=== PATIENT | female | born 1945 | race Caucasian/White ===

== ENCOUNTER 2016-05-11 11:05 | Inpatient (IN) | payer MEDICARE ==
[2016-05-11] MEDS ORDERED: FENTANYL CITRATE INJ/PF 100 MCG/2 ML AMPUL IV ONE ×2 (11:31→13:34)
--- NOTE | 2016-05-11 11:39 | ER Document Report ---
ED Fall - General Chief Complaint: Fall Stated Complaint: FALL;LEFT HIP PAIN Notes: Patient is a 71-year-old female presents emergency department after a fall this morning. Patient states that she was walking down the stairs and she slipped and fell down 3 stairs. States she hit her head and but complaining of right hip pain denies any headache or neck pain. States 9 and 15 pain to the right hip that is externally rotated and shortened. Was previously on blood thinners but hasn't taken any in a month. Allergies to codeine Past medical history significant for breast cancer currently on chemotherapy, diabetes, hypertension, fibromyalgia, anxiety, hyperlipidemia, treated DVT, history of cellulitis of the lower extremities Past surgery significant for tubal ligation, back surgery, bariatric surgery, left mastectomy - Related data Allergies/Adverse Reactions: codeine Allergy (Verified 05/11/16 12:04) Past Medical History - Social History Smoking Status: Never Smoker Family History: Reviewed & Not Pertinent Review of Systems - Review of Systems Constitutional: No symptoms reported EENT: No symptoms reported Cardiovascular: No symptoms reported Respiratory: No symptoms reported Gastrointestinal: No symptoms reported Genitourinary: No symptoms reported Female Genitourinary: No symptoms reported Musculoskeletal: See HPI Skin: No symptoms reported Hematologic/Lymphatic: No symptoms reported Neurological/Psychological: No symptoms reported Physical Exam - Vital signs Vitals: Temp Pulse Resp BP Pulse Ox 97.6 F 80 20 137/76 H 98 05/11/16 11:30 05/11/16 11:30 05/11/16 11:30 05/11/16 11:30 05/11/16 11:30 - Notes Notes: A: Airway clear, patient able to talk B: Breathing unlabored. Bilateral breath sounds clear to auscultation C: Radial, femoral, dorsalis pedis pulses are not palpable due to edema but would auscultate with Doppler and normal bilaterally D: GCS 15 E: Patient exposed, no additional deformities noted covered with warm blankets PHYSICAL EXAM GENERAL: Alert, interacts well. HEAD: Normocephalic, atraumatic. EYES: Pupils equal, round, and reactive to light. Extraocular movements intact. ENT: Oral mucosa moist, tongue midline. NECK: Not in a collar will not assess range of motion until CT completed Supple. Trachea midline. LUNGS: Clear to auscultation bilaterally, no wheezes, rales, or rhonchi. No respiratory distress. HEART: Regular rate and rhythm. No murmurs, gallops, or rubs. ABDOMEN: Soft, nondistended, nontender. No guarding, rebound, or rigidity.. Bowel sounds present in all 4 quadrants. EXTREMITIES: Externally rotated right lower extremity and shortened. Femoral pulses intact, pelvis stable. 2+ edema, radial and dorsalis pedis pulses 2/4 bilaterally. No cyanosis. NEUROLOGICAL: Alert and oriented x3. Normal speech. PSYCH: Normal affect, normal mood. SKIN: Warm, dry, normal turgor. No rashes or lesions noted. Course - Re-evaluation Re-evalutation: 05/11/16 13:36 Patient is a 71-year-old female who is hemodynamically stable, no acute distress and afebrile who presents after a fall this morning down flight of stairs. CT the head and neck were negative for injury, no evidence of vertebral fracture on x-ray. No evidence of pelvic fracture. Patient does have a right intertrochanteric fracture of the proximal femur. I have consulted Dr. Daryl Crowell orthopedist distribution district supervisor for evaluation. Patient is being admitted under hospitalist Dr. Scotty Carey with Dr. Crowell consultation. Discussed plan with patient who is agreeable. Patient is diabetic diet, nothing by mouth at midnight for or tomorrow. Patient is currently hemodynamically stable, no acute distress and afebrile tolerating pain well with doses of IV fentanyl Per [facility] protocol and guidelines, this case was discussed with supervising physician Dr. María Cueva prior to admission - Vital Signs Vital signs: Temp Pulse Resp BP Pulse Ox 97.6 F 80 20 137/76 H 98 05/11/16 11:30 05/11/16 11:30 05/11/16 11:30 05/11/16 11:30 05/11/16 11:30 - Laboratory Result Diagrams: 05/11/16 11:40 05/11/16 11:40 Laboratory results interpreted by me: 05/11/16 05/11/16 11:40 11:40 RBC 3.41 L Hgb 8.6 L Hct 26.9 L MCV 79 L MCH 25.2 L MCHC 31.8 L RDW 17.1 H BUN 25 H Est GFR ( Amer) 59 L Est GFR (Non-Af Amer) 49 L Glucose 201 H Calcium 8.2 L Alkaline Phosphatase 149 H Total Protein 5.5 L Albumin 2.8 L - Diagnostic Test Radiology reviewed: Image reviewed, Reports reviewed Discharge - Discharge Clinical Impression: Intertrochanteric fracture Qualifiers: Encounter type: initial encounter Fracture type: closed Fracture alignment: nondisplaced Laterality: right Qualified Code(s): S72.144A - Nondisplaced intertrochanteric fracture of right femur, initial encounter for closed fracture Condition: Good Disposition: ADMITTED INPATIENT Admitting Provider: Marc Childs [facility] Unit Admitted: Surgical Floor
[2016-05-11 11:49] LABS: ABSOLUTE BASOPHILS # (AUTO) 0.1 10^3/uL (0.0-0.2); ABSOLUTE LYMPHOCYTES (AUTO) 1.7 10^3/uL (0.5-4.7); ABSOLUTE MONOCYTES (AUTO) 0.6 10^3/uL (0.1-1.4); ABSOLUTE NEUT (AUTO) 3.5 10^3/uL (1.7-8.2); EOSINOPHILS % (AUTO) 0.4 % (0-6); HEMATOCRIT 26.9 % (36.0-47.0); HEMOGLOBIN 8.6 g/dL (12.0-15.5); HGB HCT DIFFERENCE -1.1; MEAN CORPUSCULAR HEMOGLOBIN 25.2 pg (27.0-33.4); MEAN CORPUSCULAR HGB CONC 31.8 g/dL (32.0-36.0); MEAN CORPUSCULAR VOLUME 79 fl (80-97); MONOCYTES % (AUTO) 9.5 % (3-13); RED BLOOD COUNT 3.41 10^6/uL (3.72-5.28); RED CELL DISTRIBUTION WIDTH 17.1 % (11.5-14.0); SEGMENTED NEUTROPHILS % (AUTO) 60.1 % (42-78); WHITE BLOOD COUNT 5.9 10^3/uL (4.0-10.5)
[2016-05-11 12:05] LABS: ALANINE AMINOTRANSFERASE 19 U/L (9-52); ALBUMIN 2.8 g/dL (3.5-5.0); ALKALINE PHOSPHATASE 149 U/L (38-126); ANION GAP 9 (5-19); ASPARTATE AMINO TRANSFERASE 15 U/L (14-36); BILIRUBIN,TOTAL 0.3 mg/dL (0.2-1.3); BLOOD UREA NITROGEN 25 mg/dL (7-20); CALCIUM 8.2 mg/dL (8.4-10.2); CARBON DIOXIDE 25 mmol/L (22-30); CHLORIDE 107 mmol/L (98-107); GLUCOSE 201 mg/dL (75-110); SODIUM 140.6 mmol/L (137-145); TOTAL PROTEIN 5.5 g/dL (6.3-8.2)
[2016-05-11 12:15] LABS: PROTHROMBIN TIME 13.7 SEC (11.4-15.4)
[2016-05-11] MEDS ORDERED: GLUCAGON,HUMAN RECOMB 1 MG INJ IM PRN (14:35)
[2016-05-11] MEDS ORDERED: DEXTROSE 50%-WATER 25 GM/50 ML DISP.SYRIN IV PRN ×2 (14:35)
[2016-05-11] MEDS ORDERED: DEXTROSE 40% GEL 15 GM TUBE PO PRN ×2 (14:35)
[2016-05-11] MEDS ORDERED: MAGNESIUM HYDROXIDE SUSP 30 ML UDCUP PO PRN (14:35)
[2016-05-11] MEDS ORDERED: ONDANSETRON HCL INJ/PF 4 MG/2 ML SDV IV PRN (14:35)
[2016-05-11] MEDS ORDERED: IPRATROPIUM/ALBUTEROL 0.5-2.5 MG/3 ML AMPUL NEB PRN (14:35)
--- NOTE | 2016-05-11 14:54 | PDOC H&P ---
History of Present Illness Admission Date/PCP: 05/11/16 14:10 JOVANA REZA NP Patient complains of: Right leg pain History of Present Illness: PROSPER ABREU is a 71 year old female presents from home to the emergency department by EMS after a fall at home. She states she missed the last 3 steps descending landing hard on her right side feeling an immediate sharp pain and inability to get up due to the pain. She called out for help and her family called EMS transporting her to the emergency department, where she was found to have a right intertrochanteric fracture and we were asked to admit for further evaluation and management. The patient has a history of left breast cancer metastatic to 2 out of 28 lymph nodes and to liver but sparing bony metastases per most recent PET CT and currently being treated by Dr. Branch at the cancer center in [place] having received chemotherapy just yesterday. She states she is also on chronic steroid as part of her chemotherapy. She has had multiple previous surgeries and never had any difficulty with general anesthesia or recovering from same. She was in her usual state of health with excellent metabolic equivalents prior to this event. She has diabetes and hypertension but no known coronary disease. She is a never smoker and no history of chronic lung disease. Past Medical History Cardiac Medical History: Reports: Hyperlipidema, Hypertension Denies: Myocardial Infarction Pulmonary Medical History: Denies: Chronic Obstructive Pulmonary Disease (COPD) Endocrine Medical History: Reports: Diabetes Mellitus Type 2 Past Surgical History Past Surgical History: Reports: Orthopedic Surgery - Back Sx, Tubal Ligation Social History Smoking Status: Never Smoker Frequency of Alcohol Use: None Hx Recreational Drug Use: No Hx Prescription Drug Abuse: No - Advance Directive Resuscitation Status: Full Code Family History Family History: Reviewed & Not Pertinent Parental Family History Reviewed: Yes Children Family History Reviewed: Yes Sibling(s) Family History Reviewed.: Yes Medication/Allergy Allergies/Adverse Reactions: codeine Allergy (Verified 05/11/16 12:04) Review of Systems Constitutional: ABSENT: chills, fever(s), headache(s), weight gain, weight loss Eyes: ABSENT: visual disturbances Ears: ABSENT: hearing changes Cardiovascular: ABSENT: chest pain, dyspnea on exertion, edema, orthropnea, palpitations Respiratory: ABSENT: cough, hemoptysis Gastrointestinal: ABSENT: abdominal pain, constipation, diarrhea, hematemesis, hematochezia, nausea, vomiting Genitourinary: ABSENT: dysuria, hematuria Musculoskeletal: PRESENT: as per HPI, joint swelling Integumentary: ABSENT: rash, wounds Neurological: ABSENT: abnormal gait, abnormal speech, confusion, dizziness, focal weakness, syncope Psychiatric: ABSENT: anxiety, depression Endocrine: ABSENT: cold intolerance, heat intolerance, polydipsia, polyuria Hematologic/Lymphatic: ABSENT: easy bleeding, easy bruising Physical Exam Vital Signs: Temp Pulse Resp BP Pulse Ox 97.6 F 80 20 137/76 H 98 05/11/16 11:30 05/11/16 11:30 05/11/16 11:30 05/11/16 11:30 05/11/16 11:30 PHYSICAL EXAM GENERAL: NAD; well developed, well nourished; no obese; alert and oriented to person, place, time, situation HEENT: normocephalic, atraumatic; EOMI, PERRLA, no conjunctival injection, no scleral icterus; oral mucosa moist, neck supple, no LAD, normal ROM RESPIRATORY: no accessory muscle use, no increased WOB, good air entry bilaterally; no wheezes, rales, rhonchi; no inspiratory crackles CARDIO: no JVD; RRR; no systolic murmur; no tachycardia VASCULAR: no carotid bruit; no abdominal bruit; no pallor; 2+ radial, DP pulse ; normal capillary refill GI: soft; nondistended; normal bowel sounds; no hepato spleno megaly; no rebound, rigidity, guarding; nontender NEURO: normal patella reflexes; normal sensation; normal motor function; no dysarthria; no nystagmus; tongue protrudes midline MSK: 5/5 strength; normal ROM hips; normally ambulatory without assistance; sharp tenderness to palpation over the right hip and along the right outer thigh without obvious edema or ecchymosis EXTREMITIES: no calf tender; no palpable cords in calf; no clubbing, cyanosis , pedal edema PSYCH: normal affect, normal mood SKIN: warm; moist; no petechiae; no telengectasias; no jaundice; no rash Results Laboratory Results: Labs reviewed, CBC shows a microcytic hypochromic anemia with an H&H of 8.6 and 27 and MCV is 79 and MCHC of 31 otherwise unremarkable, INR is normal, chemistry show BUN and creatinine 25 and 1.1, glucose of 201 LFTs largely unremarkable. Impressions: Cervical Spine CT 05/11/16 11:29 IMPRESSION: NO ACUTE OR SIGNIFICANT FINDINGS IN THE CERVICAL SPINE. Femur X-Ray 05/11/16 11:29 IMPRESSION: An intertrochanteric fracture of the proximal right femur is identified. No other evidence for fracture is seen Head CT 05/11/16 11:29 IMPRESSION: NORMAL BRAIN CT WITHOUT CONTRAST. Pelvis X-Ray 05/11/16 11:29 IMPRESSION: Intertrochanteric fracture of the proximal right femur. No other evidence for fracture is seen. Spine X-Ray 05/11/16 11:29 IMPRESSION: Limited study as noted above. No significant vertebral compressions are identified. No definite fractures are identified. Other findings as noted above Status: Image reviewed by me - Agree with radiology Assessment & Plan - Diagnosis (1) Intertrochanteric fracture Qualifiers: Encounter type: initial encounter Fracture type: closed Fracture alignment: nondisplaced Laterality: right Qualified Code(s): S72.144A - Nondisplaced intertrochanteric fracture of right femur, initial encounter for closed fracture Is this a current diagnosis for this admission?: YesPlan: Admitted to medical floor awaiting orthopedic evaluation. The patient has no known coronary disease and no underlying lung disease and therefore is low risk for perioperative cardiac event related to general anesthesia in this low risk, nonvascular surgery. (2) Diabetes Qualifiers: Diabetes mellitus type: type 2 Diabetes mellitus complication status: with unspecified complications Diabetes mellitus terminal system operator insulin use: without chcf use Qualified Code(s): E11.8 - Type 2 diabetes mellitus with unspecified complications Is this a current diagnosis for this admission?: YesPlan: Cover with sliding scale insulin. (3) Essential hypertension Is this a current diagnosis for this admission?: YesPlan: Continue home regimen and titrate to effect. We'll likely be worsened by pain from the fracture and from surgery. (4) Breast cancer metastasized to liver Qualifiers: Laterality: left Qualified Code(s): C50.912 - Malignant neoplasm of unspecified site of left female breast; C78.7 - Secondary malignant neoplasm of liver and intrahepatic bile duct Is this a current diagnosis for this admission?: YesPlan: Under the care of an oncologist. (5) Fibromyalgia Is this a current diagnosis for this admission?: YesPlan: We'll likely affect her ability to achieve pain control. (6) Chronic low back pain Qualifiers: Back pain laterality: bilateral Sciatica presence: with sciatica Sciatica laterality: bilateral sciatica Qualified Code(s): M54.42 - Lumbago with sciatica, left side; M54.41 - Lumbago with sciatica, right side; G89.29 - Other chronic pain Is this a current diagnosis for this admission?: YesPlan: Pain medicines as needed - Time Time Spent: 50 to 70 Minutes Medications reviewed and adjusted accordingly: Yes Anticipated discharge: Acute Rehab Within: within 72 hours - Inpatient Certification Medical Necessity: Need for Pain Control, Need for Surgery - Plan Summary Plan Summary: Patient should proceed with orthopedic surgical repair of her right intertrochanteric fracture, risks of perioperative cardiac event were described to the patient and she is willing to accept those risks.
[2016-05-11] MEDS ORDERED: NORMAL SALINE 250 ML IV PRN ×2 (15:16)
[2016-05-11] MEDS ORDERED: ENOXAPARIN SODIUM INJ 40 MG/0.4 ML DISP.SYRIN SUBCUT ONE (15:30)
[2016-05-11] MEDS: OXYCODONE-ACETAMINOPHEN 5-325 MG TABLET PO PRN (16:09)
--- NOTE | 2016-05-11 18:59 | PDOC CONSULTATION ---
History of Present Illness Admission Date/PCP: 05/11/16 14:10 JOVANA REZA NP History of Present Illness: PROSPER ABREU is a 71 year old female presents from home to the emergency department by EMS after a fall at home. She states she missed the last 3 steps descending landing hard on her right side feeling an immediate sharp pain and inability to get up due to the pain. She called out for help and her family called EMS transporting her to the emergency department, where she was found to have a right intertrochanteric fracture and we were asked to admit for further evaluation and management. Patient has 10/10 pain has improved slightly with morphine. Denies numbness or tingling. Pain worse with motion. Describes the pain as a sharp stabbing pain. Patient is a community ambulator denies antecedent hip pain. Has history of metastatic breast cancer for which she is being treated for currently. Past Medical History Cardiac Medical History: Reports: Hyperlipidema, Hypertension Denies: Myocardial Infarction Pulmonary Medical History: Denies: Chronic Obstructive Pulmonary Disease (COPD) Endocrine Medical History: Reports: Diabetes Mellitus Type 2 Malignancy Medical History: Reports: Breast Cancer Hematology: Reports: Other - DVT Past Surgical History Past Surgical History: Reports: Orthopedic Surgery - Back Sx, Tubal Ligation Social History Smoking Status: Never Smoker Frequency of Alcohol Use: None Hx Recreational Drug Use: No Hx Prescription Drug Abuse: No - Advance Directive Resuscitation Status: Full Code Family History Family History: Reviewed & Not Pertinent Parental Family History Reviewed: No Children Family History Reviewed: No Sibling(s) Family History Reviewed.: No Medication/Allergy Home Medications: Duloxetine HCl [Cymbalta] 60 mg PO BID 05/11/16 Furosemide [Lasix] 80 mg PO DAILY 05/11/16 Levothyroxine Sodium [Synthroid] 88 mcg PO DAILY 05/11/16 Lisinopril [Prinivil 10 mg Tablet] 10 mg PO DAILY 05/11/16 Metformin HCl [Metformin HCl ER] 2 tab PO DAILY 05/11/16 Oxycodone HCl/Acetaminophen [Percocet 5-325 mg Tablet] 1 tab PO Q6HP PRN Pantoprazole Sodium [Protonix] 40 mg PO BID 05/11/16 Pramipexole Di-HCl [Pramipexole Dihydrochloride] 0.25 mg PO QHS 05/11/16 Rivaroxaban [Xarelto] 20 mg PO DAILY 05/11/16 Simvastatin [Zocor 40 mg Tablet] 40 mg PO DAILY 05/11/16 Allergies/Adverse Reactions: codeine Allergy (Verified 05/11/16 12:04) Review of Systems Constitutional: ABSENT: chills, fever(s), headache(s), weight gain, weight loss Eyes: ABSENT: visual disturbances Ears: ABSENT: hearing changes Cardiovascular: ABSENT: chest pain, dyspnea on exertion, edema, orthropnea, palpitations Respiratory: ABSENT: cough, hemoptysis Gastrointestinal: ABSENT: abdominal pain, constipation, diarrhea, hematemesis, hematochezia, nausea, vomiting Genitourinary: ABSENT: dysuria, hematuria Integumentary: PRESENT: erythema, wounds. ABSENT: rash Neurological: ABSENT: abnormal gait, abnormal speech, confusion, dizziness, focal weakness, syncope Psychiatric: ABSENT: anxiety, depression, homidical ideation, suicidal ideation Endocrine: ABSENT: cold intolerance, heat intolerance, menstrual abnormalities, polydipsia, polyuria Hematologic/Lymphatic: ABSENT: easy bleeding, easy bruising, lymphadenopathy Physical Exam Vital Signs: Temp Pulse Resp BP Pulse Ox 97.6 F 80 20 137/76 H 98 05/11/16 11:30 05/11/16 11:30 05/11/16 11:30 05/11/16 11:30 05/11/16 11:30 General appearance: PRESENT: no acute distress, morbidly obese, well-developed, well-nourished Head exam: PRESENT: atraumatic, normocephalic Eye exam: PRESENT: conjunctiva pink, EOMI, PERRLA. ABSENT: scleral icterus Ear exam: PRESENT: normal external ear exam Mouth exam: PRESENT: moist, tongue midline Neck exam: PRESENT: full ROM. ABSENT: carotid bruit, JVD, lymphadenopathy, thyromegaly Respiratory exam: PRESENT: unlabored, other - Previous mastectomy scars Cardiovascular exam: PRESENT: RRR. ABSENT: diastolic murmur, rubs, systolic murmur Pulses: PRESENT: normal dorsalis pedis pul, +2 pedal pulses bilateral Vascular exam: PRESENT: normal capillary refill GI/Abdominal exam: PRESENT: normal bowel sounds, soft. ABSENT: distended, guarding, mass, organolmegaly, rebound, tenderness Rectal exam: PRESENT: deferred Extremities exam: PRESENT: other - Right LE: Short/ER, + Log Roll, Intact PF/DF , No sensory deficits, Ulceration Plantar 1st MTP Neurological exam: PRESENT: alert, awake, oriented to person, oriented to place , oriented to time, oriented to situation, CN II-XII grossly intact. ABSENT: motor sensory deficit Psychiatric exam: PRESENT: appropriate affect, normal mood. ABSENT: homicidal ideation, suicidal ideation Skin exam: PRESENT: dry, erythema - Bilateral LE, intact, warm. ABSENT: cyanosis, rash Results Impressions: Cervical Spine CT 05/11/16 11:29 IMPRESSION: NO ACUTE OR SIGNIFICANT FINDINGS IN THE CERVICAL SPINE. Femur X-Ray 05/11/16 11:29 IMPRESSION: An intertrochanteric fracture of the proximal right femur is identified. No other evidence for fracture is seen Head CT 05/11/16 11:29 IMPRESSION: NORMAL BRAIN CT WITHOUT CONTRAST. Pelvis X-Ray 05/11/16 11:29 IMPRESSION: Intertrochanteric fracture of the proximal right femur. No other evidence for fracture is seen. Spine X-Ray 05/11/16 11:29 IMPRESSION: Limited study as noted above. No significant vertebral compressions are identified. No definite fractures are identified. Other findings as noted above Assessment & Plan - Diagnosis (1) Fracture, intertrochanteric, right femur Qualifiers: Encounter type: initial encounter Fracture type: closed Qualified Code(s): S72.141A - Displaced intertrochanteric fracture of right femur, initial encounter for closed fracture Is this a current diagnosis for this admission?: YesPlan: I have discussed radiographic findings with the patient given her good mental status and the fact she is actually ambulating lives at home independently I have recommended operative intervention which includes right cephalo-medullary nail. Patient understands she is at high risk patient given her multiple comorbidities. We will also send bone for pathology given her history of metastatic cancer there is no evidence of pathologic lesion on radiographs. I discussed in detail patient surgical intervention and postoperative prognosis and expectations. Risks include Anesthetic complications, excessive bleeding, infection, injury to surrounding nerves, vessels and tendons, bruising, healing difficulties, scar formation, posttraumatic arthritis and any unforseen complication. Patient hemoglobin is 8.6 and thus will receive 1 unit of packed red blood cells preoperatively anticipating possible lower numbers after surgical intervention.
[2016-05-11] MEDS: ACETAMINOPHEN 325 MG TABLET PO PRN (19:33)
[2016-05-11] MEDS: MORPHINE SULFATE 10 MG/ML INJ IV PRN (22:30)
[2016-05-11] MEDS: FAMOTIDINE 20 MG TABLET PO SCH (22:31)
--- NOTE | 2016-05-11 23:35 | EKG REPORT ---
SEVERITY:- NORMAL ECG - SINUS RHYTHM : Confirmed by: Deb Mora MD 11-May-2016 23:34:39
[2016-05-12] MEDS: OXYCODONE-ACETAMINOPHEN 5-325 MG TABLET PO PRN ×4 (00:35→20:07)
[2016-05-12] MEDS: MORPHINE SULFATE 10 MG/ML INJ IV PRN ×2 (05:38→15:31)
[2016-05-12] MEDS: RINGERS SOLUTION,LACTATED 1,000 ML IV PRN (05:44)
[2016-05-12 06:27] LABS: ABSOLUTE EOSINOPHILS # (AUTO) 0.1 10^3/uL (0.0-0.6); ABSOLUTE LYMPHOCYTES (AUTO) 1.7 10^3/uL (0.5-4.7); ABSOLUTE MONOCYTES (AUTO) 0.6 10^3/uL (0.1-1.4); BASOPHILS % (AUTO) 0.7 % (0-2); EOSINOPHILS % (AUTO) 1.4 % (0-6); HEMATOCRIT 29.4 % (36.0-47.0); HEMOGLOBIN 9.3 g/dL (12.0-15.5); HGB HCT DIFFERENCE -1.5; LYMPHOCYTES % (AUTO) 31.2 % (13-45); MEAN CORPUSCULAR HGB CONC 31.8 g/dL (32.0-36.0); MEAN CORPUSCULAR VOLUME 82 fl (80-97); RED CELL DISTRIBUTION WIDTH 17.9 % (11.5-14.0); SEGMENTED NEUTROPHILS % (AUTO) 55.7 % (42-78); WHITE BLOOD COUNT 5.5 10^3/uL (4.0-10.5)
[2016-05-12] MEDS ORDERED: FENTANYL CITRATE INJ/PF 100 MCG/2 ML AMPUL ONE (07:49)
[2016-05-12] MEDS ORDERED: EPHEDRINE SULFATE INJ 50 MG/1 ML AMPULE ONE (07:50)
[2016-05-12] MEDS ORDERED: PROPOFOL INJ 200 MG/20 ML VIAL IV ONE (07:50)
[2016-05-12] MEDS ORDERED: MIDAZOLAM 2 MG/2 ML INJ ONE (07:50)
[2016-05-12] MEDS ORDERED: ACETAMINOPHEN 100 ML IV ONE ×2 (07:50→16:30)
[2016-05-12] MEDS ORDERED: DEXMEDETOMIDINE INJ 80 MCG/20 ML VIAL IV ONE (07:50)
[2016-05-12] MEDS ORDERED: KETAMINE HCL INJ 500 MG/10 ML VIAL ONE (07:56)
[2016-05-12] MEDS ORDERED: CEFAZOLIN INJ 1 GM VIAL ONE (07:57)
[2016-05-12] MEDS ORDERED: ONDANSETRON HCL INJ/PF 4 MG/2 ML SDV ONE (08:16)
[2016-05-12] MEDS ORDERED: LIDOCAINE 2% INJ-PF (20 MG/ML) 10 ML AMPUL ONE (08:16)
[2016-05-12] MEDS ORDERED: PHENYLEPHRINE HCL INJ/PF 10 MG/1 ML SDV ONE (08:16)
[2016-05-12] MEDS ORDERED: METOCLOPRAMIDE HCL INJ/PF 10 MG/2 ML SDV ONE (08:16)
[2016-05-12] MEDS ORDERED: PROMETHAZINE HCL INJ 25 MG/1 ML VIAL IV PRN ×2 (09:13)
[2016-05-12] MEDS ORDERED: MORPHINE SULFATE 10 MG/ML INJ IV PRN (09:13)
[2016-05-12] MEDS ORDERED: DIPHENHYDRAMINE HCL 50 MG/ML VIAL IV PRN ×2 (09:13→10:26)
[2016-05-12] MEDS ORDERED: FENTANYL CITRATE INJ/PF 100 MCG/2 ML AMPUL IV PRN ×3 (09:13)
[2016-05-12] MEDS ORDERED: MEPERIDINE HCL/PF INJ 25 MG/1 ML DISP.SYRIN IV PRN (09:13)
--- NOTE | 2016-05-12 10:24 | Operative Report ---
Operative Report DATE OF SURGERY: 05/12/16 PREOPERATIVE DIAGNOSIS: Right Intertrochanteric Femur Fracture POSTOPERATIVE DIAGNOSIS: Same OPERATION: Cephalomedullary Nail Right Proximal Femur SURGEON: SOLA BALDERAS ANESTHESIA: GA TISSUE REMOVED OR ALTERED: Bone to pathology COMPLICATIONS: None ESTIMATED BLOOD LOSS: 75cc PROCEDURE: Indication for above procedure: 71-year-old female who sustained a fall onto her right hip. Patient has history of metastatic breast CA denied antecedent hip pain. After fall she New she broke her hip. She had pain with deformity and inability to weight- bear. She was brought by EMS to the emergency room where x-rays demonstrated intertrochanteric fracture. At that point we discussed treatment options including operative versus nonoperative intervention. Risks and benefits were explained to the patient and family patient verbalized understanding consented for the procedure. Procedure in detail Patient was seen and evaluated in the preoperative holding area. The right lower extremity was initialized and marked. Patient received 2 g Ancef IV for bacterial prophylaxis. Patient was taken back to the operative room where transferred operative table. Patient was placed under spinal anesthesia. Once adequate anesthetized he was carefully placed onto the hip positioner the nonoperative lower extremity and bilateral upper extremities were carefully padded and the peroneal nerve was padded and on the nonoperative extremity. The operative extremity was placed in a traction along with adduction and internal rotation. A surgical team debriefing was performed ensuring all instrumentation was available, the surgical procedure was discussed with possible concerns reviewed. A timeout was done identifying correct patient, procedure and extremity everyone in attendance agree with this and verbalized no concerns. Reduction maneuver with the use of the hip traction table were done and C-arm fluoroscopy was used to confirm optimal reduction of the intertrochanteric fracture. Once this was confirmed the lower extremity was prepped with chlor prep and draped in a sterile fashion. At this point a small skin incision was made proximal to the greater trochanter. The guidewire was placed onto the tip of the trochanter advanced down to the level of the lesser trochanter. AP and lateral fluoroscopy was used to confirm appropriate placement of the guidewire. The skin incision was then extended and the underlying fascia opened up carefully to the tip of the greater trochanter. The entry reamer was then used and advanced to the level of the lesser trochanter. Given patient's history of metastatic breast CA despite no pathologic findings on radiographs decision was made to proceed with a long cephalo-medullary nail. A Frederick long gamma nail was opened up and placed onto the aiming arm and advanced down the shaft of the femur. AP and lateral fluoroscopy was then used to confirm appropriate placement of the nail. Then turned my attention to the compression screw fixation in the femoral head. The trochars were advanced to the skin, a skin incision was made, careful dissection down to the fascia to the lateral femoral cortex was then partaken. The guidewire was then used and placed in the center center position with the tip apex distance less than 25 mm. Once this position was obtained the size of the compression screw was measured. AP and lateral fluoroscopy used to confirm appropriate placement of our guide wire. The step reamer was used to drill up through the femoral neck and head. I then carefully advanced the compression screw into position. AP and lateral fluoroscopy was done to confirm appropriate placement of the compression screw this was then locked into position proximally. The compression screw was then disengaged from its mounting device and the guidewire was removed. Lastly proceeded with locking of the nail distally. With the use of C-arm perfect circles were obtained distally. 2 stab incisions were made blunt dissection was performed down to the lateral cortex of the femur. The oblong hole metastatic colon were drilled and appropriate placement was confirmed with C-arm. 2 appropriate sized distal locking screws were then placed. Wounds were irrigated with normal saline. The deep tissues were closed with 0 Vicryl suture, subcutaneous tissues were closed with 3-0 Monocryl suture. The skin was closed a running 3-0 subcuticular Monocryl suture and reinforced with Dermabond & Steri-Strips. A dressing was placed. Sponge counts, instrument counts and needle counts were correct. Patient was then transferred from the operating room table to the operating room stretcher. The was no intraoperative complications patient tolerated procedure well was stable to PACU. Implants used: [place] 11 x 420 mm 125 Short Gamma Nail with a 100 mm compression screw Postoperative plan: Patient will begin physical therapy on postop day #1 with Heparin.
[2016-05-12] MEDS ORDERED: RINGERS SOLUTION,LACTATED 1,000 ML IV PRN (10:26)
[2016-05-12] MEDS ORDERED: ONDANSETRON 4 MG TAB.RAPDIS PO PRN (10:26)
[2016-05-12] MEDS: FAMOTIDINE 20 MG TABLET PO SCH ×2 (12:10→21:20)
[2016-05-12] MEDS: DOCUSATE SODIUM 100 MG CAPSULE PO SCH (12:11)
[2016-05-12] MEDS: ACETAMINOPHEN 325 MG TABLET PO PRN (12:11)
[2016-05-12] MEDS: CEFAZOLIN 2 GM/D5W RTU 50 ML IV SCH ×3 (12:12→23:14)
[2016-05-12] MEDS: ENOXAPARIN SODIUM INJ 40 MG/0.4 ML DISP.SYRIN SUBCUT SCH (15:35)
[2016-05-12] MEDS: OXYCODONE HCL IR 5 MG TABLET PO PRN ×2 (16:42→23:14)
--- NOTE | 2016-05-12 17:01 | PDOC PROGRESS REPORT ---
Subjective Progress Note for:: 05/12/16 Subjective:: Reason for visit: Follow up femur fracture Hospital course: PROSPER ABREU is a 71 year old female presents from home to the emergency department by EMS after a fall at home. She states she missed the last 3 steps descending landing hard on her right side feeling an immediate sharp pain and inability to get up due to the pain. She called out for help and her family called EMS transporting her to the emergency department, where she was found to have a right intertrochanteric fracture and we were asked to admit for further evaluation and management. The patient has a history of left breast cancer metastatic to 2 out of 28 lymph nodes and to liver but sparing bony metastases per most recent PET CT and currently being treated by Dr. Branch at the cancer center in [place] having received chemotherapy just yesterday. She states she is also on chronic steroid as part of her chemotherapy. She has had multiple previous surgeries and never had any difficulty with general anesthesia or recovering from same. She was in her usual state of health with excellent metabolic equivalents prior to this event. She has diabetes and hypertension but no known coronary disease. She is a never smoker and no history of chronic lung disease. Patient underwent successful ORIF of her intertrochanteric fracture this morning and has awakened from general anesthesia without consultation. I found her resting in the bed but she is complaining of sharp, shooting pain down from the surgical site into her right foot, worse with any movement of the leg, not alleviated by the current pain regimen or rest and no associated symptoms. ROS: She denies chest pain, palpitations, dyspnea, fever/chills, nausea vomiting ; plus a total of 10 systems reviewed, pertinent positives and negatives noted above, remaining systems negative. Physical Exam Vital Signs: Temp Pulse Resp BP Pulse Ox 99.2 F 95 16 136/56 H 99 05/12/16 15:35 05/12/16 15:35 05/12/16 15:35 05/12/16 15:35 05/12/16 15:35 Intake & Output 05/11/16 05/12/16 05/13/16 06:59 06:59 06:59 Intake Total 1240 1630 Output Total 1000 700 Balance 240 930 Weight 84.6 kg PHYSICAL EXAM GENERAL: NAD; well developed, well nourished; no obese; alert and oriented to person, place, time, situation HEENT: no conjunctival injection, no scleral icterus; oral mucosa moist, neck supple, RESPIRATORY: no accessory muscle use, no increased WOB, good air entry bilaterally; no wheezes, rales, rhonchi; no inspiratory crackles CARDIO: no JVD; RRR; no systolic murmur; no tachycardia VASCULAR: no pallor; 2+ radial, DP pulse; diminished capillary refill at the great toes GI: soft; nondistended; normal bowel sounds; no hepato spleno megaly; no rebound, rigidity, guarding; nontender NEURO: Diminished sensation bilateral below the knee, chronic neuropathy; no dysarthria; no nystagmus; tongue protrudes midline MSK: 5/5 strength; sharp tenderness to palpation over the right hip and along the right outer thigh without obvious edema or ecchymosis, surgical wounds clean dry and intact EXTREMITIES: no calf tender; no palpable cords in calf; no clubbing, cyanosis , pedal edema PSYCH: normal affect, normal mood SKIN: warm; moist; no petechiae; no telengectasias; no jaundice; Results Laboratory Results: 05/12/16 05:32 05/12/16 05:32 WBC 5.5 RBC 3.60 L Hgb 9.3 L Hct 29.4 L MCV 82 MCH 26.0 L MCHC 31.8 L RDW 17.9 H Plt Count 134 L Seg Neutrophils % 55.7 Lymphocytes % 31.2 Monocytes % 11.0 Eosinophils % 1.4 Basophils % 0.7 Absolute Neutrophils 3.0 Absolute Lymphocytes 1.7 Absolute Monocytes 0.6 Absolute Eosinophils 0.1 Absolute Basophils 0.0 Impressions: Femur X-Ray 05/12/16 00:00 IMPRESSION: IMAGE(S) OBTAINED DURING PROCEDURE. Fluoroscopy 05/12/16 00:00 IMPRESSION: IMAGE(S) OBTAINED DURING PROCEDURE. Assessment & Plan - Diagnosis (1) Intertrochanteric fracture Qualifiers: Encounter type: initial encounter Fracture type: closed Fracture alignment: nondisplaced Laterality: right Qualified Code(s): S72.144A - Nondisplaced intertrochanteric fracture of right femur, initial encounter for closed fracture Is this a current diagnosis for this admission?: YesPlan: Status post surgical repair, wound care, weight-bearing status, rehabilitation discharge per orthopedic surgery. (2) Diabetes Qualifiers: Diabetes mellitus type: type 2 Diabetes mellitus complication status: with unspecified complications Diabetes mellitus director long term care insulin use: without alf use Qualified Code(s): E11.8 - Type 2 diabetes mellitus with unspecified complications; Z79.4 - director long term care (current) use of insulin Is this a current diagnosis for this admission?: YesPlan: Cover with sliding scale insulin. (3) Essential hypertension Is this a current diagnosis for this admission?: YesPlan: Continue home regimen and titrate to effect. (4) Breast cancer metastasized to liver Qualifiers: Laterality: left Qualified Code(s): C50.912 - Malignant neoplasm of unspecified site of left female breast; C78.7 - Secondary malignant neoplasm of liver and intrahepatic bile duct Is this a current diagnosis for this admission?: YesPlan: Under the care of an oncologist. (5) Fibromyalgia Is this a current diagnosis for this admission?: Yes (6) Chronic low back pain Qualifiers: Back pain laterality: bilateral Sciatica presence: with sciatica Sciatica laterality: bilateral sciatica Qualified Code(s): M54.42 - Lumbago with sciatica, left side; G89.29 - Other chronic pain Is this a current diagnosis for this admission?: Yes - Time Time Spent with patient: 25-34 minutes Medications reviewed and adjusted accordingly: Yes Anticipated discharge: Acute Rehab Within: within 48 hours
[2016-05-12] MEDS: INSULIN LISPRO 100 UNIT/ML 3 ML VIAL SUBCUT PRN ×2 (18:30→21:21)
[2016-05-12] MEDS: DULOXETINE HCL 30 MG CAPSULE.DR PO SCH (21:20)
[2016-05-12] MEDS: OXYCODONE HCL SR 10 MG TABLET PO SCH (21:21)
[2016-05-12] MEDS: PRAMIPEXOLE DI-HCL 0.25 MG TABLET PO SCH (21:23)
[2016-05-13] MEDS: OXYCODONE-ACETAMINOPHEN 5-325 MG TABLET PO PRN ×2 (03:55→12:14)
[2016-05-13] MEDS: CEFAZOLIN 2 GM/D5W RTU 50 ML IV SCH ×4 (05:54→23:38)
[2016-05-13] MEDS: ACETAMINOPHEN 325 MG TABLET PO PRN (05:54)
[2016-05-13 05:56] LABS: HEMATOCRIT 23.6 % (36.0-47.0); HGB HCT DIFFERENCE -1.1; MEAN CORPUSCULAR HEMOGLOBIN 25.6 pg (27.0-33.4); MEAN CORPUSCULAR HGB CONC 31.8 g/dL (32.0-36.0); MEAN CORPUSCULAR VOLUME 80 fl (80-97); RED BLOOD COUNT 2.93 10^6/uL (3.72-5.28); RED CELL DISTRIBUTION WIDTH 18.1 % (11.5-14.0); WHITE BLOOD COUNT 6.7 10^3/uL (4.0-10.5)
[2016-05-13 06:18] LABS: HEMOGLOBIN 7.5 g/dL (12.0-15.5)
[2016-05-13 06:21] LABS: ANION GAP 6 (5-19); BLOOD UREA NITROGEN 11 mg/dL (7-20); CALCIUM 7.6 mg/dL (8.4-10.2); CARBON DIOXIDE 26 mmol/L (22-30); CHLORIDE 104 mmol/L (98-107); CREATININE RESULT 0.84 mg/dL (0.52-1.25); GLUCOSE 182 mg/dL (75-110); POTASSIUM 3.7 mmol/L (3.6-5.0); SODIUM 135.6 mmol/L (137-145)
[2016-05-13] MEDS ORDERED: NORMAL SALINE 250 ML IV PRN ×2 (07:30)
[2016-05-13] MEDS: LANSOPRAZOLE 30 MG TAB.RAP.DR PO SCH ×2 (08:50→17:29)
[2016-05-13] MEDS: INSULIN LISPRO 100 UNIT/ML 3 ML VIAL SUBCUT PRN ×2 (08:50→17:29)
[2016-05-13] MEDS: ENOXAPARIN SODIUM INJ 40 MG/0.4 ML DISP.SYRIN SUBCUT SCH (08:50)
[2016-05-13 09:08] LABS: FOLATE 6.22 ng/mL (>2.76)
[2016-05-13] MEDS: OXYCODONE HCL SR 10 MG TABLET PO SCH ×2 (10:15→21:26)
[2016-05-13] MEDS: DULOXETINE HCL 30 MG CAPSULE.DR PO SCH ×2 (10:16→21:24)
[2016-05-13] MEDS: FAMOTIDINE 20 MG TABLET PO SCH ×2 (10:16→21:25)
[2016-05-13] MEDS: LEVOTHYROXINE SODIUM 0.088 MG TABLET PO SCH (10:16)
[2016-05-13] MEDS: DOCUSATE SODIUM 100 MG CAPSULE PO SCH (10:16)
--- NOTE | 2016-05-13 13:07 | PDOC PROGRESS REPORT ---
Subjective Progress Note for:: 05/13/16 Subjective:: Patient lying in bed. She continues to complain of pain. She states she takes Percocet 4 times a day and currently is on the same dose is not having her pain relieved. Denies fever chills or sweats. Physical Exam Vital Signs: Temp Pulse Resp BP Pulse Ox 98.2 F 85 20 125/52 L 96 05/13/16 12:45 05/13/16 12:45 05/13/16 12:45 05/13/16 12:45 05/13/16 12:45 Intake & Output 05/12/16 05/13/16 05/14/16 06:59 06:59 06:59 Intake Total 1240 2676 0 Output Total 1000 2300 Balance 240 376 0 Weight 84.6 kg Musculoskeletal exam: PRESENT: other - Right hip: Dressing clean/dry/intact intact plantar flexion/dorsiflexion. Mild thigh swelling. No calf tenderness. Results Laboratory Results: 05/13/16 05:30 05/13/16 05:30 05/13/16 05/13/16 05/13/16 05:30 05:30 05:30 WBC 6.7 RBC 2.93 L Hgb 7.5 L Hct 23.6 L MCV 80 MCH 25.6 L MCHC 31.8 L RDW 18.1 H Plt Count 113 L Retic Count (auto) 1.59 Absolute Retic 0.046 Sodium 135.6 L Potassium 3.7 Chloride 104 Carbon Dioxide 26 Anion Gap 6 BUN 11 Creatinine 0.84 Est GFR ( Amer) > 60 Est GFR (Non-Af Amer) > 60 Glucose 182 H Calcium 7.6 L Iron TIBC % Saturation Ferritin Vitamin B12 Folate 05/13/16 05:30 WBC RBC Hgb Hct MCV MCH MCHC RDW Plt Count Retic Count (auto) Absolute Retic Sodium Potassium Chloride Carbon Dioxide Anion Gap BUN Creatinine Est GFR ( Amer) Est GFR (Non-Af Amer) Glucose Calcium Iron < 10.0 L TIBC 263 % Saturation UNABLE TO CALCULATE Ferritin 13.10 Vitamin B12 249.0 Folate 6.22 Impressions: Chest X-Ray 05/11/16 00:00 IMPRESSION: NO ACUTE RADIOGRAPHIC FINDING IN THE CHEST. Cervical Spine CT 05/11/16 11:29 IMPRESSION: NO ACUTE OR SIGNIFICANT FINDINGS IN THE CERVICAL SPINE. Head CT 05/11/16 11:29 IMPRESSION: NORMAL BRAIN CT WITHOUT CONTRAST. Pelvis X-Ray 05/11/16 11:29 IMPRESSION: Intertrochanteric fracture of the proximal right femur. No other evidence for fracture is seen. Spine X-Ray 05/11/16 11:29 IMPRESSION: Limited study as noted above. No significant vertebral compressions are identified. No definite fractures are identified. Other findings as noted above Femur X-Ray 05/12/16 00:00 IMPRESSION: IMAGE(S) OBTAINED DURING PROCEDURE. Fluoroscopy 05/12/16 00:00 IMPRESSION: IMAGE(S) OBTAINED DURING PROCEDURE. Assessment & Plan - Diagnosis (1) Fracture, intertrochanteric, right femur Qualifiers: Encounter type: initial encounter Fracture type: closed Qualified Code(s): S72.141A - Displaced intertrochanteric fracture of right femur, initial encounter for closed fracture Is this a current diagnosis for this admission?: YesPlan: Status post right hip IM nail #1 pain control will increased doses of oxycodone. #2 Lovenox for DVT prophylaxis #3 acute on chronic anemia patient will receive [facility] blood cells. #4 discharge planning to group home facility in bed available
--- NOTE | 2016-05-13 14:00 | PDOC PROGRESS REPORT ---
Subjective Progress Note for:: 05/13/16 Subjective:: Reason for visit: Follow up femur fracture Hospital course: PROSPER ABREU is a 71 year old female presents from home to the emergency department by EMS after a fall at home. She states she missed the last 3 steps descending landing hard on her right side feeling an immediate sharp pain and inability to get up due to the pain. She called out for help and her family called EMS transporting her to the emergency department, where she was found to have a right intertrochanteric fracture and we were asked to admit for further evaluation and management. The patient has a history of left breast cancer metastatic to 2 out of 28 lymph nodes and to liver but sparing bony metastases per most recent PET CT and currently being treated by Dr. Branch at the cancer center in [place] having received chemotherapy just yesterday. She states she is also on chronic steroid as part of her chemotherapy. She has had multiple previous surgeries and never had any difficulty with general anesthesia or recovering from same. She was in her usual state of health with excellent metabolic equivalents prior to this event. She has diabetes and hypertension but no known coronary disease. She is a never smoker and no history of chronic lung disease. Patient underwent successful ORIF of her intertrochanteric fracture this morning and has awakened from general anesthesia without consultation. ROS: She denies chest pain, palpitations, dyspnea, fever/chills, nausea vomiting ; plus a total of 10 systems reviewed, pertinent positives and negatives noted above, remaining systems negative. States her pain is tolerable but could be better controlled. Physical Exam Vital Signs: Temp Pulse Resp BP Pulse Ox 98.2 F 85 20 125/52 L 96 05/13/16 12:45 05/13/16 12:45 05/13/16 12:45 05/13/16 12:45 05/13/16 12:45 Intake & Output 05/12/16 05/13/16 05/14/16 06:59 06:59 06:59 Intake Total 1240 2676 0 Output Total 1000 2300 Balance 240 376 0 Weight 84.6 kg PHYSICAL EXAM GENERAL: NAD; well developed, well nourished; no obese; alert and oriented to person, place, time, situation HEENT: no conjunctival injection, no scleral icterus; oral mucosa moist, neck supple, RESPIRATORY: no accessory muscle use, no increased WOB, good air entry bilaterally; no wheezes, rales, rhonchi; no inspiratory crackles CARDIO: no JVD; RRR; no systolic murmur; no tachycardia VASCULAR: no pallor; 2+ radial, DP pulse; diminished capillary refill at the great toes GI: soft; nondistended; normal bowel sounds; no rebound, rigidity, guarding; nontender NEURO: Diminished sensation bilateral below the knee, chronic neuropathy; no dysarthria; no nystagmus; tongue protrudes midline MSK: 5/5 strength; improved sharp tenderness to palpation over the right hip and along the right outer thigh without obvious edema or ecchymosis, surgical wounds clean dry and intact EXTREMITIES: no calf tender; no palpable cords in calf; no clubbing, cyanosis , pedal edema PSYCH: normal affect, normal mood SKIN: warm; moist; no petechiae; no telengectasias; no jaundice; Results Laboratory Results: 05/13/16 05:30 05/13/16 05:30 05/13/16 05/13/16 05/13/16 05:30 05:30 05:30 WBC 6.7 RBC 2.93 L Hgb 7.5 L Hct 23.6 L MCV 80 MCH 25.6 L MCHC 31.8 L RDW 18.1 H Plt Count 113 L Retic Count (auto) 1.59 Absolute Retic 0.046 Sodium 135.6 L Potassium 3.7 Chloride 104 Carbon Dioxide 26 Anion Gap 6 BUN 11 Creatinine 0.84 Est GFR ( Amer) > 60 Est GFR (Non-Af Amer) > 60 Glucose 182 H Calcium 7.6 L Iron TIBC % Saturation Ferritin Vitamin B12 Folate 05/13/16 05:30 WBC RBC Hgb Hct MCV MCH MCHC RDW Plt Count Retic Count (auto) Absolute Retic Sodium Potassium Chloride Carbon Dioxide Anion Gap BUN Creatinine Est GFR ( Amer) Est GFR (Non-Af Amer) Glucose Calcium Iron < 10.0 L TIBC 263 % Saturation UNABLE TO CALCULATE Ferritin 13.10 Vitamin B12 249.0 Folate 6.22 Labs reviewed, H&H dropping without any obvious blood loss aside from what may have occurred during surgery, iron is very low. Assessment & Plan - Diagnosis (1) Intertrochanteric fracture Qualifiers: Encounter type: initial encounter Fracture type: closed Fracture alignment: nondisplaced Laterality: right Qualified Code(s): S72.144A - Nondisplaced intertrochanteric fracture of right femur, initial encounter for closed fracture Is this a current diagnosis for this admission?: YesPlan: Status post surgical repair, wound care, weight-bearing status, rehabilitation discharge per orthopedic surgery. (2) Diabetes Qualifiers: Diabetes mellitus type: type 2 Diabetes mellitus complication status: with unspecified complications Diabetes mellitus group home insulin use: without traffic analysis technician use Qualified Code(s): E11.8 - Type 2 diabetes mellitus with unspecified complications; Z79.4 - racket stringer (current) use of insulin Is this a current diagnosis for this admission?: Yes (3) Essential hypertension Is this a current diagnosis for this admission?: Yes (4) Breast cancer metastasized to liver Qualifiers: Laterality: left Qualified Code(s): C50.912 - Malignant neoplasm of unspecified site of left female breast; C78.7 - Secondary malignant neoplasm of liver and intrahepatic bile duct Is this a current diagnosis for this admission?: Yes (5) Fibromyalgia Is this a current diagnosis for this admission?: Yes (6) Chronic low back pain Qualifiers: Back pain laterality: bilateral Sciatica presence: with sciatica Sciatica laterality: bilateral sciatica Qualified Code(s): M54.42 - Lumbago with sciatica, left side; G89.29 - Other chronic pain Is this a current diagnosis for this admission?: Yes (7) Iron deficiency anemia Qualifiers: Iron deficiency anemia type: unspecified iron deficiency Qualified Code(s): D50.9 - Iron deficiency anemia, unspecified Is this a current diagnosis for this admission?: YesPlan: Transfuse 2 units packed red blood cells and 100 mg of iron sucrose. Start oral replacement therapy. - Time Time Spent with patient: 25-34 minutes
[2016-05-13] MEDS: LISINOPRIL 10 MG TABLET PO SCH (14:08)
[2016-05-13] MEDS ORDERED: IRON SUCROSE COMPLEX 100 MG in NORMAL SALINE 100 ML IV ONE (16:00)
[2016-05-13] MEDS ORDERED: IRON SUCROSE COMPLEX INJ/PF 100 MG/5 ML SDV IV ONE (16:00)
[2016-05-13] MEDS ORDERED: IRON SUCROSE COMPLEX INJ/PF 100 MG/5 ML SDV IV PRN (16:47)
[2016-05-13] MEDS: FERROUS SULFATE 325 MG TABLET PO SCH (17:29)
[2016-05-13] MEDS: OXYCODONE HCL IR 5 MG TABLET PO PRN (17:29)
[2016-05-13] MEDS: PRAMIPEXOLE DI-HCL 0.25 MG TABLET PO SCH (21:25)
[2016-05-13 21:54] LABS: ABSOLUTE BASOPHILS # (AUTO) 0.1 10^3/uL (0.0-0.2); ABSOLUTE EOSINOPHILS # (AUTO) 0.1 10^3/uL (0.0-0.6); ABSOLUTE LYMPHOCYTES (AUTO) 1.1 10^3/uL (0.5-4.7); ABSOLUTE NEUT (AUTO) 4.9 10^3/uL (1.7-8.2); BASOPHILS % (AUTO) 0.8 % (0-2); EOSINOPHILS % (AUTO) 1.7 % (0-6); HEMATOCRIT 30.9 % (36.0-47.0); HGB HCT DIFFERENCE -0.6; LYMPHOCYTES % (AUTO) 15.4 % (13-45); MEAN CORPUSCULAR HEMOGLOBIN 26.3 pg (27.0-33.4); MEAN CORPUSCULAR HGB CONC 32.7 g/dL (32.0-36.0); MEAN CORPUSCULAR VOLUME 81 fl (80-97); MONOCYTES % (AUTO) 13.3 % (3-13); RED BLOOD COUNT 3.84 10^6/uL (3.72-5.28); RED CELL DISTRIBUTION WIDTH 17.1 % (11.5-14.0); SEGMENTED NEUTROPHILS % (AUTO) 68.8 % (42-78); WHITE BLOOD COUNT 7.2 10^3/uL (4.0-10.5)
[2016-05-13 22:13] LABS: HEMOGLOBIN 10.1 g/dL (12.0-15.5)
[2016-05-14] MEDS: CEFAZOLIN 2 GM/D5W RTU 50 ML IV SCH ×4 (05:32→23:03)
--- NOTE | 2016-05-14 07:48 | PDOC PROGRESS REPORT ---
Subjective Progress Note for:: 05/14/16 Subjective:: Patient seen and evaluated this morning. Lying in bed comfortable. Issues overnight. States pain has improved. Physical Exam Vital Signs: Temp Pulse Resp BP Pulse Ox 98.6 F 87 18 136/66 H 99 05/13/16 19:22 05/13/16 19:22 05/13/16 19:22 05/13/16 19:22 05/13/16 19:22 Intake & Output 05/13/16 05/14/16 05/15/16 06:59 06:59 06:59 Intake Total 2676 1456 Output Total 2300 800 Balance 376 656 Musculoskeletal exam: PRESENT: other - Right lower extremity: Dressing clean/dry /intact. Mild thigh swelling. Intact plantar flexion/dorsiflexion. No sensory deficits. No calf tenderness. Results Laboratory Results: 05/13/16 21:30 05/13/16 05:30 05/13/16 05/13/16 05/13/16 05:30 05:30 21:30 WBC 7.2 RBC 3.84 Hgb 10.1 L D Hct 30.9 L MCV 81 MCH 26.3 L MCHC 32.7 RDW 17.1 H Plt Count 109 L Seg Neutrophils % 68.8 Lymphocytes % 15.4 Monocytes % 13.3 H Eosinophils % 1.7 Basophils % 0.8 Absolute Neutrophils 4.9 Absolute Lymphocytes 1.1 Absolute Monocytes 1.0 Absolute Eosinophils 0.1 Absolute Basophils 0.1 Retic Count (auto) 1.59 Absolute Retic 0.046 Iron < 10.0 L TIBC 263 % Saturation UNABLE TO CALCULATE Ferritin 13.10 Vitamin B12 249.0 Folate 6.22 Impressions: Chest X-Ray 05/11/16 00:00 IMPRESSION: NO ACUTE RADIOGRAPHIC FINDING IN THE CHEST. Cervical Spine CT 05/11/16 11:29 IMPRESSION: NO ACUTE OR SIGNIFICANT FINDINGS IN THE CERVICAL SPINE. Head CT 05/11/16 11:29 IMPRESSION: NORMAL BRAIN CT WITHOUT CONTRAST. Pelvis X-Ray 05/11/16 11:29 IMPRESSION: Intertrochanteric fracture of the proximal right femur. No other evidence for fracture is seen. Spine X-Ray 05/11/16 11:29 IMPRESSION: Limited study as noted above. No significant vertebral compressions are identified. No definite fractures are identified. Other findings as noted above Femur X-Ray 05/12/16 00:00 IMPRESSION: IMAGE(S) OBTAINED DURING PROCEDURE. Fluoroscopy 05/12/16 00:00 IMPRESSION: IMAGE(S) OBTAINED DURING PROCEDURE. Assessment & Plan - Diagnosis (1) Fracture, intertrochanteric, right femur Qualifiers: Encounter type: initial encounter Fracture type: closed Qualified Code(s): S72.141A - Displaced intertrochanteric fracture of right femur, initial encounter for closed fracture Is this a current diagnosis for this admission?: YesPlan: Status post IM nail right intertrochanteric fracture #1 pain control #2 heparin for DVT prophylaxis #3 physical therapy weightbearing as tolerated have encouraged the patient to progress her ambulation to maximize functional capability #4 discharge planning patient will require [facility] facility when bed available.
--- NOTE | 2016-05-14 09:57 | PDOC CONSULTATION ---
Consultation Consult Date: 05/14/16 Attending physician:: MIESHA LEAVITT Consult reason:: Patient with known stage IV breast cancer who presents with right hip fracture History of Present Illness Admission Date/PCP: 05/11/16 14:36 JOVANA REZA NP Patient complains of: Right hip fracture, pain, breast cancer History of Present Illness: 71-year-old female with known history of left breast cancer. She originally had a left breast cancer, with crista metastasis to the left axilla noted in September 2016, she had a left mastectomy and axillary dissection. She doesn't remember exactly dates of when recent things happened, but she was found to have liver metastasis. She tells me she had a liver biopsy and was biopsy proven to have disease. She was on chemotherapy now for the last 4-5 months, it sounds like it probably was Adriamycin, Cytoxan, Taxol. But I can't be sure of that, she doesn't remember the name of the chemotherapeutics. Regardless, she did get chemotherapy prior to coming in here, she had a fall, sustained a right hip fracture, and recently underwent surgery to the right hip with stabilizer. She's doing better now, she apparently is going to be transferred to a rehabilitation facility. He does have some mild anemia and thrombocytopenia. Past Medical History Cardiac Medical History: Reports: Hyperlipidema, Hypertension Denies: Myocardial Infarction Pulmonary Medical History: Denies: Chronic Obstructive Pulmonary Disease (COPD) EENT Medical History: Reports: Other - DVT Endocrine Medical History: Reports: Diabetes Mellitus Type 2 Malignancy Medical History: Reports: Breast Cancer - Being treated by Dr. Branch , [facility] Psychiatric Medical History: Reports: Depression Hematology: Reports: Other - DVT Past Surgical History Past Surgical History: Reports: Orthopedic Surgery - Back Sx, Tubal Ligation, Other - L mastectomy/LN dissection Social History Smoking Status: Never Smoker Frequency of Alcohol Use: None Hx Recreational Drug Use: No Drugs: None Hx Prescription Drug Abuse: No - Advance Directive Resuscitation Status: Full Code Family History Family History: Reviewed & Not Pertinent Parental Family History Reviewed: Yes Children Family History Reviewed: Yes Sibling(s) Family History Reviewed.: Yes Medication/Allergy Home Medications: Duloxetine HCl [Cymbalta] 60 mg PO BID 05/11/16 Furosemide [Lasix] 80 mg PO DAILY 05/11/16 Levothyroxine Sodium [Synthroid] 88 mcg PO DAILY 05/11/16 Lisinopril [Prinivil 10 mg Tablet] 10 mg PO DAILY 05/11/16 Metformin HCl [Metformin HCl ER] 2 tab PO DAILY 05/11/16 Oxycodone HCl/Acetaminophen [Percocet 5-325 mg Tablet] 1 tab PO Q6HP PRN Pantoprazole Sodium [Protonix] 40 mg PO BID 05/11/16 Pramipexole Di-HCl [Pramipexole Dihydrochloride] 0.25 mg PO QHS 05/11/16 Rivaroxaban [Xarelto] 20 mg PO DAILY 05/11/16 Simvastatin [Zocor 40 mg Tablet] 40 mg PO DAILY 05/11/16 Allergies/Adverse Reactions: codeine Allergy (Verified 05/11/16 12:04) Review of Systems Constitutional: ABSENT: chills, fever(s), headache(s), weight gain, weight loss Eyes: ABSENT: visual disturbances Ears: ABSENT: hearing changes Cardiovascular: ABSENT: chest pain, dyspnea on exertion, edema, orthropnea, palpitations Respiratory: ABSENT: cough, hemoptysis Gastrointestinal: ABSENT: abdominal pain, constipation, diarrhea, hematemesis, hematochezia, nausea, vomiting Genitourinary: ABSENT: dysuria, hematuria Musculoskeletal: ABSENT: joint swelling Integumentary: ABSENT: rash, wounds Neurological: ABSENT: abnormal gait, abnormal speech, confusion, dizziness, focal weakness, syncope Psychiatric: ABSENT: anxiety, depression, homidical ideation, suicidal ideation Endocrine: ABSENT: cold intolerance, heat intolerance, polydipsia, polyuria Hematologic/Lymphatic: ABSENT: easy bleeding, easy bruising Physical Exam Vital Signs: Temp Pulse Resp BP Pulse Ox 98.6 F 87 18 136/66 H 99 05/13/16 19:22 05/13/16 19:22 05/13/16 19:22 05/13/16 19:22 05/13/16 19:22 Intake & Output 05/13/16 05/14/16 05/15/16 06:59 06:59 06:59 Intake Total 2676 1456 Output Total 2300 800 Balance 376 656 General appearance: PRESENT: no acute distress, well-developed, well-nourished Head exam: PRESENT: atraumatic, normocephalic Eye exam: PRESENT: conjunctiva pink, EOMI, PERRLA. ABSENT: scleral icterus Ear exam: PRESENT: normal external ear exam Mouth exam: PRESENT: moist, tongue midline Neck exam: ABSENT: carotid bruit, JVD, lymphadenopathy, thyromegaly Respiratory exam: PRESENT: clear to auscultation julio. ABSENT: rales, rhonchi, wheezes Cardiovascular exam: PRESENT: RRR. ABSENT: diastolic murmur, rubs, systolic murmur Pulses: PRESENT: normal dorsalis pedis pul Vascular exam: PRESENT: normal capillary refill GI/Abdominal exam: PRESENT: normal bowel sounds, soft. ABSENT: distended, guarding, mass, organolmegaly, rebound, tenderness Rectal exam: PRESENT: deferred Extremities exam: PRESENT: full ROM. ABSENT: calf tenderness, clubbing, pedal edema Neurological exam: PRESENT: alert, awake, oriented to person, oriented to place , oriented to time, oriented to situation, CN II-XII grossly intact. ABSENT: motor sensory deficit Psychiatric exam: PRESENT: appropriate affect, normal mood. ABSENT: homicidal ideation, suicidal ideation Skin exam: PRESENT: dry, intact, warm. ABSENT: cyanosis, rash Results Laboratory Results: 05/13/16 21:30 05/13/16 05:30 05/13/16 21:30 WBC 7.2 RBC 3.84 Hgb 10.1 L D Hct 30.9 L MCV 81 MCH 26.3 L MCHC 32.7 RDW 17.1 H Plt Count 109 L Seg Neutrophils % 68.8 Lymphocytes % 15.4 Monocytes % 13.3 H Eosinophils % 1.7 Basophils % 0.8 Absolute Neutrophils 4.9 Absolute Lymphocytes 1.1 Absolute Monocytes 1.0 Absolute Eosinophils 0.1 Absolute Basophils 0.1 Impressions: Chest X-Ray 05/11/16 00:00 IMPRESSION: NO ACUTE RADIOGRAPHIC FINDING IN THE CHEST. Cervical Spine CT 05/11/16 11:29 IMPRESSION: NO ACUTE OR SIGNIFICANT FINDINGS IN THE CERVICAL SPINE. Head CT 05/11/16 11:29 IMPRESSION: NORMAL BRAIN CT WITHOUT CONTRAST. Pelvis X-Ray 05/11/16 11:29 IMPRESSION: Intertrochanteric fracture of the proximal right femur. No other evidence for fracture is seen. Spine X-Ray 05/11/16 11:29 IMPRESSION: Limited study as noted above. No significant vertebral compressions are identified. No definite fractures are identified. Other findings as noted above Femur X-Ray 05/12/16 00:00 IMPRESSION: IMAGE(S) OBTAINED DURING PROCEDURE. Fluoroscopy 05/12/16 00:00 IMPRESSION: IMAGE(S) OBTAINED DURING PROCEDURE. Assessment & Plan - Diagnosis (1) Breast cancer metastasized to liver Qualifiers: Laterality: left Qualified Code(s): C50.912 - Malignant neoplasm of unspecified site of left female breast; C78.7 - Secondary malignant neoplasm of liver and intrahepatic bile duct Is this a current diagnosis for this admission?: YesPlan: She does have history of left breast cancer with liver metastasis, awaiting pathology on the bone specimen. Unsure if imaging ever indicated that she has disease in the bone. Apparently she had a recent PET scan done at [facility] [address]. She is being treated by Dr. Branch, [place]. She lives in [place], she has gotten most of her care in the [place] area. That's why she is going to the cancer center there. It sounds like she is going to be discharged to that area for rehabilitation placement but unsure if she is going there or locally here. We certainly can be available for care as an outpatient. If she would like to come see us, we be happy to see her as well. Today spent about 75 minutes in discussion with the patient, she voiced understanding and agreement with plan. - Time Time Spent: Greater than 70 Minutes Critical Time spent with patient: 25-34 minutes Anticipated discharge: Acute Rehab Within: within 24 hours
[2016-05-14] MEDS: ENOXAPARIN SODIUM INJ 40 MG/0.4 ML DISP.SYRIN SUBCUT SCH (10:45)
[2016-05-14] MEDS: DOCUSATE SODIUM 100 MG CAPSULE PO SCH (10:46)
[2016-05-14] MEDS: LANSOPRAZOLE 30 MG TAB.RAP.DR PO SCH ×2 (10:47→16:46)
[2016-05-14] MEDS: FAMOTIDINE 20 MG TABLET PO SCH ×2 (10:47→21:20)
[2016-05-14] MEDS: FERROUS SULFATE 325 MG TABLET PO SCH ×3 (10:47→16:46)
[2016-05-14] MEDS: LEVOTHYROXINE SODIUM 0.088 MG TABLET PO SCH (10:47)
[2016-05-14] MEDS: DULOXETINE HCL 30 MG CAPSULE.DR PO SCH ×2 (10:47→21:20)
[2016-05-14] MEDS: OXYCODONE HCL SR 10 MG TABLET PO SCH (10:48)
[2016-05-14] MEDS: RINGERS SOLUTION,LACTATED 1,000 ML IV PRN ×2 (10:49→22:51)
[2016-05-14] MEDS: LISINOPRIL 10 MG TABLET PO SCH (11:01)
--- NOTE | 2016-05-14 15:29 | PDOC PROGRESS REPORT ---
Subjective Progress Note for:: 05/14/16 Subjective:: Reason for visit: Follow up femur fracture Hospital course: PROSPER ABREU is a 71 year old female presents from home to the emergency department by EMS after a fall at home. She states she missed the last 3 steps descending landing hard on her right side feeling an immediate sharp pain and inability to get up due to the pain. She called out for help and her family called EMS transporting her to the emergency department, where she was found to have a right intertrochanteric fracture and we were asked to admit for further evaluation and management. The patient has a history of left breast cancer metastatic to 2 out of 28 lymph nodes and to liver but sparing bony metastases per most recent PET CT and currently being treated by Dr. Branch at the cancer center in [place] having received chemotherapy just yesterday. She states she is also on chronic steroid as part of her chemotherapy. She has had multiple previous surgeries and never had any difficulty with general anesthesia or recovering from same. She was in her usual state of health with excellent metabolic equivalents prior to this event. She has diabetes and hypertension but no known coronary disease. She is a never smoker and no history of chronic lung disease. Patient underwent successful ORIF of her intertrochanteric fracture this morning and has awakened from general anesthesia without consultation. She did drop her hemoglobin postoperatively requiring transfusion of 2 units of packed red blood cells, iron studies show severely depleted stores and she was given iron sucrose 1 and started on oral supplementation. Her hemoglobin has since stabilized. ROS: She denies chest pain, palpitations, dyspnea, fever/chills, nausea vomiting ; a total of 10 systems reviewed, pertinent positives and negatives noted above , remaining systems negative. Physical Exam Vital Signs: Temp Pulse Resp BP Pulse Ox 98.1 F 82 16 132/62 H 93 05/14/16 11:27 05/14/16 13:45 05/14/16 13:45 05/14/16 11:27 05/14/16 13:45 Intake & Output 05/13/16 05/14/16 05/15/16 06:59 06:59 06:59 Intake Total 2676 1456 1727 Output Total 2300 800 600 Balance 667 763 8391 PHYSICAL EXAM GENERAL: NAD; well developed, well nourished; no obese; alert and oriented to person, place, time, situation HEENT: no conjunctival injection, no scleral icterus; oral mucosa moist, neck supple, RESPIRATORY: no accessory muscle use, no increased WOB, good air entry bilaterally; no wheezes, rales, rhonchi; no inspiratory crackles CARDIO: no JVD; RRR; no systolic murmur; no tachycardia VASCULAR: no pallor; 2+ radial, DP pulse; diminished capillary refill at the great toes GI: soft; nondistended; normal bowel sounds; no rebound, rigidity, guarding; nontender NEURO: Diminished sensation bilateral below the knee, chronic neuropathy; no dysarthria; no nystagmus; tongue protrudes midline MSK: 5/5 strength; sharp tenderness to palpation over the right hip and along the right outer thigh without obvious edema or ecchymosis and she is very resistant to physical therapy and passive range of motion as result, surgical wounds clean dry and intact EXTREMITIES: no calf tender; no palpable cords in calf; no clubbing, cyanosis , pedal edema PSYCH: normal affect, normal mood SKIN: warm; moist; no petechiae; no telengectasias; no jaundice; Results Laboratory Results: 05/13/16 21:30 05/13/16 05:30 05/13/16 21:30 WBC 7.2 RBC 3.84 Hgb 10.1 L D Hct 30.9 L MCV 81 MCH 26.3 L MCHC 32.7 RDW 17.1 H Plt Count 109 L Seg Neutrophils % 68.8 Lymphocytes % 15.4 Monocytes % 13.3 H Eosinophils % 1.7 Basophils % 0.8 Absolute Neutrophils 4.9 Absolute Lymphocytes 1.1 Absolute Monocytes 1.0 Absolute Eosinophils 0.1 Absolute Basophils 0.1 Assessment & Plan - Diagnosis (1) Intertrochanteric fracture Qualifiers: Encounter type: initial encounter Fracture type: closed Fracture alignment: nondisplaced Laterality: right Qualified Code(s): S72.144A - Nondisplaced intertrochanteric fracture of right femur, initial encounter for closed fracture Is this a current diagnosis for this admission?: YesPlan: Status post surgical repair, wound care, weight-bearing status, rehabilitation discharge per orthopedic surgery. Awaiting bed placement, the patient's preferences for [facility] but a bed was not available until tomorrow at the earliest. (2) Diabetes Qualifiers: Diabetes mellitus type: type 2 Diabetes mellitus complication status: with unspecified complications Diabetes mellitus manager long term care insulin use: without senior living use Qualified Code(s): E11.8 - Type 2 diabetes mellitus with unspecified complications; Z79.4 - termite treater (current) use of insulin Is this a current diagnosis for this admission?: Yes (3) Essential hypertension Is this a current diagnosis for this admission?: Yes (4) Breast cancer metastasized to liver Qualifiers: Laterality: left Qualified Code(s): C50.912 - Malignant neoplasm of unspecified site of left female breast; C78.7 - Secondary malignant neoplasm of liver and intrahepatic bile duct Is this a current diagnosis for this admission?: Yes (5) Fibromyalgia Is this a current diagnosis for this admission?: Yes (6) Chronic low back pain Qualifiers: Back pain laterality: bilateral Sciatica presence: with sciatica Sciatica laterality: bilateral sciatica Qualified Code(s): M54.42 - Lumbago with sciatica, left side; G89.29 - Other chronic pain Is this a current diagnosis for this admission?: Yes (7) Iron deficiency anemia Qualifiers: Iron deficiency anemia type: unspecified iron deficiency Qualified Code(s): D50.9 - Iron deficiency anemia, unspecified Is this a current diagnosis for this admission?: YesPlan: Improved. Transfused 2 units packed red blood cells and 100 mg of iron sucrose. Started oral replacement therapy. Follow-up CBC in a.m. - Time Time Spent with patient: 15-24 minutes Anticipated discharge: Acute Rehab Within: within 24 hours
[2016-05-14] MEDS: PRAMIPEXOLE DI-HCL 0.25 MG TABLET PO SCH (21:21)
[2016-05-14] MEDS: OXYCODONE-ACETAMINOPHEN 5-325 MG TABLET PO PRN (21:23)
[2016-05-14] MEDS: INSULIN LISPRO 100 UNIT/ML 3 ML VIAL SUBCUT PRN (22:05)
[2016-05-15] MEDS: MORPHINE SULFATE 10 MG/ML INJ IV PRN (02:12)
[2016-05-15] MEDS: OXYCODONE-ACETAMINOPHEN 5-325 MG TABLET PO PRN ×2 (06:03→12:54)
[2016-05-15] MEDS: CEFAZOLIN 2 GM/D5W RTU 50 ML IV SCH ×4 (06:05→23:42)
[2016-05-15 07:22] LABS: HEMATOCRIT 30.1 % (36.0-47.0); HEMOGLOBIN 9.8 g/dL (12.0-15.5); HGB HCT DIFFERENCE -0.7; MEAN CORPUSCULAR HGB CONC 32.4 g/dL (32.0-36.0); MEAN CORPUSCULAR VOLUME 80 fl (80-97); RED BLOOD COUNT 3.75 10^6/uL (3.72-5.28); RED CELL DISTRIBUTION WIDTH 17.6 % (11.5-14.0); WHITE BLOOD COUNT 6.1 10^3/uL (4.0-10.5)
[2016-05-15] MEDS: ENOXAPARIN SODIUM INJ 40 MG/0.4 ML DISP.SYRIN SUBCUT SCH (09:05)
[2016-05-15] MEDS: DOCUSATE SODIUM 100 MG CAPSULE PO SCH (09:09)
[2016-05-15] MEDS: LISINOPRIL 10 MG TABLET PO SCH (09:09)
[2016-05-15] MEDS: FAMOTIDINE 20 MG TABLET PO SCH ×2 (09:10→21:40)
[2016-05-15] MEDS: LANSOPRAZOLE 30 MG TAB.RAP.DR PO SCH ×2 (09:10→17:56)
[2016-05-15] MEDS: FERROUS SULFATE 325 MG TABLET PO SCH ×3 (09:12→17:57)
[2016-05-15] MEDS: DULOXETINE HCL 30 MG CAPSULE.DR PO SCH ×2 (10:23→21:39)
[2016-05-15] MEDS ORDERED: OXYCODONE-ACETAMINOPHEN 5-325 MG TABLET PO PRN (10:30)
[2016-05-15] MEDS: LEVOTHYROXINE SODIUM 0.088 MG TABLET PO SCH (10:38)
[2016-05-15] MEDS: OXYCODONE HCL IR 5 MG TABLET PO PRN ×2 (10:38→18:38)
[2016-05-15] MEDS ORDERED: PREGABALIN 100 MG CAPSULE PO ONE (11:00)
--- NOTE | 2016-05-15 11:49 | PDOC PROGRESS REPORT ---
Subjective Progress Note for:: 05/15/16 Subjective:: Pt doing better, feeling better, today discussed results of bone bx, neg for malignancy, spent 30 min in discussion today Physical Exam Vital Signs: Temp Pulse Resp BP Pulse Ox 98.1 F 77 16 143/66 H 96 05/15/16 08:02 05/15/16 08:02 05/15/16 08:02 05/15/16 08:02 05/15/16 08:02 Intake & Output 05/14/16 05/15/16 05/16/16 06:59 06:59 06:59 Intake Total 1456 2117 Output Total 800 600 Balance 656 1517 General appearance: PRESENT: no acute distress, well-developed, well-nourished Head exam: PRESENT: atraumatic, normocephalic Eye exam: PRESENT: conjunctiva pink, EOMI, PERRLA. ABSENT: scleral icterus Ear exam: PRESENT: normal external ear exam Mouth exam: PRESENT: moist, tongue midline Neck exam: ABSENT: carotid bruit, JVD, lymphadenopathy, thyromegaly Respiratory exam: PRESENT: clear to auscultation julio. ABSENT: rales, rhonchi, wheezes Cardiovascular exam: PRESENT: RRR. ABSENT: diastolic murmur, rubs, systolic murmur Pulses: PRESENT: normal dorsalis pedis pul Vascular exam: PRESENT: normal capillary refill GI/Abdominal exam: PRESENT: normal bowel sounds, soft. ABSENT: distended, guarding, mass, organolmegaly, rebound, tenderness Rectal exam: PRESENT: deferred Extremities exam: PRESENT: full ROM. ABSENT: calf tenderness, clubbing, pedal edema Neurological exam: PRESENT: alert, awake, oriented to person, oriented to place , oriented to time, oriented to situation, CN II-XII grossly intact. ABSENT: motor sensory deficit Psychiatric exam: PRESENT: appropriate affect, normal mood. ABSENT: homicidal ideation, suicidal ideation Skin exam: PRESENT: dry, intact, warm. ABSENT: cyanosis, rash Results Laboratory Results: 05/15/16 06:44 05/13/16 05:30 05/13/16 05/15/16 05:30 06:44 WBC 6.1 RBC 3.75 Hgb 9.8 L Hct 30.1 L MCV 80 MCH 26.0 L MCHC 32.4 RDW 17.6 H Plt Count 122 L Transferrin 184 L Impressions: Chest X-Ray 05/11/16 00:00 IMPRESSION: NO ACUTE RADIOGRAPHIC FINDING IN THE CHEST. Cervical Spine CT 05/11/16 11:29 IMPRESSION: NO ACUTE OR SIGNIFICANT FINDINGS IN THE CERVICAL SPINE. Head CT 05/11/16 11:29 IMPRESSION: NORMAL BRAIN CT WITHOUT CONTRAST. Pelvis X-Ray 05/11/16 11:29 IMPRESSION: Intertrochanteric fracture of the proximal right femur. No other evidence for fracture is seen. Spine X-Ray 05/11/16 11:29 IMPRESSION: Limited study as noted above. No significant vertebral compressions are identified. No definite fractures are identified. Other findings as noted above Femur X-Ray 05/12/16 00:00 IMPRESSION: IMAGE(S) OBTAINED DURING PROCEDURE. Fluoroscopy 05/12/16 00:00 IMPRESSION: IMAGE(S) OBTAINED DURING PROCEDURE. Assessment & Plan - Diagnosis (1) Breast cancer metastasized to liver Qualifiers: Laterality: left Qualified Code(s): C50.912 - Malignant neoplasm of unspecified site of left female breast; C78.7 - Secondary malignant neoplasm of liver and intrahepatic bile duct Is this a current diagnosis for this admission?: YesPlan: Pt will be going to rehab, rx will be on hold until d/c, will need f/u after d/ c with oncology - Time Time Spent with patient: 25-34 minutes Critical Time spent with patient: 25-34 minutes Anticipated discharge: Acute Rehab - Inpatient Certification Based on my medical assessment, after consideration of the patient's comorbidities, presenting symptoms, or acuity I expect that the services needed warrant INPATIENT care.: Yes I certify that my determination is in accordance with my understanding of Medicare's requirements for reasonable and necessary INPATIENT services [42 CFR 412.3e].: Yes Medical Necessity: Risk of Complication if Not Cared For in Hospital
[2016-05-15] MEDS: LORAZEPAM 1 MG TABLET PO PRN (12:56)
[2016-05-15] MEDS ORDERED: METFORMIN HCL 500 MG TABLET PO ONE (13:00)
[2016-05-15] MEDS ORDERED: RIVAROXABAN 10 MG TABLET PO ONE (13:00)
--- NOTE | 2016-05-15 13:05 | PDOC PROGRESS REPORT ---
Subjective Progress Note for:: 05/15/16 Subjective:: Patient was seen and evaluated this morning. No issues overnight. Pain currently tolerable. Denies chest pain. Physical Exam Vital Signs: Temp Pulse Resp BP Pulse Ox 98.2 F 82 17 120/77 99 05/15/16 04:40 05/15/16 04:40 05/15/16 04:40 05/15/16 04:40 05/15/16 04:40 Intake & Output 05/14/16 05/15/16 05/16/16 06:59 06:59 06:59 Intake Total 1456 2117 Output Total 800 600 Balance 656 1517 Musculoskeletal exam: PRESENT: other - Right hip: Dressing clean/dry/intact no erythema or drainage. Intact plantar flexion/dorsiflexion. Minimal thigh swelling. No calf tenderness. Results Laboratory Results: 05/15/16 06:44 05/13/16 05:30 05/13/16 05/15/16 05:30 06:44 WBC 6.1 RBC 3.75 Hgb 9.8 L Hct 30.1 L MCV 80 MCH 26.0 L MCHC 32.4 RDW 17.6 H Plt Count 122 L Transferrin 184 L Impressions: Chest X-Ray 05/11/16 00:00 IMPRESSION: NO ACUTE RADIOGRAPHIC FINDING IN THE CHEST. Cervical Spine CT 05/11/16 11:29 IMPRESSION: NO ACUTE OR SIGNIFICANT FINDINGS IN THE CERVICAL SPINE. Head CT 05/11/16 11:29 IMPRESSION: NORMAL BRAIN CT WITHOUT CONTRAST. Pelvis X-Ray 05/11/16 11:29 IMPRESSION: Intertrochanteric fracture of the proximal right femur. No other evidence for fracture is seen. Spine X-Ray 05/11/16 11:29 IMPRESSION: Limited study as noted above. No significant vertebral compressions are identified. No definite fractures are identified. Other findings as noted above Femur X-Ray 05/12/16 00:00 IMPRESSION: IMAGE(S) OBTAINED DURING PROCEDURE. Fluoroscopy 05/12/16 00:00 IMPRESSION: IMAGE(S) OBTAINED DURING PROCEDURE. Assessment & Plan - Diagnosis (1) Fracture, intertrochanteric, right femur Qualifiers: Encounter type: initial encounter Fracture type: closed Qualified Code(s): S72.141A - Displaced intertrochanteric fracture of right femur, initial encounter for closed fracture Is this a current diagnosis for this admission?: YesPlan: Status post right hip IM nail #1 pain control #2 physical therapy weightbearing as tolerated #3 Lovenox for DVT prophylaxis #4 discharge planning to [facility] facility
--- NOTE | 2016-05-15 13:42 | PDOC PROGRESS REPORT ---
Subjective Progress Note for:: 05/15/16 Subjective:: Patient is complaining of severe chest pain and shortness of breath sudden onset Vital signs are stable An EKG was performed and was normal sinus rhythm without acute changes Etiology of the chest will be performed and routine cardiac enzymes drawn Physical Exam Vital Signs: Temp Pulse Resp BP Pulse Ox 98.4 F 76 16 150/75 H 99 05/15/16 11:09 05/15/16 11:09 05/15/16 11:09 05/15/16 11:09 05/15/16 11:09 Intake & Output 05/14/16 05/15/16 05/16/16 00:59 00:59 00:59 Intake Total 1656 1727 390 Output Total 1300 600 Balance 356 1127 390 General appearance: PRESENT: no acute distress, well-developed, well-nourished Head exam: PRESENT: atraumatic, normocephalic Eye exam: PRESENT: conjunctiva pink, EOMI, PERRLA. ABSENT: scleral icterus Ear exam: PRESENT: normal external ear exam Mouth exam: PRESENT: moist, tongue midline Neck exam: ABSENT: carotid bruit, JVD, lymphadenopathy, thyromegaly Respiratory exam: PRESENT: clear to auscultation julio. ABSENT: rales, rhonchi, wheezes Cardiovascular exam: PRESENT: RRR. ABSENT: diastolic murmur, rubs, systolic murmur Pulses: PRESENT: normal dorsalis pedis pul Vascular exam: PRESENT: normal capillary refill GI/Abdominal exam: PRESENT: normal bowel sounds, soft, tenderness - Epigastrium on palpation without guarding or rebound. ABSENT: distended, guarding, mass, organolmegaly, rebound Rectal exam: PRESENT: deferred Extremities exam: PRESENT: full ROM. ABSENT: calf tenderness, clubbing, pedal edema Neurological exam: PRESENT: alert, awake, oriented to person, oriented to place , oriented to time, oriented to situation, CN II-XII grossly intact. ABSENT: motor sensory deficit Psychiatric exam: PRESENT: appropriate affect, normal mood. ABSENT: homicidal ideation, suicidal ideation Skin exam: PRESENT: dry, intact, warm. ABSENT: cyanosis, rash Results Laboratory Results: 05/15/16 06:44 05/13/16 05:30 05/13/16 05/15/16 05:30 06:44 WBC 6.1 RBC 3.75 Hgb 9.8 L Hct 30.1 L MCV 80 MCH 26.0 L MCHC 32.4 RDW 17.6 H Plt Count 122 L Transferrin 184 L EKG Comments: EKG : SINUS RHYTHM Impressions: Chest X-Ray 05/11/16 00:00 IMPRESSION: NO ACUTE RADIOGRAPHIC FINDING IN THE CHEST. Cervical Spine CT 05/11/16 11:29 IMPRESSION: NO ACUTE OR SIGNIFICANT FINDINGS IN THE CERVICAL SPINE. Head CT 05/11/16 11:29 IMPRESSION: NORMAL BRAIN CT WITHOUT CONTRAST. Pelvis X-Ray 05/11/16 11:29 IMPRESSION: Intertrochanteric fracture of the proximal right femur. No other evidence for fracture is seen. Spine X-Ray 05/11/16 11:29 IMPRESSION: Limited study as noted above. No significant vertebral compressions are identified. No definite fractures are identified. Other findings as noted above Femur X-Ray 05/12/16 00:00 IMPRESSION: IMAGE(S) OBTAINED DURING PROCEDURE. Fluoroscopy 05/12/16 00:00 IMPRESSION: IMAGE(S) OBTAINED DURING PROCEDURE. Assessment & Plan - Diagnosis (1) Chest pain Qualifiers: Chest pain type: unspecified Qualified Code(s): R07.9 - Chest pain, unspecified Is this a current diagnosis for this admission?: YesPlan: We will schedule the patient for CT of the chest to rule out PE Treat symptomatically We will cycle troponins to exclude an acute coronary syndrome The chest pain may be secondary to anxiety (2) Breast cancer metastasized to liver Qualifiers: Laterality: left Qualified Code(s): C50.912 - Malignant neoplasm of unspecified site of left female breast; C78.7 - Secondary malignant neoplasm of liver and intrahepatic bile duct Is this a current diagnosis for this admission?: Yes (3) Essential hypertension Is this a current diagnosis for this admission?: Yes (4) Fracture, intertrochanteric, right femur Qualifiers: Encounter type: initial encounter Fracture type: closed Qualified Code(s): S72.141A - Displaced intertrochanteric fracture of right femur, initial encounter for closed fracture Is this a current diagnosis for this admission?: Yes (5) Iron deficiency anemia Qualifiers: Iron deficiency anemia type: unspecified iron deficiency Qualified Code(s): D50.9 - Iron deficiency anemia, unspecified Is this a current diagnosis for this admission?: Yes - Time Time Spent with patient: Follow-up on CTA of the chest, cardiac enzymes, repeat EKG in a.m. We will continue Protonix Morphine intermittently for pain Patient may be transferred to short-term rehabilitation tomorrow if workup is negative Time Spent with patient: 25-34 minutes
[2016-05-15] MEDS ORDERED: (PENDING PHARMACY ID) (Pregabalin [Lyrica] 200 MG) PO SCH (14:00)
[2016-05-15] MEDS: GABAPENTIN 300 MG CAPSULE PO SCH ×2 (14:34→21:40)
[2016-05-15] MEDS: PREGABALIN 100 MG CAPSULE PO SCH ×2 (14:34→21:40)
[2016-05-15] MEDS ORDERED: METFORMIN HCL 500 MG TABLET PO SCH (17:00)
--- NOTE | 2016-05-15 18:18 | EKG REPORT ---
SEVERITY:- BORDERLINE ECG - SINUS RHYTHM NONSPECIFIC ST-T CHANGES- INFERIOR LEADS : Confirmed by: Domingo Curry MD 15-May-2016 18:17:33
[2016-05-15] MEDS: PRAMIPEXOLE DI-HCL 0.25 MG TABLET PO SCH (21:39)
[2016-05-16] MEDS: OXYCODONE HCL IR 5 MG TABLET PO PRN ×2 (03:52→16:59)
[2016-05-16] MEDS: GABAPENTIN 300 MG CAPSULE PO SCH ×3 (05:53→22:42)
[2016-05-16] MEDS: PREGABALIN 100 MG CAPSULE PO SCH ×3 (05:53→21:34)
[2016-05-16] MEDS: CEFAZOLIN 2 GM/D5W RTU 50 ML IV SCH (05:53)
[2016-05-16] MEDS: OXYCODONE-ACETAMINOPHEN 5-325 MG TABLET PO PRN ×2 (06:59→20:43)
--- NOTE | 2016-05-16 09:35 | PDOC TRANSFER SUMMARY ---
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 Branch office Next chemotherapy in 3 weeks (3) Essential hypertension Is this a current diagnosis for this admission?: YesSummary: Controlled (4) Fracture, intertrochanteric, right femur Is this a current diagnosis for this admission?: YesSummary: On 05/12 patient underwent repair of right intertrochanteric fracture Dr. Crowell Surgery was uncomplicated Patient is undergoing physical therapy She is to follow-up with 's office in about 10 days (5) Iron deficiency anemia Is this a current diagnosis for this admission?: YesSummary: Patient has a combined iron deficiency and vitamin B-12 deficiency We initiated vitamin B-12 replacement thousand micrograms IM daily It should be given for 7 days Patient then should be followed up with monthly vitamin B-12 injections Iron was replaced with IV Feraheme 510 mg Patient may receive another dose in 2 or 3 days She's to be followed by Dr. Branch office with repeat serum iron and B-12 in a month - Additional Information Resuscitation Status: Full Code Discharge Diet: As Tolerated Home Medications: Duloxetine HCl [Cymbalta] 60 mg PO BID 05/11/16 Furosemide [Lasix] 80 mg PO DAILY 05/11/16 Levothyroxine Sodium [Synthroid] 88 mcg PO DAILY 05/11/16 Lisinopril [Prinivil 10 mg Tablet] 10 mg PO DAILY 05/11/16 Metformin HCl [Metformin HCl ER] 2 tab PO DAILY 05/11/16 Pantoprazole Sodium [Protonix] 40 mg PO BID 05/11/16 Pramipexole Di-HCl [Pramipexole Dihydrochloride] 0.25 mg PO QHS 05/11/16 Rivaroxaban [Xarelto] 20 mg PO DAILY 05/11/16 Simvastatin [Zocor 40 mg Tablet] 40 mg PO DAILY 05/11/16 Pregabalin [Lyrica] 200 mg PO TID 05/15/16 Cyanocobalamin (Vitamin B-12) [Vitamin B-12 Inj 1000 Mcg/1 ml Vial] 1,000 mcg IM DAILY #6 vial 05/16/16 Docusate Sodium [Colace 100 mg Capsule] 100 mg PO BID #60 capsule 05/16/16 Lorazepam 1 mg PO BID PRN #60 05/16/16 Magnesium Hydroxide [Milk of Magnesia 30 ml Udcup] 30 ml PO HSP PRN #1 udc 05/16 Oxycodone HCl/Acetaminophen [Percocet 5-325 mg Tablet] 1 tab PO Q6HP PRN #30 History of Present Illness Admission Date/PCP: 05/11/16 14:36 JOVANA REZA NP Patient complains of: fall fractured hip History of Present Illness: 71 year old female presents from home to the emergency department by EMS after a fall at home. She states she missed the last 3 steps descending landing hard on her right side feeling an immediate sharp pain and inability to get up due to the pain. She called out for help and her family called EMS transporting her to the emergency department, where she was found to have a right intertrochanteric fracture and we were asked to admit for further evaluation and management. The patient has a history of left breast cancer metastatic to 2 out of 28 lymph nodes and to liver but sparing bony metastases per most recent PET CT and currently being treated by Dr. Branch at the cancer center in [place] having received chemotherapy just yesterday. She states she is also on chronic steroid as part of her chemotherapy. She has had multiple previous surgeries and never had any difficulty with general anesthesia or recovering from same. She was in her usual state of health with excellent metabolic equivalents prior to this event. She has diabetes and hypertension but no known coronary disease. She is a never smoker and no history of chronic lung disease. Hospital Course Hospital Course: see above Physical Exam Vital Signs: Temp Pulse Resp BP Pulse Ox 98.7 F 79 16 97/76 L 95 05/16/16 07:58 05/16/16 07:58 05/16/16 07:58 05/16/16 07:58 05/16/16 07:58 Intake & Output 05/15/16 05/16/16 05/17/16 00:59 00:59 00:59 Intake Total 1727 705 100 Output Total 600 300 Balance 1127 405 100 General appearance: PRESENT: no acute distress, well-developed, well-nourished Head exam: PRESENT: atraumatic, normocephalic Eye exam: PRESENT: conjunctiva pink, EOMI, PERRLA. ABSENT: scleral icterus Ear exam: PRESENT: normal external ear exam Mouth exam: PRESENT: moist, tongue midline Neck exam: ABSENT: carotid bruit, JVD, lymphadenopathy, thyromegaly Respiratory exam: PRESENT: clear to auscultation julio. ABSENT: rales, rhonchi, wheezes Cardiovascular exam: PRESENT: RRR. ABSENT: diastolic murmur, rubs, systolic murmur Pulses: PRESENT: normal dorsalis pedis pul Vascular exam: PRESENT: normal capillary refill GI/Abdominal exam: PRESENT: normal bowel sounds, soft. ABSENT: distended, guarding, mass, organolmegaly, rebound, tenderness Rectal exam: PRESENT: deferred Extremities exam: PRESENT: full ROM. ABSENT: calf tenderness, clubbing, pedal edema Neurological exam: PRESENT: alert, awake, oriented to person, oriented to place , oriented to time, oriented to situation, CN II-XII grossly intact. ABSENT: motor sensory deficit Psychiatric exam: PRESENT: appropriate affect, normal mood. ABSENT: homicidal ideation, suicidal ideation Skin exam: PRESENT: dry, intact, warm. ABSENT: cyanosis, rash Results Laboratory Results: 05/15/16 06:44 05/15/16 14:45 05/15/16 14:45 BUN 11 05/15/16 05/15/16 05/15/16 14:45 14:45 20:00 CK-MB (CK-2) 0.89 Troponin I < 0.012 < 0.012 05/16/16 02:06 CK-MB (CK-2) Troponin I < 0.012 05/13/16 05/13/16 05/15/16 05:30 05:30 06:44 Hgb 9.8 L Hct 30.1 L Iron < 10.0 L TIBC 263 Transferrin 184 L Ferritin 13.10 Vitamin B12 249.0 Impressions: Chest X-Ray 05/11/16 00:00 IMPRESSION: NO ACUTE RADIOGRAPHIC FINDING IN THE CHEST. Cervical Spine CT 05/11/16 11:29 IMPRESSION: NO ACUTE OR SIGNIFICANT FINDINGS IN THE CERVICAL SPINE. Head CT 05/11/16 11:29 IMPRESSION: NORMAL BRAIN CT WITHOUT CONTRAST. Pelvis X-Ray 05/11/16 11:29 IMPRESSION: Intertrochanteric fracture of the proximal right femur. No other evidence for fracture is seen. Spine X-Ray 05/11/16 11:29 IMPRESSION: Limited study as noted above. No significant vertebral compressions are identified. No definite fractures are identified. Other findings as noted above Femur X-Ray 05/12/16 00:00 IMPRESSION: IMAGE(S) OBTAINED DURING PROCEDURE. Fluoroscopy 05/12/16 00:00 IMPRESSION: IMAGE(S) OBTAINED DURING PROCEDURE. Chest/Abdomen CTA 05/15/16 13:44 IMPRESSION: No CT angio evidence of acute pulmonary emboli. 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 Transfer Plan - Disposition Transfer Plan: transfer to short term rehab Follow up with orthopedics and Oncology - Time Spent with Patient Time spent with patient: Less than 30 Minutes Plan Discharge Plan: Transferred to short-term rehabilitation when a bed is available Time Spent: Greater than 30 Minutes
[2016-05-16] MEDS: SIMVASTATIN 40 MG TABLET PO SCH (09:45)
[2016-05-16] MEDS: DOCUSATE SODIUM 100 MG CAPSULE PO SCH (09:45)
[2016-05-16] MEDS: LANSOPRAZOLE 30 MG TAB.RAP.DR PO SCH ×2 (09:46→16:45)
[2016-05-16] MEDS: FAMOTIDINE 20 MG TABLET PO SCH ×2 (09:46→21:35)
[2016-05-16] MEDS: LEVOTHYROXINE SODIUM 0.088 MG TABLET PO SCH (09:46)
[2016-05-16] MEDS: DULOXETINE HCL 30 MG CAPSULE.DR PO SCH ×2 (09:46→21:35)
[2016-05-16] MEDS: RIVAROXABAN 10 MG TABLET PO SCH (09:47)
[2016-05-16] MEDS: LISINOPRIL 10 MG TABLET PO SCH (09:51)
[2016-05-16] MEDS ORDERED: RIVAROXABAN 10 MG TABLET PO SCH ×2 (10:00)
[2016-05-16] MEDS ORDERED: FUROSEMIDE 80 MG TABLET PO SCH ×2 (10:00→11:45)
[2016-05-16] MEDS ORDERED: METFORMIN HCL PO SCH (10:00)
[2016-05-16] MEDS: SUCRALFATE SUSP 1 GM/10 ML UDCUP PO SCH ×3 (10:52→21:36)
[2016-05-16] MEDS: CYANOCOBALAMIN (VITAMIN B-12) INJ 1000 MCG/1 ML VIAL IM SCH (10:52)
[2016-05-16] MEDS ORDERED: FERUMOXYTOL 510 MG in NORMAL SALINE 100 ML IV ONE (11:00)
[2016-05-16] MEDS: LORAZEPAM 1 MG TABLET PO PRN (11:39)
[2016-05-16] MEDS ORDERED: LISINOPRIL 10 MG TABLET PO SCH (11:45)
[2016-05-16] MEDS: INSULIN LISPRO 100 UNIT/ML 3 ML VIAL SUBCUT PRN ×3 (12:10→22:38)
[2016-05-16] MEDS ORDERED: FUROSEMIDE 20 MG TABLET PO ONE (12:30)
[2016-05-16] MEDS ORDERED: LISINOPRIL 5 MG TABLET PO ONE (12:30)
[2016-05-16] MEDS: NYSTATIN/DEXAMETH/DIPHEN SUSP 120 ML PO SCH ×3 (14:22→21:37)
--- NOTE | 2016-05-16 18:28 | PDOC PROGRESS REPORT ---
Subjective Progress Note for:: 05/16/16 Subjective:: Patient seen and evaluated this evening. Continues to complain of pain but has seen some improvement with physical therapy. Denies chest pain or shortness of breath. Physical Exam Vital Signs: Temp Pulse Resp BP Pulse Ox 98.7 F 79 16 97/76 L 95 05/16/16 07:58 05/16/16 07:58 05/16/16 07:58 05/16/16 07:58 05/16/16 07:58 Intake & Output 05/15/16 05/16/16 05/17/16 06:59 06:59 06:59 Intake Total 2117 415 Output Total 600 300 Balance 1517 115 Weight 84.6 kg Musculoskeletal exam: PRESENT: other - Right hip: Dressing clean/dry/intact no erythema or drainage minimal thigh swelling. No ecchymosis. Intact plantar flexion/dorsiflexion. No limb length inequality Results Laboratory Results: 05/15/16 06:44 05/15/16 14:45 05/15/16 05/15/16 05/15/16 14:45 14:45 20:00 CK-MB (CK-2) 0.89 Troponin I < 0.012 < 0.012 05/16/16 02:06 CK-MB (CK-2) Troponin I < 0.012 Impressions: Chest X-Ray 05/11/16 00:00 IMPRESSION: NO ACUTE RADIOGRAPHIC FINDING IN THE CHEST. Cervical Spine CT 05/11/16 11:29 IMPRESSION: NO ACUTE OR SIGNIFICANT FINDINGS IN THE CERVICAL SPINE. Head CT 05/11/16 11:29 IMPRESSION: NORMAL BRAIN CT WITHOUT CONTRAST. Pelvis X-Ray 05/11/16 11:29 IMPRESSION: Intertrochanteric fracture of the proximal right femur. No other evidence for fracture is seen. Spine X-Ray 05/11/16 11:29 IMPRESSION: Limited study as noted above. No significant vertebral compressions are identified. No definite fractures are identified. Other findings as noted above Femur X-Ray 05/12/16 00:00 IMPRESSION: IMAGE(S) OBTAINED DURING PROCEDURE. Fluoroscopy 05/12/16 00:00 IMPRESSION: IMAGE(S) OBTAINED DURING PROCEDURE. Chest/Abdomen CTA 05/15/16 13:44 IMPRESSION: No CT angio evidence of acute pulmonary emboli. 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 Assessment & Plan - Diagnosis (1) Fracture, intertrochanteric, right femur Qualifiers: Encounter type: initial encounter Fracture type: closed Qualified Code(s): S72.141A - Displaced intertrochanteric fracture of right femur, initial encounter for closed fracture Is this a current diagnosis for this admission?: YesPlan: Status post right IM nail #1 physical therapy weightbearing as tolerated #2 pathology results negative for metastasis #3 DVT prophylaxis #4 discharge planning to longterm facility when bed available
[2016-05-16] MEDS: PRAMIPEXOLE DI-HCL 0.25 MG TABLET PO SCH (21:34)
[2016-05-17] MEDS: GABAPENTIN 300 MG CAPSULE PO SCH ×3 (05:51→21:28)
[2016-05-17] MEDS ORDERED: OXYCODONE-ACETAMINOPHEN 5-325 MG TABLET ONE (06:50)
[2016-05-17] MEDS: PREGABALIN 100 MG CAPSULE PO SCH ×3 (06:51→21:27)
[2016-05-17] MEDS: OXYCODONE-ACETAMINOPHEN 5-325 MG TABLET PO PRN ×3 (06:52→21:27)
[2016-05-17] MEDS: SUCRALFATE SUSP 1 GM/10 ML UDCUP PO SCH ×4 (08:45→21:27)
[2016-05-17] MEDS: LANSOPRAZOLE 30 MG TAB.RAP.DR PO SCH ×2 (08:45→15:24)
[2016-05-17] MEDS: OXYCODONE HCL IR 5 MG TABLET PO PRN (10:08)
[2016-05-17 10:38] LABS: APPEARANCE,URINE CLEAR; BILIRUBIN,URINE NEGATIVE (NEGATIVE); GLUCOSE, URINE NEGATIVE (NEGATIVE); KETONES,URINE NEGATIVE (NEGATIVE); LEUKOCYTE ESTERASE,URINE SMALL (NEGATIVE); NITRITE,URINE NEGATIVE (NEGATIVE); PROTEIN,URINE NEGATIVE (NEGATIVE); URINE SPECIFIC GRAVITY 1.009; UROBILINOGEN,URINE NEGATIVE mg/dL (<2.0)
[2016-05-17] MEDS: CYANOCOBALAMIN (VITAMIN B-12) INJ 1000 MCG/1 ML VIAL IM SCH (11:47)
[2016-05-17] MEDS: DOCUSATE SODIUM 100 MG CAPSULE PO SCH (11:48)
[2016-05-17] MEDS: DULOXETINE HCL 30 MG CAPSULE.DR PO SCH ×2 (11:48→21:27)
[2016-05-17] MEDS: RIVAROXABAN 10 MG TABLET PO SCH (11:49)
[2016-05-17] MEDS: FAMOTIDINE 20 MG TABLET PO SCH ×2 (11:49→21:27)
[2016-05-17] MEDS: NYSTATIN/DEXAMETH/DIPHEN SUSP 120 ML PO SCH ×4 (11:49→21:28)
[2016-05-17] MEDS: FUROSEMIDE 20 MG TABLET PO SCH (11:49)
[2016-05-17] MEDS: LISINOPRIL 5 MG TABLET PO SCH (11:49)
[2016-05-17] MEDS: LEVOTHYROXINE SODIUM 0.088 MG TABLET PO SCH (11:50)
[2016-05-17] MEDS: SIMVASTATIN 40 MG TABLET PO SCH (11:50)
[2016-05-17] MEDS: INSULIN LISPRO 100 UNIT/ML 3 ML VIAL SUBCUT PRN ×2 (12:56→17:15)
--- NOTE | 2016-05-17 15:46 | PDOC PROGRESS REPORT ---
Subjective Progress Note for:: 05/17/16 Subjective:: Patient is feeling well she has no complaints today she is in good spirits, less depressed Physical Exam Vital Signs: Temp Pulse Resp BP Pulse Ox 98.7 F 75 16 128/65 H 93 05/17/16 07:26 05/17/16 07:26 05/17/16 07:26 05/17/16 07:26 05/17/16 07:26 Intake & Output 05/16/16 05/17/16 05/18/16 00:59 00:59 00:59 Intake Total 705 450 150 Output Total 300 Balance 405 450 150 Weight 84.6 kg General appearance: PRESENT: no acute distress, well-developed, well-nourished Head exam: PRESENT: atraumatic, normocephalic Eye exam: PRESENT: conjunctiva pale, EOMI, PERRLA. ABSENT: scleral icterus Ear exam: PRESENT: normal external ear exam Mouth exam: PRESENT: moist, tongue midline Neck exam: ABSENT: carotid bruit, JVD, lymphadenopathy, thyromegaly Respiratory exam: PRESENT: clear to auscultation julio. ABSENT: rales, rhonchi, wheezes Cardiovascular exam: PRESENT: RRR. ABSENT: diastolic murmur, rubs, systolic murmur Pulses: PRESENT: normal dorsalis pedis pul Vascular exam: PRESENT: normal capillary refill GI/Abdominal exam: PRESENT: normal bowel sounds, soft. ABSENT: distended, guarding, mass, organolmegaly, rebound, tenderness Rectal exam: PRESENT: deferred Extremities exam: PRESENT: full ROM. ABSENT: calf tenderness, clubbing, pedal edema Neurological exam: PRESENT: alert, awake, oriented to person, oriented to place , oriented to time, oriented to situation, CN II-XII grossly intact. ABSENT: motor sensory deficit Psychiatric exam: PRESENT: appropriate affect, normal mood. ABSENT: homicidal ideation, suicidal ideation Skin exam: PRESENT: dry, intact, warm. ABSENT: cyanosis, rash Results Laboratory Results: 05/15/16 06:44 05/15/16 14:45 05/17/16 10:05 Urine Color YELLOW Urine Appearance CLEAR Urine pH 6.0 Ur Specific [place] 1.009 Urine Protein NEGATIVE Urine Glucose (UA) NEGATIVE Urine Ketones NEGATIVE Urine Blood NEGATIVE Urine Nitrite NEGATIVE Ur Leukocyte Esterase SMALL H Urine WBC (Auto) 4 Urine RBC (Auto) 3 05/15/16 05/15/16 05/15/16 14:45 14:45 20:00 CK-MB (CK-2) 0.89 Troponin I < 0.012 < 0.012 05/16/16 02:06 CK-MB (CK-2) Troponin I < 0.012 Impressions: Chest X-Ray 05/11/16 00:00 IMPRESSION: NO ACUTE RADIOGRAPHIC FINDING IN THE CHEST. Cervical Spine CT 05/11/16 11:29 IMPRESSION: NO ACUTE OR SIGNIFICANT FINDINGS IN THE CERVICAL SPINE. Head CT 05/11/16 11:29 IMPRESSION: NORMAL BRAIN CT WITHOUT CONTRAST. Pelvis X-Ray 05/11/16 11:29 IMPRESSION: Intertrochanteric fracture of the proximal right femur. No other evidence for fracture is seen. Spine X-Ray 05/11/16 11:29 IMPRESSION: Limited study as noted above. No significant vertebral compressions are identified. No definite fractures are identified. Other findings as noted above Femur X-Ray 05/12/16 00:00 IMPRESSION: IMAGE(S) OBTAINED DURING PROCEDURE. Fluoroscopy 05/12/16 00:00 IMPRESSION: IMAGE(S) OBTAINED DURING PROCEDURE. Chest/Abdomen CTA 05/15/16 13:44 IMPRESSION: No CT angio evidence of acute pulmonary emboli. 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 Assessment & Plan - Diagnosis (1) Chest pain Qualifiers: Chest pain type: unspecified Qualified Code(s): R07.9 - Chest pain, unspecified Is this a current diagnosis for this admission?: Yes (2) Breast cancer metastasized to liver Qualifiers: Laterality: left Qualified Code(s): C50.912 - Malignant neoplasm of unspecified site of left female breast; C78.7 - Secondary malignant neoplasm of liver and intrahepatic bile duct Is this a current diagnosis for this admission?: Yes (3) Essential hypertension Is this a current diagnosis for this admission?: Yes (4) Fracture, intertrochanteric, right femur Qualifiers: Encounter type: initial encounter Fracture type: closed Qualified Code(s): S72.141A - Displaced intertrochanteric fracture of right femur, initial encounter for closed fracture Is this a current diagnosis for this admission?: Yes (5) Iron deficiency anemia Qualifiers: Iron deficiency anemia type: unspecified iron deficiency Qualified Code(s): D50.9 - Iron deficiency anemia, unspecified Is this a current diagnosis for this admission?: Yes - Time Time Spent with patient: awaiting transfer to short term rehab will be transfered in am to [facility] Within: within 24 hours
[2016-05-17] MEDS: PRAMIPEXOLE DI-HCL 0.25 MG TABLET PO SCH (21:27)
[2016-05-18] MEDS: OXYCODONE-ACETAMINOPHEN 5-325 MG TABLET PO PRN ×2 (05:06→11:00)
[2016-05-18] MEDS: PREGABALIN 100 MG CAPSULE PO SCH (05:06)
[2016-05-18] MEDS: GABAPENTIN 300 MG CAPSULE PO SCH (05:06)
--- NOTE | 2016-05-18 07:46 | PDOC PROGRESS REPORT ---
Subjective Progress Note for:: 05/18/16 Subjective:: Patient seen and evaluated this morning. Pain control. No issues overnight. Denies chest pain shortness of breath. Physical Exam Vital Signs: Temp Pulse Resp BP Pulse Ox 98.2 F 79 15 139/65 H 94 05/18/16 04:58 05/18/16 04:58 05/18/16 04:58 05/18/16 04:58 05/18/16 04:58 Intake & Output 05/17/16 05/18/16 05/19/16 06:59 06:59 06:59 Intake Total 500 1660 Output Total 800 Balance 500 860 Weight 84.6 kg Musculoskeletal exam: PRESENT: other - Right lower extremity: Bruising along the proximal wound: Wound clean/dry/intact no erythema or drainage. Minimal thigh swelling. Intact plantar flexion/dorsiflexion. Results Laboratory Results: 05/15/16 06:44 05/15/16 14:45 05/17/16 10:05 Urine Color YELLOW Urine Appearance CLEAR Urine pH 6.0 Ur Specific [place] 1.009 Urine Protein NEGATIVE Urine Glucose (UA) NEGATIVE Urine Ketones NEGATIVE Urine Blood NEGATIVE Urine Nitrite NEGATIVE Ur Leukocyte Esterase SMALL H Urine WBC (Auto) 4 Urine RBC (Auto) 3 05/15/16 05/15/16 05/15/16 14:45 14:45 20:00 CK-MB (CK-2) 0.89 Troponin I < 0.012 < 0.012 05/16/16 02:06 CK-MB (CK-2) Troponin I < 0.012 Impressions: Chest X-Ray 05/11/16 00:00 IMPRESSION: NO ACUTE RADIOGRAPHIC FINDING IN THE CHEST. Cervical Spine CT 05/11/16 11:29 IMPRESSION: NO ACUTE OR SIGNIFICANT FINDINGS IN THE CERVICAL SPINE. Head CT 05/11/16 11:29 IMPRESSION: NORMAL BRAIN CT WITHOUT CONTRAST. Pelvis X-Ray 05/11/16 11:29 IMPRESSION: Intertrochanteric fracture of the proximal right femur. No other evidence for fracture is seen. Spine X-Ray 05/11/16 11:29 IMPRESSION: Limited study as noted above. No significant vertebral compressions are identified. No definite fractures are identified. Other findings as noted above Femur X-Ray 05/12/16 00:00 IMPRESSION: IMAGE(S) OBTAINED DURING PROCEDURE. Fluoroscopy 05/12/16 00:00 IMPRESSION: IMAGE(S) OBTAINED DURING PROCEDURE. Chest/Abdomen CTA 05/15/16 13:44 IMPRESSION: No CT angio evidence of acute pulmonary emboli. 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 Assessment & Plan - Diagnosis (1) Fracture, intertrochanteric, right femur Qualifiers: Encounter type: subsequent encounter Fracture type: closed Is this a current diagnosis for this admission?: YesPlan: Status post right hip IM nail #1 physical therapy weightbearing as tolerated #2 pain control #3 DVT prophylaxis #4 discharge planning: Discharge to shelter facility today. Patient follow up with me in 10-14 days.
--- NOTE | 2016-05-18 08:07 | PDOC PROGRESS REPORT ---
Subjective Progress Note for:: 05/18/16 Subjective:: No acute events overnight Physical Exam Vital Signs: Temp Pulse Resp BP Pulse Ox 98.2 F 79 15 139/65 H 94 05/18/16 04:58 05/18/16 04:58 05/18/16 04:58 05/18/16 04:58 05/18/16 04:58 Intake & Output 05/17/16 05/18/16 05/19/16 06:59 06:59 06:59 Intake Total 500 1660 Output Total 800 Balance 500 860 Weight 84.6 kg General appearance: PRESENT: no acute distress, well-developed, well-nourished Head exam: PRESENT: atraumatic, normocephalic Eye exam: PRESENT: conjunctiva pink, EOMI, PERRLA. ABSENT: scleral icterus Ear exam: PRESENT: normal external ear exam Mouth exam: PRESENT: moist, tongue midline Neck exam: ABSENT: carotid bruit, JVD, lymphadenopathy, thyromegaly Respiratory exam: PRESENT: clear to auscultation julio. ABSENT: rales, rhonchi, wheezes Cardiovascular exam: PRESENT: RRR. ABSENT: diastolic murmur, rubs, systolic murmur Pulses: PRESENT: normal dorsalis pedis pul Vascular exam: PRESENT: normal capillary refill GI/Abdominal exam: PRESENT: normal bowel sounds, soft. ABSENT: distended, guarding, mass, organolmegaly, rebound, tenderness Rectal exam: PRESENT: deferred Extremities exam: PRESENT: full ROM. ABSENT: calf tenderness, clubbing, pedal edema Neurological exam: PRESENT: alert, awake, oriented to person, oriented to place , oriented to time, oriented to situation, CN II-XII grossly intact. ABSENT: motor sensory deficit Psychiatric exam: PRESENT: appropriate affect, normal mood. ABSENT: homicidal ideation, suicidal ideation Skin exam: PRESENT: dry, intact, warm. ABSENT: cyanosis, rash Results Laboratory Results: 05/15/16 06:44 05/15/16 14:45 05/17/16 10:05 Urine Color YELLOW Urine Appearance CLEAR Urine pH 6.0 Ur Specific [place] 1.009 Urine Protein NEGATIVE Urine Glucose (UA) NEGATIVE Urine Ketones NEGATIVE Urine Blood NEGATIVE Urine Nitrite NEGATIVE Ur Leukocyte Esterase SMALL H Urine WBC (Auto) 4 Urine RBC (Auto) 3 05/15/16 05/15/16 05/15/16 14:45 14:45 20:00 CK-MB (CK-2) 0.89 Troponin I < 0.012 < 0.012 05/16/16 02:06 CK-MB (CK-2) Troponin I < 0.012 Impressions: Chest X-Ray 05/11/16 00:00 IMPRESSION: NO ACUTE RADIOGRAPHIC FINDING IN THE CHEST. Cervical Spine CT 05/11/16 11:29 IMPRESSION: NO ACUTE OR SIGNIFICANT FINDINGS IN THE CERVICAL SPINE. Head CT 05/11/16 11:29 IMPRESSION: NORMAL BRAIN CT WITHOUT CONTRAST. Pelvis X-Ray 05/11/16 11:29 IMPRESSION: Intertrochanteric fracture of the proximal right femur. No other evidence for fracture is seen. Spine X-Ray 05/11/16 11:29 IMPRESSION: Limited study as noted above. No significant vertebral compressions are identified. No definite fractures are identified. Other findings as noted above Femur X-Ray 05/12/16 00:00 IMPRESSION: IMAGE(S) OBTAINED DURING PROCEDURE. Fluoroscopy 05/12/16 00:00 IMPRESSION: IMAGE(S) OBTAINED DURING PROCEDURE. Chest/Abdomen CTA 05/15/16 13:44 IMPRESSION: No CT angio evidence of acute pulmonary emboli. 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 Assessment & Plan - Diagnosis (1) Breast cancer metastasized to liver Qualifiers: Qualified Code(s): C50.912 - Malignant neoplasm of unspecified site of left female breast; C78.7 - Secondary malignant neoplasm of liver and intrahepatic bile duct Is this a current diagnosis for this admission?: YesPlan: Now that pt being transitioned to [facility], will make f/u with our clinic in 3 weeks, will coordinate with Dr. Branch as well. - Time Time Spent with patient: 35 or more minutes Critical Time spent with patient: 35 or more minutes Anticipated discharge: Acute Rehab Within: within 24 hours
--- NOTE | 2016-05-18 08:13 | PDOC PROGRESS REPORT ---
Subjective Progress Note for:: 05/18/16 Subjective:: Patient has no complaints today She will be transferred to rehabilitation later today ; She still feels a little weak and somewhat depressed Physical Exam Vital Signs: Temp Pulse Resp BP Pulse Ox 98.2 F 79 15 139/65 H 94 05/18/16 04:58 05/18/16 04:58 05/18/16 04:58 05/18/16 04:58 05/18/16 04:58 Intake & Output 05/17/16 05/18/16 05/19/16 00:59 00:59 00:59 Intake Total 450 1610 200 Output Total 800 Balance 450 810 200 Weight 84.6 kg General appearance: PRESENT: no acute distress, well-developed, well-nourished Head exam: PRESENT: atraumatic, normocephalic Eye exam: PRESENT: conjunctiva pink, EOMI, PERRLA. ABSENT: scleral icterus Ear exam: PRESENT: normal external ear exam Mouth exam: PRESENT: moist, tongue midline Neck exam: ABSENT: carotid bruit, JVD, lymphadenopathy, thyromegaly Respiratory exam: PRESENT: clear to auscultation julio. ABSENT: rales, rhonchi, wheezes Cardiovascular exam: PRESENT: RRR. ABSENT: diastolic murmur, rubs, systolic murmur Pulses: PRESENT: normal dorsalis pedis pul Vascular exam: PRESENT: normal capillary refill GI/Abdominal exam: PRESENT: normal bowel sounds, soft. ABSENT: distended, guarding, mass, organolmegaly, rebound, tenderness Rectal exam: PRESENT: deferred Extremities exam: PRESENT: full ROM. ABSENT: calf tenderness, clubbing, pedal edema Neurological exam: PRESENT: alert, awake, oriented to person, oriented to place , oriented to time, oriented to situation, CN II-XII grossly intact. ABSENT: motor sensory deficit Psychiatric exam: PRESENT: appropriate affect, normal mood. ABSENT: homicidal ideation, suicidal ideation Skin exam: PRESENT: dry, intact, warm. ABSENT: cyanosis, rash Results Laboratory Results: 05/15/16 06:44 05/15/16 14:45 05/17/16 10:05 Urine Color YELLOW Urine Appearance CLEAR Urine pH 6.0 Ur Specific [place] 1.009 Urine Protein NEGATIVE Urine Glucose (UA) NEGATIVE Urine Ketones NEGATIVE Urine Blood NEGATIVE Urine Nitrite NEGATIVE Ur Leukocyte Esterase SMALL H Urine WBC (Auto) 4 Urine RBC (Auto) 3 05/15/16 05/15/16 05/15/16 14:45 14:45 20:00 CK-MB (CK-2) 0.89 Troponin I < 0.012 < 0.012 05/16/16 02:06 CK-MB (CK-2) Troponin I < 0.012 Impressions: Chest X-Ray 05/11/16 00:00 IMPRESSION: NO ACUTE RADIOGRAPHIC FINDING IN THE CHEST. Cervical Spine CT 05/11/16 11:29 IMPRESSION: NO ACUTE OR SIGNIFICANT FINDINGS IN THE CERVICAL SPINE. Head CT 05/11/16 11:29 IMPRESSION: NORMAL BRAIN CT WITHOUT CONTRAST. Pelvis X-Ray 05/11/16 11:29 IMPRESSION: Intertrochanteric fracture of the proximal right femur. No other evidence for fracture is seen. Spine X-Ray 05/11/16 11:29 IMPRESSION: Limited study as noted above. No significant vertebral compressions are identified. No definite fractures are identified. Other findings as noted above Femur X-Ray 05/12/16 00:00 IMPRESSION: IMAGE(S) OBTAINED DURING PROCEDURE. Fluoroscopy 05/12/16 00:00 IMPRESSION: IMAGE(S) OBTAINED DURING PROCEDURE. Chest/Abdomen CTA 05/15/16 13:44 IMPRESSION: No CT angio evidence of acute pulmonary emboli. 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 Assessment & Plan - Diagnosis (1) Chest pain Qualifiers: Chest pain type: unspecified Qualified Code(s): R07.9 - Chest pain, unspecified Is this a current diagnosis for this admission?: Yes (2) Breast cancer metastasized to liver Qualifiers: Laterality: left Qualified Code(s): C50.912 - Malignant neoplasm of unspecified site of left female breast; C78.7 - Secondary malignant neoplasm of liver and intrahepatic bile duct Is this a current diagnosis for this admission?: Yes (3) Essential hypertension Is this a current diagnosis for this admission?: Yes (4) Fracture, intertrochanteric, right femur Qualifiers: Encounter type: subsequent encounter Fracture type: closed Is this a current diagnosis for this admission?: Yes (5) Iron deficiency anemia Qualifiers: Iron deficiency anemia type: unspecified iron deficiency Qualified Code(s): D50.9 - Iron deficiency anemia, unspecified Is this a current diagnosis for this admission?: Yes - Time Time Spent with patient: 15-24 minutes Anticipated discharge: SNF - Patient discharged with plans delineated in the transfer summary
[2016-05-18] MEDS: SUCRALFATE SUSP 1 GM/10 ML UDCUP PO SCH ×2 (08:25→11:01)
[2016-05-18] MEDS: LANSOPRAZOLE 30 MG TAB.RAP.DR PO SCH (08:25)
[2016-05-18] MEDS: DULOXETINE HCL 30 MG CAPSULE.DR PO SCH (10:02)
[2016-05-18] MEDS: SIMVASTATIN 40 MG TABLET PO SCH (10:02)
[2016-05-18] MEDS: DOCUSATE SODIUM 100 MG CAPSULE PO SCH (10:02)
[2016-05-18] MEDS: FUROSEMIDE 20 MG TABLET PO SCH (10:03)
[2016-05-18] MEDS: LEVOTHYROXINE SODIUM 0.088 MG TABLET PO SCH (10:03)
[2016-05-18] MEDS: LISINOPRIL 5 MG TABLET PO SCH (10:03)
[2016-05-18] MEDS: FAMOTIDINE 20 MG TABLET PO SCH (10:03)
[2016-05-18] MEDS: CYANOCOBALAMIN (VITAMIN B-12) INJ 1000 MCG/1 ML VIAL IM SCH (10:04)
[2016-05-18] MEDS: NYSTATIN/DEXAMETH/DIPHEN SUSP 120 ML PO SCH (10:05)
[2016-05-18] MEDS: RIVAROXABAN 10 MG TABLET PO SCH (10:09)
[2016-05-18 11:34] VITALS: BP 120/77
[2016-05-18] MEDS: INSULIN LISPRO 100 UNIT/ML 3 ML VIAL SUBCUT PRN (12:00)
== END 2016-05-18 14:00 | DRG 481 ==
LOC: ER 11:05 → EH 14:10 → UNDOADMIN 14:10 → EH 14:36 → 4S 17:21 → 2N 05-14 22:24
PROVIDERS: ADMIT Internal Medicine; ATTEND Internal Medicine
PROC: 30233N1 Transfusion of Nonautologous Red Blood Cells into Peripheral Vein, Percutaneous Approach (ICD-10-PCS; 2016-05-12)
PROC: 0QH636Z Insertion of Intramedullary Internal Fixation Device into Right Upper Femur, Percutaneous Approach (ICD-10-PCS; principal; 2016-05-12 08:00)
DX: S72.141A Displaced intertrochanteric fracture of right femur, initial encounter for closed fracture (principal); C78.7 Secondary malignant neoplasm of liver and intrahepatic bile duct; E11.9 Type 2 diabetes mellitus without complications; C50.912 Malignant neoplasm of unspecified site of left female breast; D50.9 Iron deficiency anemia, unspecified; K21.9 Gastro-esophageal reflux disease without esophagitis; I10 Essential (primary) hypertension; M79.7 Fibromyalgia; E78.5 Hyperlipidemia, unspecified; M54.42 Lumbago with sciatica, left side; M54.41 Lumbago with sciatica, right side; G89.29 Other chronic pain; W10.9XXA Fall (on) (from) unspecified stairs and steps, initial encounter; Y93.9 Activity, unspecified; Y92.018 Other place in single-family (private) house as the place of occurrence of the external cause
CPT/HCPCS: 01230; 36415; 36430; 70450; 71010; 71275; 72082; 72125; 72170; 80048; 80053; 81001; 82553; 82607; 82728; 82746; 82962; 83540; 83550; 84466; 84484; 84520; 85025; 85027; 85045; 85610; 86850; 86900; 86901; 86920; 88305; 88311; 93005; 93010; 94799; 96374; 96376; 99285; C1713; G8978-GP; G8979-GP; G8987-GO; G8988-GO; J0131; J0690; J1650; J1756; J1815; J2250; J2270; J2370; J2405; J2704; J2765; J3010; J3420; J3490; J7120; P9016; Q0138; S0119

== ENCOUNTER 2017-02-26 10:25 | Emergency (ER) | payer MEDICARE ==
--- NOTE | 2017-02-26 12:01 | RADIOLOGY REPORT (SQ) ---
EXAM DESCRIPTION: CT LTD RENAL STONE PROTOCOL ON COMPLETED DATE/TIME: 02/26/2017 11:45 am REASON FOR STUDY: fall, pain COMPARISON: CT chest 05/15/2016 TECHNIQUE: CT scan of the abdomen and pelvis performed without intravenous or oral contrast. Images reviewed with lung, soft tissue, and bone windows. Reconstructed coronal and sagittal MPR images revi ewed. All images stored on PACS. All CT scanners at this facility use dose modulation, iterative reconstruction, and/or weight based d osing when appropriate to reduce radiation dose to as low as reasonably achievable (ALARA). [facility]: Dose Right [facility]: CareDose [facility]: Dose Right [facility]: Teradose 4D [facility]: Smart [employer] RADIATION DOSE: CT Rad equipment meets quality standard of care and radiation dose reduction techniq ues were employed. CTDIvol: 16.6 mGy. DLP: 918 mGy-cm.mGy. LIMITATIONS: None. FINDINGS: LOWER CHEST: Mild left basilar airspace disease is present atelectasis versus pneumonia. Old left mastectomy NON-CONTRASTED LIVER, SPLEEN, ADRENALS: Evaluation limited by lack of IV contrast. No identified sign ificant masses. PANCREAS: No masses. No peripancreatic inflammatory changes. GALLBLADDER: No identified stones by CT criteria. No inflammatory changes to suggest cholecystitis. RIGHT KIDNEY AND URETER: No suspicious masses. Assessment limited by lack of IV contrast. No signif icant calcifications. No hydronephrosis or hydroureter. LEFT KIDNEY AND URETER: No suspicious masses. Assessment limited by lack of IV contrast. No signifi cant calcifications. No hydronephrosis or hydroureter. AORTA AND RETROPERITONEUM: No aneurysm. No retroperitoneal masses or adenopathy. BOWEL AND PERITONEAL CAVITY: Post right hemicolectomy. Surgical clips at the stomach fundus from gas tric bypass. Few descending and sigmoid colon diverticuli without CT signs of acute diverticulitis. APPENDIX: Surgically absent PELVIS, BLADDER, AND ABDOMINAL WALL:No abnormal masses. No free fluid. Bladder normal. Normal size f emale pelvic organs for age BONES: No significant findings. Lag screws post a right hip ORIF. Lower lumbar fusion screws at L4- 5 OTHER: No other significant finding. IMPRESSION: No acute findings COMMENT: Quality ID # [id number]: Final reports with documentation of one or more dose reduction techniques (e.g., Automated exposure control, adjustment of the mA and/or kV according to patient size, use of iterative reconstruction technique) TECHNICAL DOCUMENTATION: JOB ID: [id number] [employer]- All Rights Reserved
[2017-02-26 12:21] LABS: ABSOLUTE BASOPHILS # (AUTO) 0.1 10^3/uL (0.0-0.2); ABSOLUTE EOSINOPHILS # (AUTO) 0.4 10^3/uL (0.0-0.6); ABSOLUTE LYMPHOCYTES (AUTO) 1.7 10^3/uL (0.5-4.7); ABSOLUTE MONOCYTES (AUTO) 0.5 10^3/uL (0.1-1.4); ABSOLUTE NEUT (AUTO) 5.9 10^3/uL (1.7-8.2); BASOPHILS % (AUTO) 0.8 % (0-2); EOSINOPHILS % (AUTO) 4.4 % (0-6); HEMATOCRIT 33.8 % (36.0-47.0); HGB HCT DIFFERENCE -0.8; LYMPHOCYTES % (AUTO) 19.5 % (13-45); MEAN CORPUSCULAR HEMOGLOBIN 29.8 pg (27.0-33.4); MEAN CORPUSCULAR HGB CONC 32.5 g/dL (32.0-36.0); MEAN CORPUSCULAR VOLUME 92 fl (80-97); MONOCYTES % (AUTO) 6.3 % (3-13); RED BLOOD COUNT 3.68 10^6/uL (3.72-5.28); RED CELL DISTRIBUTION WIDTH 14.9 % (11.5-14.0); WHITE BLOOD COUNT 8.5 10^3/uL (4.0-10.5)
[2017-02-26 12:28] LABS: APPEARANCE,URINE CLOUDY; BILIRUBIN,URINE NEGATIVE (NEGATIVE); GLUCOSE, URINE NEGATIVE (NEGATIVE); KETONES,URINE NEGATIVE (NEGATIVE); LEUKOCYTE ESTERASE,URINE TRACE (NEGATIVE); NITRITE,URINE NEGATIVE (NEGATIVE); PROTEIN,URINE NEGATIVE (NEGATIVE); UROBILINOGEN,URINE NEGATIVE mg/dL (<2.0)
[2017-02-26 12:47] LABS: ALANINE AMINOTRANSFERASE 29 U/L (9-52); ALBUMIN 3.7 g/dL (3.5-5.0); ALKALINE PHOSPHATASE 159 U/L (38-126); ANION GAP 11 (5-19); ASPARTATE AMINO TRANSFERASE 19 U/L (14-36); BILIRUBIN,DIRECT 0.3 mg/dL (0.0-0.4); BILIRUBIN,TOTAL 0.3 mg/dL (0.2-1.3); BLOOD UREA NITROGEN 25 mg/dL (7-20); CALCIUM 8.9 mg/dL (8.4-10.2); CARBON DIOXIDE 24 mmol/L (22-30); CHLORIDE 107 mmol/L (98-107); GLUCOSE 83 mg/dL (75-110); POTASSIUM 4.8 mmol/L (3.6-5.0); SODIUM 141.5 mmol/L (137-145); TOTAL PROTEIN 6.8 g/dL (6.3-8.2)
[2017-02-26] MEDS ORDERED: NORMAL SALINE 500 ML IV ONE (13:01)
--- NOTE | 2017-02-26 13:02 | ER Document Report ---
ED Fall - General Mode of Arrival: Ambulatory Information source: Patient TRAVEL OUTSIDE OF THE [place] IN LAST 30 DAYS: No <CHRISTIN GARCIA - Last Filed: 02/26/17 14:31> <LE ORELLANA - Last Filed: 02/26/17 16:13> - General Chief Complaint: Back Pain Stated Complaint: FALL BACK PAIN Time Seen by Provider: 02/26/17 11:16 Notes: Patient is a 72 year old female that presents to the emergency department today with complaints of upper back pain. Patient states she had a fall last night around 2330. Patient denies any symptoms prior to the fall. Patient does state she took 2 percocets prior to the fall which she is prescribed secondary to known malignancy. (CHRISTIN GARCIA) - Related data Allergies/Adverse Reactions: codeine Allergy (Verified 05/11/16 12:04) Past Medical History - General Information source: Patient - Social History Smoking Status: Unknown if Ever Smoked Cigarette use (# per day): No Frequency of alcohol use: None Drug Abuse: None Lives with: Family Family History: Reviewed & Not Pertinent Patient has suicidal ideation: No Patient has homicidal ideation: No - Past Medical History Cardiac Medical History: Reports: Hx Hypercholesterolemia, Hx Hypertension Endocrine Medical History: Reports: Hx Diabetes Mellitus Type 2 Malignancy Medical History: Reports: Hx Breast Cancer - [facility]: Reports: Hx Depression Past Surgical History: Reports: Hx Orthopedic Surgery - Back Sx, Hx Tubal Ligation, Other - L mastectomy/LN dissection - Immunizations Hx Pneumococcal Vaccination: 04/20/14 <CHRISTIN GARCIA - Last Filed: 02/26/17 14:31> Review of Systems - Review of Systems Constitutional: No symptoms reported EENT: No symptoms reported Cardiovascular: No symptoms reported Respiratory: No symptoms reported Gastrointestinal: No symptoms reported Genitourinary: No symptoms reported Female Genitourinary: No symptoms reported Musculoskeletal: See HPI, Back pain - secondary to a fall Skin: No symptoms reported Hematologic/Lymphatic: No symptoms reported Neurological/Psychological: No symptoms reported -: Yes All other systems reviewed and negative <CHRISTIN GARCIA - Last Filed: 02/26/17 14:31> Physical Exam - Vital signs Interpretation: Normal - General General appearance: Appears well, Alert In distress: None - HEENT Head: Normocephalic, Atraumatic Eyes: Normal Pupils: PERRL Mucous membranes: Dry - Respiratory Respiratory status: No respiratory distress Chest status: Nontender Breath sounds: Normal Chest palpation: Normal - Cardiovascular Rhythm: Regular Heart sounds: Normal auscultation Murmur: No - Abdominal Inspection: Normal Distension: No distension Bowel sounds: Normal Tenderness: Nontender Organomegaly: No organomegaly - Genitourinary External exam: Other - Rash consistent with yeast in intertriginous area b/l - Back Back: Normal, Tender - Mild tenderness to palpation of medial scapula on the left. Mild tenderness to palpation of L1 through L5 paraspinal. - Extremities General upper extremity: Nontender, Edema - Chronic in left upper extremity, Normal color, Normal ROM, Normal temperature General lower extremity: Normal inspection, Nontender, Normal color, Normal ROM , Normal temperature, Normal weight bearing. No: Stephen's sign - Neurological Neuro grossly intact: Yes Cognition: Normal Orientation: AAOx4 Harrison Coma Scale Eye Opening: Spontaneous Harrison Coma Scale Verbal: Oriented Harrison Coma Scale Motor: Obeys Commands Harrison Coma Scale Total: 15 Speech: Normal Motor strength normal: LUE, RUE, LLE, RLE Sensory: Normal - Psychological Associated symptoms: Normal affect, Normal mood - Skin Skin Temperature: Warm Skin Moisture: Dry Skin Color: Normal <LE ORELLANA - Last Filed: 02/26/17 16:13> - Vital signs Vitals: Pulse Resp BP Pulse Ox 78 18 130/60 H 97 02/26/17 10:32 02/26/17 10:32 02/26/17 10:32 02/26/17 10:32 Course - Laboratory Result Diagrams: 02/26/17 12:10 02/26/17 12:10 <CHRISTIN GARCIA - Last Filed: 02/26/17 14:31> - Laboratory Result Diagrams: 02/26/17 12:10 02/26/17 12:10 - Diagnostic Test Radiology reviewed: Reports reviewed <LE ORELLANA - Last Filed: 02/26/17 16:13> - Re-evaluation Re-evalutation: 02/26/17 16:12 Patient with some mild elevation of BUN and creatinine. Otherwise no acute findings on blood work or imaging. Patient also has what appears to be a yeast infection in her groin. Given fluconazole here and will be given a prescription for nystatin. Patient has pain medication ordered at her facility. Understands and agrees with plan. Stable for discharge. (LE ORELLANA) - Vital Signs Vital signs: Temp Pulse Resp BP Pulse Ox 78 18 130/60 H 97 02/26/17 10:32 02/26/17 10:32 02/26/17 10:32 02/26/17 10:32 - Laboratory Laboratory results interpreted by me: 02/26/17 02/26/17 02/26/17 12:10 12:10 12:10 RBC 3.68 L Hgb 11.0 L Hct 33.8 L RDW 14.9 H BUN 25 H Creatinine 1.80 H Est GFR ( Amer) 34 L Est GFR (Non-Af Amer) 28 L Alkaline Phosphatase 159 H Ur Leukocyte Esterase TRACE H Discharge <CHRISTIN GARCIA - Last Filed: 02/26/17 14:31> <LE ORELLANA - Last Filed: 02/26/17 16:13> - Discharge Clinical Impression: Upper back pain on left side, Yeast infection of the skin Fall Qualifiers: Encounter type: initial encounter Qualified Code(s): W19.XXXA - Unspecified fall, initial encounter Condition: Stable Disposition: HOME, SELF-CARE Instructions: Upper Back Strain ([facility]) Additional Instructions: Please follow-up with your doctor. Please take your pain medication as prescribed. Prescriptions: Nystatin/Triamcin [Nystatin-Triamcinolone Cream] 15 gm TP DAILY #1 cream..g. Referrals: SOLA BALDERAS DO [Primary Care Provider] - Follow up as needed Scribe Attestation: 02/26/17 16:12 I personally performed the services described in the documentation, reviewed and edited the documentation which was dictated to the scribe in my presence, and it accurately records my words and actions. (LE ORELLANA) Scribe Documentation - Scribe Written by Scribe:: Ely Perez, 02/26/2017 1442 acting as scribe for :: Symone <CHRISTIN GARCIA - Last Filed: 02/26/17 14:31>
--- NOTE | 2017-02-26 14:31 | RADIOLOGY REPORT (SQ) ---
EXAM DESCRIPTION: CHEST PA/LAT COMPLETED DATE/TIME: 02/26/2017 2:20 pm REASON FOR STUDY: fall, pain COMPARISON: None. EXAM PARAMETERS: NUMBER OF VIEWS: two views TECHNIQUE: Digital Frontal and Lateral radiographic views of the chest acquired. RADIATION DOSE: NA LIMITATIONS: none FINDINGS: LUNGS AND PLEURA: No opacities, masses or pneumothorax. No pleural effusion. MEDIASTINUM AND HILAR STRUCTURES: No masses or contour abnormalities. HEART AND VASCULAR STRUCTURES: Heart normal size. No evidence for failure. BONES: See shoulder series HARDWARE: Injection port on the right. Left axillary surgical clips. Surgical clips overlying the l eft chest. OTHER: No other significant finding. IMPRESSION: NO SIGNIFICANT RADIOGRAPHIC FINDING IN THE CHEST. TECHNICAL DOCUMENTATION: JOB ID: [id number] [employer]- All Rights Reserved
--- NOTE | 2017-02-26 14:32 | RADIOLOGY REPORT (SQ) ---
EXAM DESCRIPTION: SHOULDER LEFT 2 OR MORE VIEWS COMPLETED DATE/TIME: 02/26/2017 2:20 pm REASON FOR STUDY: fall, pain COMPARISON: None. NUMBER OF VIEWS: Three views. TECHNIQUE: Internal rotation, external rotation, and Y view images acquired of the left shoulder. LIMITATIONS: None. FINDINGS: MINERALIZATION: Osteopenia. BONES: No acute fracture or dislocation. No worrisome bone lesions. JOINTS: No dislocation. VISUALIZED LUNGS AND RIBS: No pneumothorax. No rib fracture. SOFT TISSUES: No radiopaque foreign body. OTHER: No other significant finding. IMPRESSION: NEGATIVE STUDY OF THE LEFT SHOULDER. NO RADIOGRAPHIC EVIDENCE OF ACUTE INJURY. TECHNICAL DOCUMENTATION: JOB ID: [id number] [employer]- All Rights Reserved
[2017-02-26] MEDS ORDERED: FLUCONAZOLE 100 MG TABLET PO ONE (16:01)
[2017-02-26 18:27] VITALS: BP 116/52
== END 2017-02-26 18:27 | disposition home or self-care (01) ==
LOC: ER 10:25
DX: M54.89 Other dorsalgia (principal); W01.0XXA Fall on same level from slipping, tripping and stumbling without subsequent striking against object, initial encounter; C50.919 Malignant neoplasm of unspecified site of unspecified female breast; B37.2 Candidiasis of skin and nail; I10 Essential (primary) hypertension; E11.9 Type 2 diabetes mellitus without complications; R60.0 Localized edema
CPT/HCPCS: 99285; 36415; 85025; 80053; 81001; 71020; 73030; 76380; J7040; A9270

== ENCOUNTER 2017-02-27 20:08 | Inpatient (IN) | payer MEDICARE, MEDICAID ==
[2017-02-27] MEDS ORDERED: FENTANYL CITRATE INJ/PF 100 MCG/2 ML AMPUL IV ONE ×2 (20:19→21:48)
[2017-02-27] MEDS ORDERED: NORMAL SALINE 1000 ML 1,000 ML IV ONE (20:29)
--- NOTE | 2017-02-27 20:29 | ER Document Report ---
ED Fall - General Chief Complaint: Fall Stated Complaint: FALL,HEAD INJURY Time Seen by Provider: 02/27/17 20:18 Mode of Arrival: Medic TRAVEL OUTSIDE OF THE [place] IN LAST 30 DAYS: No - HPI Notes: 72-year-old female from assisted living with fall and injury to left hip. Patient has a history of metastatic breast cancer with lymph node resection of the left axilla, right intertrochanteric hip fracture repair this year, hypertension on Xarelto presents with left hip pain predominantly after sustaining a fall. She has been at assisted living for cellulitis of the right lower extremity which apparently is improving. She states she slipped because of her slippery socks causing injury to her left hip. She did strike her head but denies head injury otherwise, loss of consciousness. She does have some mild generalized pain including neck discomfort. She does have some chronic back pain does not note that this is any different than normal. She has chronic left upper extremity swelling since her surgery. Denies any specific injury otherwise except for the generalized pain. She received Fentanyl 90 mcg in route to the emergency department with improvement in her pain. Denies any specific chest pain or breathing difficulty. - Related data Allergies/Adverse Reactions: codeine Allergy (Verified 05/11/16 12:04) Past Medical History - General Information source: Patient - Social History Smoking Status: Unknown if Ever Smoked Family History: Reviewed & Not Pertinent - Past Medical History Cardiac Medical History: Reports: Hx Hypercholesterolemia, Hx Hypertension Denies: Hx Heart Attack Pulmonary Medical History: Denies: Hx COPD Endocrine Medical History: Reports: Hx Diabetes Mellitus Type 2 Renal/ Medical History: Denies: Hx Peritoneal Dialysis Malignancy Medical History: Reports: Hx Breast Cancer - [facility] History: Reports: Hx Depression Past Surgical History: Reports: Hx Orthopedic Surgery - Back Sx, Hx Tubal Ligation, Other - L mastectomy/LN dissection - Immunizations Hx Pneumococcal Vaccination: 04/20/14 Physical Exam - Vital signs Vitals: Temp Pulse Resp BP Pulse Ox 98.3 F 97 16 142/70 H 99 02/27/17 20:18 02/27/17 20:18 02/27/17 20:18 02/27/17 20:18 02/27/17 20:18 Notes: See nurse's notes - Notes Notes: GENERAL: VS as per nursing doc. Well-appearing, well-nourished and in no acute distress. HEAD: Atraumatic, normocephalic. EYES: Pupils equal round and reactive to light, extraocular movements intact, sclera anicteric, no conjunctival injection or discharge. ENT: Nares patent, oropharynx clear without exudates, slightly dry mucous membranes. NECK: Normal range of motion, supple without lymphadenopathy. LUNGS: Breath sounds clear to auscultation bilaterally and equal. No wheezes rales or rhonchi. HEART: Regular rate and rhythm without murmurs. 1+ dorsalis pedis pulse left lower extremity ABDOMEN: Soft, non-tender, normoactive bowel sounds. No guarding, no rebound. No masses appreciated. No [place] sign. EXTREMITIES: Normal range of motion, no calf tenderness, pitting edema to both lower extremities. There is increased erythema of the right lower extremity mostly pretibial. Significant left upper extremity enlargement compared to the right. No cellulitic regions or palpable cords noted. There is shortening and rotation externally of the left lower extremity NEUROLOGICAL: Cranial nerves grossly intact. Normal speech. Normal sensory and motor exams except for limitations by pain of the left lower extremity. She does have distal sensation intact. No gross cerebellar abnormalities. PSYCH: Normal mood, normal affect. SKIN: Warm, dry, see above as multiple cellulitic regions.. Course - Re-evaluation Re-evalutation: 02/27/17 21:40 Of note patient was here last night for a fall for upper back pain. CT of the C -spine he shows no acute injury. C-collar will be removed. Radiology is reading the head CT which has some suggestion of a possible subacute stroke that was not there present earlier this year. I do not see clear new neurologic deficit I suspect this is old but I do not see workup of this as well either. She is on Xarelto but there is no hemorrhage. - Vital Signs Vital signs: Temp Pulse Resp BP Pulse Ox 98.3 F 97 16 132/85 H 99 02/27/17 20:18 02/27/17 20:18 02/27/17 21:36 02/27/17 21:36 02/27/17 21:36 - Laboratory Result Diagrams: 02/27/17 20:30 02/27/17 20:30 Laboratory results interpreted by me: 02/27/17 02/27/17 20:30 20:30 RBC 3.33 L Hgb 9.9 L Hct 30.8 L RDW 15.2 H Potassium 5.8 H Chloride 109 H BUN 25 H Creatinine 1.77 H Est GFR ( Amer) 34 L Est GFR (Non-Af Amer) 28 L Glucose 177 H Total Bilirubin < 0.1 L Total Protein 6.2 L Albumin 3.3 L - Diagnostic Test Radiology reviewed: Image reviewed, Reports reviewed - Intertrochanteric left hip fracture - EKG Interpretation by [facility] EKG shows normal: Sinus rhythm - Rate 90, mild artifact, no clear ischemia. QRS is normal with normal intervals. - Consults Dr. Riojas Time consulted: 21:56 - They will consult. Dr. Heck repaired her hip in May on the other side. Dr. Fierro Time consulted: 22:02 - Will eval for admission Discharge - Discharge Clinical Impression: Intertrochanteric fracture of left hip, Anemia, Abnormal head CT, Renal insufficiency syndrome Condition: Fair Disposition: ADMITTED INPATIENT Admitting Provider: Dr. Fierro Unit Admitted: Telemetry
[2017-02-27 20:52] LABS: ABSOLUTE BASOPHILS # (AUTO) 0.1 10^3/uL (0.0-0.2); ABSOLUTE EOSINOPHILS # (AUTO) 0.3 10^3/uL (0.0-0.6); ABSOLUTE LYMPHOCYTES (AUTO) 1.7 10^3/uL (0.5-4.7); ABSOLUTE MONOCYTES (AUTO) 0.5 10^3/uL (0.1-1.4); ABSOLUTE NEUT (AUTO) 5.5 10^3/uL (1.7-8.2); BASOPHILS % (AUTO) 1.2 % (0-2); EOSINOPHILS % (AUTO) 4.1 % (0-6); HEMATOCRIT 30.8 % (36.0-47.0); HEMOGLOBIN 9.9 g/dL (12.0-15.5); LYMPHOCYTES % (AUTO) 20.5 % (13-45); MEAN CORPUSCULAR HEMOGLOBIN 29.7 pg (27.0-33.4); MEAN CORPUSCULAR HGB CONC 32.1 g/dL (32.0-36.0); MEAN CORPUSCULAR VOLUME 92 fl (80-97); MONOCYTES % (AUTO) 6.6 % (3-13); PLATELET COUNT 378 10^3/uL (150-450); RED BLOOD COUNT 3.33 10^6/uL (3.72-5.28); RED CELL DISTRIBUTION WIDTH 15.2 % (11.5-14.0); SEGMENTED NEUTROPHILS % (AUTO) 67.6 % (42-78); TOTAL CELLS COUNTED % (AUTO) 100 %; WHITE BLOOD COUNT 8.1 10^3/uL (4.0-10.5)
[2017-02-27 21:06] LABS: INTERNATIONAL RATION (INR) 1.11; PROTHROMBIN TIME 15.1 SEC (11.4-15.4)
[2017-02-27 21:07] LABS: ALANINE AMINOTRANSFERASE 27 U/L (9-52); ALBUMIN 3.3 g/dL (3.5-5.0); ALKALINE PHOSPHATASE 125 U/L (38-126); ANION GAP 10 (5-19); ASPARTATE AMINO TRANSFERASE 17 U/L (14-36); BLOOD UREA NITROGEN 25 mg/dL (7-20); CARBON DIOXIDE 24 mmol/L (22-30); CHLORIDE 109 mmol/L (98-107); GLUCOSE 177 mg/dL (75-110); POTASSIUM 5.8 mmol/L (3.6-5.0); SODIUM 142.5 mmol/L (137-145); TOTAL PROTEIN 6.2 g/dL (6.3-8.2)
[2017-02-27 21:15] LABS: BILIRUBIN,TOTAL < 0.1 mg/dL (0.2-1.3)
--- NOTE | 2017-02-27 21:38 | RADIOLOGY REPORT (SQ) ---
EXAM DESCRIPTION: CT CERVICAL SPINE WITHOUT COMPLETED DATE/TIME: 02/27/2017 9:08 pm REASON FOR STUDY: Trauma with pain COMPARISON: 05/11/2016. TECHNIQUE: Axial images acquired through the cervical spine without intravenous contrast. Images re viewed with lung, soft tissue and bone windows. Reconstructed coronal and sagittal MPR images review ed. Images stored on PACS. All CT scanners at this facility use dose modulation, iterative reconstruction, and/or weight based d osing when appropriate to reduce radiation dose to as low as reasonably achievable (ALARA). [facility]: Dose Right [facility]: CareDose [facility]: Dose Right [facility]: Teradose 4D [facility]: [employer] RADIATION DOSE: CT Rad equipment meets quality standard of care and radiation dose reduction techniq ues were employed. CTDIvol: 21.1 mGy. DLP: 428 mGy-cm. mGy. LIMITATIONS: None. FINDINGS: ALIGNMENT: Anatomic. MINERALIZATION: Normal. VERTEBRAL BODIES: No fractures or dislocation. DISCS: No significant disc disease. FACETS, LATERAL MASSES, POSTERIOR ELEMENTS: No fractures. No dislocation. No acute findings. HARDWARE: None in the spine. VISUALIZED RIBS: No fractures. LUNG APICES AND SOFT TISSUES: No significant or acute findings. OTHER: The visualized upper thoracic esophagus is distended. IMPRESSION: 1. NO ACUTE OR SIGNIFICANT FINDINGS IN THE CERVICAL SPINE. 2. THE VISUALIZED UPPER THORACIC ESOPHAGUS IS DISTENDED. ON PREVIOUS CHEST CT DONE IN APRIL 2016 THERE WAS MILD ESOPHAGEAL DILATION. THIS IS PROBABLY RELATED TO PREVIOUS GASTRIC BYPASS. THERE MAY BE RELATIVE FUNCTIONAL OBSTRUCTION AT THE GASTROESOPHAGEAL JUNCTION. TECHNICAL DOCUMENTATION: JOB ID: [id number] Quality ID # [id number]: Final reports with documentation of one or more dose reduction techniques (e.g., Au tomated exposure control, adjustment of the mA and/or kV according to patient size, use of iterative reconstruction technique) 2010 [employer]- All Rights Reserved
--- NOTE | 2017-02-27 21:45 | RADIOLOGY REPORT (SQ) ---
EXAM DESCRIPTION: CT HEAD WITHOUT COMPLETED DATE/TIME: 02/27/2017 9:08 pm REASON FOR STUDY: Trauma with pain COMPARISON: 05/11/2016. TECHNIQUE: Axial images acquired through the brain without intravenous contrast. Images reviewed wi th bone, brain and subdural windows. Images stored on PACS. All CT scanners at this facility use dose modulation, iterative reconstruction, and/or weight based d osing when appropriate to reduce radiation dose to as low as reasonably achievable (ALARA). [facility]: Dose Right [facility]: CareDose [facility]: Dose Right [facility]: Teradose 4D [facility]: Smart Octro RADIATION DOSE: CT Rad equipment meets quality standard of care and radiation dose reduction techniq ues were employed. CTDIvol: 64.6 - 67.0 mGy. DLP: 2216 mGy-cm. mGy. LIMITATIONS: Motion artifact. FINDINGS: VENTRICLES: Normal size and contour. CEREBRUM: No masses. No hemorrhage. No midline shift. There is decreased attenuation in the white matter of the posterior right parietal lobe. CEREBELLUM: No masses. No hemorrhage. No alteration of density. No evidence for acute infarction. EXTRAAXIAL SPACES: No fluid collections. No masses. ORBITS AND GLOBE: No intra- or extraconal masses. Normal contour of globe without masses. CALVARIUM: No fracture. PARANASAL SINUSES: No fluid or mucosal thickening. SOFT TISSUES: No mass or hematoma. OTHER: No other significant finding. IMPRESSION: DECREASED ATTENUATION IN THE WHITE MATTER OF THE POSTERIOR RIGHT PARIETAL LOBE, NOT PRES ENT IN APRIL 2016. THIS COULD BE INDICATIVE OF RECENT INFARCT. MRI OF THE BRAIN MAY BE CONSIDERE D FOR FURTHER EVALUATION. EVIDENCE OF ACUTE STROKE: POSSIBLE ACUTE OR SUBACUTE INFARCT. RIGHT MCA COMMENT: Pertinent findings on the imaging study reported as a CRITICAL RESULT to SRINIVAS MARTINO MD at21:39 on 02/27/2017. Category of Critical Result: Possible acute infarct. Quality ID # [id number]: Final reports with documentation of one or more dose reduction techniques (e.g., Au tomated exposure control, adjustment of the mA and/or kV according to patient size, use of iterative reconstruction technique) TECHNICAL DOCUMENTATION: JOB ID: [id number] [email or web address]- All Rights Reserved
--- NOTE | 2017-02-27 22:11 | EKG REPORT ---
SEVERITY:- NORMAL ECG - SINUS RHYTHM : Confirmed by: Sin Spencer 27-Feb-2017 22:10:24
--- NOTE | 2017-02-27 22:18 | RADIOLOGY REPORT (SQ) ---
EXAM DESCRIPTION: CHEST SINGLE VIEW COMPLETED DATE/TIME: 02/27/2017 9:12 pm REASON FOR STUDY: Hip Fx/Pre-op COMPARISON: 02/26/2017. EXAM PARAMETERS: NUMBER OF VIEWS: One view. TECHNIQUE: Single frontal radiographic view of the chest acquired. RADIATION DOSE: NA LIMITATIONS: None. FINDINGS: LUNGS AND PLEURA: No opacities, masses or pneumothorax. No pleural effusion. MEDIASTINUM AND HILAR STRUCTURES: No masses. Contour normal. HEART AND VASCULAR STRUCTURES: Heart normal in size. Normal vasculature. BONES: No acute findings. HARDWARE: Surgical clips. Vascular access port. OTHER: No other significant finding. IMPRESSION: NO ACUTE RADIOGRAPHIC FINDING IN THE CHEST. TECHNICAL DOCUMENTATION: JOB ID: [id number] [employer]- All Rights Reserved
--- NOTE | 2017-02-27 22:19 | RADIOLOGY REPORT (SQ) ---
EXAM DESCRIPTION: HIP LEFT AP/LATERAL COMPLETED DATE/TIME: 02/27/2017 9:12 pm REASON FOR STUDY: Trauma with pain COMPARISON: None. NUMBER OF VIEWS: Two views. TECHNIQUE: AP pelvis and additional frog-leg view of the left hip. LIMITATIONS: None. FINDINGS: MINERALIZATION: Normal. LEFT HIP: Intertrochanteric fracture. RIGHT HIP: No fracture or dislocation. Hardware in the femoral shaft and neck. No worrisome bone le sions. PUBIS AND ISCHIUM: No fracture. PELVIS: No fracture. SACRUM: No fracture or dislocation. No worrisome bone lesions. LOWER LUMBAR SPINE: No fracture or dislocation. No worrisome bone lesions. Degenerative changes with hardware. SOFT TISSUES: No findings. OTHER: No other significant finding. IMPRESSION: INTERTROCHANTERIC FRACTURE OF THE LEFT HIP. TECHNICAL DOCUMENTATION: JOB ID: [id number] [employer]- All Rights Reserved
[2017-02-27] MEDS ORDERED: NORMAL SALINE 1000 ML 1,000 ML IV PRN ×2 (22:23→23:02)
[2017-02-27] MEDS ORDERED: FENTANYL CITRATE INJ/PF 100 MCG/2 ML AMPUL IV PRN (22:57)
[2017-02-27] MEDS ORDERED: GLUCAGON,HUMAN RECOMB 1 MG INJ SUBCUT PRN (22:59)
[2017-02-27] MEDS ORDERED: DEXTROSE 50%-WATER 25 GM/50 ML DISP.SYRIN IV PRN ×4 (22:59→23:05)
[2017-02-27] MEDS ORDERED: ONDANSETRON HCL INJ/PF 4 MG/2 ML SDV IV PRN (22:59)
[2017-02-27] MEDS ORDERED: DEXTROSE 40% GEL 15 GM TUBE PO PRN ×4 (22:59→23:05)
[2017-02-27] MEDS ORDERED: CEFTRIAXONE 1 GM/D5W RTU 1 GM/50 ML RTUPB IV ONE (23:00)
[2017-02-27] MEDS ORDERED: GLUCAGON,HUMAN RECOMB 1 MG INJ IM PRN (23:05)
[2017-02-27] MEDS ORDERED: VANCOMYCIN HCL INJ 1000 MG VIAL IV PRN (23:13)
[2017-02-27] MEDS ORDERED: VANCOMYCIN HCL 2,000 MG in DEXTROSE 5%-WATER 500 ML IV SCH (23:15)
[2017-02-27] MEDS ORDERED: VANCOMYCIN HCL 0 MG in DEXTROSE 5%-WATER 250 ML IV NR (23:15)
[2017-02-27] MEDS ORDERED: PHARMACY COMMUNICATION ORDER MC NR (23:15)
[2017-02-28] MEDS: OXYCODONE-ACETAMINOPHEN 5-325 MG TABLET PO PRN ×5 (01:24→21:44)
--- NOTE | 2017-02-28 01:35 | PDOC H&P ---
History of Present Illness Admission Date/PCP: 02/27/17 22:14 Fozia Linder NP History of Present Illness: PROSPER ABREU is a 72 year old female with past medical history of breast cancer with metastasis to the liver, hypertension, anemia, DVT on Xarelto, diabetes mellitus, hypothyroidism, neuropathy, chronic back pain, and a new diagnosis she reports of chronic kidney disease who presents to the emergency department with a fall. She reports she was standing she went to walk and tripped and fell. Patient has been residing since Saturday at [facility] under the care of Dr. Clemens for lower extremity cellulitis. Patient declines a [place] catheter at this time quite vociferously. She denies feeling poorly before this. She denies any syncope, chest pain, shortness of breath, fever, chills. She is referred to the hospital service for medical management of her comorbid conditions at the request of orthopedic surgery. Patient's medications are currently undergoing reconciliation. Current list is automatically generated by [employer] and does not reflect an accurate description of her medications. Due to the urgent/emergent nature of her condition, she is admitted without a full list. Past Medical History Past Medical History: breast cancer with metastasis to the liver, hypertension, anemia, DVT on Xarelto , diabetes mellitus, hypothyroidism, neuropathy, chronic back pain, and a new diagnosis she reports of chronic kidney disease Cardiac Medical History: Reports: DVT, Hyperlipidema, Hypertension Denies: Myocardial Infarction Pulmonary Medical History: Denies: Chronic Obstructive Pulmonary Disease (COPD) Endocrine Medical History: Reports: Diabetes Mellitus Type 2 Renal/ Medical History: Reports: Chronic Kidney Disease Malignancy Medical History: Reports: Breast Cancer - Being treated by Dr. Branch , [facility] cancer center, [place] Musculoskeltal Medical History: Reports: Arthritis Psychiatric Medical History: Reports: Depression Past Surgical History Past Surgical History: Reports: Orthopedic Surgery - Back Sx, orif right hip, Tubal Ligation, Other - L mastectomy/LN dissection Social History Smoking Status: Never Smoker Frequency of Alcohol Use: None Hx Recreational Drug Use: No Drugs: None Hx Prescription Drug Abuse: No - Advance Directive Resuscitation Status: Full Code Surrogate healthcare decision maker:: Cj Abreu, JR, son Family History Family History: DM, Other - Parkinsonism Parental Family History Reviewed: Yes Children Family History Reviewed: Yes Sibling(s) Family History Reviewed.: Yes Medication/Allergy Home Medications: Duloxetine HCl [Cymbalta] 60 mg PO BID 05/11/16 Furosemide [Lasix] 80 mg PO DAILY 05/11/16 Levothyroxine Sodium [Synthroid] 88 mcg PO DAILY 05/11/16 Lisinopril [Prinivil 10 mg Tablet] 10 mg PO DAILY 05/11/16 Metformin HCl [Metformin HCl ER] 2 tab PO DAILY 05/11/16 Pantoprazole Sodium [Protonix] 40 mg PO BID 05/11/16 Pramipexole Di-HCl [Pramipexole Dihydrochloride] 0.25 mg PO QHS 05/11/16 Rivaroxaban [Xarelto] 20 mg PO DAILY 05/11/16 Simvastatin [Zocor 40 mg Tablet] 40 mg PO DAILY 05/11/16 Pregabalin [Lyrica] 200 mg PO TID 05/15/16 Cyanocobalamin (Vitamin B-12) [Vitamin B-12 Inj 1000 Mcg/1 ml Vial] 1,000 mcg IM DAILY #6 vial 05/16/16 Docusate Sodium [Colace 100 mg Capsule] 100 mg PO BID #60 capsule 05/16/16 Lorazepam 1 mg PO BID PRN #60 05/16/16 Magnesium Hydroxide [Milk of Magnesia 30 ml Udcup] 30 ml PO HSP PRN #1 udc 05/16 Oxycodone HCl/Acetaminophen [Percocet 5-325 mg Tablet] 1 tab PO Q6HP PRN #30 04/03 Nystatin/Triamcin [Nystatin-Triamcinolone Cream] 15 gm TP DAILY #1 cream..g. 03/03 Allergies/Adverse Reactions: codeine Allergy (Verified 05/11/16 12:04) Review of Systems Constitutional: ABSENT: chills, fever(s), headache(s), weight gain, weight loss Eyes: ABSENT: visual disturbances Ears: ABSENT: hearing changes Cardiovascular: ABSENT: chest pain, dyspnea on exertion, edema, orthropnea, palpitations Respiratory: ABSENT: cough, hemoptysis Gastrointestinal: ABSENT: abdominal pain, constipation, diarrhea, hematemesis, hematochezia, nausea, vomiting Genitourinary: ABSENT: dysuria, hematuria Musculoskeletal: ABSENT: joint swelling Integumentary: PRESENT: erythema - RLE, rash. ABSENT: wounds Neurological: PRESENT: frequent falls. ABSENT: abnormal gait, abnormal speech, confusion, dizziness, focal weakness, syncope Psychiatric: ABSENT: anxiety, depression, homidical ideation, suicidal ideation Endocrine: ABSENT: cold intolerance, heat intolerance, polydipsia, polyuria Hematologic/Lymphatic: ABSENT: easy bleeding, easy bruising Physical Exam Vital Signs: Temp Pulse Resp BP Pulse Ox 98.4 F 96 18 152/71 H 100 02/28/17 00:39 02/28/17 00:39 02/28/17 00:39 02/28/17 00:39 02/28/17 00:39 Intake & Output 02/26/17 02/27/17 02/28/17 06:59 06:59 06:59 Weight 83.4 kg General appearance: PRESENT: no acute distress, well-developed, well-nourished Head exam: PRESENT: atraumatic, normocephalic, other - wig in place Eye exam: PRESENT: conjunctiva pink, EOMI, PERRLA. ABSENT: scleral icterus Ear exam: PRESENT: normal external ear exam Mouth exam: PRESENT: dry mucosa, tongue midline Neck exam: ABSENT: JVD, lymphadenopathy, thyromegaly, tracheal deviation Respiratory exam: PRESENT: clear to auscultation julio, symmetrical, unlabored. ABSENT: accessory muscle use, rales, rhonchi, tachypnea, wheezes Cardiovascular exam: PRESENT: RRR, +S1, +S2. ABSENT: diastolic murmur, gallop, rubs, systolic murmur Pulses: PRESENT: normal dorsalis pedis pul Vascular exam: PRESENT: normal capillary refill GI/Abdominal exam: PRESENT: normal bowel sounds, soft. ABSENT: distended, firm , guarding, mass, Colon's sign, organolmegaly, rebound, rigid, tenderness Rectal exam: PRESENT: deferred Extremities exam: PRESENT: calf tenderness - RLE, +2 edema. ABSENT: clubbing Musculoskeletal exam: PRESENT: deformity - Left lower extremity externally rotated and shortened Neurological exam: PRESENT: alert, awake, oriented to person, oriented to place , oriented to time, oriented to situation, CN II-XII grossly intact. ABSENT: motor sensory deficit Psychiatric exam: PRESENT: appropriate affect, normal mood. ABSENT: homicidal ideation, suicidal ideation Skin exam: PRESENT: dry, erythema, intact, rash - RLE to knee, warm. ABSENT: cyanosis Results Laboratory Results: 02/27/17 22:40 Blood Type B POSITIVE Antibody Screen NEGATIVE 02/27/17 02/27/17 02/27/17 20:30 20:30 20:30 WBC 8.1 Hgb 9.9 L Hct 30.8 L Plt Count 378 INR 1.11 Sodium 142.5 Potassium 5.8 H Chloride 109 H Carbon Dioxide 24 Anion Gap 10 BUN 25 H Creatinine 1.77 H Est GFR (Non-Af Amer) 28 L Glucose 177 H Calcium 9.0 Total Bilirubin < 0.1 L AST 17 ALT 27 Alkaline Phosphatase 125 Troponin I Total Protein 6.2 L Albumin 3.3 L TSH 02/27/17 02/27/17 02/27/17 20:30 20:30 21:50 WBC Hgb Hct Plt Count INR Sodium Potassium 5.7 H Chloride Carbon Dioxide Anion Gap BUN Creatinine Est GFR (Non-Af Amer) Glucose Calcium Total Bilirubin AST ALT Alkaline Phosphatase Troponin I < 0.012 Total Protein Albumin TSH 3.06 Impressions: Hip X-Ray 02/27/17 20:19 IMPRESSION: INTERTROCHANTERIC FRACTURE OF THE LEFT HIP. Cervical Spine CT 02/27/17 20:20 IMPRESSION: 1. NO ACUTE OR SIGNIFICANT FINDINGS IN THE CERVICAL SPINE. 2. THE VISUALIZED UPPER THORACIC ESOPHAGUS IS DISTENDED. ON PREVIOUS CHEST CT DONE IN APRIL 2016 THERE WAS MILD ESOPHAGEAL DILATION. THIS IS PROBABLY RELATED TO PREVIOUS GASTRIC BYPASS. THERE MAY BE RELATIVE FUNCTIONAL OBSTRUCTION AT THE GASTROESOPHAGEAL JUNCTION. Chest X-Ray 02/27/17 20:20 IMPRESSION: NO ACUTE RADIOGRAPHIC FINDING IN THE CHEST. Head CT 02/27/17 20:20 IMPRESSION: DECREASED ATTENUATION IN THE WHITE MATTER OF THE POSTERIOR RIGHT PARIETAL LOBE, NOT PRESENT IN APRIL 2016. THIS COULD BE INDICATIVE OF RECENT INFARCT. MRI OF THE BRAIN MAY BE CONSIDERED FOR FURTHER EVALUATION. EVIDENCE OF ACUTE STROKE: POSSIBLE ACUTE OR SUBACUTE INFARCT. RIGHT MCA Status: Imported from PACS Assessment & Plan - Diagnosis (1) Intertrochanteric fracture of left hip Qualifiers: Encounter type: initial encounter Fracture type: closed Fracture alignment: nondisplaced Qualified Code(s): S72.145A - Nondisplaced intertrochanteric fracture of left femur, initial encounter for closed fracture Is this a current diagnosis for this admission?: Yes Plan: Have consulted orthopedic surgery. Defer treatment, diagnosis and treatment of complications related to this to orthopedics. (2) Abnormal head CT Is this a current diagnosis for this admission?: Yes Plan: Patient has a minor abnormality of her head CT which is concerning for metastasis. Will attempt to obtain an MRI with contrast if her creatinine will tolerate. (3) CKD (chronic kidney disease) stage 4, GFR 15-29 ml/min Is this a current diagnosis for this admission?: Yes Plan: Patient reports to me that a few weeks ago she was told that her kidneys were not doing well. Patient presented to the emergency department on 02/26/2017 and was found to have a creatinine roughly the same as today. She does appear to be mildly dehydrated and therefore her baseline creatinine may be somewhat lower. (4) Chronic anticoagulation Is this a current diagnosis for this admission?: Yes Plan: Patient has chronically been on Xarelto for a lower extremity DVT. Have typed and screened (5) Cellulitis of right lower extremity Is this a current diagnosis for this admission?: Yes Plan: We will place patient on Rocephin and vancomycin for this. (6) Breast cancer metastasized to liver Qualifiers: Laterality: left Qualified Code(s): C50.912 - Malignant neoplasm of unspecified site of left female breast Is this a current diagnosis for this admission?: Yes Plan: Concern for metastatic spread to the brain (7) Diabetes Qualifiers: Diabetes mellitus type: type 2 Diabetes mellitus complication status: with unspecified complications Diabetes mellitus jail insulin use: without jail use Qualified Code(s): E11.8 - Type 2 diabetes mellitus with unspecified complications Is this a current diagnosis for this admission?: Yes Plan: Place on sliding scale insulin and a carb controlled diet (8) Essential hypertension Is this a current diagnosis for this admission?: Yes Plan: We will resume antihypertensives as tolerated (9) Iron deficiency anemia Qualifiers: Iron deficiency anemia type: unspecified iron deficiency Qualified Code(s) : D50.9 - Iron deficiency anemia, unspecified Is this a current diagnosis for this admission?: Yes Plan: Monitor and transfuse if patient drops below Hgb 8.0. (10) Chronic low back pain Qualifiers: Back pain laterality: bilateral Sciatica presence: with sciatica Sciatica laterality: bilateral sciatica Qualified Code(s): M54.42 - Lumbago with sciatica, left side Is this a current diagnosis for this admission?: Yes (11) Fibromyalgia Is this a current diagnosis for this admission?: Yes - Time Time Spent: 50 to 70 Minutes Medications reviewed and adjusted accordingly: Yes Anticipated discharge: Acute Rehab - Inpatient Certification Based on my medical assessment, after consideration of the patient's comorbidities, presenting symptoms, or acuity I expect that the services needed warrant INPATIENT care.: Yes I certify that my determination is in accordance with my understanding of Medicare's requirements for reasonable and necessary INPATIENT services [42 CFR 412.3e].: Yes Medical Necessity: Need for Pain Control, Need for Surgery Post Hospital Care: D/C Manager Diabetes Documentation
[2017-02-28 02:59] LABS: INTERNATIONAL RATION (INR) 1.14; PROTHROMBIN TIME 15.4 SEC (11.4-15.4)
[2017-02-28 03:07] LABS: ABSOLUTE BASOPHILS # (AUTO) 0.1 10^3/uL (0.0-0.2); ABSOLUTE EOSINOPHILS # (AUTO) 0.1 10^3/uL (0.0-0.6); ABSOLUTE MONOCYTES (AUTO) 0.5 10^3/uL (0.1-1.4); ABSOLUTE NEUT (AUTO) 6.7 10^3/uL (1.7-8.2); BASOPHILS % (AUTO) 1.2 % (0-2); EOSINOPHILS % (AUTO) 1.6 % (0-6); HEMOGLOBIN 8.5 g/dL (12.0-15.5); LYMPHOCYTES % (AUTO) 12.3 % (13-45); MEAN CORPUSCULAR HEMOGLOBIN 29.8 pg (27.0-33.4); MEAN CORPUSCULAR HGB CONC 32.7 g/dL (32.0-36.0); MEAN CORPUSCULAR VOLUME 91 fl (80-97); PLATELET COUNT 296 10^3/uL (150-450); RED BLOOD COUNT 2.85 10^6/uL (3.72-5.28); RED CELL DISTRIBUTION WIDTH 14.9 % (11.5-14.0); SEGMENTED NEUTROPHILS % (AUTO) 78.9 % (42-78); TOTAL CELLS COUNTED % (AUTO) 100 %; WHITE BLOOD COUNT 8.4 10^3/uL (4.0-10.5)
[2017-02-28 03:13] LABS: ANION GAP 9 (5-19); BLOOD UREA NITROGEN 23 mg/dL (7-20); CALCIUM 8.5 mg/dL (8.4-10.2); CARBON DIOXIDE 20 mmol/L (22-30); CHLORIDE 112 mmol/L (98-107); GLUCOSE 147 mg/dL (75-110); MAGNESIUM 1.9 mg/dL (1.6-2.3); POTASSIUM 5.8 mmol/L (3.6-5.0); SODIUM 140.9 mmol/L (137-145)
[2017-02-28] MEDS: LEVOTHYROXINE SODIUM 0.088 MG TABLET PO SCH (05:55)
[2017-02-28] MEDS: HEPARIN SOD (PORCINE) 5,000 UNIT/ML 1 ML SYRINGE SUBCUT SCH ×3 (05:55→21:44)
[2017-02-28] MEDS: LANSOPRAZOLE 30 MG TAB.RAP.DR PO SCH (05:55)
[2017-02-28 06:21] LABS: ABSOLUTE BASOPHILS # (AUTO) 0.1 10^3/uL (0.0-0.2); ABSOLUTE EOSINOPHILS # (AUTO) 0.1 10^3/uL (0.0-0.6); ABSOLUTE LYMPHOCYTES (AUTO) 1.2 10^3/uL (0.5-4.7); ABSOLUTE MONOCYTES (AUTO) 0.6 10^3/uL (0.1-1.4); ABSOLUTE NEUT (AUTO) 5.2 10^3/uL (1.7-8.2); BASOPHILS % (AUTO) 1.2 % (0-2); EOSINOPHILS % (AUTO) 1.7 % (0-6); HEMOGLOBIN 8.8 g/dL (12.0-15.5); LYMPHOCYTES % (AUTO) 16.7 % (13-45); MEAN CORPUSCULAR HEMOGLOBIN 29.4 pg (27.0-33.4); MEAN CORPUSCULAR HGB CONC 32.4 g/dL (32.0-36.0); MEAN CORPUSCULAR VOLUME 91 fl (80-97); MONOCYTES % (AUTO) 7.7 % (3-13); PLATELET COUNT 296 10^3/uL (150-450); RED BLOOD COUNT 2.97 10^6/uL (3.72-5.28); RED CELL DISTRIBUTION WIDTH 14.7 % (11.5-14.0); SEGMENTED NEUTROPHILS % (AUTO) 72.7 % (42-78); TOTAL CELLS COUNTED % (AUTO) 100 %; WHITE BLOOD COUNT 7.2 10^3/uL (4.0-10.5)
[2017-02-28 09:06] LABS: APPEARANCE,URINE CLOUDY; BILIRUBIN,URINE NEGATIVE (NEGATIVE); COLOR,URINE YELLOW; GLUCOSE, URINE NEGATIVE (NEGATIVE); KETONES,URINE NEGATIVE (NEGATIVE); LEUKOCYTE ESTERASE,URINE NEGATIVE (NEGATIVE); NITRITE,URINE NEGATIVE (NEGATIVE); PROTEIN,URINE NEGATIVE (NEGATIVE); URINE SPECIFIC GRAVITY 1.021; UROBILINOGEN,URINE NEGATIVE mg/dL (<2.0)
[2017-02-28] MEDS: DOCUSATE SODIUM 100 MG CAPSULE PO SCH ×2 (10:12→18:10)
[2017-02-28] MEDS: DULOXETINE HCL 30 MG CAPSULE.DR PO SCH ×2 (10:12→18:10)
[2017-02-28] MEDS: PREGABALIN 100 MG CAPSULE PO SCH ×3 (10:13→18:10)
--- NOTE | 2017-02-28 10:55 | PDOC CONSULTATION ---
History of Present Illness Admission Date/PCP: 02/27/17 22:14 Patient complains of: Left hip pain and inability to weight-bear History of Present Illness: 72-year-old female with known history of breast cancer and metastatic disease to the liver status post fall suffered a mechanical injury and x-ray showing displaced left intertrochanteric hip fracture. History of previous intertrochanteric hip fracture on the right which was operated on by Dr. Crowell successfully. She had healed since then. Currently complains of pain and inability a weightbearing of the left lower extremity. Patient has comorbidities of diabetes as well and kidney failure. Denies any numbness or tingling or paresthesias or any other extremity injury. Complains of sharp pain of the left hip with attempted range of motion. Past Medical History Cardiac Medical History: Reports: DVT, Hyperlipidema, Hypertension Denies: Myocardial Infarction Pulmonary Medical History: Denies: Chronic Obstructive Pulmonary Disease (COPD) Endocrine Medical History: Reports: Diabetes Mellitus Type 2 Renal/ Medical History: Reports: Chronic Kidney Disease Malignancy Medical History: Reports: Breast Cancer - Being treated by Dr. Branch , [facility] cancer center, [place] Musculoskeltal Medical History: Reports: Arthritis Psychiatric Medical History: Reports: Depression Past Surgical History Past Surgical History: Reports: Orthopedic Surgery - Back Sx, orif right hip, Tubal Ligation, Other - L mastectomy/LN dissection Social History Smoking Status: Never Smoker Frequency of Alcohol Use: None Hx Recreational Drug Use: No Drugs: None Hx Prescription Drug Abuse: No - Advance Directive Resuscitation Status: Full Code Family History Family History: DM, Other - Parkinsonism Parental Family History Reviewed: No Children Family History Reviewed: No Sibling(s) Family History Reviewed.: No Medication/Allergy Home Medications: Duloxetine HCl [Cymbalta] 60 mg PO BID 05/11/16 Furosemide [Lasix] 80 mg PO DAILY 05/11/16 Levothyroxine Sodium [Synthroid] 88 mcg PO DAILY 05/11/16 Lisinopril [Prinivil 10 mg Tablet] 10 mg PO DAILY 05/11/16 Metformin HCl [Metformin HCl ER] 2 tab PO DAILY 05/11/16 Pantoprazole Sodium [Protonix] 40 mg PO BID 05/11/16 Pramipexole Di-HCl [Pramipexole Dihydrochloride] 0.25 mg PO QHS 05/11/16 Rivaroxaban [Xarelto] 20 mg PO DAILY 05/11/16 Simvastatin [Zocor 40 mg Tablet] 40 mg PO DAILY 05/11/16 Pregabalin [Lyrica] 200 mg PO TID 05/15/16 Cyanocobalamin (Vitamin B-12) [Vitamin B-12 Inj 1000 Mcg/1 ml Vial] 1,000 mcg IM DAILY #6 vial 05/16/16 Docusate Sodium [Colace 100 mg Capsule] 100 mg PO BID #60 capsule 05/16/16 Lorazepam 1 mg PO BID PRN #60 05/16/16 Magnesium Hydroxide [Milk of Magnesia 30 ml Udcup] 30 ml PO HSP PRN #1 udc 05/16 Oxycodone HCl/Acetaminophen [Percocet 5-325 mg Tablet] 1 tab PO Q6HP PRN #30 04/03 Nystatin/Triamcin [Nystatin-Triamcinolone Cream] 15 gm TP DAILY #1 cream..g. 03/03 Allergies/Adverse Reactions: codeine Allergy (Verified 05/11/16 12:04) Review of Systems All systems: reviewed and no additional remarkable complaints except as stated Physical Exam Vital Signs: Temp Pulse Resp BP Pulse Ox 36.8 C 90 19 102/41 L 94 02/28/17 07:49 02/28/17 07:49 02/28/17 07:49 02/28/17 07:49 02/28/17 07:49 Intake & Output 02/27/17 02/28/17 03/01/17 06:59 06:59 06:59 Intake Total 875 Output Total 300 Balance 575 Weight 83.4 kg General appearance: PRESENT: no acute distress, other - overweight Head exam: PRESENT: atraumatic, normocephalic Eye exam: PRESENT: EOMI. ABSENT: conjunctival injection, conjunctiva pink, nystagmus Ear exam: PRESENT: normal external ear exam. ABSENT: bleeding, drainage Neck exam: ABSENT: tenderness, thyromegaly, tracheal deviation Respiratory exam: PRESENT: symmetrical, unlabored. ABSENT: accessory muscle use , chest wall tenderness, tachypnea Pulses: PRESENT: +2 pedal pulses bilateral Vascular exam: PRESENT: normal capillary refill GI/Abdominal exam: PRESENT: soft. ABSENT: distended, organolmegaly, tenderness Psychiatric exam: PRESENT: appropriate affect, normal mood Skin exam: PRESENT: intact. ABSENT: abrasion, erythema Adult Front & Back Image: 1 - Positive deformity with a shortened externally rotated left lower extremity. He has gross sensation to light touch with positive EHL FHL and motor. She has pain in the groin with any attempted range of motion. Tender palpation over the groin and lateral hip. Results Laboratory Results: 02/28/17 05:53 02/28/17 02:45 02/27/17 02/27/17 02/28/17 22:40 23:22 02:45 WBC 8.4 RBC 2.85 L Hgb 8.5 L Hct 26.0 L MCV 91 MCH 29.8 MCHC 32.7 RDW 14.9 H Plt Count 296 Seg Neutrophils % 78.9 H Lymphocytes % 12.3 L Monocytes % 6.0 Eosinophils % 1.6 Basophils % 1.2 Absolute Neutrophils 6.7 Absolute Lymphocytes 1.0 Absolute Monocytes 0.5 Absolute Eosinophils 0.1 Absolute Basophils 0.1 Sodium Potassium Chloride Carbon Dioxide Anion Gap BUN Creatinine Est GFR ( Amer) Est GFR (Non-Af Amer) Glucose Calcium Magnesium Urine Color YELLOW Urine Appearance CLOUDY Urine pH 5.0 Ur Specific [place] 1.021 Urine Protein NEGATIVE Urine Glucose (UA) NEGATIVE Urine Ketones NEGATIVE Urine Blood NEGATIVE Urine Nitrite NEGATIVE Ur Leukocyte Esterase NEGATIVE Urine RBC (Auto) 1 Blood Type B POSITIVE Antibody Screen NEGATIVE 02/28/17 02/28/17 02:45 05:53 WBC 7.2 RBC 2.97 L Hgb 8.8 L Hct 27.0 L MCV 91 MCH 29.4 MCHC 32.4 RDW 14.7 H Plt Count 296 Seg Neutrophils % 72.7 Lymphocytes % 16.7 Monocytes % 7.7 Eosinophils % 1.7 Basophils % 1.2 Absolute Neutrophils 5.2 Absolute Lymphocytes 1.2 Absolute Monocytes 0.6 Absolute Eosinophils 0.1 Absolute Basophils 0.1 Sodium 140.9 Potassium 5.8 H Chloride 112 H Carbon Dioxide 20 L Anion Gap 9 BUN 23 H Creatinine 1.45 H Est GFR ( Amer) 43 L Est GFR (Non-Af Amer) 36 L Glucose 147 H Calcium 8.5 Magnesium 1.9 Urine Color Urine Appearance Urine pH Ur Specific [place] Urine Protein Urine Glucose (UA) Urine Ketones Urine Blood Urine Nitrite Ur Leukocyte Esterase Urine RBC (Auto) Blood Type Antibody Screen 02/28/17 02/28/17 02:45 08:46 Troponin I < 0.012 < 0.012 Impressions: Hip X-Ray 02/27/17 20:19 IMPRESSION: INTERTROCHANTERIC FRACTURE OF THE LEFT HIP. Cervical Spine CT 02/27/17 20:20 IMPRESSION: 1. NO ACUTE OR SIGNIFICANT FINDINGS IN THE CERVICAL SPINE. 2. THE VISUALIZED UPPER THORACIC ESOPHAGUS IS DISTENDED. ON PREVIOUS CHEST CT DONE IN APRIL 2016 THERE WAS MILD ESOPHAGEAL DILATION. THIS IS PROBABLY RELATED TO PREVIOUS GASTRIC BYPASS. THERE MAY BE RELATIVE FUNCTIONAL OBSTRUCTION AT THE GASTROESOPHAGEAL JUNCTION. Chest X-Ray 02/27/17 20:20 IMPRESSION: NO ACUTE RADIOGRAPHIC FINDING IN THE CHEST. Head CT 02/27/17 20:20 IMPRESSION: DECREASED ATTENUATION IN THE WHITE MATTER OF THE POSTERIOR RIGHT PARIETAL LOBE, NOT PRESENT IN APRIL 2016. THIS COULD BE INDICATIVE OF RECENT INFARCT. MRI OF THE BRAIN MAY BE CONSIDERED FOR FURTHER EVALUATION. EVIDENCE OF ACUTE STROKE: POSSIBLE ACUTE OR SUBACUTE INFARCT. RIGHT MCA Status: Image reviewed by me Assessment & Plan - Diagnosis (1) Intertrochanteric fracture of left hip Qualifiers: Encounter type: initial encounter Fracture type: closed Fracture alignment: nondisplaced Qualified Code(s): S72.145A - Nondisplaced intertrochanteric fracture of left femur, initial encounter for closed fracture Is this a current diagnosis for this admission?: Yes Plan: 72-year-old female with displaced left intertrochanteric hip fracture. I do not see a lesion despite her history of breast cancer. Treatment will be the same and I would recommend intramedullary nailing of the left intertrochanteric hip fracture but we will use a long nail to span the entire femur to be on the safe side. In the meantime she will be bedrest and pain control. Due to the fact she was on Xarelto we need to wait 48 hours therefore she will be scheduled for tomorrow for the procedure. RCC will need to be cleared and is pending an MRI of her brain as well.
--- NOTE | 2017-02-28 13:02 | EKG REPORT ---
SEVERITY:- BORDERLINE ECG - SINUS RHYTHM BORDERLINE LEFT AXIS DEVIATION BORDERLINE T ABNORMALITIES, INFERIOR LEADS : Confirmed by: Sin Spencer 28-Feb-2017 13:02:39
[2017-02-28] MEDS ORDERED: SODIUM POLYSTYRENE SULFONATE 15 GM/60 ML PO ONE (14:00)
--- NOTE | 2017-02-28 14:05 | RADIOLOGY REPORT (SQ) ---
EXAM DESCRIPTION: MRI HEAD COMBO COMPLETED DATE/TIME: 02/28/2017 1:05 pm REASON FOR STUDY: ? metastatic lesion COMPARISON: CT angio chest 05/15/2016 CT abdomen pelvis 04/29/2016 CT brain 02/27/2017 TECHNIQUE: Multiplanar imaging includes noncontrasted T1, T2, FLAIR, diffusion with ADC map and post gadolinium contrast T1 sequences. Images stored on PACS. CONTRAST TYPE AND DOSE: 7.5 mL Multihance. RENAL FUNCTION: Estimated GFR 36 LIMITATIONS: Motion artifact FINDINGS: ANATOMY: No developmental anomalies. Normal vascular flow voids. Pituitary fossa normal. CSF SPACES: Normal in size and contour. No hemorrhage. CEREBRUM: A 1.4 cm enhancing nodule is present in the right posterior frontal nicole-white junction, ju st ventral to the precentral gyrus. This has avid contrast enhancement and moderate surrounding vaso genic edema extending into the pre and postcentral gyri and posterior aspect of the corpus callosum. This is compatible with a metastatic lesion. Remainder the brain parenchyma is otherwise unremarkable. No hemorrhage. No midline shift. No othe r enhancing nodules. POSTERIOR FOSSA: No signal alteration. No hemorrhage. No edema, masses, or mass effect. Internal madhu tory canals, cerebellopontine angles, mastoids normal. No enhancing lesions. No abnormal enhancement post contrast. DIFFUSION IMAGING: Negative for acute or subacute infarction. ORBITS: No masses. Globes normal. PARANASAL SINUSES: No fluid levels. Mucosa normal. OTHER: No other significant finding. IMPRESSION: 1.4 cm enhancing brain parenchymal nodule with surrounding vasogenic edema, posterior ri ght frontal lobe worrisome for metastatic disease EVIDENCE OF ACUTE STROKE: NO. TECHNICAL DOCUMENTATION: JOB ID: [id number] All Rights Reserved
--- NOTE | 2017-02-28 14:19 | PROGRESS NOTE E ---
Progress Note NAME: PROSPER ABREU : 1945 AGE: 72Y DATE: 02/28/2017 ROOM: 430 SUBJECTIVE: The patient is currently lying in bed. The patient is confused and behavior is a little bizarre. The patient is known to myself through previous admissions. The patient has only had a Percocet for pain control and is used to taking opiates. The patient is reaching for things that are not there and so forth. The patient has been seen by Ortho and is to go to the OR tomorrow for repair. The patient has been afebrile. Blood pressure has been in a good range. Family have been available, and the patient does not voice any specific concerns at this time. REVIEW OF SYSTEMS: Rest of review of systems is unobtainable given the patient's mentation. MEDICATIONS: Medications have been reviewed. OBJECTIVE: GENERAL: The patient is a 72-year-old female who will awaken, but she is not fully oriented. She is oriented to self. She does not appear to be distressed. VITAL SIGNS: Temperature is 99.2, pulse 88, respirations 18, blood pressure is 111/46, oxygen saturation is 92% on room air. SKIN: Pale. No rash. She is not diaphoretic. HEENT: Pupils are reactive. Conjunctiva is pale. There is no JVP. CARDIOVASCULAR SYSTEM: Heart is regular. There is no murmur or rub. CHEST: Clear, symmetrical, unlabored. ABDOMEN: Soft, nontender, nondistended. BACK: No CVA tenderness or sacral edema. EXTREMITIES: No clubbing, cyanosis. The patient does have bilateral lower extremity cellulitis. The right leg has circumflex redness. Left is not as profound. PSYCHIATRIC: The patient is not at baseline. DIAGNOSTICS: Lab values are as follows: Hematology obtained on 02/28/2017: WBCs are 7.2, hemoglobin is 8.8, hematocrit is 27.0, platelet count is 296,000. Coagulation obtained on 02/28/2017: PT is 15.4, INR is 1.14. Chemistry obtained on 02/28/2017: Sodium is 140, potassium 5.8, chloride is 112, carbon dioxide 20, BUN 23, creatinine is 1.45, glucose 147, calcium is 8.5, magnesium is 1.9. Urine culture obtained on 02/27/2017 is pending. Blood cultures obtained on 02/28/2017 are pending. IMPRESSION AND PLAN: 1. INTERTROCHANTERIC LEFT HIP FRACTURE. Do appreciate Orthopedic input on this. The patient is to be n.p.o. past midnight for surgery in the a.m. 2. ABNORMAL HEAD CT. Given the patient's history of metastatic disease, am concerned for mets to brain. Currently awaiting MRI. Will follow. 3. CELLULITIS OF THE BILATERAL LOWER EXTREMITIES, THE RIGHT WORSE THAN THE LEFT. Will continue IV antibiotic coverage for now. This has been a recurrent issue for her. 4. CHRONIC KIDNEY DISEASE STAGE 4. The patient's creatinine appears to be at baseline. Will discontinue IV fluids since the patient's diet will resume. 5. CHRONIC ANTICOAGULATION DUE TO HISTORY OF DVT. Xarelto is on hold for OR. Will follow. Will continue subcu heparin for now. 6. DIABETES MELLITUS TYPE 2. Will continue sliding scale coverage. 7. BREAST CANCER WITH METS TO THE LIVER. The patient is followed by Dr. Branch in [place]. The patient has chose to forgo chemotherapy for now so she can complete rehab. 8. HYPERTENSION. Will resume antihypertensive medications as tolerated. 9. IRON DEFICIENCY ANEMIA. Will monitor and transfuse if the patient's hemoglobin drops below 8. 10. CHRONIC BACK PAIN. Continue home medications. 11. FIBROMYALGIA. Will continue the patient's home medications. DISPOSITION: The patient is a FULL CODE. Pending patient's symptomatology and diagnostic findings, will re-evaluate in the a.m. Given the patient's multiple comorbidities and terminal diagnosis, will consult Palliative Care to aid in the decision making and to help define goals of care. ADDENDUM: 2. BRAIN METS. Patient to be seen by palliative care. Time spent on this followup, including assessment, plan, physical examination, patient education, and review of records is 35 minutes. DICTATING PHYSICIAN: TIARRA EUGENE NP [id number] PHY#: [id number] ID: [id number] JOB#: [id number] ACCT: [id number] cc: > MTDD
[2017-02-28] MEDS: VANCOMYCIN HCL 1,500 MG in DEXTROSE 5%-WATER 250 ML IV SCH (14:55)
--- NOTE | 2017-02-28 17:01 | XCELERA REPORT ---
[address] [address] Lower Extremity Venous Evaluation Name: PROSPER ABREU Age: 72 yrs Gender: Female : 1945 Patient Status: Inpatient Patient Location: [address] [place] [address] Study Date: 02/28/2017 09:33 AM Procedure: Color flow and duplex imaging bilaterally of the veins of the lower extremities as well as the Common Femoral veins. Reason For Study: lower extremity swelling, hx of dvt Ordering Physician: ROSINA LOPEZ Performed By: Maria Isabel Ulloa Right Sided Venous Evaluation Normal vessel filling wall to wall, compression and augmentation as well as Colour flow down to the infrageniculate veins. Left Sided Venous Evaluation Normal vessel filling wall to wall, compression and augmentation as well as Colour flow down to the infrageniculate veins. Interpretation Summary No duplex evidence of DVT or obstruction in the bilateral lower extremities. : ROSINA LOPEZ [place]
[2017-02-28] MEDS: LORAZEPAM 1 MG TABLET PO PRN (21:44)
[2017-02-28] MEDS: CEFTRIAXONE 1 GM/D5W RTU 1 GM/50 ML RTUPB IV SCH (21:44)
[2017-03-01] MEDS ORDERED: RINGERS SOLUTION,LACTATED 1,000 ML IV PRN ×2 (00:01→14:59)
[2017-03-01 05:32] LABS: HEMATOCRIT 25.2 % (36.0-47.0); HEMOGLOBIN 8.4 g/dL (12.0-15.5); MEAN CORPUSCULAR HEMOGLOBIN 30.5 pg (27.0-33.4); MEAN CORPUSCULAR HGB CONC 33.3 g/dL (32.0-36.0); MEAN CORPUSCULAR VOLUME 92 fl (80-97); PLATELET COUNT 209 10^3/uL (150-450); RED BLOOD COUNT 2.75 10^6/uL (3.72-5.28); RED CELL DISTRIBUTION WIDTH 14.6 % (11.5-14.0); WHITE BLOOD COUNT 6.4 10^3/uL (4.0-10.5)
[2017-03-01] MEDS: HEPARIN SOD (PORCINE) 5,000 UNIT/ML 1 ML SYRINGE SUBCUT SCH (05:42)
[2017-03-01] MEDS: LANSOPRAZOLE 30 MG TAB.RAP.DR PO SCH (05:42)
[2017-03-01] MEDS: LEVOTHYROXINE SODIUM 0.088 MG TABLET PO SCH (05:42)
[2017-03-01 05:55] LABS: ALANINE AMINOTRANSFERASE 25 U/L (9-52); ALBUMIN 2.5 g/dL (3.5-5.0); ALKALINE PHOSPHATASE 98 U/L (38-126); ANION GAP 9 (5-19); ASPARTATE AMINO TRANSFERASE 14 U/L (14-36); BILIRUBIN,DIRECT 0.1 mg/dL (0.0-0.4); BILIRUBIN,TOTAL 0.2 mg/dL (0.2-1.3); BLOOD UREA NITROGEN 12 mg/dL (7-20); CALCIUM 7.4 mg/dL (8.4-10.2); CARBON DIOXIDE 18 mmol/L (22-30); CHLORIDE 115 mmol/L (98-107); GLUCOSE 119 mg/dL (75-110); MAGNESIUM 1.7 mg/dL (1.6-2.3); POTASSIUM 4.5 mmol/L (3.6-5.0); SODIUM 142.1 mmol/L (137-145); TOTAL PROTEIN 4.9 g/dL (6.3-8.2)
[2017-03-01] MEDS ORDERED: NEOSTIGMINE METHYLSULFATE 10 MG/10 ML VIAL ONE (08:57)
[2017-03-01] MEDS ORDERED: ONDANSETRON HCL INJ/PF 4 MG/2 ML SDV ONE (08:57)
[2017-03-01] MEDS ORDERED: DEXAMETHASONE SOD PHOSPHATE INJ 4 MG/1 ML VIAL ONE (08:57)
[2017-03-01] MEDS ORDERED: SUCCINYLCHOLINE CHLORIDE INJ 200 MG/10 ML VIAL ONE (08:57)
[2017-03-01] MEDS ORDERED: GLYCOPYRROLATE INJ 0.4 MG/2 ML VIAL ONE (08:57)
[2017-03-01] MEDS ORDERED: MORPHINE SULFATE 10 MG/ML INJ IV ONE (10:30)
[2017-03-01] MEDS: DOCUSATE SODIUM 100 MG CAPSULE PO SCH ×2 (10:33→18:40)
[2017-03-01] MEDS: DULOXETINE HCL 30 MG CAPSULE.DR PO SCH ×2 (10:33→18:41)
[2017-03-01] MEDS: PREGABALIN 100 MG CAPSULE PO SCH ×2 (10:33→22:18)
[2017-03-01 10:54] LABS: ABSOLUTE BASOPHILS # (AUTO) 0.1 10^3/uL (0.0-0.2); ABSOLUTE EOSINOPHILS # (AUTO) 0.1 10^3/uL (0.0-0.6); ABSOLUTE LYMPHOCYTES (AUTO) 0.9 10^3/uL (0.5-4.7); ABSOLUTE MONOCYTES (AUTO) 0.4 10^3/uL (0.1-1.4); ABSOLUTE NEUT (AUTO) 4.8 10^3/uL (1.7-8.2); BASOPHILS % (AUTO) 1.5 % (0-2); EOSINOPHILS % (AUTO) 1.4 % (0-6); HEMATOCRIT 28.2 % (36.0-47.0); HEMOGLOBIN 9.1 g/dL (12.0-15.5); LYMPHOCYTES % (AUTO) 14.4 % (13-45); MEAN CORPUSCULAR HEMOGLOBIN 29.2 pg (27.0-33.4); MEAN CORPUSCULAR VOLUME 91 fl (80-97); MONOCYTES % (AUTO) 7.1 % (3-13); PLATELET COUNT 234 10^3/uL (150-450); RED CELL DISTRIBUTION WIDTH 14.8 % (11.5-14.0); SEGMENTED NEUTROPHILS % (AUTO) 75.6 % (42-78); TOTAL CELLS COUNTED % (AUTO) 100 %; WHITE BLOOD COUNT 6.3 10^3/uL (4.0-10.5)
[2017-03-01] MEDS: VANCOMYCIN HCL 1,500 MG in DEXTROSE 5%-WATER 250 ML IV SCH (12:23)
--- NOTE | 2017-03-01 12:49 | Palliative Consultation Report ---
Consultation From:: CORRINE TREJO - HPI Onset: Just prior to arrival Onset/Duration: Sudden Quality of Pain: No pain, Sharp Severity: Mild Pain Level: 2 Associated Symptoms: None Exacerbated by: Movement HPI Note: Appreciate palliative care consult request for this 72 year old patient with history of breast cancer and recent fall. Mrs. Tolentino has been treating her breast cancer with chemo every couple of weeks. In spite of this she has metastasis to liver and says they have seen another spot on her left rib. SHe has had some unexplained confusion during this admission and brain mets is being considered. Mrs. Tolentino was at rehab , getting PT for hip fracture when she fell and sustained this current injury. SHe is awaiting surgery today for repair of fracture. She reports only minimal pain unless she moves or is turned. Otherwise she denies any problems. Mr. Tolentino and their farm marketer is at bedside. Patient reports that she wants to continue her treatment for her cancer and return to rehab after discharge from here. We did discuss advance directives. SHe states she does want to be full code status in spite of her cancer diagnosis and that she trusts her to make any medical decisons for her if she cannot. As she is scheduled for surgery, this is a conversation which needed to be discussed. However, after her surgery is completed and further testing is done for brain mets, the conversation will be repeated and may have a different decison if brain mets is proven. Past Medical History(Consults) - General Information Source: Patient, Relative, [facility] Records Home Medications: Duloxetine HCl [Cymbalta] 60 mg PO Q12 05/11/16 Furosemide [Lasix] 80 mg PO DAILYP PRN 05/11/16 Levothyroxine Sodium [Synthroid] 88 mcg PO DAILY 05/11/16 Lisinopril [Prinivil 10 mg Tablet] 10 mg PO DAILY 05/11/16 Pantoprazole Sodium [Protonix] 40 mg PO DAILY 05/11/16 Pramipexole Di-HCl [Pramipexole Dihydrochloride] 0.25 mg PO QHS 05/11/16 Rivaroxaban [Xarelto] 20 mg PO DAILY 05/11/16 Simvastatin [Zocor 40 mg Tablet] 40 mg PO DAILY 05/11/16 Pregabalin [Lyrica] 200 mg PO Q12 05/15/16 Exenatide Microspheres [Bydureon Pen] 2 mg SQ SA@1000 02/28/17 Lorazepam [Ativan 1 mg Tablet] 1 mg PO QHS 02/28/17 Meclizine HCl 25 mg PO DAILYP PRN 02/28/17 Metformin HCl [Glucophage] 1,000 mg PO Q12 02/28/17 Oxycodone HCl/Acetaminophen [Percocet 5-325 mg Tablet] 0.5 tab PO Q6HP PRN 02/28 Allergies/Adverse Reactions: codeine Allergy (Verified 05/11/16 12:04) - Social History Lives with: Spouse/Significant other Family History: Reviewed & Not Pertinent, DM, Other - Parkinsonism Parental Family History Reviewed: No Children Family History Reviewed: No Sibling(s) Family History Reviewed.: No Smoking Status: Never Smoker Frequency of Alcohol Use: None Hx Recreational Drug Use: No Drugs: None Hx Prescription Drug Abuse: No - Past Medical History Cardiac Medical History: Reports: Hx DVT, Hx Hypercholesterolemia, Hx Hypertension Denies: Hx Heart Attack Pulmonary Medical History: Denies: Hx COPD Neurological Medical History: Reports: None Endocrine Medical History: Reports: Hx Diabetes Mellitus Type 2 Renal/ Medical History: Denies: Hx Peritoneal Dialysis Malignancy Medical History: Reports: Hx Breast Cancer - Being treated by Dr. Branch, [facility], [place] Musculoskeltal Medical History: Reports Hx Arthritis Psychiatric Medical History: Reports: Hx Depression - Surgical History Past Surgical History: Reports: Hx Orthopedic Surgery - Back Sx, orif right hip , Hx Tubal Ligation, Other - L mastectomy/LN dissection Review of systems Constitutional: Weakness Cardiovascular: No symptoms reported Respiratory: No symptoms reported Gastrointestinal: No symptoms reported Geniturinary: No symptoms reported Skin: No symptoms reported Neurological/Psychological: Confusion Ojective:Exam Vital Signs: Temp Pulse Resp BP Pulse Ox 98.2 F 98 18 135/67 H 100 03/01/17 08:00 03/01/17 08:00 03/01/17 08:00 03/01/17 08:00 03/01/17 08:00 Intake & Output 02/28/17 03/01/17 03/02/17 06:59 06:59 06:59 Intake Total 875 2875 Output Total 300 Balance 575 2875 Weight 83.4 kg 84.2 kg - General In distress: Mild - Alert at present, awaiting surgery. at bedside and patint answering all questions appropriately. She states earlier she got confused because of her pain meds, but feels alert now. Speech clear, no neurological deficeit noted. - Respiratory Respiratory Status: No respiratory distress Breath sounds: Clear - Cardiovascular Rhythm: Regular Pulses: Normal: Radial - Neurological Cognition: Normal Orientation: AAOx4, Alert Speech: Normal - Psychological Associated symptoms: Normal affect Objective-Diagnostic Laboratory: 03/01/17 10:02 03/01/17 05:05 03/01/17 03/01/17 03/01/17 05:05 05:05 10:02 WBC 6.4 6.3 RBC 2.75 L 3.10 L Hgb 8.4 L 9.1 L Hct 25.2 L 28.2 L MCV 92 91 MCH 30.5 29.2 MCHC 33.3 32.0 RDW 14.6 H 14.8 H Plt Count 209 234 Seg Neutrophils % 75.6 Lymphocytes % 14.4 Monocytes % 7.1 Eosinophils % 1.4 Basophils % 1.5 Absolute Neutrophils 4.8 Absolute Lymphocytes 0.9 Absolute Monocytes 0.4 Absolute Eosinophils 0.1 Absolute Basophils 0.1 Sodium 142.1 Potassium 4.5 Chloride 115 H Carbon Dioxide 18 L Anion Gap 9 BUN 12 Creatinine 0.85 Est GFR ( Amer) > 60 Est GFR (Non-Af Amer) > 60 Glucose 119 H Calcium 7.4 L Magnesium 1.7 Total Bilirubin 0.2 AST 14 ALT 25 Alkaline Phosphatase 98 Total Protein 4.9 L Albumin 2.5 L 02/28/17 02/28/17 02:45 08:46 Troponin I < 0.012 < 0.012 Plan and Recommendation Plan and Recommendation: Will follow next week with patient after her surgery. Will have advance directive conversation again , especially if further metastasis is found. At present, patient and are in agreement for full code status. Pain is controlled and no other symptoms at present. Patient plans to continue chemotherapy after discharge and says she will go back to rehab following surgery if needed. - Time Spent with Patient Time spent with patient: 15 to 30 Minutes
[2017-03-01] MEDS ORDERED: MIDAZOLAM 2 MG/2 ML INJ ONE (12:57)
[2017-03-01] MEDS ORDERED: FENTANYL CITRATE INJ/PF 100 MCG/2 ML AMPUL ONE ×2 (12:57→15:05)
[2017-03-01] MEDS ORDERED: PROPOFOL INJ 200 MG/20 ML VIAL IV ONE (12:57)
[2017-03-01] MEDS ORDERED: PROMETHAZINE HCL INJ 25 MG/1 ML VIAL IV PRN ×2 (13:54)
[2017-03-01] MEDS ORDERED: FENTANYL CITRATE INJ/PF 100 MCG/2 ML AMPUL IV PRN (13:54)
[2017-03-01] MEDS ORDERED: DIPHENHYDRAMINE HCL 50 MG/ML VIAL IV PRN (13:54)
[2017-03-01] MEDS ORDERED: MEPERIDINE HCL/PF INJ 25 MG/1 ML DISP.SYRIN IV PRN (13:54)
--- NOTE | 2017-03-01 14:59 | Operative Report ---
Operative Report DATE OF SURGERY: 03/01/17 PREOPERATIVE DIAGNOSIS: Displaced left intertrochanteric hip fracture POSTOPERATIVE DIAGNOSIS: Same OPERATION: Left intertrochanteric hip nailing SURGEON: KALIN LONDON ANESTHESIA: GA TISSUE REMOVED OR ALTERED: None COMPLICATIONS: None ESTIMATED BLOOD LOSS: 100 mL INTRAOPERATIVE FINDINGS: As above PROCEDURE: Patient was seen and evaluated in the preoperative holding area. The left lower extremity was initialized and marked. Patient received 2 g Ancef IV for bacterial prophylaxis. Patient was taken back to the operative room where transferred operative table. Patient was placed under spinal anesthesia. Once adequate anesthetized he was carefully placed onto the hip positioner the nonoperative lower extremity and bilateral upper extremities were carefully padded and the peroneal nerve was padded and on the nonoperative extremity. The operative extremity was placed in a traction along with adduction and internal rotation. A surgical team debriefing was performed ensuring all instrumentation was available, the surgical procedure was discussed with possible concerns reviewed. A timeout was done identifying correct patient, procedure and extremity everyone in attendance agree with this and verbalized no concerns. Reduction maneuver with the use of the hip traction table were done and C-arm fluoroscopy was used to confirm optimal reduction of the intertrochanteric fracture. Once this was confirmed the lower extremity was prepped with chlor prep and draped in a sterile fashion. At this point a small skin incision was made proximal to the greater trochanter. The guidewire was placed onto the tip of the trochanter advanced down to the level of the lesser trochanter. AP and lateral fluoroscopy was used to confirm appropriate placement of the guidewire. The skin incision was then extended and the underlying fascia opened up carefully to the tip of the greater trochanter. The entry reamer was then used and advanced to the level of the lesser trochanter. At this point Frederick short gamma nail was opened up and placed onto the aiming arm and advanced down the shaft of the femur. AP and lateral fluoroscopy was then used to confirm appropriate placement of the nail. Then turned my attention to the compression screw fixation in the femoral head. The trochars were advanced to the skin, a skin incision was made, careful dissection down to the fascia to the lateral femoral cortex was then partaken. The guidewire was then used and placed in the center center position with the tip apex distance less than 25 mm. Once this position was obtained the size of the compression screw was measured. AP and lateral fluoroscopy used to confirm appropriate placement of our guide wire. The step reamer was used to drill up through the femoral neck and head. I then carefully advanced the compression screw into position. AP and lateral fluoroscopy was done to confirm appropriate placement of the compression screw this was then locked into position proximally. The compression screw was then disengaged from its mounting device and the guidewire was removed. Lastly proceeded with locking of the nail distally. Using the C arm we were able to get perfect circles and marked it with a hemostat and then used a 15 blade to were a skin incision was made. Careful dissection done with a hemostat to the lateral cortex of the femur. I then drilled the near and far cortices. Measured the appropriate sized distal locking screw and secured it into position. At this point AP/lateral and oblique views of the proximal and distal aspect of the nail were taken confirming appropriate placement of the compression screw, distal locking screw and intramedullary nail. Once this was confirmed I proceeded with copious irrigation of the proximal and distal wounds. The deep tissues were closed with 0 Vicryl suture, subcutaneous tissues were closed with 3-0 Monocryl suture. The skin was closed a running 3-0 subcuticular Monocryl suture and reinforced with Dermabond & Steri-Strips. A dressing was placed. Sponge counts, instrument counts and needle counts were correct. Patient was then transferred from the operating room table to the operating room stretcher. The was no intraoperative complications patient tolerated procedure well was stable to PACU. Implants used: Foster 11 x 420 mm 130 Short Gamma Nail with a 105 mm compression screw Postoperative plan: Patient will begin physical therapy on postop day #1 with Xarelto daily.
[2017-03-01] MEDS ORDERED: MAG HYDROX/AL HYDROX/SIMETH SUSP 30 ML UDCUP PO PRN (15:05)
[2017-03-01] MEDS ORDERED: DEXTROSE 40% GEL 15 GM TUBE PO PRN ×2 (15:05)
[2017-03-01] MEDS ORDERED: DEXTROSE 50%-WATER 25 GM/50 ML DISP.SYRIN IV PRN ×2 (15:05)
[2017-03-01] MEDS ORDERED: GLUCAGON,HUMAN RECOMB 1 MG INJ SUBCUT PRN (15:05)
--- NOTE | 2017-03-01 15:34 | RADIOLOGY REPORT (SQ) ---
EXAM DESCRIPTION: HIP LEFT AP/LATERAL; NO CHG FLUORO COMPLETED DATE/TIME: 03/01/2017 2:56 pm REASON FOR STUDY: ORIF LEFT HIP ASSISTED WITH FLUORO IN OR COMPARISON: 02/27/2017 FLUOROSCOPY TIME: 1 minutes 4 digital radiographic images saved to PACS. TECHNIQUE: Intra-operative images acquired during surgical procedure to evaluate progress. NUMBER OF IMAGES: 4 digital images saved to pac's LIMITATIONS: None. FINDINGS: Intra procedural imaging and fluoro during ORIF left hip intertrochanteric fracture with a long intramedullary nail and lag screw. Please see the operative report for further details IMPRESSION: Intra procedural imaging and fluoro COMMENT: Quality ID [id number]: Final reports for procedures using fluoroscopy that document radiation exp osure indices, or exposure time and number of fluorographic images (if radiation exposure indices are not available) Please consult full operative report of the attending physician for description of the procedure. TECHNICAL DOCUMENTATION: JOB ID: [id number] [employer]- All Rights Reserved
[2017-03-01] MEDS: SENNOSIDES/DOCUSATE 8.6-50 MG 1 EACH TABLET PO SCH (18:40)
[2017-03-01] MEDS: CEFTRIAXONE 1 GM/D5W RTU 1 GM/50 ML RTUPB IV SCH (22:17)
[2017-03-01] MEDS: RIVAROXABAN 10 MG TABLET PO SCH (22:18)
[2017-03-02] MEDS: INSULIN LISPRO 100 UNIT/ML 3 ML VIAL SUBCUT PRN ×4 (01:12→17:52)
[2017-03-02] MEDS ORDERED: VANCOMYCIN HCL 1,000 MG in DEXTROSE 5%-WATER 250 ML IV ONE (03:00)
[2017-03-02] MEDS: OXYCODONE-ACETAMINOPHEN 5-325 MG TABLET PO PRN ×3 (03:52→14:53)
[2017-03-02] MEDS: PREGABALIN 100 MG CAPSULE PO SCH ×3 (05:39→21:37)
[2017-03-02] MEDS: LEVOTHYROXINE SODIUM 0.088 MG TABLET PO SCH (05:39)
[2017-03-02] MEDS: LANSOPRAZOLE 30 MG TAB.RAP.DR PO SCH (05:40)
[2017-03-02 06:19] LABS: HEMATOCRIT 22.4 % (36.0-47.0); MEAN CORPUSCULAR HEMOGLOBIN 30.1 pg (27.0-33.4); MEAN CORPUSCULAR HGB CONC 32.7 g/dL (32.0-36.0); MEAN CORPUSCULAR VOLUME 92 fl (80-97); PLATELET COUNT 240 10^3/uL (150-450); RED BLOOD COUNT 2.43 10^6/uL (3.72-5.28); RED CELL DISTRIBUTION WIDTH 14.7 % (11.5-14.0); WHITE BLOOD COUNT 7.4 10^3/uL (4.0-10.5)
[2017-03-02 06:24] LABS: HEMOGLOBIN 7.3 g/dL (12.0-15.5)
[2017-03-02 06:35] LABS: ANION GAP 7 (5-19); BLOOD UREA NITROGEN 12 mg/dL (7-20); CALCIUM 8.4 mg/dL (8.4-10.2); CARBON DIOXIDE 23 mmol/L (22-30); CHLORIDE 109 mmol/L (98-107); GLUCOSE 224 mg/dL (75-110); POTASSIUM 5.2 mmol/L (3.6-5.0)
[2017-03-02 07:32] LABS: HEMATOCRIT 22.1 % (36.0-47.0); RED CELL DISTRIBUTION WIDTH 14.5 % (11.5-14.0)
[2017-03-02 07:37] LABS: MEAN CORPUSCULAR HEMOGLOBIN 29.7 pg (27.0-33.4); MEAN CORPUSCULAR HGB CONC 32.6 g/dL (32.0-36.0); MEAN CORPUSCULAR VOLUME 91 fl (80-97); PLATELET COUNT 239 10^3/uL (150-450); RED BLOOD COUNT 2.43 10^6/uL (3.72-5.28); WHITE BLOOD COUNT 7.6 10^3/uL (4.0-10.5)
[2017-03-02 07:47] LABS: HEMOGLOBIN 7.2 g/dL (12.0-15.5)
--- NOTE | 2017-03-02 08:03 | Progress Note ---
Provider Note Provider Note: 03/01 Didn't see patient she was in surgery.
[2017-03-02] MEDS: DULOXETINE HCL 30 MG CAPSULE.DR PO SCH ×2 (09:37→17:44)
[2017-03-02] MEDS: SENNOSIDES/DOCUSATE 8.6-50 MG 1 EACH TABLET PO SCH ×2 (09:39→17:45)
[2017-03-02] MEDS: DOCUSATE SODIUM 100 MG CAPSULE PO SCH ×2 (09:39→17:45)
[2017-03-02 10:17] LABS: ABSOLUTE BASOPHILS # (AUTO) 0.1 10^3/uL (0.0-0.2); ABSOLUTE LYMPHOCYTES (AUTO) 1.2 10^3/uL (0.5-4.7); ABSOLUTE MONOCYTES (AUTO) 0.7 10^3/uL (0.1-1.4); ABSOLUTE NEUT (AUTO) 6.1 10^3/uL (1.7-8.2); BASOPHILS % (AUTO) 1.1 % (0-2); EOSINOPHILS % (AUTO) 0.1 % (0-6); HEMATOCRIT 23.1 % (36.0-47.0); MEAN CORPUSCULAR HEMOGLOBIN 29.7 pg (27.0-33.4); MEAN CORPUSCULAR HGB CONC 32.4 g/dL (32.0-36.0); MEAN CORPUSCULAR VOLUME 92 fl (80-97); MONOCYTES % (AUTO) 9.1 % (3-13); PLATELET COUNT 243 10^3/uL (150-450); RED BLOOD COUNT 2.52 10^6/uL (3.72-5.28); RED CELL DISTRIBUTION WIDTH 14.6 % (11.5-14.0); SEGMENTED NEUTROPHILS % (AUTO) 74.7 % (42-78); TOTAL CELLS COUNTED % (AUTO) 100 %; WHITE BLOOD COUNT 8.1 10^3/uL (4.0-10.5)
[2017-03-02 10:22] LABS: HEMOGLOBIN 7.5 g/dL (12.0-15.5)
--- NOTE | 2017-03-02 11:16 | PDOC PROGRESS REPORT ---
Subjective Progress Note for:: 03/02/17 Subjective:: Patient complaining of left hip pain. She is in bed eating breakfast. No issues overnight. Reason For Visit: LEFT INTERTROCHANTERIC HIP FRACTURE S/P Physical Exam Vital Signs: Temp Pulse Resp BP Pulse Ox 36.8 C 87 16 91/47 L 94 03/02/17 07:41 03/02/17 07:41 03/02/17 07:41 03/02/17 07:41 03/02/17 07:41 Intake & Output 03/01/17 03/02/17 03/03/17 06:59 06:59 06:59 Intake Total 2875 1514 Output Total 1999 Balance 2875 -986 Weight 84.2 kg 86.9 kg General appearance: PRESENT: no acute distress Head exam: PRESENT: atraumatic, normocephalic Eye exam: PRESENT: EOMI, PERRLA. ABSENT: nystagmus Respiratory exam: PRESENT: symmetrical, unlabored Adult Front & Back Image: 1 - Left thigh swelling appropriate postoperatively. All 3 dressings are dry clean and intact. She is neurovascular intact distally. Decreased range of motion of the hip second to pain. Results Laboratory Results: 03/02/17 09:52 03/02/17 08:23 02/27/17 03/02/17 03/02/17 22:40 05:45 05:45 WBC 7.4 RBC 2.43 L Hgb 7.3 L Hct 22.4 L MCV 92 MCH 30.1 MCHC 32.7 RDW 14.7 H Plt Count 240 Seg Neutrophils % Lymphocytes % Monocytes % Eosinophils % Basophils % Absolute Neutrophils Absolute Lymphocytes Absolute Monocytes Absolute Eosinophils Absolute Basophils Sodium 139.0 Potassium 5.2 H Chloride 109 H Carbon Dioxide 23 Anion Gap 7 BUN 12 Creatinine 0.88 Est GFR ( Amer) > 60 Est GFR (Non-Af Amer) > 60 Glucose 224 H Calcium 8.4 Blood Type B POSITIVE Antibody Screen NEGATIVE 03/02/17 03/02/17 03/02/17 07:08 08:23 09:52 WBC 7.6 8.1 RBC 2.43 L 2.52 L Hgb 7.2 L 7.5 L Hct 22.1 L 23.1 L MCV 91 92 MCH 29.7 29.7 MCHC 32.6 32.4 RDW 14.5 H 14.6 H Plt Count 239 243 Seg Neutrophils % 74.7 Lymphocytes % 15.0 Monocytes % 9.1 Eosinophils % 0.1 Basophils % 1.1 Absolute Neutrophils 6.1 Absolute Lymphocytes 1.2 Absolute Monocytes 0.7 Absolute Eosinophils 0.0 Absolute Basophils 0.1 Sodium Potassium 5.1 H Chloride Carbon Dioxide Anion Gap BUN Creatinine Est GFR ( Amer) Est GFR (Non-Af Amer) Glucose Calcium Blood Type Antibody Screen 02/27/17 23:22 Catheterized Urine Urine Culture - Final NO GROWTH 2 DAYS 02/28/17 02/28/17 02:45 08:46 Troponin I < 0.012 < 0.012 Impressions: Cervical Spine CT 02/27/17 20:20 IMPRESSION: 1. NO ACUTE OR SIGNIFICANT FINDINGS IN THE CERVICAL SPINE. 2. THE VISUALIZED UPPER THORACIC ESOPHAGUS IS DISTENDED. ON PREVIOUS CHEST CT DONE IN APRIL 2016 THERE WAS MILD ESOPHAGEAL DILATION. THIS IS PROBABLY RELATED TO PREVIOUS GASTRIC BYPASS. THERE MAY BE RELATIVE FUNCTIONAL OBSTRUCTION AT THE GASTROESOPHAGEAL JUNCTION. Chest X-Ray 02/27/17 20:20 IMPRESSION: NO ACUTE RADIOGRAPHIC FINDING IN THE CHEST. Head CT 02/27/17 20:20 IMPRESSION: DECREASED ATTENUATION IN THE WHITE MATTER OF THE POSTERIOR RIGHT PARIETAL LOBE, NOT PRESENT IN APRIL 2016. THIS COULD BE INDICATIVE OF RECENT INFARCT. MRI OF THE BRAIN MAY BE CONSIDERED FOR FURTHER EVALUATION. EVIDENCE OF ACUTE STROKE: POSSIBLE ACUTE OR SUBACUTE INFARCT. RIGHT MCA Head MRI 02/28/17 00:00 IMPRESSION: 1.4 cm enhancing brain parenchymal nodule with surrounding vasogenic edema, posterior right frontal lobe worrisome for metastatic disease EVIDENCE OF ACUTE STROKE: NO. Fluoroscopy 03/01/17 00:00 IMPRESSION: Intra procedural imaging and fluoro Hip X-Ray 03/01/17 00:00 IMPRESSION: Intra procedural imaging and fluoro Status: Image reviewed by me Assessment & Plan - Diagnosis (1) Intertrochanteric fracture of left hip Qualifiers: Encounter type: initial encounter Fracture type: closed Fracture alignment: nondisplaced Qualified Code(s): S72.145A - Nondisplaced intertrochanteric fracture of left femur, initial encounter for closed fracture Is this a current diagnosis for this admission?: Yes - Plan Summary Plan Summary: Patient is postop day 1 from nailing of her left intertrochanteric hip fracture. Surgery went uneventful. Pain is adequately controlled. Patient hemoglobin 7 and hematocrit of 22 therefore ordered 2 units of packed blood cells for transfusion. Will recheck the H&H tomorrow. Our to work with physical therapy and recommend she continue. She will likely be discharged back to nursing home facility.
[2017-03-02] MEDS: VANCOMYCIN HCL 1,500 MG in DEXTROSE 5%-WATER 250 ML IV SCH (14:52)
--- NOTE | 2017-03-02 15:10 | PDOC PROGRESS REPORT ---
Subjective Progress Note for:: 03/02/17 Subjective:: Left intertrochanteric hip nailing by Dr. Beulah Hair patient seen after surgery postop day 1. 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 Seems to be doing well no acute distress dressing clean dry and intact to her left hip. Her hemoglobin 7.3 yesterday was 7.2 in which the orthopedic surgeon ordered 2 units packed red blood cells. Reason For Visit: LEFT INTERTROCHANTERIC HIP FRACTURE S/P IM nail on 03/01/2017 Physical Exam Vital Signs: Temp Pulse Resp BP Pulse Ox 98.0 F 95 16 116/47 L 97 03/02/17 13:53 03/02/17 13:53 03/02/17 13:53 03/02/17 13:53 03/02/17 13:53 Intake & Output 03/01/17 03/02/17 03/03/17 06:59 06:59 06:59 Intake Total 2875 1514 0 Output Total 2000 Balance 2875 -486 0 Weight 84.2 kg 86.9 kg General appearance: PRESENT: no acute distress, cooperative, obese Head exam: PRESENT: atraumatic, normocephalic Eye exam: PRESENT: conjunctiva pink, EOMI, PERRLA. ABSENT: scleral icterus Ear exam: PRESENT: normal external ear exam Mouth exam: PRESENT: moist, tongue midline Respiratory exam: PRESENT: clear to auscultation julio. ABSENT: rales, rhonchi, wheezes Cardiovascular exam: PRESENT: RRR. ABSENT: diastolic murmur, rubs, systolic murmur Pulses: PRESENT: normal dorsalis pedis pul Vascular exam: PRESENT: normal capillary refill GI/Abdominal exam: PRESENT: normal bowel sounds, soft. ABSENT: distended, guarding, mass, organolmegaly, rebound, tenderness Rectal exam: PRESENT: deferred Musculoskeletal exam: PRESENT: ambulatory, other - Left hip dressing clean dry and intact Neurological exam: PRESENT: alert, altered, oriented to person, oriented to place. ABSENT: oriented to time, oriented to situation Focused psych exam: PRESENT: psychomotor agitation Results Laboratory Results: 03/02/17 09:52 03/02/17 08:23 02/27/17 03/02/17 03/02/17 22:40 05:45 05:45 WBC 7.4 RBC 2.43 L Hgb 7.3 L Hct 22.4 L MCV 92 MCH 30.1 MCHC 32.7 RDW 14.7 H Plt Count 240 Seg Neutrophils % Lymphocytes % Monocytes % Eosinophils % Basophils % Absolute Neutrophils Absolute Lymphocytes Absolute Monocytes Absolute Eosinophils Absolute Basophils Sodium 139.0 Potassium 5.2 H Chloride 109 H Carbon Dioxide 23 Anion Gap 7 BUN 12 Creatinine 0.88 Est GFR ( Amer) > 60 Est GFR (Non-Af Amer) > 60 Glucose 224 H Calcium 8.4 Blood Type B POSITIVE Antibody Screen NEGATIVE 03/02/17 03/02/17 03/02/17 07:08 08:23 09:52 WBC 7.6 8.1 RBC 2.43 L 2.52 L Hgb 7.2 L 7.5 L Hct 22.1 L 23.1 L MCV 91 92 MCH 29.7 29.7 MCHC 32.6 32.4 RDW 14.5 H 14.6 H Plt Count 239 243 Seg Neutrophils % 74.7 Lymphocytes % 15.0 Monocytes % 9.1 Eosinophils % 0.1 Basophils % 1.1 Absolute Neutrophils 6.1 Absolute Lymphocytes 1.2 Absolute Monocytes 0.7 Absolute Eosinophils 0.0 Absolute Basophils 0.1 Sodium Potassium 5.1 H Chloride Carbon Dioxide Anion Gap BUN Creatinine Est GFR ( Amer) Est GFR (Non-Af Amer) Glucose Calcium Blood Type Antibody Screen 02/27/17 23:22 Catheterized Urine Urine Culture - Final NO GROWTH 2 DAYS 02/28/17 02/28/17 02:45 08:46 Troponin I < 0.012 < 0.012 Impressions: Cervical Spine CT 02/27/17 20:20 IMPRESSION: 1. NO ACUTE OR SIGNIFICANT FINDINGS IN THE CERVICAL SPINE. 2. THE VISUALIZED UPPER THORACIC ESOPHAGUS IS DISTENDED. ON PREVIOUS CHEST CT DONE IN APRIL 2016 THERE WAS MILD ESOPHAGEAL DILATION. THIS IS PROBABLY RELATED TO PREVIOUS GASTRIC BYPASS. THERE MAY BE RELATIVE FUNCTIONAL OBSTRUCTION AT THE GASTROESOPHAGEAL JUNCTION. Chest X-Ray 02/27/17 20:20 IMPRESSION: NO ACUTE RADIOGRAPHIC FINDING IN THE CHEST. Head CT 02/27/17 20:20 IMPRESSION: DECREASED ATTENUATION IN THE WHITE MATTER OF THE POSTERIOR RIGHT PARIETAL LOBE, NOT PRESENT IN APRIL 2016. THIS COULD BE INDICATIVE OF RECENT INFARCT. MRI OF THE BRAIN MAY BE CONSIDERED FOR FURTHER EVALUATION. EVIDENCE OF ACUTE STROKE: POSSIBLE ACUTE OR SUBACUTE INFARCT. RIGHT MCA Head MRI 02/28/17 00:00 IMPRESSION: 1.4 cm enhancing brain parenchymal nodule with surrounding vasogenic edema, posterior right frontal lobe worrisome for metastatic disease EVIDENCE OF ACUTE STROKE: NO. Fluoroscopy 03/01/17 00:00 IMPRESSION: Intra procedural imaging and fluoro Hip X-Ray 03/01/17 00:00 IMPRESSION: Intra procedural imaging and fluoro Assessment & Plan - Diagnosis (1) Abnormal head CT Is this a current diagnosis for this admission?: Yes (2) Chronic anticoagulation Is this a current diagnosis for this admission?: Yes (3) Intertrochanteric fracture of left hip Qualifiers: Encounter type: initial encounter Fracture type: closed Fracture alignment: nondisplaced Qualified Code(s): S72.145A - Nondisplaced intertrochanteric fracture of left femur, initial encounter for closed fracture Is this a current diagnosis for this admission?: Yes Plan: Defer to orthopedic surgeon (4) Breast cancer metastasized to liver Qualifiers: Laterality: left Qualified Code(s): C50.912 - Malignant neoplasm of unspecified site of left female breast Is this a current diagnosis for this admission?: Yes Plan: Continue to monitor.Patient has metastatic breast cancer to the liver, rib now spurring. According to palliative care, she currently wants to continue therapy however she has been confused. Attempt to stabilize from her recent hip surgery first (5) Fall Qualifiers: Encounter type: initial encounter Qualified Code(s): W19.XXXA - Unspecified fall, initial encounter Is this a current diagnosis for this admission?: Yes Plan: Continue treatment for orthopedic surgery status post fall with an acute fracture - Plan Summary Plan Summary: Appreciate orthopedics and vomit. Patient has metastatic cancer. Consider hematology oncology follow-up most likely outpatient. Will need to get patient over her recent hip fracture will need to continue anticoagulation due to history of PEs. Appreciate palliative care support
[2017-03-02] MEDS ORDERED: OXYCODONE-ACETAMINOPHEN 5-325 MG TABLET PO ONE (18:00)
[2017-03-02] MEDS: RIVAROXABAN 10 MG TABLET PO SCH (21:35)
[2017-03-02] MEDS: CEFTRIAXONE 1 GM/D5W RTU 1 GM/50 ML RTUPB IV SCH (21:37)
[2017-03-02] MEDS ORDERED: FENTANYL CITRATE INJ/PF 100 MCG/2 ML AMPUL IV PRN (23:54)
[2017-03-02] MEDS ORDERED: NALOXONE HCL INJ/PF 0.4 MG/1 ML SDV IV PRN (23:55)
[2017-03-03] MEDS ORDERED: FENTANYL CITRATE INJ/PF 100 MCG/2 ML AMPUL IV PRN (00:05)
[2017-03-03] MEDS: INSULIN LISPRO 100 UNIT/ML 3 ML VIAL SUBCUT PRN ×2 (00:37→17:39)
[2017-03-03] MEDS: FENTANYL CITRATE INJ/PF 100 MCG/2 ML AMPUL IV PRN ×2 (00:39→05:14)
[2017-03-03] MEDS: LANSOPRAZOLE 30 MG TAB.RAP.DR PO SCH (05:14)
[2017-03-03] MEDS: PREGABALIN 100 MG CAPSULE PO SCH ×3 (05:14→21:49)
[2017-03-03] MEDS: LEVOTHYROXINE SODIUM 0.088 MG TABLET PO SCH (05:14)
[2017-03-03 05:35] LABS: HEMATOCRIT 28.3 % (36.0-47.0); MEAN CORPUSCULAR HGB CONC 33.8 g/dL (32.0-36.0); MEAN CORPUSCULAR VOLUME 89 fl (80-97); PLATELET COUNT 208 10^3/uL (150-450); RED BLOOD COUNT 3.19 10^6/uL (3.72-5.28); RED CELL DISTRIBUTION WIDTH 14.7 % (11.5-14.0); WHITE BLOOD COUNT 7.9 10^3/uL (4.0-10.5)
[2017-03-03 05:41] LABS: HEMOGLOBIN 9.6 g/dL (12.0-15.5)
[2017-03-03] MEDS: OXYCODONE-ACETAMINOPHEN 5-325 MG TABLET PO PRN ×2 (09:59→22:45)
[2017-03-03] MEDS: DOCUSATE SODIUM 100 MG CAPSULE PO SCH ×2 (09:59→17:39)
[2017-03-03] MEDS: DULOXETINE HCL 30 MG CAPSULE.DR PO SCH ×2 (09:59→17:39)
[2017-03-03] MEDS: SENNOSIDES/DOCUSATE 8.6-50 MG 1 EACH TABLET PO SCH ×2 (09:59→17:39)
[2017-03-03 10:26] LABS: ABSOLUTE BASOPHILS # (AUTO) 0.1 10^3/uL (0.0-0.2); ABSOLUTE EOSINOPHILS # (AUTO) 0.4 10^3/uL (0.0-0.6); ABSOLUTE LYMPHOCYTES (AUTO) 1.8 10^3/uL (0.5-4.7); ABSOLUTE MONOCYTES (AUTO) 0.8 10^3/uL (0.1-1.4); ABSOLUTE NEUT (AUTO) 4.4 10^3/uL (1.7-8.2); BASOPHILS % (AUTO) 1.4 % (0-2); EOSINOPHILS % (AUTO) 5.6 % (0-6); HEMATOCRIT 30.2 % (36.0-47.0); HEMOGLOBIN 10.3 g/dL (12.0-15.5); LYMPHOCYTES % (AUTO) 24.3 % (13-45); MEAN CORPUSCULAR HEMOGLOBIN 30.1 pg (27.0-33.4); MEAN CORPUSCULAR HGB CONC 33.9 g/dL (32.0-36.0); MEAN CORPUSCULAR VOLUME 89 fl (80-97); PLATELET COUNT 203 10^3/uL (150-450); RED BLOOD COUNT 3.41 10^6/uL (3.72-5.28); RED CELL DISTRIBUTION WIDTH 14.6 % (11.5-14.0); SEGMENTED NEUTROPHILS % (AUTO) 58.7 % (42-78); TOTAL CELLS COUNTED % (AUTO) 100 %; WHITE BLOOD COUNT 7.5 10^3/uL (4.0-10.5)
[2017-03-03] MEDS: VANCOMYCIN HCL 1,500 MG in DEXTROSE 5%-WATER 250 ML IV SCH (12:08)
[2017-03-03 12:15] LABS: VANCOMYCIN,TROUGH 21.7 ug/mL (5.0-20.0)
--- NOTE | 2017-03-03 18:35 | PDOC PROGRESS REPORT ---
Subjective Progress Note for:: 03/03/17 Subjective:: Patient is resting comfortably in bed. Denies any tachycardia or shortness of breath. Tolerated transfusion very well. Reason For Visit: LEFT INTERTROCHANTERIC HIP FRACTURE S/P Physical Exam Vital Signs: Temp Pulse Resp BP Pulse Ox 36.7 C 95 18 118/55 L 97 03/03/17 15:38 03/03/17 15:38 03/03/17 15:38 03/03/17 15:38 03/03/17 15:38 Intake & Output 03/02/17 03/03/17 03/04/17 06:59 06:59 06:59 Intake Total 1514 1910 260 Output Total 2000 1200 Balance -486 710 260 Weight 86.9 kg 87 kg Adult Front & Back Image: 1 - Incision are covered with dry clean and intact dressings. She still neurovascular intact distally. Results Laboratory Results: 03/03/17 10:10 03/03/17 11:45 03/03/17 03/03/17 03/03/17 04:44 10:10 11:45 WBC 7.9 7.5 RBC 3.19 L 3.41 L Hgb 9.6 L D 10.3 L Hct 28.3 L 30.2 L MCV 89 89 MCH 30.0 30.1 MCHC 33.8 33.9 RDW 14.7 H 14.6 H Plt Count 208 203 Seg Neutrophils % 58.7 Lymphocytes % 24.3 Monocytes % 10.0 Eosinophils % 5.6 Basophils % 1.4 Absolute Neutrophils 4.4 Absolute Lymphocytes 1.8 Absolute Monocytes 0.8 Absolute Eosinophils 0.4 Absolute Basophils 0.1 Creatinine 1.03 Est GFR ( Amer) > 60 Est GFR (Non-Af Amer) 53 L 02/28/17 02/28/17 02:45 08:46 Troponin I < 0.012 < 0.012 Impressions: Cervical Spine CT 02/27/17 20:20 IMPRESSION: 1. NO ACUTE OR SIGNIFICANT FINDINGS IN THE CERVICAL SPINE. 2. THE VISUALIZED UPPER THORACIC ESOPHAGUS IS DISTENDED. ON PREVIOUS CHEST CT DONE IN APRIL 2016 THERE WAS MILD ESOPHAGEAL DILATION. THIS IS PROBABLY RELATED TO PREVIOUS GASTRIC BYPASS. THERE MAY BE RELATIVE FUNCTIONAL OBSTRUCTION AT THE GASTROESOPHAGEAL JUNCTION. Chest X-Ray 02/27/17 20:20 IMPRESSION: NO ACUTE RADIOGRAPHIC FINDING IN THE CHEST. Head CT 02/27/17 20:20 IMPRESSION: DECREASED ATTENUATION IN THE WHITE MATTER OF THE POSTERIOR RIGHT PARIETAL LOBE, NOT PRESENT IN APRIL 2016. THIS COULD BE INDICATIVE OF RECENT INFARCT. MRI OF THE BRAIN MAY BE CONSIDERED FOR FURTHER EVALUATION. EVIDENCE OF ACUTE STROKE: POSSIBLE ACUTE OR SUBACUTE INFARCT. RIGHT MCA Head MRI 02/28/17 00:00 IMPRESSION: 1.4 cm enhancing brain parenchymal nodule with surrounding vasogenic edema, posterior right frontal lobe worrisome for metastatic disease EVIDENCE OF ACUTE STROKE: NO. Fluoroscopy 03/01/17 00:00 IMPRESSION: Intra procedural imaging and fluoro Hip X-Ray 03/01/17 00:00 IMPRESSION: Intra procedural imaging and fluoro Status: Image reviewed by me Assessment & Plan - Diagnosis (1) Intertrochanteric fracture of left hip Qualifiers: Encounter type: initial encounter Fracture type: closed Fracture alignment: nondisplaced Qualified Code(s): S72.145A - Nondisplaced intertrochanteric fracture of left femur, initial encounter for closed fracture Is this a current diagnosis for this admission?: Yes - Plan Summary Plan Summary: Patient is 72-year-old female POD #2 from nailing of her left intertrochanteric hip fracture. Hematocrit is stabilized after transfusion. Continue physical therapy Continue pain control Continue DVT prophylaxis Awaiting detention facility placement
--- NOTE | 2017-03-03 19:16 | PDOC PROGRESS REPORT ---
Subjective Subjective:: Left intertrochanteric hip nailing by Dr. Beulah Hair patient seen after surgery postop day 1. 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 Seems to be doing well no acute distress dressing clean dry and intact to her left hip. Her hemoglobin 7.3 yesterday was 7.2 in which the orthopedic surgeon ordered 2 units packed red blood cells. Patient looks better today sitting up eating breakfast. Seen with daughter at bedside. Attempt to obtain information regarding patient's confusion daughter states she is always been like that. Not sure family is aware of her brain metastasis. Reason For Visit: LEFT INTERTROCHANTERIC HIP FRACTURE S/P Physical Exam Vital Signs: Temp Pulse Resp BP Pulse Ox 98.1 F 95 18 118/55 L 97 03/03/17 15:38 03/03/17 15:38 03/03/17 15:38 03/03/17 15:38 03/03/17 15:38 Intake & Output 03/02/17 03/03/17 03/04/17 06:59 06:59 06:59 Intake Total 1514 1910 860 Output Total 2000 1200 Balance -486 710 860 Weight 86.9 kg 87 kg Results Laboratory Results: 03/03/17 10:10 03/03/17 11:45 03/03/17 03/03/17 03/03/17 04:44 10:10 11:45 WBC 7.9 7.5 RBC 3.19 L 3.41 L Hgb 9.6 L D 10.3 L Hct 28.3 L 30.2 L MCV 89 89 MCH 30.0 30.1 MCHC 33.8 33.9 RDW 14.7 H 14.6 H Plt Count 208 203 Seg Neutrophils % 58.7 Lymphocytes % 24.3 Monocytes % 10.0 Eosinophils % 5.6 Basophils % 1.4 Absolute Neutrophils 4.4 Absolute Lymphocytes 1.8 Absolute Monocytes 0.8 Absolute Eosinophils 0.4 Absolute Basophils 0.1 Creatinine 1.03 Est GFR ( Amer) > 60 Est GFR (Non-Af Amer) 53 L 02/28/17 02/28/17 02:45 08:46 Troponin I < 0.012 < 0.012 Impressions: Cervical Spine CT 02/27/17 20:20 IMPRESSION: 1. NO ACUTE OR SIGNIFICANT FINDINGS IN THE CERVICAL SPINE. 2. THE VISUALIZED UPPER THORACIC ESOPHAGUS IS DISTENDED. ON PREVIOUS CHEST CT DONE IN APRIL 2016 THERE WAS MILD ESOPHAGEAL DILATION. THIS IS PROBABLY RELATED TO PREVIOUS GASTRIC BYPASS. THERE MAY BE RELATIVE FUNCTIONAL OBSTRUCTION AT THE GASTROESOPHAGEAL JUNCTION. Chest X-Ray 02/27/17 20:20 IMPRESSION: NO ACUTE RADIOGRAPHIC FINDING IN THE CHEST. Head CT 02/27/17 20:20 IMPRESSION: DECREASED ATTENUATION IN THE WHITE MATTER OF THE POSTERIOR RIGHT PARIETAL LOBE, NOT PRESENT IN APRIL 2016. THIS COULD BE INDICATIVE OF RECENT INFARCT. MRI OF THE BRAIN MAY BE CONSIDERED FOR FURTHER EVALUATION. EVIDENCE OF ACUTE STROKE: POSSIBLE ACUTE OR SUBACUTE INFARCT. RIGHT MCA Head MRI 02/28/17 00:00 IMPRESSION: 1.4 cm enhancing brain parenchymal nodule with surrounding vasogenic edema, posterior right frontal lobe worrisome for metastatic disease EVIDENCE OF ACUTE STROKE: NO. Fluoroscopy 03/01/17 00:00 IMPRESSION: Intra procedural imaging and fluoro Hip X-Ray 03/01/17 00:00 IMPRESSION: Intra procedural imaging and fluoro Assessment & Plan - Diagnosis (1) Abnormal head CT Is this a current diagnosis for this admission?: Yes (2) Chronic anticoagulation Is this a current diagnosis for this admission?: Yes (3) Intertrochanteric fracture of left hip Qualifiers: Encounter type: initial encounter Fracture type: closed Fracture alignment: nondisplaced Qualified Code(s): S72.145A - Nondisplaced intertrochanteric fracture of left femur, initial encounter for closed fracture Is this a current diagnosis for this admission?: Yes (4) Breast cancer metastasized to liver Qualifiers: Laterality: left Qualified Code(s): C50.912 - Malignant neoplasm of unspecified site of left female breast Is this a current diagnosis for this admission?: Yes Plan: Continue to monitor.Patient has metastatic breast cancer to the liver, rib now spurring. According to palliative care, she currently wants to continue therapy however she has been confused. Attempt to stabilize from her recent hip surgery first. Patient seems to be at her baseline today. However she is still quite confused but she also has a recent diagnosis of possible brain metastatic from her breast cancer. Daughter at bedside did not seem to be aware of this diagnosis and finding will consult oncology again in the a.m. Patient will need rehab (5) Fall Qualifiers: Encounter type: initial encounter Qualified Code(s): W19.XXXA - Unspecified fall, initial encounter Is this a current diagnosis for this admission?: Yes - Plan Summary Plan Summary: Consult he marked in a.m. for ongoing evaluation regarding patient's care and or assist in discharge needs regarding continuing therapy if indicated.
[2017-03-03] MEDS: LORAZEPAM 1 MG TABLET PO PRN (21:49)
[2017-03-03] MEDS: RIVAROXABAN 10 MG TABLET PO SCH (21:49)
[2017-03-03] MEDS: CEFTRIAXONE 1 GM/D5W RTU 1 GM/50 ML RTUPB IV SCH (21:49)
[2017-03-04] MEDS: PREGABALIN 100 MG CAPSULE PO SCH ×3 (05:36→22:44)
[2017-03-04] MEDS: OXYCODONE-ACETAMINOPHEN 5-325 MG TABLET PO PRN ×3 (05:36→18:33)
[2017-03-04] MEDS: LANSOPRAZOLE 30 MG TAB.RAP.DR PO SCH (05:36)
[2017-03-04] MEDS: LEVOTHYROXINE SODIUM 0.088 MG TABLET PO SCH (05:36)
[2017-03-04 05:55] LABS: HEMATOCRIT 30.1 % (36.0-47.0); HEMOGLOBIN 10.1 g/dL (12.0-15.5); MEAN CORPUSCULAR HEMOGLOBIN 29.9 pg (27.0-33.4); MEAN CORPUSCULAR HGB CONC 33.4 g/dL (32.0-36.0); MEAN CORPUSCULAR VOLUME 90 fl (80-97); PLATELET COUNT 212 10^3/uL (150-450); RED BLOOD COUNT 3.36 10^6/uL (3.72-5.28); RED CELL DISTRIBUTION WIDTH 14.4 % (11.5-14.0)
--- NOTE | 2017-03-04 08:29 | PDOC CONSULTATION ---
Consultation Consult Date: 03/04/17 Consult reason:: Breast Cancer History of Present Illness Admission Date/PCP: 02/27/17 22:14 History of Present Illness: Ms. Tolentino is a 72 year old female who tells me that she was diagnosed with Left breast cancer in 2016. She has known mets to the liver and bones and has been receiving IV chemotherapy treatments every 3 weeks in [place]. She is unsure what type of chemotherapy. She initially underwent mastectomy with lymphadenectomy. She denies ever having been treated with any radiation. Earlier this year, she fractured her right hip. Just prior to admission, she was residing in a correction unit for treatment of cellulitis. She has been admitted for treatment of her Left hip fracture, which was surgically treated 2 days ago. During this admission, MRI of the brain was performed and shows a new enhancing lesion consistent with brain mets. She has not yet undergone any treatment for this. Today, she states that she is feeling pretty good. She denies any pain. No nausea or constipation at present. Goal is to begin physical therapy and transfer her to correction for further rehab. Past Medical History Cardiac Medical History: Reports: DVT, Hyperlipidema, Hypertension Denies: Myocardial Infarction Pulmonary Medical History: Denies: Chronic Obstructive Pulmonary Disease (COPD) Neurological Medical History: Reports: None Endocrine Medical History: Reports: Diabetes Mellitus Type 2, Hypothyroidism Renal/ Medical History: Reports: Chronic Kidney Disease Malignancy Medical History: Reports: Breast Cancer - With known bone and liver mets. Musculoskeltal Medical History: Reports: Arthritis Psychiatric Medical History: Reports: Depression Past Surgical History Past Surgical History: Reports: Orthopedic Surgery - Back Sx, orif right hip, Tubal Ligation, Other - L mastectomy/LN dissection Social History Lives with: Spouse/Significant other Smoking Status: Never Smoker Frequency of Alcohol Use: None Hx Recreational Drug Use: No Drugs: None Hx Prescription Drug Abuse: No - Advance Directive Resuscitation Status: Full Code Family History Family History: Reviewed & Not Pertinent, DM, Other - Parkinsonism. She has 5 children, 2 of whom are close by. No known family history of cancer. Parental Family History Reviewed: Yes Children Family History Reviewed: Yes Sibling(s) Family History Reviewed.: No Medication/Allergy Home Medications: Duloxetine HCl [Cymbalta] 60 mg PO Q12 05/11/16 Furosemide [Lasix] 80 mg PO DAILYP PRN 05/11/16 Levothyroxine Sodium [Synthroid] 88 mcg PO DAILY 05/11/16 Lisinopril [Prinivil 10 mg Tablet] 10 mg PO DAILY 05/11/16 Pantoprazole Sodium [Protonix] 40 mg PO DAILY 05/11/16 Pramipexole Di-HCl [Pramipexole Dihydrochloride] 0.25 mg PO QHS 05/11/16 Rivaroxaban [Xarelto] 20 mg PO DAILY 05/11/16 Simvastatin [Zocor 40 mg Tablet] 40 mg PO DAILY 05/11/16 Pregabalin [Lyrica] 200 mg PO Q12 05/15/16 Exenatide Microspheres [Bydureon Pen] 2 mg SQ SA@1000 02/28/17 Lorazepam [Ativan 1 mg Tablet] 1 mg PO QHS 02/28/17 Meclizine HCl 25 mg PO DAILYP PRN 02/28/17 Metformin HCl [Glucophage] 1,000 mg PO Q12 02/28/17 Oxycodone HCl/Acetaminophen [Percocet 5-325 mg Tablet] 0.5 tab PO Q6HP PRN 02/28 Allergies/Adverse Reactions: codeine Allergy (Verified 05/11/16 12:04) Review of Systems Constitutional: ABSENT: fever(s), headache(s) Eyes: ABSENT: visual disturbances Ears: ABSENT: hearing changes Nose, Mouth, and Throat: ABSENT: sore throat Cardiovascular: ABSENT: chest pain Respiratory: ABSENT: dyspnea Gastrointestinal: ABSENT: vomiting Genitourinary: ABSENT: dysuria Musculoskeletal: PRESENT: back pain Neurological: ABSENT: confusion Psychiatric: PRESENT: depression Hematologic/Lymphatic: PRESENT: other - Chronic lymphedema left arm for which she has a sleeve at home. Physical Exam Vital Signs: Temp Pulse Resp BP Pulse Ox 98.5 F 75 13 113/57 L 97 03/04/17 03:39 03/04/17 03:39 03/04/17 03:39 03/04/17 03:39 03/04/17 03:39 Intake & Output 03/03/17 03/04/17 03/05/17 06:59 06:59 06:59 Intake Total 1910 1206 Output Total 1200 Balance 710 1206 Weight 87 kg 86.2 kg Exam: Well nourished, 72 year old female. She is sleepy and drifts in and out of our conversation, but is able to answer most questions appropriately. Head exam: PRESENT: atraumatic, normocephalic Eye exam: PRESENT: EOMI. ABSENT: scleral icterus Ear exam: PRESENT: normal external ear exam Mouth exam: PRESENT: moist, tongue midline Neck exam: ABSENT: lymphadenopathy, tenderness Respiratory exam: PRESENT: clear to auscultation julio Cardiovascular exam: PRESENT: RRR. ABSENT: systolic murmur Pulses: PRESENT: normal dorsalis pedis pul GI/Abdominal exam: PRESENT: soft. ABSENT: distended, tenderness Extremities exam: PRESENT: other - Large lymphedema LUE. 1+ pitting edema bilateral ankles with erythema R>L ankle. Musculoskeletal exam: PRESENT: other - deferred due to hip fracture Neurological exam: PRESENT: alert, awake, oriented to person, oriented to place Psychiatric exam: PRESENT: appropriate affect Skin exam: PRESENT: other - erythema ankles. Results Laboratory Results: 03/04/17 04:50 03/03/17 11:45 03/03/17 03/03/17 03/04/17 10:10 11:45 04:50 WBC 7.5 7.0 RBC 3.41 L 3.36 L Hgb 10.3 L 10.1 L Hct 30.2 L 30.1 L MCV 89 90 MCH 30.1 29.9 MCHC 33.9 33.4 RDW 14.6 H 14.4 H Plt Count 203 212 Seg Neutrophils % 58.7 Lymphocytes % 24.3 Monocytes % 10.0 Eosinophils % 5.6 Basophils % 1.4 Absolute Neutrophils 4.4 Absolute Lymphocytes 1.8 Absolute Monocytes 0.8 Absolute Eosinophils 0.4 Absolute Basophils 0.1 Creatinine 1.03 Est GFR ( Amer) > 60 Est GFR (Non-Af Amer) 53 L 02/28/17 02/28/17 02:45 08:46 Troponin I < 0.012 < 0.012 Impressions: Cervical Spine CT 02/27/17 20:20 IMPRESSION: 1. NO ACUTE OR SIGNIFICANT FINDINGS IN THE CERVICAL SPINE. 2. THE VISUALIZED UPPER THORACIC ESOPHAGUS IS DISTENDED. ON PREVIOUS CHEST CT DONE IN APRIL 2016 THERE WAS MILD ESOPHAGEAL DILATION. THIS IS PROBABLY RELATED TO PREVIOUS GASTRIC BYPASS. THERE MAY BE RELATIVE FUNCTIONAL OBSTRUCTION AT THE GASTROESOPHAGEAL JUNCTION. Chest X-Ray 02/27/17 20:20 IMPRESSION: NO ACUTE RADIOGRAPHIC FINDING IN THE CHEST. Head CT 02/27/17 20:20 IMPRESSION: DECREASED ATTENUATION IN THE WHITE MATTER OF THE POSTERIOR RIGHT PARIETAL LOBE, NOT PRESENT IN APRIL 2016. THIS COULD BE INDICATIVE OF RECENT INFARCT. MRI OF THE BRAIN MAY BE CONSIDERED FOR FURTHER EVALUATION. EVIDENCE OF ACUTE STROKE: POSSIBLE ACUTE OR SUBACUTE INFARCT. RIGHT MCA Head MRI 02/28/17 00:00 IMPRESSION: 1.4 cm enhancing brain parenchymal nodule with surrounding vasogenic edema, posterior right frontal lobe worrisome for metastatic disease EVIDENCE OF ACUTE STROKE: NO. Fluoroscopy 03/01/17 00:00 IMPRESSION: Intra procedural imaging and fluoro Hip X-Ray 03/01/17 00:00 IMPRESSION: Intra procedural imaging and fluoro Assessment & Plan - Diagnosis (1) Intertrochanteric fracture of left hip Qualifiers: Encounter type: initial encounter Fracture type: closed Fracture alignment: nondisplaced Qualified Code(s): S72.145A - Nondisplaced intertrochanteric fracture of left femur, initial encounter for closed fracture Is this a current diagnosis for this admission?: Yes Plan: Today is POD2. Unsure if patient has been on bisphosphonates recently. I will try to determine this. (2) Breast cancer metastasized to liver Qualifiers: Laterality: left Qualified Code(s): C50.912 - Malignant neoplasm of unspecified site of left female breast Is this a current diagnosis for this admission?: Yes Plan: It appears that the brain lesion is new. I am trying to obtain records from her current oncologist. Will need to speak in detail to the patient and her about further treatment plans. (3) Brain metastases Is this a current diagnosis for this admission?: Yes Plan: This appears to be a new diagnosis. The MRI did show edema. Therefore, I will start Dexamethasone 4 mg PO BID. I will discuss further with patient and family later today. (4) Anemia Qualifiers: Other causes of anemia: chronic disease, other Is this a current diagnosis for this admission?: Yes Plan: Mild anemia, most likely secondary to chemotherapy and cancer. No indication for further work-up or for transfusion at this time. Will continue to monitor. - Plan Summary Plan Summary: Thank you for this consultation. I will be happy to follow her with you and will consult radiation oncology if the patient requests further treatment. Please call with any questions or concerns.
[2017-03-04] MEDS: DOCUSATE SODIUM 100 MG CAPSULE PO SCH ×2 (10:47→18:33)
[2017-03-04] MEDS: DULOXETINE HCL 30 MG CAPSULE.DR PO SCH ×2 (10:47→18:33)
[2017-03-04] MEDS: SENNOSIDES/DOCUSATE 8.6-50 MG 1 EACH TABLET PO SCH ×2 (10:47→18:32)
[2017-03-04] MEDS ORDERED: OXYCODONE-ACETAMINOPHEN 5-325 MG TABLET PO ONE (11:20)
[2017-03-04] MEDS ORDERED: MAG HYDROX/AL HYDROX/SIMETH SUSP 30 ML UDCUP PO PRN (12:00)
[2017-03-04] MEDS ORDERED: FENTANYL CITRATE INJ/PF 100 MCG/2 ML AMPUL IV PRN (12:00)
[2017-03-04] MEDS ORDERED: VANCOMYCIN HCL 1,000 MG in DEXTROSE 5%-WATER 250 ML IV SCH (12:00)
[2017-03-04] MEDS: INSULIN LISPRO 100 UNIT/ML 3 ML VIAL SUBCUT PRN (18:33)
--- NOTE | 2017-03-04 19:22 | PDOC PROGRESS REPORT ---
Subjective Progress Note for:: 03/04/17 Subjective:: 72-year-old female with past medical history of Breast cancer with metastases to the liver Hypertension Anemia DVT on Xarelto Diabetes Hypothyroidism Diabetic neuropathy Chronic back pain Chronic kidney disease She presented to the hospital on February 27 with a fall. She recently started residing at [facility]. Her primary care physician is Dr. Clemens. Patient tripped and fell and sustained left hip fracture. No complaints at present. Reason For Visit: LEFT INTERTROCHANTERIC HIP FRACTURE S/P Physical Exam Vital Signs: Temp Pulse Resp BP Pulse Ox 97.5 F 72 16 90/54 L 94 03/04/17 07:48 03/04/17 07:48 03/04/17 07:48 03/04/17 07:48 03/04/17 07:48 Intake & Output 03/03/17 03/04/17 03/05/17 06:59 06:59 06:59 Intake Total 1910 1206 Output Total 1200 Balance 710 1206 Weight 87 kg 86.2 kg Additional comments: Elderly female lying in bed not in acute distress Lungs: Clear to auscultation bilaterally normal respiratory effort Cardiac: S1-S2 regular no peripheral edema no cyanosis Abdomen: Soft, no focal tenderness normal bowel sounds Skin: Warm and dry Results Laboratory Results: 03/04/17 04:50 03/03/17 11:45 03/03/17 03/03/17 03/04/17 10:10 11:45 04:50 WBC 7.5 7.0 RBC 3.41 L 3.36 L Hgb 10.3 L 10.1 L Hct 30.2 L 30.1 L MCV 89 90 MCH 30.1 29.9 MCHC 33.9 33.4 RDW 14.6 H 14.4 H Plt Count 203 212 Seg Neutrophils % 58.7 Lymphocytes % 24.3 Monocytes % 10.0 Eosinophils % 5.6 Basophils % 1.4 Absolute Neutrophils 4.4 Absolute Lymphocytes 1.8 Absolute Monocytes 0.8 Absolute Eosinophils 0.4 Absolute Basophils 0.1 Creatinine 1.03 Est GFR ( Amer) > 60 Est GFR (Non-Af Amer) 53 L 02/28/17 02/28/17 02:45 08:46 Troponin I < 0.012 < 0.012 Impressions: Cervical Spine CT 02/27/17 20:20 IMPRESSION: 1. NO ACUTE OR SIGNIFICANT FINDINGS IN THE CERVICAL SPINE. 2. THE VISUALIZED UPPER THORACIC ESOPHAGUS IS DISTENDED. ON PREVIOUS CHEST CT DONE IN APRIL 2016 THERE WAS MILD ESOPHAGEAL DILATION. THIS IS PROBABLY RELATED TO PREVIOUS GASTRIC BYPASS. THERE MAY BE RELATIVE FUNCTIONAL OBSTRUCTION AT THE GASTROESOPHAGEAL JUNCTION. Chest X-Ray 02/27/17 20:20 IMPRESSION: NO ACUTE RADIOGRAPHIC FINDING IN THE CHEST. Head CT 02/27/17 20:20 IMPRESSION: DECREASED ATTENUATION IN THE WHITE MATTER OF THE POSTERIOR RIGHT PARIETAL LOBE, NOT PRESENT IN APRIL 2016. THIS COULD BE INDICATIVE OF RECENT INFARCT. MRI OF THE BRAIN MAY BE CONSIDERED FOR FURTHER EVALUATION. EVIDENCE OF ACUTE STROKE: POSSIBLE ACUTE OR SUBACUTE INFARCT. RIGHT MCA Head MRI 02/28/17 00:00 IMPRESSION: 1.4 cm enhancing brain parenchymal nodule with surrounding vasogenic edema, posterior right frontal lobe worrisome for metastatic disease EVIDENCE OF ACUTE STROKE: NO. Fluoroscopy 03/01/17 00:00 IMPRESSION: Intra procedural imaging and fluoro Hip X-Ray 03/01/17 00:00 IMPRESSION: Intra procedural imaging and fluoro Assessment & Plan - Diagnosis (1) Brain metastases Is this a current diagnosis for this admission?: Yes (2) CKD (chronic kidney disease) stage 4, GFR 15-29 ml/min Is this a current diagnosis for this admission?: Yes (3) Intertrochanteric fracture of left hip Qualifiers: Encounter type: initial encounter Fracture type: closed Fracture alignment: nondisplaced Qualified Code(s): S72.145A - Nondisplaced intertrochanteric fracture of left femur, initial encounter for closed fracture Is this a current diagnosis for this admission?: Yes (5) Diabetes Qualifiers: Diabetes mellitus type: type 2 Diabetes mellitus complication status: with unspecified complications Diabetes mellitus extermination supervisor insulin use: without care home use Qualified Code(s): E11.8 - Type 2 diabetes mellitus with unspecified complications Is this a current diagnosis for this admission?: Yes (6) Essential hypertension Is this a current diagnosis for this admission?: Yes - Time Time Spent with patient: 15-24 minutes - Plan Summary Plan Summary: Post op day 2 hip fracture repair. Oncology input appreciated. Cont current treatment for medical managemant of her problems.
[2017-03-04] MEDS: RIVAROXABAN 10 MG TABLET PO SCH (22:44)
[2017-03-04] MEDS: CEFTRIAXONE 1 GM/D5W RTU 1 GM/50 ML RTUPB IV SCH (22:44)
[2017-03-05] MEDS: OXYCODONE-ACETAMINOPHEN 5-325 MG TABLET PO PRN ×4 (02:07→22:26)
[2017-03-05] MEDS: LANSOPRAZOLE 30 MG TAB.RAP.DR PO SCH (06:34)
[2017-03-05] MEDS: PREGABALIN 100 MG CAPSULE PO SCH ×3 (06:34→22:26)
[2017-03-05] MEDS: LEVOTHYROXINE SODIUM 0.088 MG TABLET PO SCH (06:35)
--- NOTE | 2017-03-05 09:07 | PDOC PROGRESS REPORT ---
Subjective Progress Note for:: 03/05/17 Subjective:: Patient states that she is in a great deal of pain. THe pain is in her back, between her shoulder blades. It is worse with movement. Pain medications help some. She denies any headache or nausea. She is unable to move her legs very much. She has difficulty rolling over due to both weakness and pain. She is eating well and bowels are moving normally. Reason For Visit: LEFT INTERTROCHANTERIC HIP FRACTURE S/P Oncology Consult was requested for metastatic cancer. Physical Exam Vital Signs: Temp Pulse Resp BP Pulse Ox 98.0 F 70 18 100/50 L 96 03/05/17 08:00 03/05/17 08:00 03/05/17 08:00 03/05/17 08:00 03/05/17 08:00 Intake & Output 03/04/17 03/05/17 03/06/17 06:59 06:59 06:59 Intake Total 1206 1663 Output Total 1451 Balance 1206 212 Weight 86.2 kg 88.6 kg General appearance: PRESENT: no acute distress, well-nourished Head exam: PRESENT: atraumatic Respiratory exam: PRESENT: clear to auscultation julio Cardiovascular exam: PRESENT: RRR. ABSENT: systolic murmur Results Laboratory Results: 03/04/17 04:50 03/03/17 11:45 02/28/17 02/28/17 02:45 08:46 Troponin I < 0.012 < 0.012 Impressions: Cervical Spine CT 02/27/17 20:20 IMPRESSION: 1. NO ACUTE OR SIGNIFICANT FINDINGS IN THE CERVICAL SPINE. 2. THE VISUALIZED UPPER THORACIC ESOPHAGUS IS DISTENDED. ON PREVIOUS CHEST CT DONE IN APRIL 2016 THERE WAS MILD ESOPHAGEAL DILATION. THIS IS PROBABLY RELATED TO PREVIOUS GASTRIC BYPASS. THERE MAY BE RELATIVE FUNCTIONAL OBSTRUCTION AT THE GASTROESOPHAGEAL JUNCTION. Chest X-Ray 02/27/17 20:20 IMPRESSION: NO ACUTE RADIOGRAPHIC FINDING IN THE CHEST. Head CT 02/27/17 20:20 IMPRESSION: DECREASED ATTENUATION IN THE WHITE MATTER OF THE POSTERIOR RIGHT PARIETAL LOBE, NOT PRESENT IN APRIL 2016. THIS COULD BE INDICATIVE OF RECENT INFARCT. MRI OF THE BRAIN MAY BE CONSIDERED FOR FURTHER EVALUATION. EVIDENCE OF ACUTE STROKE: POSSIBLE ACUTE OR SUBACUTE INFARCT. RIGHT MCA Head MRI 02/28/17 00:00 IMPRESSION: 1.4 cm enhancing brain parenchymal nodule with surrounding vasogenic edema, posterior right frontal lobe worrisome for metastatic disease EVIDENCE OF ACUTE STROKE: NO. Fluoroscopy 03/01/17 00:00 IMPRESSION: Intra procedural imaging and fluoro Hip X-Ray 03/01/17 00:00 IMPRESSION: Intra procedural imaging and fluoro Assessment & Plan - Diagnosis (1) Intertrochanteric fracture of left hip Qualifiers: Encounter type: initial encounter Fracture type: closed Fracture alignment: nondisplaced Qualified Code(s): S72.145A - Nondisplaced intertrochanteric fracture of left femur, initial encounter for closed fracture Is this a current diagnosis for this admission?: Yes Plan: Patient tells me she is having point specific back pain and is unable to move her legs well. I am worried about cord compression and have asked Dr. Ordaz to check MRI spine. (2) Breast cancer metastasized to liver Qualifiers: Laterality: left Qualified Code(s): C50.912 - Malignant neoplasm of unspecified site of left female breast Is this a current diagnosis for this admission?: Yes Plan: I will try again today to reach her primary oncologist. Hold all systemic treatments for now. (3) Brain metastases Is this a current diagnosis for this admission?: Yes Plan: Started Dexamethasone 4 mg PO q 12 hours. I have consulted radiation oncology for consideration of whole brain radiation as well as radiation to the back for pain control (or cord compression based on MRI results) (4) Anemia Qualifiers: Other causes of anemia: chronic disease, other Is this a current diagnosis for this admission?: Yes
[2017-03-05] MEDS: DOCUSATE SODIUM 100 MG CAPSULE PO SCH ×2 (10:08→17:33)
[2017-03-05] MEDS: DULOXETINE HCL 30 MG CAPSULE.DR PO SCH ×2 (10:08→17:33)
[2017-03-05] MEDS: DEXAMETHASONE 4 MG TABLET PO SCH ×2 (10:09→22:26)
[2017-03-05] MEDS: FENTANYL 25 MCG/HR PATCH.TD72 TD SCH (10:09)
[2017-03-05] MEDS: SENNOSIDES/DOCUSATE 8.6-50 MG 1 EACH TABLET PO SCH ×2 (10:09→17:33)
--- NOTE | 2017-03-05 14:02 | PDOC PROGRESS REPORT ---
Subjective Progress Note for:: 03/05/17 Subjective:: Patient complains of pain in her lumbosacral area as well as her thoracic spine area. Reason For Visit: LEFT INTERTROCHANTERIC HIP FRACTURE S/P Physical Exam Vital Signs: Temp Pulse Resp BP Pulse Ox 97.7 F 77 18 100/46 L 95 03/05/17 12:00 03/05/17 12:00 03/05/17 12:00 03/05/17 12:00 03/05/17 12:00 Intake & Output 03/04/17 03/05/17 03/06/17 06:59 06:59 06:59 Intake Total 1206 1663 Output Total 1451 Balance 1206 212 Weight 86.2 kg 88.6 kg General appearance: PRESENT: no acute distress Eye exam: PRESENT: conjunctiva pink. ABSENT: scleral icterus Mouth exam: PRESENT: moist, tongue midline Neck exam: ABSENT: JVD Respiratory exam: PRESENT: clear to auscultation julio. ABSENT: rales, rhonchi, wheezes Cardiovascular exam: PRESENT: RRR. ABSENT: diastolic murmur, rubs, systolic murmur GI/Abdominal exam: PRESENT: normal bowel sounds, soft. ABSENT: distended, guarding, mass, organolmegaly, rebound, tenderness Extremities exam: ABSENT: calf tenderness, clubbing, pedal edema Neurological exam: PRESENT: alert, awake, oriented to person, oriented to place , oriented to time, oriented to situation, CN II-XII grossly intact. ABSENT: motor sensory deficit Psychiatric exam: PRESENT: appropriate affect Skin exam: PRESENT: dry, intact, warm. ABSENT: cyanosis, rash Results Laboratory Results: 03/04/17 04:50 03/03/17 11:45 02/28/17 10:25 Blood Blood Culture - Final NO GROWTH IN 5 DAYS 02/28/17 08:53 Blood Blood Culture - Final NO GROWTH IN 5 DAYS 02/28/17 02/28/17 02:45 08:46 Troponin I < 0.012 < 0.012 Impressions: Cervical Spine CT 02/27/17 20:20 IMPRESSION: 1. NO ACUTE OR SIGNIFICANT FINDINGS IN THE CERVICAL SPINE. 2. THE VISUALIZED UPPER THORACIC ESOPHAGUS IS DISTENDED. ON PREVIOUS CHEST CT DONE IN APRIL 2016 THERE WAS MILD ESOPHAGEAL DILATION. THIS IS PROBABLY RELATED TO PREVIOUS GASTRIC BYPASS. THERE MAY BE RELATIVE FUNCTIONAL OBSTRUCTION AT THE GASTROESOPHAGEAL JUNCTION. Chest X-Ray 02/27/17 20:20 IMPRESSION: NO ACUTE RADIOGRAPHIC FINDING IN THE CHEST. Head CT 02/27/17 20:20 IMPRESSION: DECREASED ATTENUATION IN THE WHITE MATTER OF THE POSTERIOR RIGHT PARIETAL LOBE, NOT PRESENT IN APRIL 2016. THIS COULD BE INDICATIVE OF RECENT INFARCT. MRI OF THE BRAIN MAY BE CONSIDERED FOR FURTHER EVALUATION. EVIDENCE OF ACUTE STROKE: POSSIBLE ACUTE OR SUBACUTE INFARCT. RIGHT MCA Head MRI 02/28/17 00:00 IMPRESSION: 1.4 cm enhancing brain parenchymal nodule with surrounding vasogenic edema, posterior right frontal lobe worrisome for metastatic disease EVIDENCE OF ACUTE STROKE: NO. Fluoroscopy 03/01/17 00:00 IMPRESSION: Intra procedural imaging and fluoro Hip X-Ray 03/01/17 00:00 IMPRESSION: Intra procedural imaging and fluoro Assessment & Plan - Diagnosis (1) Brain metastases Is this a current diagnosis for this admission?: Yes Plan: Has been seen by oncology. Steroids have been started. Radiation oncology has been consulted. (2) Intertrochanteric fracture of left hip Qualifiers: Encounter type: initial encounter Fracture type: closed Fracture alignment: nondisplaced Qualified Code(s): S72.145A - Nondisplaced intertrochanteric fracture of left femur, initial encounter for closed fracture Is this a current diagnosis for this admission?: Yes Plan: Continue with physical therapy. (3) CKD (chronic kidney disease) stage 4, GFR 15-29 ml/min Is this a current diagnosis for this admission?: Yes (4) Breast cancer metastasized to liver Qualifiers: Laterality: left Qualified Code(s): C50.912 - Malignant neoplasm of unspecified site of left female breast Is this a current diagnosis for this admission?: Yes (5) Diabetes Qualifiers: Diabetes mellitus type: type 2 Diabetes mellitus complication status: with unspecified complications Diabetes mellitus mcfp insulin use: without mcfp use Qualified Code(s): E11.8 - Type 2 diabetes mellitus with unspecified complications Is this a current diagnosis for this admission?: Yes (6) Essential hypertension Is this a current diagnosis for this admission?: Yes (7) Fibromyalgia Is this a current diagnosis for this admission?: Yes (8) Chronic low back pain Qualifiers: Back pain laterality: bilateral Sciatica presence: with sciatica Sciatica laterality: bilateral sciatica Qualified Code(s): M54.42 - Lumbago with sciatica, left side Is this a current diagnosis for this admission?: Yes Plan: We will get an MRI of the T-spine in the lumbosacral spine. This is concerning that she may have metastatic disease there. - Time Time Spent with patient: 25-34 minutes - Inpatient Certification Medical Necessity: Need Close Monitoring Due to Risk of Patient Decompensation
--- NOTE | 2017-03-05 19:14 | RADIOLOGY REPORT (SQ) ---
EXAM DESCRIPTION: MRI THORACIC SPINE COMBO COMPLETED DATE/TIME: 03/05/2017 6:59 pm REASON FOR STUDY: back pain, metastatic breast ca COMPARISON: None. TECHNIQUE: Sagittal and Axial imaging includes T1, T2, STIR and gradient echo sequences. T1 post ga dolinium sequences. CONTRAST TYPE AND DOSE: 15 mL Multihance. RENAL FUNCTION: GFR 53. LIMITATIONS: None. FINDINGS: LOCALIZER: No worrisome findings. ALIGNMENT: Normal. VERTEBRAE: Intact. BONE MARROW: Normal. No marrow replacement or reactive changes. HARDWARE: None in the spine. CORD: Normal in size and signal intensity. SOFT TISSUES: No soft tissue masses. THORACIC DISCS T1-T12: No significant spinal stenosis or exit foraminal stenosis. LOWER CERVICAL: Incompletely imaged. No significant spinal stenosis or exit foraminal stenosis. UPPER LUMBAR: See report of separate MRI lumbar spine. ENHANCEMENT: No abnormal enhancement. OTHER: No other significant finding. IMPRESSION: NORMAL MRI THORACIC SPINE. TECHNICAL DOCUMENTATION: JOB ID: [id number] [email or web address]- All Rights Reserved
[2017-03-05] MEDS: VANCOMYCIN HCL 1,000 MG in DEXTROSE 5%-WATER 250 ML IV SCH (19:23)
--- NOTE | 2017-03-05 19:44 | RADIOLOGY REPORT (SQ) ---
EXAM DESCRIPTION: MRI LUMBAR SPINE COMBO COMPLETED DATE/TIME: 03/05/2017 6:59 pm REASON FOR STUDY: back pain, metastatic breast ca COMPARISON: None. TECHNIQUE: Sagittal and Axial imaging includes T1, T1 post gadolinium, T2, STIR and gradient echo se quences. Coronal T2/HASTE imaging. CONTRAST TYPE AND DOSE: 15 mL Multihance. RENAL FUNCTION: GFR 53. LIMITATIONS: None. FINDINGS: VISUALIZED UPPER ABDOMEN: Limited evaluation. No acute or suspicious findings suggested. SEGMENTATION: No transitional anatomy. The lowest well-developed disc space is labeled L5-S1. ALIGNMENT: 7 mm anterolisthesis of L 4 on L5. VERTEBRAE: Intact. No fractures. BONE MARROW: Normal. No marrow replacement or reactive changes. DISC SIGNAL: Decreased height and signal at L4-L5 with endplate irregularity. Other levels unremarka ble. POSTERIOR ELEMENTS: Generally intact. No pars defect evident. HARDWARE: Posterior hardware at L5. CORD AND CONUS: Normal in size and signal intensity. Conus at the appropriate level. SOFT TISSUES: No aortic aneurysm seen. No bulky retroperitoneal adenopathy or mass. No paraspinal mas s or fluid. L1-L2: No significant spinal stenosis or exit foraminal stenosis. L2-L3: No significant spinal stenosis or exit foraminal stenosis. L3-L4: No significant disc bulge. Mild -moderate facet arthropathy. No significant spinal stenosis or exit foraminal stenosis. L4-L5: Diffuse posterior annular disc bulge. Moderate facet arthropathy. Moderate spinal stenosis a nd exit foraminal stenosis, worse on the left. L5-S1: No significant disc bulge. Mild facet arthropathy. No significant spinal stenosis or exit fo raminal stenosis. LOWER THORACIC: See report of the separate MRI of the thoracic spine. SACRUM: Visualized upper sacrum intact. ENHANCEMENT: No abnormal enhancement. OTHER: No other significant findings. IMPRESSION: 1. 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 DEGENERATIVE CHANGES AT THIS LEVEL DESCRIBED ABOVE WITH MODERATE SPINAL STENOSIS AND EXIT FORAMINAL STENOSIS. 2. POSTERIOR HARDWARE AT L5. 3. REMAINDER OF THE STUDY IS RELATIVELY UNREMARKABLE. NO ACUTE FINDINGS. NO FINDINGS CONCERNING FOR METASTATIC INVOLVEMENT OF THE SPINE. TECHNICAL DOCUMENTATION: JOB ID: [id number]- All Rights Reserved
[2017-03-05] MEDS: RIVAROXABAN 10 MG TABLET PO SCH (22:26)
[2017-03-05] MEDS: CEFTRIAXONE 1 GM/D5W RTU 1 GM/50 ML RTUPB IV SCH (22:26)
[2017-03-06] MEDS: LEVOTHYROXINE SODIUM 0.088 MG TABLET PO SCH (05:45)
[2017-03-06] MEDS: LANSOPRAZOLE 30 MG TAB.RAP.DR PO SCH (05:45)
[2017-03-06] MEDS: PREGABALIN 100 MG CAPSULE PO SCH ×3 (05:45→22:33)
[2017-03-06 06:28] LABS: ABSOLUTE LYMPHOCYTES (AUTO) 0.5 10^3/uL (0.5-4.7); ABSOLUTE MONOCYTES (AUTO) 0.4 10^3/uL (0.1-1.4); ABSOLUTE NEUT (AUTO) 3.8 10^3/uL (1.7-8.2); BASOPHILS % (AUTO) 0.5 % (0-2); EOSINOPHILS % (AUTO) 0.1 % (0-6); HEMATOCRIT 32.1 % (36.0-47.0); HEMOGLOBIN 10.6 g/dL (12.0-15.5); LYMPHOCYTES % (AUTO) 10.7 % (13-45); MEAN CORPUSCULAR VOLUME 91 fl (80-97); MONOCYTES % (AUTO) 7.9 % (3-13); PLATELET COUNT 199 10^3/uL (150-450); RED BLOOD COUNT 3.53 10^6/uL (3.72-5.28); RED CELL DISTRIBUTION WIDTH 14.2 % (11.5-14.0); SEGMENTED NEUTROPHILS % (AUTO) 80.8 % (42-78); TOTAL CELLS COUNTED % (AUTO) 100 %; WHITE BLOOD COUNT 4.7 10^3/uL (4.0-10.5)
[2017-03-06 06:40] LABS: ANION GAP 10 (5-19); BLOOD UREA NITROGEN 20 mg/dL (7-20); CALCIUM 8.7 mg/dL (8.4-10.2); CARBON DIOXIDE 25 mmol/L (22-30); CHLORIDE 104 mmol/L (98-107); POTASSIUM 4.5 mmol/L (3.6-5.0); SODIUM 138.7 mmol/L (137-145)
[2017-03-06 06:54] LABS: GLUCOSE 465 mg/dL (75-110)
[2017-03-06] MEDS: INSULIN LISPRO 100 UNIT/ML 3 ML VIAL SUBCUT PRN ×4 (07:09→22:40)
--- NOTE | 2017-03-06 08:05 | PDOC PROGRESS REPORT ---
Subjective Progress Note for:: 03/06/17 Subjective:: Patient states that she is still very sleepy. Her back pain is better today, but she is still unable to walk. She is eating well. On ROS, she denies any nausea or vomiting. No headaches. No itching or skin issues. Reason For Visit: LEFT INTERTROCHANTERIC HIP FRACTURE S/P Physical Exam Vital Signs: Temp Pulse Resp BP Pulse Ox 98.2 F 72 14 148/69 H 97 03/06/17 03:27 03/06/17 03:27 03/06/17 03:27 03/06/17 03:27 03/06/17 03:27 Intake & Output 03/05/17 03/06/17 03/07/17 06:59 06:59 06:59 Intake Total 1663 1642 Output Total 1451 700 Balance 212 942 Weight 88.6 kg 88.6 kg General appearance: PRESENT: no acute distress, well-developed, well-nourished Head exam: PRESENT: atraumatic Respiratory exam: PRESENT: unlabored. ABSENT: accessory muscle use Neurological exam: PRESENT: alert, awake, oriented to person, oriented to place , oriented to time, oriented to situation, other - Still not able to fully move her legs. Difficult to tell if this is neurologic or muscluar. Psychiatric exam: PRESENT: appropriate affect Focused psych exam: ABSENT: restlessness Skin exam: PRESENT: normal color Results Laboratory Results: 03/06/17 06:01 03/06/17 06:01 03/06/17 03/06/17 06:01 06:01 WBC 4.7 RBC 3.53 L Hgb 10.6 L Hct 32.1 L MCV 91 MCH 30.0 MCHC 33.0 RDW 14.2 H Plt Count 199 Seg Neutrophils % 80.8 H Lymphocytes % 10.7 L Monocytes % 7.9 Eosinophils % 0.1 Basophils % 0.5 Absolute Neutrophils 3.8 Absolute Lymphocytes 0.5 Absolute Monocytes 0.4 Absolute Eosinophils 0.0 Absolute Basophils 0.0 Sodium 138.7 Potassium 4.5 Chloride 104 Carbon Dioxide 25 Anion Gap 10 BUN 20 Creatinine 0.92 Est GFR ( Amer) > 60 Est GFR (Non-Af Amer) > 60 Glucose 465 H* Calcium 8.7 02/28/17 10:25 Blood Blood Culture - Final NO GROWTH IN 5 DAYS 02/28/17 08:53 Blood Blood Culture - Final NO GROWTH IN 5 DAYS 02/28/17 02/28/17 02:45 08:46 Troponin I < 0.012 < 0.012 Impressions: Cervical Spine CT 02/27/17 20:20 IMPRESSION: 1. NO ACUTE OR SIGNIFICANT FINDINGS IN THE CERVICAL SPINE. 2. THE VISUALIZED UPPER THORACIC ESOPHAGUS IS DISTENDED. ON PREVIOUS CHEST CT DONE IN APRIL 2016 THERE WAS MILD ESOPHAGEAL DILATION. THIS IS PROBABLY RELATED TO PREVIOUS GASTRIC BYPASS. THERE MAY BE RELATIVE FUNCTIONAL OBSTRUCTION AT THE GASTROESOPHAGEAL JUNCTION. Chest X-Ray 02/27/17 20:20 IMPRESSION: NO ACUTE RADIOGRAPHIC FINDING IN THE CHEST. Head CT 02/27/17 20:20 IMPRESSION: DECREASED ATTENUATION IN THE WHITE MATTER OF THE POSTERIOR RIGHT PARIETAL LOBE, NOT PRESENT IN APRIL 2016. THIS COULD BE INDICATIVE OF RECENT INFARCT. MRI OF THE BRAIN MAY BE CONSIDERED FOR FURTHER EVALUATION. EVIDENCE OF ACUTE STROKE: POSSIBLE ACUTE OR SUBACUTE INFARCT. RIGHT MCA Head MRI 02/28/17 00:00 IMPRESSION: 1.4 cm enhancing brain parenchymal nodule with surrounding vasogenic edema, posterior right frontal lobe worrisome for metastatic disease EVIDENCE OF ACUTE STROKE: NO. Fluoroscopy 03/01/17 00:00 IMPRESSION: Intra procedural imaging and fluoro Hip X-Ray 03/01/17 00:00 IMPRESSION: Intra procedural imaging and fluoro Lumbar Spine MRI 03/05/17 00:00 IMPRESSION: 1. 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 DEGENERATIVE CHANGES AT THIS LEVEL DESCRIBED ABOVE WITH MODERATE SPINAL STENOSIS AND EXIT FORAMINAL STENOSIS. 2. POSTERIOR HARDWARE AT L5. 3. REMAINDER OF THE STUDY IS RELATIVELY UNREMARKABLE. NO ACUTE FINDINGS. NO FINDINGS CONCERNING FOR METASTATIC INVOLVEMENT OF THE SPINE. Thoracic Spine MRI 03/05/17 00:00 IMPRESSION: NORMAL MRI THORACIC SPINE. Assessment & Plan - Diagnosis (1) Intertrochanteric fracture of left hip Qualifiers: Encounter type: initial encounter Fracture type: closed Fracture alignment: nondisplaced Qualified Code(s): S72.145A - Nondisplaced intertrochanteric fracture of left femur, initial encounter for closed fracture Is this a current diagnosis for this admission?: Yes Plan: This is the second fractured hip in the last year. However, there is no evidence of pathologic fracture. (2) Breast cancer metastasized to liver Qualifiers: Laterality: left Qualified Code(s): C50.912 - Malignant neoplasm of unspecified site of left female breast Is this a current diagnosis for this admission?: Yes Plan: She has only been receiving Herceptin. Her last dose was 01/24/2017. Further plans for systemic cancer treatment per her physician in [facility] upon discharge. (3) Brain metastases Is this a current diagnosis for this admission?: Yes Plan: She saw Dr. Ro yesterday and he has recommended radiation to the brain. Continue Dexamethasone. (4) Anemia Qualifiers: Other causes of anemia: chronic disease, other Is this a current diagnosis for this admission?: Yes Plan: Improving. Continue to monitor. No indication for blood transfusion at this time. (5) Chronic low back pain Qualifiers: Back pain laterality: bilateral Sciatica presence: with sciatica Sciatica laterality: bilateral sciatica Qualified Code(s): M54.42 - Lumbago with sciatica, left side Is this a current diagnosis for this admission?: Yes Plan: MRI of the thoracic and lumbar spine was negative for mets or cord compression. She was started on Duragesic for the pain yesterday, but states that she does not believe it has helped. She does admit that her pain is overall better. Will continue to monitor. Adjust dose as needed.
[2017-03-06] MEDS: DEXAMETHASONE 4 MG TABLET PO SCH ×2 (09:23→22:33)
[2017-03-06] MEDS: SENNOSIDES/DOCUSATE 8.6-50 MG 1 EACH TABLET PO SCH ×2 (09:23→17:16)
[2017-03-06] MEDS: DULOXETINE HCL 30 MG CAPSULE.DR PO SCH ×2 (09:23→17:15)
[2017-03-06] MEDS: DOCUSATE SODIUM 100 MG CAPSULE PO SCH ×2 (09:23→17:16)
--- NOTE | 2017-03-06 10:06 | PDOC PROGRESS REPORT ---
Subjective Progress Note for:: 03/06/17 Subjective:: Patient complains of pain in her lumbosacral area as well as her thoracic spine area. MRI showed no evidence for metastatic disease. Reason For Visit: LEFT INTERTROCHANTERIC HIP FRACTURE S/P Physical Exam Vital Signs: Temp Pulse Resp BP Pulse Ox 98.2 F 74 14 148/69 H 97 03/06/17 03:27 03/06/17 07:00 03/06/17 03:27 03/06/17 03:27 03/06/17 03:27 Intake & Output 03/05/17 03/06/17 03/07/17 06:59 06:59 06:59 Intake Total 1663 1642 Output Total 1451 700 Balance 212 942 Weight 88.6 kg 88.6 kg General appearance: PRESENT: no acute distress Eye exam: PRESENT: conjunctiva pink. ABSENT: scleral icterus Mouth exam: PRESENT: moist, tongue midline Neck exam: ABSENT: JVD Respiratory exam: PRESENT: clear to auscultation julio. ABSENT: rales, rhonchi, wheezes Cardiovascular exam: PRESENT: RRR. ABSENT: diastolic murmur, rubs, systolic murmur GI/Abdominal exam: PRESENT: normal bowel sounds, soft. ABSENT: distended, guarding, mass, organolmegaly, rebound, tenderness Extremities exam: ABSENT: calf tenderness, clubbing, pedal edema Neurological exam: PRESENT: alert, awake, oriented to person, oriented to place , oriented to time, oriented to situation, CN II-XII grossly intact. ABSENT: motor sensory deficit Psychiatric exam: PRESENT: appropriate affect Skin exam: PRESENT: dry, intact, warm. ABSENT: cyanosis, rash Results Laboratory Results: 03/06/17 06:01 03/06/17 06:01 03/06/17 03/06/17 06:01 06:01 WBC 4.7 RBC 3.53 L Hgb 10.6 L Hct 32.1 L MCV 91 MCH 30.0 MCHC 33.0 RDW 14.2 H Plt Count 199 Seg Neutrophils % 80.8 H Lymphocytes % 10.7 L Monocytes % 7.9 Eosinophils % 0.1 Basophils % 0.5 Absolute Neutrophils 3.8 Absolute Lymphocytes 0.5 Absolute Monocytes 0.4 Absolute Eosinophils 0.0 Absolute Basophils 0.0 Sodium 138.7 Potassium 4.5 Chloride 104 Carbon Dioxide 25 Anion Gap 10 BUN 20 Creatinine 0.92 Est GFR ( Amer) > 60 Est GFR (Non-Af Amer) > 60 Glucose 465 H* Calcium 8.7 02/28/17 10:25 Blood Blood Culture - Final NO GROWTH IN 5 DAYS 02/28/17 08:53 Blood Blood Culture - Final NO GROWTH IN 5 DAYS 02/28/17 02/28/17 02:45 08:46 Troponin I < 0.012 < 0.012 Impressions: Cervical Spine CT 02/27/17 20:20 IMPRESSION: 1. NO ACUTE OR SIGNIFICANT FINDINGS IN THE CERVICAL SPINE. 2. THE VISUALIZED UPPER THORACIC ESOPHAGUS IS DISTENDED. ON PREVIOUS CHEST CT DONE IN APRIL 2016 THERE WAS MILD ESOPHAGEAL DILATION. THIS IS PROBABLY RELATED TO PREVIOUS GASTRIC BYPASS. THERE MAY BE RELATIVE FUNCTIONAL OBSTRUCTION AT THE GASTROESOPHAGEAL JUNCTION. Chest X-Ray 02/27/17 20:20 IMPRESSION: NO ACUTE RADIOGRAPHIC FINDING IN THE CHEST. Head CT 02/27/17 20:20 IMPRESSION: DECREASED ATTENUATION IN THE WHITE MATTER OF THE POSTERIOR RIGHT PARIETAL LOBE, NOT PRESENT IN APRIL 2016. THIS COULD BE INDICATIVE OF RECENT INFARCT. MRI OF THE BRAIN MAY BE CONSIDERED FOR FURTHER EVALUATION. EVIDENCE OF ACUTE STROKE: POSSIBLE ACUTE OR SUBACUTE INFARCT. RIGHT MCA Head MRI 02/28/17 00:00 IMPRESSION: 1.4 cm enhancing brain parenchymal nodule with surrounding vasogenic edema, posterior right frontal lobe worrisome for metastatic disease EVIDENCE OF ACUTE STROKE: NO. Fluoroscopy 03/01/17 00:00 IMPRESSION: Intra procedural imaging and fluoro Hip X-Ray 03/01/17 00:00 IMPRESSION: Intra procedural imaging and fluoro Lumbar Spine MRI 03/05/17 00:00 IMPRESSION: 1. 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 DEGENERATIVE CHANGES AT THIS LEVEL DESCRIBED ABOVE WITH MODERATE SPINAL STENOSIS AND EXIT FORAMINAL STENOSIS. 2. POSTERIOR HARDWARE AT L5. 3. REMAINDER OF THE STUDY IS RELATIVELY UNREMARKABLE. NO ACUTE FINDINGS. NO FINDINGS CONCERNING FOR METASTATIC INVOLVEMENT OF THE SPINE. Thoracic Spine MRI 03/05/17 00:00 IMPRESSION: NORMAL MRI THORACIC SPINE. Assessment & Plan - Diagnosis (1) Brain metastases Is this a current diagnosis for this admission?: Yes Plan: Has been seen by oncology. Currently on dexamethasone. Radiation oncology is recommending radiation therapy to the brain metastases. (2) Intertrochanteric fracture of left hip Qualifiers: Encounter type: initial encounter Fracture type: closed Fracture alignment: nondisplaced Qualified Code(s): S72.145A - Nondisplaced intertrochanteric fracture of left femur, initial encounter for closed fracture Is this a current diagnosis for this admission?: Yes Plan: Continue with physical therapy. (3) CKD (chronic kidney disease) stage 4, GFR 15-29 ml/min Is this a current diagnosis for this admission?: Yes Plan: Patient is euvolemic. (4) Breast cancer metastasized to liver Qualifiers: Laterality: left Qualified Code(s): C50.912 - Malignant neoplasm of unspecified site of left female breast Is this a current diagnosis for this admission?: Yes Plan: Followed by oncology. (5) Diabetes Qualifiers: Diabetes mellitus type: type 2 Diabetes mellitus complication status: with unspecified complications Diabetes mellitus usp insulin use: without keno terminal operator use Qualified Code(s): E11.8 - Type 2 diabetes mellitus with unspecified complications Is this a current diagnosis for this admission?: Yes Plan: We will cover with sliding scale insulin. Her blood sugars have gone up with the steroids. (6) Essential hypertension Is this a current diagnosis for this admission?: Yes (7) Fibromyalgia Is this a current diagnosis for this admission?: Yes (8) Chronic low back pain Qualifiers: Back pain laterality: bilateral Sciatica presence: with sciatica Sciatica laterality: bilateral sciatica Qualified Code(s): M54.42 - Lumbago with sciatica, left side Is this a current diagnosis for this admission?: Yes Plan: MRIs were negative for any metastatic disease. Has been started on Duragesic patch. - Time Time Spent with patient: 25-34 minutes - Inpatient Certification Medical Necessity: Need Close Monitoring Due to Risk of Patient Decompensation
[2017-03-06] MEDS ORDERED: INSULIN GLARGINE,HUM.REC.ANLOG 300 UNIT/3 ML INSULN.PEN SUBCUT SCH (11:00)
[2017-03-06] MEDS: VANCOMYCIN HCL 1,000 MG in DEXTROSE 5%-WATER 250 ML IV SCH (17:16)
[2017-03-06] MEDS: ACETAMINOPHEN 325 MG TABLET PO PRN (20:13)
[2017-03-06] MEDS: CEFTRIAXONE 1 GM/D5W RTU 1 GM/50 ML RTUPB IV SCH (22:33)
[2017-03-06] MEDS: RIVAROXABAN 10 MG TABLET PO SCH (22:33)
[2017-03-07] MEDS: OXYCODONE-ACETAMINOPHEN 5-325 MG TABLET PO PRN ×3 (00:15→22:42)
[2017-03-07 05:51] LABS: ABSOLUTE LYMPHOCYTES (AUTO) 0.9 10^3/uL (0.5-4.7); ABSOLUTE MONOCYTES (AUTO) 0.3 10^3/uL (0.1-1.4); BASOPHILS % (AUTO) 0.3 % (0-2); HEMATOCRIT 29.8 % (36.0-47.0); HEMOGLOBIN 9.9 g/dL (12.0-15.5); LYMPHOCYTES % (AUTO) 12.5 % (13-45); MEAN CORPUSCULAR HEMOGLOBIN 29.7 pg (27.0-33.4); MEAN CORPUSCULAR HGB CONC 33.2 g/dL (32.0-36.0); MEAN CORPUSCULAR VOLUME 90 fl (80-97); MONOCYTES % (AUTO) 3.7 % (3-13); PLATELET COUNT 205 10^3/uL (150-450); RED BLOOD COUNT 3.32 10^6/uL (3.72-5.28); RED CELL DISTRIBUTION WIDTH 14.2 % (11.5-14.0); SEGMENTED NEUTROPHILS % (AUTO) 83.5 % (42-78); TOTAL CELLS COUNTED % (AUTO) 100 %; WHITE BLOOD COUNT 7.2 10^3/uL (4.0-10.5)
[2017-03-07 06:14] LABS: ANION GAP 8 (5-19); BLOOD UREA NITROGEN 20 mg/dL (7-20); CALCIUM 8.8 mg/dL (8.4-10.2); CARBON DIOXIDE 25 mmol/L (22-30); CHLORIDE 106 mmol/L (98-107); GLUCOSE 326 mg/dL (75-110); POTASSIUM 4.9 mmol/L (3.6-5.0); SODIUM 139.1 mmol/L (137-145)
[2017-03-07] MEDS: PREGABALIN 100 MG CAPSULE PO SCH ×3 (06:27→21:45)
[2017-03-07] MEDS: LANSOPRAZOLE 30 MG TAB.RAP.DR PO SCH (06:27)
[2017-03-07] MEDS: LEVOTHYROXINE SODIUM 0.088 MG TABLET PO SCH (06:27)
[2017-03-07] MEDS: INSULIN LISPRO 100 UNIT/ML 3 ML VIAL SUBCUT PRN ×3 (08:48→22:42)
[2017-03-07] MEDS: DULOXETINE HCL 30 MG CAPSULE.DR PO SCH ×2 (09:52→17:26)
[2017-03-07] MEDS: DOCUSATE SODIUM 100 MG CAPSULE PO SCH ×2 (09:52→17:27)
[2017-03-07] MEDS: DEXAMETHASONE 4 MG TABLET PO SCH ×2 (09:52→21:45)
[2017-03-07] MEDS: SENNOSIDES/DOCUSATE 8.6-50 MG 1 EACH TABLET PO SCH ×2 (09:52→17:27)
--- NOTE | 2017-03-07 11:23 | PDOC PROGRESS REPORT ---
Subjective Progress Note for:: 03/07/17 Subjective:: Patient states that she feels about the same. She was up all night due to noise down the [place]. She feels that the pain is about the same, but she did not require any PRN doses of pain meds yesterday. She appears to be tolerating the Duragesic without significant side effects. Reason For Visit: LEFT INTERTROCHANTERIC HIP FRACTURE S/P Physical Exam Vital Signs: Temp Pulse Resp BP Pulse Ox 97.8 F 68 18 136/61 H 95 03/07/17 08:00 03/07/17 08:00 03/07/17 08:00 03/07/17 08:00 03/07/17 08:00 Intake & Output 03/06/17 03/07/17 03/08/17 06:59 06:59 06:59 Intake Total 1642 1945 Output Total 700 400 Balance 942 1545 Weight 88.6 kg 91.1 kg General appearance: PRESENT: no acute distress, well-nourished Respiratory exam: PRESENT: clear to auscultation julio Cardiovascular exam: PRESENT: RRR Psychiatric exam: PRESENT: appropriate affect Skin exam: PRESENT: normal color Results Laboratory Results: 03/07/17 05:16 03/07/17 05:16 03/07/17 03/07/17 05:16 05:16 WBC 7.2 RBC 3.32 L Hgb 9.9 L Hct 29.8 L MCV 90 MCH 29.7 MCHC 33.2 RDW 14.2 H Plt Count 205 Seg Neutrophils % 83.5 H Lymphocytes % 12.5 L Monocytes % 3.7 Eosinophils % 0.0 Basophils % 0.3 Absolute Neutrophils 6.0 Absolute Lymphocytes 0.9 Absolute Monocytes 0.3 Absolute Eosinophils 0.0 Absolute Basophils 0.0 Sodium 139.1 Potassium 4.9 Chloride 106 Carbon Dioxide 25 Anion Gap 8 BUN 20 Creatinine 0.83 Est GFR ( Amer) > 60 Est GFR (Non-Af Amer) > 60 Glucose 326 H Calcium 8.8 02/28/17 02/28/17 02:45 08:46 Troponin I < 0.012 < 0.012 Impressions: Cervical Spine CT 02/27/17 20:20 IMPRESSION: 1. NO ACUTE OR SIGNIFICANT FINDINGS IN THE CERVICAL SPINE. 2. THE VISUALIZED UPPER THORACIC ESOPHAGUS IS DISTENDED. ON PREVIOUS CHEST CT DONE IN APRIL 2016 THERE WAS MILD ESOPHAGEAL DILATION. THIS IS PROBABLY RELATED TO PREVIOUS GASTRIC BYPASS. THERE MAY BE RELATIVE FUNCTIONAL OBSTRUCTION AT THE GASTROESOPHAGEAL JUNCTION. Chest X-Ray 02/27/17 20:20 IMPRESSION: NO ACUTE RADIOGRAPHIC FINDING IN THE CHEST. Head CT 02/27/17 20:20 IMPRESSION: DECREASED ATTENUATION IN THE WHITE MATTER OF THE POSTERIOR RIGHT PARIETAL LOBE, NOT PRESENT IN APRIL 2016. THIS COULD BE INDICATIVE OF RECENT INFARCT. MRI OF THE BRAIN MAY BE CONSIDERED FOR FURTHER EVALUATION. EVIDENCE OF ACUTE STROKE: POSSIBLE ACUTE OR SUBACUTE INFARCT. RIGHT MCA Head MRI 02/28/17 00:00 IMPRESSION: 1.4 cm enhancing brain parenchymal nodule with surrounding vasogenic edema, posterior right frontal lobe worrisome for metastatic disease EVIDENCE OF ACUTE STROKE: NO. Fluoroscopy 03/01/17 00:00 IMPRESSION: Intra procedural imaging and fluoro Hip X-Ray 03/01/17 00:00 IMPRESSION: Intra procedural imaging and fluoro Lumbar Spine MRI 03/05/17 00:00 IMPRESSION: 1. 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 DEGENERATIVE CHANGES AT THIS LEVEL DESCRIBED ABOVE WITH MODERATE SPINAL STENOSIS AND EXIT FORAMINAL STENOSIS. 2. POSTERIOR HARDWARE AT L5. 3. REMAINDER OF THE STUDY IS RELATIVELY UNREMARKABLE. NO ACUTE FINDINGS. NO FINDINGS CONCERNING FOR METASTATIC INVOLVEMENT OF THE SPINE. Thoracic Spine MRI 03/05/17 00:00 IMPRESSION: NORMAL MRI THORACIC SPINE. Assessment & Plan - Diagnosis (1) Intertrochanteric fracture of left hip Qualifiers: Encounter type: initial encounter Fracture type: closed Fracture alignment: nondisplaced Qualified Code(s): S72.145A - Nondisplaced intertrochanteric fracture of left femur, initial encounter for closed fracture Is this a current diagnosis for this admission?: Yes (2) Breast cancer metastasized to liver Qualifiers: Laterality: left Qualified Code(s): C50.912 - Malignant neoplasm of unspecified site of left female breast Is this a current diagnosis for this admission?: Yes Plan: Herceptin on hold until after radiation is completed. (3) Brain metastases Is this a current diagnosis for this admission?: Yes Plan: Receiving brain radiation. Continue Dexamethasone. (4) Anemia Qualifiers: Other causes of anemia: chronic disease, other Is this a current diagnosis for this admission?: Yes Plan: remains stable. No indication for transfusion. (5) Chronic low back pain Qualifiers: Back pain laterality: bilateral Sciatica presence: with sciatica Sciatica laterality: bilateral sciatica Qualified Code(s): M54.42 - Lumbago with sciatica, left side Is this a current diagnosis for this admission?: Yes Plan: Seems to be doing better with the duragesic. May increase this if needed in the future. - Plan Summary Plan Summary: Nothing further to add at this point. She will follow up with her primary oncologist in [facility] on discharge. Continue brain radiation per Dr. Ro. Please call if needed.
[2017-03-07] MEDS: INSULIN GLARGINE,HUM.REC.ANLOG 300 UNIT/3 ML INSULN.PEN SUBCUT SCH (12:13)
--- NOTE | 2017-03-07 13:22 | PDOC PROGRESS REPORT ---
Subjective Progress Note for:: 03/07/17 Subjective:: Patient is doing well with the Duragesic patch. MRI showed no evidence for metastatic disease. Reason For Visit: LEFT INTERTROCHANTERIC HIP FRACTURE S/P Physical Exam Vital Signs: Temp Pulse Resp BP Pulse Ox 97.8 F 68 18 136/61 H 95 03/07/17 08:00 03/07/17 08:00 03/07/17 08:00 03/07/17 08:00 03/07/17 08:00 Intake & Output 03/06/17 03/07/17 03/08/17 06:59 06:59 06:59 Intake Total 1642 1945 Output Total 700 400 Balance 942 1545 Weight 88.6 kg 91.1 kg General appearance: PRESENT: no acute distress Eye exam: PRESENT: conjunctiva pink. ABSENT: scleral icterus Mouth exam: PRESENT: moist, tongue midline Neck exam: ABSENT: JVD Respiratory exam: PRESENT: clear to auscultation julio. ABSENT: rales, rhonchi, wheezes Cardiovascular exam: PRESENT: RRR. ABSENT: diastolic murmur, rubs, systolic murmur GI/Abdominal exam: PRESENT: normal bowel sounds, soft. ABSENT: distended, guarding, mass, organolmegaly, rebound, tenderness Extremities exam: ABSENT: calf tenderness, clubbing, pedal edema Neurological exam: PRESENT: alert, awake, oriented to person, oriented to place , oriented to time, oriented to situation, CN II-XII grossly intact. ABSENT: motor sensory deficit Psychiatric exam: PRESENT: appropriate affect Skin exam: PRESENT: dry, intact, warm. ABSENT: cyanosis, rash Results Laboratory Results: 03/07/17 05:16 03/07/17 05:16 03/07/17 03/07/17 05:16 05:16 WBC 7.2 RBC 3.32 L Hgb 9.9 L Hct 29.8 L MCV 90 MCH 29.7 MCHC 33.2 RDW 14.2 H Plt Count 205 Seg Neutrophils % 83.5 H Lymphocytes % 12.5 L Monocytes % 3.7 Eosinophils % 0.0 Basophils % 0.3 Absolute Neutrophils 6.0 Absolute Lymphocytes 0.9 Absolute Monocytes 0.3 Absolute Eosinophils 0.0 Absolute Basophils 0.0 Sodium 139.1 Potassium 4.9 Chloride 106 Carbon Dioxide 25 Anion Gap 8 BUN 20 Creatinine 0.83 Est GFR ( Amer) > 60 Est GFR (Non-Af Amer) > 60 Glucose 326 H Calcium 8.8 02/28/17 02/28/17 02:45 08:46 Troponin I < 0.012 < 0.012 Impressions: Cervical Spine CT 02/27/17 20:20 IMPRESSION: 1. NO ACUTE OR SIGNIFICANT FINDINGS IN THE CERVICAL SPINE. 2. THE VISUALIZED UPPER THORACIC ESOPHAGUS IS DISTENDED. ON PREVIOUS CHEST CT DONE IN APRIL 2016 THERE WAS MILD ESOPHAGEAL DILATION. THIS IS PROBABLY RELATED TO PREVIOUS GASTRIC BYPASS. THERE MAY BE RELATIVE FUNCTIONAL OBSTRUCTION AT THE GASTROESOPHAGEAL JUNCTION. Chest X-Ray 02/27/17 20:20 IMPRESSION: NO ACUTE RADIOGRAPHIC FINDING IN THE CHEST. Head CT 02/27/17 20:20 IMPRESSION: DECREASED ATTENUATION IN THE WHITE MATTER OF THE POSTERIOR RIGHT PARIETAL LOBE, NOT PRESENT IN APRIL 2016. THIS COULD BE INDICATIVE OF RECENT INFARCT. MRI OF THE BRAIN MAY BE CONSIDERED FOR FURTHER EVALUATION. EVIDENCE OF ACUTE STROKE: POSSIBLE ACUTE OR SUBACUTE INFARCT. RIGHT MCA Head MRI 02/28/17 00:00 IMPRESSION: 1.4 cm enhancing brain parenchymal nodule with surrounding vasogenic edema, posterior right frontal lobe worrisome for metastatic disease EVIDENCE OF ACUTE STROKE: NO. Fluoroscopy 03/01/17 00:00 IMPRESSION: Intra procedural imaging and fluoro Hip X-Ray 03/01/17 00:00 IMPRESSION: Intra procedural imaging and fluoro Lumbar Spine MRI 03/05/17 00:00 IMPRESSION: 1. 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 DEGENERATIVE CHANGES AT THIS LEVEL DESCRIBED ABOVE WITH MODERATE SPINAL STENOSIS AND EXIT FORAMINAL STENOSIS. 2. POSTERIOR HARDWARE AT L5. 3. REMAINDER OF THE STUDY IS RELATIVELY UNREMARKABLE. NO ACUTE FINDINGS. NO FINDINGS CONCERNING FOR METASTATIC INVOLVEMENT OF THE SPINE. Thoracic Spine MRI 03/05/17 00:00 IMPRESSION: NORMAL MRI THORACIC SPINE. Assessment & Plan - Diagnosis (1) Brain metastases Is this a current diagnosis for this admission?: Yes Plan: Has been seen by oncology. Currently on dexamethasone. Radiation oncology is recommending radiation therapy to the brain metastases. (2) Intertrochanteric fracture of left hip Qualifiers: Encounter type: initial encounter Fracture type: closed Fracture alignment: nondisplaced Qualified Code(s): S72.145A - Nondisplaced intertrochanteric fracture of left femur, initial encounter for closed fracture Is this a current diagnosis for this admission?: Yes Plan: Continue with physical therapy. (3) CKD (chronic kidney disease) stage 4, GFR 15-29 ml/min Is this a current diagnosis for this admission?: Yes Plan: Patient is euvolemic. (4) Breast cancer metastasized to liver Qualifiers: Laterality: left Qualified Code(s): C50.912 - Malignant neoplasm of unspecified site of left female breast Is this a current diagnosis for this admission?: Yes Plan: Followed by oncology. (5) Diabetes Qualifiers: Diabetes mellitus type: type 2 Diabetes mellitus complication status: with unspecified complications Diabetes mellitus intermediate project manager insulin use: without intermediate project manager use Qualified Code(s): E11.8 - Type 2 diabetes mellitus with unspecified complications Is this a current diagnosis for this admission?: Yes Plan: Will increase the Lantus. Continue with sliding scale coverage. Her blood sugars have gone up with the steroids. (6) Essential hypertension Is this a current diagnosis for this admission?: Yes (7) Fibromyalgia Is this a current diagnosis for this admission?: Yes (8) Chronic low back pain Qualifiers: Back pain laterality: bilateral Sciatica presence: with sciatica Sciatica laterality: bilateral sciatica Qualified Code(s): M54.42 - Lumbago with sciatica, left side Is this a current diagnosis for this admission?: Yes Plan: MRIs were negative for any metastatic disease. Tolerating the Duragesic patch. - Time Time Spent with patient: 25-34 minutes - Inpatient Certification Medical Necessity: Need Close Monitoring Due to Risk of Patient Decompensation
--- NOTE | 2017-03-07 15:56 | PDOC PROGRESS REPORT ---
Subjective Progress Note for:: 03/07/17 Subjective:: Patient resting comfortably in bed reading a magazine. States having pain in the left hip but still working with therapy. Reason For Visit: LEFT INTERTROCHANTERIC HIP FRACTURE S/P Physical Exam Vital Signs: Temp Pulse Resp BP Pulse Ox 36.6 C 72 18 136/61 H 95 03/07/17 08:00 03/07/17 14:00 03/07/17 08:00 03/07/17 08:00 03/07/17 08:00 Intake & Output 03/06/17 03/07/17 03/08/17 06:59 06:59 06:59 Intake Total 1642 1945 Output Total 700 400 Balance 942 1545 Weight 88.6 kg 91.1 kg General appearance: PRESENT: no acute distress Adult Front & Back Image: 1 - Incisions are dry clean and intact. The middle incision has some serous drainage. Range of motion limited second the pain. Neurovascular intact distally. Results Laboratory Results: 03/07/17 05:16 03/07/17 05:16 03/07/17 03/07/17 05:16 05:16 WBC 7.2 RBC 3.32 L Hgb 9.9 L Hct 29.8 L MCV 90 MCH 29.7 MCHC 33.2 RDW 14.2 H Plt Count 205 Seg Neutrophils % 83.5 H Lymphocytes % 12.5 L Monocytes % 3.7 Eosinophils % 0.0 Basophils % 0.3 Absolute Neutrophils 6.0 Absolute Lymphocytes 0.9 Absolute Monocytes 0.3 Absolute Eosinophils 0.0 Absolute Basophils 0.0 Sodium 139.1 Potassium 4.9 Chloride 106 Carbon Dioxide 25 Anion Gap 8 BUN 20 Creatinine 0.83 Est GFR ( Amer) > 60 Est GFR (Non-Af Amer) > 60 Glucose 326 H Calcium 8.8 02/28/17 02/28/17 02:45 08:46 Troponin I < 0.012 < 0.012 Impressions: Cervical Spine CT 02/27/17 20:20 IMPRESSION: 1. NO ACUTE OR SIGNIFICANT FINDINGS IN THE CERVICAL SPINE. 2. THE VISUALIZED UPPER THORACIC ESOPHAGUS IS DISTENDED. ON PREVIOUS CHEST CT DONE IN APRIL 2016 THERE WAS MILD ESOPHAGEAL DILATION. THIS IS PROBABLY RELATED TO PREVIOUS GASTRIC BYPASS. THERE MAY BE RELATIVE FUNCTIONAL OBSTRUCTION AT THE GASTROESOPHAGEAL JUNCTION. Chest X-Ray 02/27/17 20:20 IMPRESSION: NO ACUTE RADIOGRAPHIC FINDING IN THE CHEST. Head CT 02/27/17 20:20 IMPRESSION: DECREASED ATTENUATION IN THE WHITE MATTER OF THE POSTERIOR RIGHT PARIETAL LOBE, NOT PRESENT IN APRIL 2016. THIS COULD BE INDICATIVE OF RECENT INFARCT. MRI OF THE BRAIN MAY BE CONSIDERED FOR FURTHER EVALUATION. EVIDENCE OF ACUTE STROKE: POSSIBLE ACUTE OR SUBACUTE INFARCT. RIGHT MCA Head MRI 02/28/17 00:00 IMPRESSION: 1.4 cm enhancing brain parenchymal nodule with surrounding vasogenic edema, posterior right frontal lobe worrisome for metastatic disease EVIDENCE OF ACUTE STROKE: NO. Fluoroscopy 03/01/17 00:00 IMPRESSION: Intra procedural imaging and fluoro Hip X-Ray 03/01/17 00:00 IMPRESSION: Intra procedural imaging and fluoro Lumbar Spine MRI 03/05/17 00:00 IMPRESSION: 1. 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 DEGENERATIVE CHANGES AT THIS LEVEL DESCRIBED ABOVE WITH MODERATE SPINAL STENOSIS AND EXIT FORAMINAL STENOSIS. 2. POSTERIOR HARDWARE AT L5. 3. REMAINDER OF THE STUDY IS RELATIVELY UNREMARKABLE. NO ACUTE FINDINGS. NO FINDINGS CONCERNING FOR METASTATIC INVOLVEMENT OF THE SPINE. Thoracic Spine MRI 03/05/17 00:00 IMPRESSION: NORMAL MRI THORACIC SPINE. Assessment & Plan - Diagnosis (1) Intertrochanteric fracture of left hip Qualifiers: Encounter type: initial encounter Fracture type: closed Fracture alignment: nondisplaced Qualified Code(s): S72.145A - Nondisplaced intertrochanteric fracture of left femur, initial encounter for closed fracture Is this a current diagnosis for this admission?: Yes - Plan Summary Plan Summary: 72-year-old female postop day 6 from left intertrochanteric hip nailing. Dressings will be removed and exchanged today. Potential discharge tomorrow to snf facilities per the nurse and patient. H&H is stable. Continue weight-bear as tolerated. Follow-up in 1 week for removal of marcela and wound check. Continue pain control and DVT prophylaxis
[2017-03-07] MEDS: RIVAROXABAN 10 MG TABLET PO SCH (21:45)
[2017-03-08] MEDS: PREGABALIN 100 MG CAPSULE PO SCH ×3 (06:06→21:35)
[2017-03-08] MEDS: LANSOPRAZOLE 30 MG TAB.RAP.DR PO SCH (06:06)
[2017-03-08] MEDS: LEVOTHYROXINE SODIUM 0.088 MG TABLET PO SCH (06:06)
[2017-03-08 06:07] LABS: ABSOLUTE LYMPHOCYTES (AUTO) 1.1 10^3/uL (0.5-4.7); ABSOLUTE MONOCYTES (AUTO) 0.3 10^3/uL (0.1-1.4); ABSOLUTE NEUT (AUTO) 4.7 10^3/uL (1.7-8.2); BASOPHILS % (AUTO) 0.3 % (0-2); EOSINOPHILS % (AUTO) 0.1 % (0-6); HEMATOCRIT 30.4 % (36.0-47.0); HEMOGLOBIN 10.1 g/dL (12.0-15.5); LYMPHOCYTES % (AUTO) 17.3 % (13-45); MEAN CORPUSCULAR HEMOGLOBIN 29.4 pg (27.0-33.4); MEAN CORPUSCULAR HGB CONC 33.1 g/dL (32.0-36.0); MEAN CORPUSCULAR VOLUME 89 fl (80-97); MONOCYTES % (AUTO) 5.3 % (3-13); PLATELET COUNT 210 10^3/uL (150-450); RED BLOOD COUNT 3.42 10^6/uL (3.72-5.28); RED CELL DISTRIBUTION WIDTH 14.3 % (11.5-14.0); TOTAL CELLS COUNTED % (AUTO) 100 %; WHITE BLOOD COUNT 6.1 10^3/uL (4.0-10.5)
[2017-03-08 06:18] LABS: ANION GAP 8 (5-19); BLOOD UREA NITROGEN 22 mg/dL (7-20); CALCIUM 9.1 mg/dL (8.4-10.2); CARBON DIOXIDE 26 mmol/L (22-30); CHLORIDE 105 mmol/L (98-107); GLUCOSE 235 mg/dL (75-110); POTASSIUM 4.6 mmol/L (3.6-5.0); SODIUM 139.2 mmol/L (137-145)
--- NOTE | 2017-03-08 07:50 | PDOC PROGRESS REPORT ---
Subjective Progress Note for:: 03/08/17 Subjective:: Patient lying in bed comfortably. States the pain in her hip is improving. Denies chest pain or shortness of breath. Reason For Visit: LEFT INTERTROCHANTERIC HIP FRACTURE S/P Physical Exam Vital Signs: Temp Pulse Resp BP Pulse Ox 97.9 F 62 17 148/71 H 96 03/08/17 00:35 03/08/17 02:00 03/08/17 00:35 03/08/17 00:35 03/08/17 00:35 Intake & Output 03/07/17 03/08/17 03/09/17 06:59 06:59 06:59 Intake Total 1945 1545 Output Total 400 1650 Balance 1545 -105 Weight 91.1 kg 91.1 kg Musculoskeletal exam: PRESENT: other - Left hip: Dressing clean/dry/intact no erythema or drainage. Intact plantar flexion/dorsiflexion. No calf tenderness. Results Laboratory Results: 03/08/17 05:21 03/08/17 05:21 03/08/17 03/08/17 05:21 05:21 WBC 6.1 RBC 3.42 L Hgb 10.1 L Hct 30.4 L MCV 89 MCH 29.4 MCHC 33.1 RDW 14.3 H Plt Count 210 Seg Neutrophils % 77.0 Lymphocytes % 17.3 Monocytes % 5.3 Eosinophils % 0.1 Basophils % 0.3 Absolute Neutrophils 4.7 Absolute Lymphocytes 1.1 Absolute Monocytes 0.3 Absolute Eosinophils 0.0 Absolute Basophils 0.0 Sodium 139.2 Potassium 4.6 Chloride 105 Carbon Dioxide 26 Anion Gap 8 BUN 22 H Creatinine 0.77 Est GFR ( Amer) > 60 Est GFR (Non-Af Amer) > 60 Glucose 235 H Calcium 9.1 02/28/17 02/28/17 02:45 08:46 Troponin I < 0.012 < 0.012 Impressions: Cervical Spine CT 02/27/17 20:20 IMPRESSION: 1. NO ACUTE OR SIGNIFICANT FINDINGS IN THE CERVICAL SPINE. 2. THE VISUALIZED UPPER THORACIC ESOPHAGUS IS DISTENDED. ON PREVIOUS CHEST CT DONE IN APRIL 2016 THERE WAS MILD ESOPHAGEAL DILATION. THIS IS PROBABLY RELATED TO PREVIOUS GASTRIC BYPASS. THERE MAY BE RELATIVE FUNCTIONAL OBSTRUCTION AT THE GASTROESOPHAGEAL JUNCTION. Chest X-Ray 02/27/17 20:20 IMPRESSION: NO ACUTE RADIOGRAPHIC FINDING IN THE CHEST. Head CT 02/27/17 20:20 IMPRESSION: DECREASED ATTENUATION IN THE WHITE MATTER OF THE POSTERIOR RIGHT PARIETAL LOBE, NOT PRESENT IN APRIL 2016. THIS COULD BE INDICATIVE OF RECENT INFARCT. MRI OF THE BRAIN MAY BE CONSIDERED FOR FURTHER EVALUATION. EVIDENCE OF ACUTE STROKE: POSSIBLE ACUTE OR SUBACUTE INFARCT. RIGHT MCA Head MRI 02/28/17 00:00 IMPRESSION: 1.4 cm enhancing brain parenchymal nodule with surrounding vasogenic edema, posterior right frontal lobe worrisome for metastatic disease EVIDENCE OF ACUTE STROKE: NO. Fluoroscopy 03/01/17 00:00 IMPRESSION: Intra procedural imaging and fluoro Hip X-Ray 03/01/17 00:00 IMPRESSION: Intra procedural imaging and fluoro Lumbar Spine MRI 03/05/17 00:00 IMPRESSION: 1. 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 DEGENERATIVE CHANGES AT THIS LEVEL DESCRIBED ABOVE WITH MODERATE SPINAL STENOSIS AND EXIT FORAMINAL STENOSIS. 2. POSTERIOR HARDWARE AT L5. 3. REMAINDER OF THE STUDY IS RELATIVELY UNREMARKABLE. NO ACUTE FINDINGS. NO FINDINGS CONCERNING FOR METASTATIC INVOLVEMENT OF THE SPINE. Thoracic Spine MRI 03/05/17 00:00 IMPRESSION: NORMAL MRI THORACIC SPINE. Assessment & Plan - Diagnosis (1) Intertrochanteric fracture of left hip Qualifiers: Encounter type: initial encounter Fracture type: closed Fracture alignment: nondisplaced Qualified Code(s): S72.145A - Nondisplaced intertrochanteric fracture of left femur, initial encounter for closed fracture Is this a current diagnosis for this admission?: Yes Plan: Status post IM nail left hip #1 physical therapy weightbearing as tolerated #2 pain control #3 Xarelto for DVT prophylaxis #4 discharge planning to intermediate facility when bed available
[2017-03-08] MEDS: OXYCODONE-ACETAMINOPHEN 5-325 MG TABLET PO PRN (09:19)
[2017-03-08] MEDS: SENNOSIDES/DOCUSATE 8.6-50 MG 1 EACH TABLET PO SCH ×2 (10:08→17:26)
[2017-03-08] MEDS: DULOXETINE HCL 30 MG CAPSULE.DR PO SCH ×2 (10:08→17:26)
[2017-03-08] MEDS: DOCUSATE SODIUM 100 MG CAPSULE PO SCH ×2 (10:08→17:26)
[2017-03-08] MEDS: DEXAMETHASONE 4 MG TABLET PO SCH ×2 (10:09→21:35)
[2017-03-08] MEDS: FENTANYL 25 MCG/HR PATCH.TD72 TD SCH (10:09)
--- NOTE | 2017-03-08 10:47 | PDOC PROGRESS REPORT ---
Subjective Progress Note for:: 03/08/17 Subjective:: Patient is doing well with the Duragesic patch. MRI showed no evidence for metastatic disease. Currently getting radiation therapy. Reason For Visit: LEFT INTERTROCHANTERIC HIP FRACTURE S/P Physical Exam Vital Signs: Temp Pulse Resp BP Pulse Ox 97.9 F 71 17 148/71 H 96 03/08/17 00:35 03/08/17 07:00 03/08/17 00:35 03/08/17 00:35 03/08/17 00:35 Intake & Output 03/07/17 03/08/17 03/09/17 06:59 06:59 06:59 Intake Total 1945 1545 Output Total 400 1650 Balance 1545 -105 Weight 91.1 kg 91.1 kg General appearance: PRESENT: no acute distress Eye exam: PRESENT: conjunctiva pink. ABSENT: scleral icterus Mouth exam: PRESENT: moist, tongue midline Neck exam: ABSENT: JVD Respiratory exam: PRESENT: clear to auscultation julio. ABSENT: rales, rhonchi, wheezes Cardiovascular exam: PRESENT: RRR. ABSENT: diastolic murmur, rubs, systolic murmur GI/Abdominal exam: PRESENT: normal bowel sounds, soft. ABSENT: distended, guarding, mass, organolmegaly, rebound, tenderness Extremities exam: ABSENT: calf tenderness, clubbing, pedal edema Neurological exam: PRESENT: alert, awake, oriented to person, oriented to place , oriented to time, oriented to situation, CN II-XII grossly intact. ABSENT: motor sensory deficit Psychiatric exam: PRESENT: appropriate affect Skin exam: PRESENT: dry, intact, warm. ABSENT: cyanosis, rash Results Laboratory Results: 03/08/17 05:21 03/08/17 05:21 03/08/17 03/08/17 05:21 05:21 WBC 6.1 RBC 3.42 L Hgb 10.1 L Hct 30.4 L MCV 89 MCH 29.4 MCHC 33.1 RDW 14.3 H Plt Count 210 Seg Neutrophils % 77.0 Lymphocytes % 17.3 Monocytes % 5.3 Eosinophils % 0.1 Basophils % 0.3 Absolute Neutrophils 4.7 Absolute Lymphocytes 1.1 Absolute Monocytes 0.3 Absolute Eosinophils 0.0 Absolute Basophils 0.0 Sodium 139.2 Potassium 4.6 Chloride 105 Carbon Dioxide 26 Anion Gap 8 BUN 22 H Creatinine 0.77 Est GFR ( Amer) > 60 Est GFR (Non-Af Amer) > 60 Glucose 235 H Calcium 9.1 02/28/17 02/28/17 02:45 08:46 Troponin I < 0.012 < 0.012 Impressions: Cervical Spine CT 02/27/17 20:20 IMPRESSION: 1. NO ACUTE OR SIGNIFICANT FINDINGS IN THE CERVICAL SPINE. 2. THE VISUALIZED UPPER THORACIC ESOPHAGUS IS DISTENDED. ON PREVIOUS CHEST CT DONE IN APRIL 2016 THERE WAS MILD ESOPHAGEAL DILATION. THIS IS PROBABLY RELATED TO PREVIOUS GASTRIC BYPASS. THERE MAY BE RELATIVE FUNCTIONAL OBSTRUCTION AT THE GASTROESOPHAGEAL JUNCTION. Chest X-Ray 02/27/17 20:20 IMPRESSION: NO ACUTE RADIOGRAPHIC FINDING IN THE CHEST. Head CT 02/27/17 20:20 IMPRESSION: DECREASED ATTENUATION IN THE WHITE MATTER OF THE POSTERIOR RIGHT PARIETAL LOBE, NOT PRESENT IN APRIL 2016. THIS COULD BE INDICATIVE OF RECENT INFARCT. MRI OF THE BRAIN MAY BE CONSIDERED FOR FURTHER EVALUATION. EVIDENCE OF ACUTE STROKE: POSSIBLE ACUTE OR SUBACUTE INFARCT. RIGHT MCA Head MRI 02/28/17 00:00 IMPRESSION: 1.4 cm enhancing brain parenchymal nodule with surrounding vasogenic edema, posterior right frontal lobe worrisome for metastatic disease EVIDENCE OF ACUTE STROKE: NO. Fluoroscopy 03/01/17 00:00 IMPRESSION: Intra procedural imaging and fluoro Hip X-Ray 03/01/17 00:00 IMPRESSION: Intra procedural imaging and fluoro Lumbar Spine MRI 03/05/17 00:00 IMPRESSION: 1. 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 DEGENERATIVE CHANGES AT THIS LEVEL DESCRIBED ABOVE WITH MODERATE SPINAL STENOSIS AND EXIT FORAMINAL STENOSIS. 2. POSTERIOR HARDWARE AT L5. 3. REMAINDER OF THE STUDY IS RELATIVELY UNREMARKABLE. NO ACUTE FINDINGS. NO FINDINGS CONCERNING FOR METASTATIC INVOLVEMENT OF THE SPINE. Thoracic Spine MRI 03/05/17 00:00 IMPRESSION: NORMAL MRI THORACIC SPINE. Assessment & Plan - Diagnosis (1) Brain metastases Is this a current diagnosis for this admission?: Yes Plan: Has been seen by oncology. Currently on dexamethasone. Currently getting brain irradiation. Will need 10 total treatments. (2) Intertrochanteric fracture of left hip Qualifiers: Encounter type: initial encounter Fracture type: closed Fracture alignment: nondisplaced Qualified Code(s): S72.145A - Nondisplaced intertrochanteric fracture of left femur, initial encounter for closed fracture Is this a current diagnosis for this admission?: Yes Plan: Continue with physical therapy. Patient was to go to [facility] rehab today however in light of her need for radiation therapy that they will be unable to accept her until she is done with radiation therapy. (3) CKD (chronic kidney disease) stage 4, GFR 15-29 ml/min Is this a current diagnosis for this admission?: Yes Plan: Patient is euvolemic. (4) Breast cancer metastasized to liver Qualifiers: Laterality: left Qualified Code(s): C50.912 - Malignant neoplasm of unspecified site of left female breast Is this a current diagnosis for this admission?: Yes Plan: Followed by oncology. (5) Diabetes Qualifiers: Diabetes mellitus type: type 2 Diabetes mellitus complication status: with unspecified complications Diabetes mellitus fci insulin use: without fci use Qualified Code(s): E11.8 - Type 2 diabetes mellitus with unspecified complications Is this a current diagnosis for this admission?: Yes Plan: Will continue the Lantus. Continue with sliding scale coverage. Her blood sugars have gone up with the steroids. (6) Essential hypertension Is this a current diagnosis for this admission?: Yes (7) Fibromyalgia Is this a current diagnosis for this admission?: Yes (8) Chronic low back pain Qualifiers: Back pain laterality: bilateral Sciatica presence: with sciatica Sciatica laterality: bilateral sciatica Qualified Code(s): M54.42 - Lumbago with sciatica, left side Is this a current diagnosis for this admission?: Yes Plan: MRIs were negative for any metastatic disease. Tolerating the Duragesic patch. - Time Time Spent with patient: 25-34 minutes - Inpatient Certification Medical Necessity: Need Close Monitoring Due to Risk of Patient Decompensation - Plan Summary Plan Summary: Patient will be discharged to rehab after finishing radiation therapy.
[2017-03-08] MEDS: INSULIN GLARGINE,HUM.REC.ANLOG 300 UNIT/3 ML INSULN.PEN SUBCUT SCH (11:24)
[2017-03-08] MEDS: INSULIN LISPRO 100 UNIT/ML 3 ML VIAL SUBCUT PRN ×3 (11:26→21:41)
[2017-03-08] MEDS: RIVAROXABAN 10 MG TABLET PO SCH (21:35)
[2017-03-09] MEDS: LANSOPRAZOLE 30 MG TAB.RAP.DR PO SCH (05:10)
[2017-03-09] MEDS: PREGABALIN 100 MG CAPSULE PO SCH ×3 (05:10→21:11)
[2017-03-09] MEDS: LEVOTHYROXINE SODIUM 0.088 MG TABLET PO SCH (05:10)
[2017-03-09] MEDS: INSULIN LISPRO 100 UNIT/ML 3 ML VIAL SUBCUT PRN ×2 (07:43→11:25)
[2017-03-09] MEDS: DULOXETINE HCL 30 MG CAPSULE.DR PO SCH ×2 (10:13→17:28)
[2017-03-09] MEDS: DOCUSATE SODIUM 100 MG CAPSULE PO SCH ×2 (10:14→17:28)
[2017-03-09] MEDS: SENNOSIDES/DOCUSATE 8.6-50 MG 1 EACH TABLET PO SCH ×2 (10:14→17:28)
[2017-03-09] MEDS: DEXAMETHASONE 4 MG TABLET PO SCH ×2 (10:14→21:11)
[2017-03-09] MEDS: OXYCODONE-ACETAMINOPHEN 5-325 MG TABLET PO PRN (10:14)
[2017-03-09] MEDS ORDERED: INSULIN GLARGINE,HUM.REC.ANLOG 300 UNIT/3 ML INSULN.PEN SUBCUT SCH (11:00)
--- NOTE | 2017-03-09 11:19 | PDOC PROGRESS REPORT ---
Subjective Subjective:: Patient lying in bed comfortably. States the pain in her hip is improving. Denies chest pain or shortness of breath. Reason For Visit: LEFT INTERTROCHANTERIC HIP FRACTURE S/P Physical Exam Vital Signs: Temp Pulse Resp BP Pulse Ox 97.6 F 65 18 136/80 H 100 03/09/17 08:23 03/09/17 08:23 03/09/17 08:23 03/09/17 08:23 03/09/17 08:23 Intake & Output 03/08/17 03/09/17 03/10/17 06:59 06:59 06:59 Intake Total 1545 1240 Output Total 1650 1400 Balance -105 -160 Weight 91.1 kg 91.1 kg Musculoskeletal exam: PRESENT: other - Left Hip: Dressing c/d/i. Intact plantar flexion/dorsiflexion. No calf tenderness. Results Laboratory Results: 03/08/17 05:21 03/08/17 05:21 02/28/17 02/28/17 02:45 08:46 Troponin I < 0.012 < 0.012 Impressions: Cervical Spine CT 02/27/17 20:20 IMPRESSION: 1. NO ACUTE OR SIGNIFICANT FINDINGS IN THE CERVICAL SPINE. 2. THE VISUALIZED UPPER THORACIC ESOPHAGUS IS DISTENDED. ON PREVIOUS CHEST CT DONE IN APRIL 2016 THERE WAS MILD ESOPHAGEAL DILATION. THIS IS PROBABLY RELATED TO PREVIOUS GASTRIC BYPASS. THERE MAY BE RELATIVE FUNCTIONAL OBSTRUCTION AT THE GASTROESOPHAGEAL JUNCTION. Chest X-Ray 02/27/17 20:20 IMPRESSION: NO ACUTE RADIOGRAPHIC FINDING IN THE CHEST. Head CT 02/27/17 20:20 IMPRESSION: DECREASED ATTENUATION IN THE WHITE MATTER OF THE POSTERIOR RIGHT PARIETAL LOBE, NOT PRESENT IN APRIL 2016. THIS COULD BE INDICATIVE OF RECENT INFARCT. MRI OF THE BRAIN MAY BE CONSIDERED FOR FURTHER EVALUATION. EVIDENCE OF ACUTE STROKE: POSSIBLE ACUTE OR SUBACUTE INFARCT. RIGHT MCA Head MRI 02/28/17 00:00 IMPRESSION: 1.4 cm enhancing brain parenchymal nodule with surrounding vasogenic edema, posterior right frontal lobe worrisome for metastatic disease EVIDENCE OF ACUTE STROKE: NO. Fluoroscopy 03/01/17 00:00 IMPRESSION: Intra procedural imaging and fluoro Hip X-Ray 03/01/17 00:00 IMPRESSION: Intra procedural imaging and fluoro Lumbar Spine MRI 03/05/17 00:00 IMPRESSION: 1. 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 DEGENERATIVE CHANGES AT THIS LEVEL DESCRIBED ABOVE WITH MODERATE SPINAL STENOSIS AND EXIT FORAMINAL STENOSIS. 2. POSTERIOR HARDWARE AT L5. 3. REMAINDER OF THE STUDY IS RELATIVELY UNREMARKABLE. NO ACUTE FINDINGS. NO FINDINGS CONCERNING FOR METASTATIC INVOLVEMENT OF THE SPINE. Thoracic Spine MRI 03/05/17 00:00 IMPRESSION: NORMAL MRI THORACIC SPINE. Assessment & Plan - Diagnosis (1) Intertrochanteric fracture of left hip Qualifiers: Encounter type: initial encounter Fracture type: closed Fracture alignment: nondisplaced Qualified Code(s): S72.145A - Nondisplaced intertrochanteric fracture of left femur, initial encounter for closed fracture Is this a current diagnosis for this admission?: Yes Plan: Status post IM nail left hip #1 physical therapy weightbearing as tolerated #2 pain control #3 Xarelto for DVT prophylaxis #4 discharge planning patient was to be set up for discharge to long term facility but requiring radiation she will be kept in the hospital until this is complete.
--- NOTE | 2017-03-09 13:31 | PDOC PROGRESS REPORT ---
Subjective Progress Note for:: 03/09/17 Subjective:: Patient is doing well with the Duragesic patch. MRI showed no evidence for metastatic disease. Currently getting radiation therapy. Reason For Visit: LEFT INTERTROCHANTERIC HIP FRACTURE S/P Physical Exam Vital Signs: Temp Pulse Resp BP Pulse Ox 97.7 F 65 18 148/68 H 97 03/09/17 12:29 03/09/17 12:29 03/09/17 12:29 03/09/17 12:29 03/09/17 12:29 Intake & Output 03/08/17 03/09/17 03/10/17 06:59 06:59 06:59 Intake Total 1545 1240 Output Total 1650 1400 Balance -105 -160 Weight 91.1 kg 91.1 kg General appearance: PRESENT: no acute distress Eye exam: PRESENT: conjunctiva pink. ABSENT: scleral icterus Mouth exam: PRESENT: moist, tongue midline Neck exam: ABSENT: JVD Respiratory exam: PRESENT: clear to auscultation julio. ABSENT: rales, rhonchi, wheezes Cardiovascular exam: PRESENT: RRR. ABSENT: diastolic murmur, rubs, systolic murmur GI/Abdominal exam: PRESENT: normal bowel sounds, soft. ABSENT: distended, guarding, mass, organolmegaly, rebound, tenderness Extremities exam: ABSENT: calf tenderness, clubbing, pedal edema Neurological exam: PRESENT: alert, awake, oriented to person, oriented to place , oriented to time, oriented to situation, CN II-XII grossly intact. ABSENT: motor sensory deficit Psychiatric exam: PRESENT: appropriate affect Skin exam: PRESENT: dry, intact, warm. ABSENT: cyanosis, rash Results Laboratory Results: 03/08/17 05:21 03/08/17 05:21 02/28/17 02/28/17 02:45 08:46 Troponin I < 0.012 < 0.012 Impressions: Cervical Spine CT 02/27/17 20:20 IMPRESSION: 1. NO ACUTE OR SIGNIFICANT FINDINGS IN THE CERVICAL SPINE. 2. THE VISUALIZED UPPER THORACIC ESOPHAGUS IS DISTENDED. ON PREVIOUS CHEST CT DONE IN APRIL 2016 THERE WAS MILD ESOPHAGEAL DILATION. THIS IS PROBABLY RELATED TO PREVIOUS GASTRIC BYPASS. THERE MAY BE RELATIVE FUNCTIONAL OBSTRUCTION AT THE GASTROESOPHAGEAL JUNCTION. Chest X-Ray 02/27/17 20:20 IMPRESSION: NO ACUTE RADIOGRAPHIC FINDING IN THE CHEST. Head CT 02/27/17 20:20 IMPRESSION: DECREASED ATTENUATION IN THE WHITE MATTER OF THE POSTERIOR RIGHT PARIETAL LOBE, NOT PRESENT IN APRIL 2016. THIS COULD BE INDICATIVE OF RECENT INFARCT. MRI OF THE BRAIN MAY BE CONSIDERED FOR FURTHER EVALUATION. EVIDENCE OF ACUTE STROKE: POSSIBLE ACUTE OR SUBACUTE INFARCT. RIGHT MCA Head MRI 02/28/17 00:00 IMPRESSION: 1.4 cm enhancing brain parenchymal nodule with surrounding vasogenic edema, posterior right frontal lobe worrisome for metastatic disease EVIDENCE OF ACUTE STROKE: NO. Fluoroscopy 03/01/17 00:00 IMPRESSION: Intra procedural imaging and fluoro Hip X-Ray 03/01/17 00:00 IMPRESSION: Intra procedural imaging and fluoro Lumbar Spine MRI 03/05/17 00:00 IMPRESSION: 1. 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 DEGENERATIVE CHANGES AT THIS LEVEL DESCRIBED ABOVE WITH MODERATE SPINAL STENOSIS AND EXIT FORAMINAL STENOSIS. 2. POSTERIOR HARDWARE AT L5. 3. REMAINDER OF THE STUDY IS RELATIVELY UNREMARKABLE. NO ACUTE FINDINGS. NO FINDINGS CONCERNING FOR METASTATIC INVOLVEMENT OF THE SPINE. Thoracic Spine MRI 03/05/17 00:00 IMPRESSION: NORMAL MRI THORACIC SPINE. Assessment & Plan - Diagnosis (1) Brain metastases Is this a current diagnosis for this admission?: Yes Plan: Has been seen by oncology. Currently on dexamethasone. Currently getting brain irradiation. Will need 10 total treatments. (2) Intertrochanteric fracture of left hip Qualifiers: Encounter type: initial encounter Fracture type: closed Fracture alignment: nondisplaced Qualified Code(s): S72.145A - Nondisplaced intertrochanteric fracture of left femur, initial encounter for closed fracture Is this a current diagnosis for this admission?: Yes Plan: Continue with physical therapy. Patient was to go to [facility] rehab, however in light of her need for radiation therapy that they will be unable to accept her until she is done with radiation therapy. (3) CKD (chronic kidney disease) stage 4, GFR 15-29 ml/min Is this a current diagnosis for this admission?: Yes Plan: Patient is euvolemic. (4) Breast cancer metastasized to liver Qualifiers: Laterality: left Qualified Code(s): C50.912 - Malignant neoplasm of unspecified site of left female breast Is this a current diagnosis for this admission?: Yes Plan: Followed by oncology. (5) Diabetes Qualifiers: Diabetes mellitus type: type 2 Diabetes mellitus complication status: with unspecified complications Diabetes mellitus extermination inspector insulin use: without skilled nursing use Qualified Code(s): E11.8 - Type 2 diabetes mellitus with unspecified complications Is this a current diagnosis for this admission?: Yes Plan: Will continue the Lantus. Continue with sliding scale coverage. Her blood sugars have gone up with the steroids. (6) Essential hypertension Is this a current diagnosis for this admission?: Yes (7) Fibromyalgia Is this a current diagnosis for this admission?: Yes (8) Chronic low back pain Qualifiers: Back pain laterality: bilateral Sciatica presence: with sciatica Sciatica laterality: bilateral sciatica Qualified Code(s): M54.42 - Lumbago with sciatica, left side Is this a current diagnosis for this admission?: Yes Plan: MRIs were negative for any metastatic disease. Tolerating the Duragesic patch. - Time Time Spent with patient: 25-34 minutes - Inpatient Certification Medical Necessity: Need Close Monitoring Due to Risk of Patient Decompensation
[2017-03-09] MEDS: RIVAROXABAN 10 MG TABLET PO SCH (21:11)
[2017-03-10] MEDS: PREGABALIN 100 MG CAPSULE PO SCH ×3 (05:16→22:06)
[2017-03-10] MEDS: LANSOPRAZOLE 30 MG TAB.RAP.DR PO SCH (05:16)
[2017-03-10] MEDS: LEVOTHYROXINE SODIUM 0.088 MG TABLET PO SCH (05:16)
[2017-03-10] MEDS: INSULIN LISPRO 100 UNIT/ML 3 ML VIAL SUBCUT PRN ×4 (07:44→23:35)
[2017-03-10] MEDS: SENNOSIDES/DOCUSATE 8.6-50 MG 1 EACH TABLET PO SCH ×2 (09:14→17:22)
[2017-03-10] MEDS: DEXAMETHASONE 4 MG TABLET PO SCH ×2 (09:14→22:06)
[2017-03-10] MEDS: DULOXETINE HCL 30 MG CAPSULE.DR PO SCH ×2 (09:14→17:22)
[2017-03-10] MEDS: OXYCODONE HCL IR 5 MG TABLET PO PRN ×2 (09:14→16:16)
[2017-03-10] MEDS: DOCUSATE SODIUM 100 MG CAPSULE PO SCH ×2 (09:14→17:22)
--- NOTE | 2017-03-10 09:51 | PDOC PROGRESS REPORT ---
Subjective Progress Note for:: 03/10/17 Subjective:: Patient is doing well with the Duragesic patch. MRI showed no evidence for metastatic disease. Currently getting radiation therapy to the brain metastases Reason For Visit: LEFT INTERTROCHANTERIC HIP FRACTURE S/P Physical Exam Vital Signs: Temp Pulse Resp BP Pulse Ox 97.1 F 66 18 142/71 H 97 03/10/17 08:00 03/10/17 08:00 03/10/17 08:00 03/10/17 08:00 03/10/17 08:00 Intake & Output 03/09/17 03/10/17 03/11/17 06:59 06:59 06:59 Intake Total 1240 420 Output Total 1400 Balance -160 420 Weight 91.1 kg 91.4 kg General appearance: PRESENT: no acute distress Eye exam: PRESENT: conjunctiva pink. ABSENT: scleral icterus Mouth exam: PRESENT: dry mucosa Neck exam: ABSENT: JVD Respiratory exam: PRESENT: clear to auscultation julio. ABSENT: rales, rhonchi, wheezes Cardiovascular exam: PRESENT: RRR. ABSENT: diastolic murmur, rubs, systolic murmur GI/Abdominal exam: PRESENT: normal bowel sounds, soft. ABSENT: distended, guarding, mass, organolmegaly, rebound, tenderness Extremities exam: ABSENT: calf tenderness, clubbing, pedal edema Neurological exam: PRESENT: alert, awake, oriented to person, oriented to place , oriented to time, oriented to situation, CN II-XII grossly intact. ABSENT: motor sensory deficit Psychiatric exam: PRESENT: appropriate affect Skin exam: PRESENT: dry, intact, warm. ABSENT: cyanosis, rash Results Laboratory Results: 03/08/17 05:21 03/08/17 05:21 02/28/17 02/28/17 02:45 08:46 Troponin I < 0.012 < 0.012 Impressions: Cervical Spine CT 02/27/17 20:20 IMPRESSION: 1. NO ACUTE OR SIGNIFICANT FINDINGS IN THE CERVICAL SPINE. 2. THE VISUALIZED UPPER THORACIC ESOPHAGUS IS DISTENDED. ON PREVIOUS CHEST CT DONE IN APRIL 2016 THERE WAS MILD ESOPHAGEAL DILATION. THIS IS PROBABLY RELATED TO PREVIOUS GASTRIC BYPASS. THERE MAY BE RELATIVE FUNCTIONAL OBSTRUCTION AT THE GASTROESOPHAGEAL JUNCTION. Chest X-Ray 02/27/17 20:20 IMPRESSION: NO ACUTE RADIOGRAPHIC FINDING IN THE CHEST. Head CT 02/27/17 20:20 IMPRESSION: DECREASED ATTENUATION IN THE WHITE MATTER OF THE POSTERIOR RIGHT PARIETAL LOBE, NOT PRESENT IN APRIL 2016. THIS COULD BE INDICATIVE OF RECENT INFARCT. MRI OF THE BRAIN MAY BE CONSIDERED FOR FURTHER EVALUATION. EVIDENCE OF ACUTE STROKE: POSSIBLE ACUTE OR SUBACUTE INFARCT. RIGHT MCA Head MRI 02/28/17 00:00 IMPRESSION: 1.4 cm enhancing brain parenchymal nodule with surrounding vasogenic edema, posterior right frontal lobe worrisome for metastatic disease EVIDENCE OF ACUTE STROKE: NO. Fluoroscopy 03/01/17 00:00 IMPRESSION: Intra procedural imaging and fluoro Hip X-Ray 03/01/17 00:00 IMPRESSION: Intra procedural imaging and fluoro Lumbar Spine MRI 03/05/17 00:00 IMPRESSION: 1. 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 DEGENERATIVE CHANGES AT THIS LEVEL DESCRIBED ABOVE WITH MODERATE SPINAL STENOSIS AND EXIT FORAMINAL STENOSIS. 2. POSTERIOR HARDWARE AT L5. 3. REMAINDER OF THE STUDY IS RELATIVELY UNREMARKABLE. NO ACUTE FINDINGS. NO FINDINGS CONCERNING FOR METASTATIC INVOLVEMENT OF THE SPINE. Thoracic Spine MRI 03/05/17 00:00 IMPRESSION: NORMAL MRI THORACIC SPINE. Assessment & Plan - Diagnosis (1) Brain metastases Is this a current diagnosis for this admission?: Yes Plan: Has been seen by oncology. Currently on dexamethasone. Currently getting brain irradiation. Will need 10 total treatments. (2) Intertrochanteric fracture of left hip Qualifiers: Encounter type: initial encounter Fracture type: closed Fracture alignment: nondisplaced Qualified Code(s): S72.145A - Nondisplaced intertrochanteric fracture of left femur, initial encounter for closed fracture Is this a current diagnosis for this admission?: Yes Plan: Continue with physical therapy. Patient was to go to [facility] rehab, however in light of her need for radiation therapy that they will be unable to accept her until she is done with radiation therapy. (3) CKD (chronic kidney disease) stage 4, GFR 15-29 ml/min Is this a current diagnosis for this admission?: Yes Plan: Patient is euvolemic. (4) Breast cancer metastasized to liver Qualifiers: Laterality: left Qualified Code(s): C50.912 - Malignant neoplasm of unspecified site of left female breast Is this a current diagnosis for this admission?: Yes Plan: Followed by oncology. (5) Diabetes Qualifiers: Diabetes mellitus type: type 2 Diabetes mellitus complication status: with unspecified complications Diabetes mellitus intermediate card tender insulin use: without retirement use Qualified Code(s): E11.8 - Type 2 diabetes mellitus with unspecified complications Is this a current diagnosis for this admission?: Yes Plan: Will increase the Lantus. Continue with sliding scale coverage. Her blood sugars have gone up with the steroids. (6) Essential hypertension Is this a current diagnosis for this admission?: Yes (7) Fibromyalgia Is this a current diagnosis for this admission?: Yes (8) Chronic low back pain Qualifiers: Back pain laterality: bilateral Sciatica presence: with sciatica Sciatica laterality: bilateral sciatica Qualified Code(s): M54.42 - Lumbago with sciatica, left side Is this a current diagnosis for this admission?: Yes Plan: MRIs were negative for any metastatic disease. Tolerating the Duragesic patch. - Time Time Spent with patient: 25-34 minutes - Inpatient Certification Medical Necessity: Need Close Monitoring Due to Risk of Patient Decompensation, Need for Pain Control
[2017-03-10] MEDS: INSULIN GLARGINE,HUM.REC.ANLOG 300 UNIT/3 ML INSULN.PEN SUBCUT SCH (11:08)
[2017-03-10] MEDS: RIVAROXABAN 10 MG TABLET PO SCH (22:06)
[2017-03-11 04:59] LABS: HEMATOCRIT 32.1 % (36.0-47.0); HEMOGLOBIN 10.4 g/dL (12.0-15.5); MEAN CORPUSCULAR HEMOGLOBIN 29.1 pg (27.0-33.4); MEAN CORPUSCULAR HGB CONC 32.5 g/dL (32.0-36.0); MEAN CORPUSCULAR VOLUME 90 fl (80-97); PLATELET COUNT 238 10^3/uL (150-450); RED BLOOD COUNT 3.58 10^6/uL (3.72-5.28); RED CELL DISTRIBUTION WIDTH 14.5 % (11.5-14.0); WHITE BLOOD COUNT 6.7 10^3/uL (4.0-10.5)
[2017-03-11 05:06] LABS: ANION GAP 8 (5-19); BLOOD UREA NITROGEN 23 mg/dL (7-20); CALCIUM 8.7 mg/dL (8.4-10.2); CARBON DIOXIDE 28 mmol/L (22-30); CHLORIDE 107 mmol/L (98-107); GLUCOSE 144 mg/dL (75-110); SODIUM 142.6 mmol/L (137-145)
[2017-03-11] MEDS: LEVOTHYROXINE SODIUM 0.088 MG TABLET PO SCH (05:32)
[2017-03-11] MEDS: PREGABALIN 100 MG CAPSULE PO SCH ×3 (05:32→22:10)
[2017-03-11] MEDS: LANSOPRAZOLE 30 MG TAB.RAP.DR PO SCH (05:33)
[2017-03-11 06:13] LABS: ABSOLUTE LYMPHOCYTES# (MANUAL) 0.5 10^3/uL (0.5-4.7); ABSOLUTE MONOCYTES # (MANUAL) 0.3 10^3/uL (0.1-1.4); ABSOLUTE NEUTROPHILS# (MANUAL) 5.8 10^3/uL (1.7-8.2); BASOPHILS % (MANUAL) 0 % (0-2); EOSINOPHILS % (MANUAL) 1 % (0-6); LYMPHOCYTES % (MANUAL) 8 % (13-45); MONOCYTES % (MANUAL) 4 % (3-13); SEGMENTED NEUTROPHILS % (MAN) 87 % (42-78); TOTAL CELLS COUNTED 100
[2017-03-11 06:15] LABS: ANISOCYTOSIS SLIGHT; PLATELET COMMENT ADEQUATE; POIKILOCYTOSIS SLIGHT; POLYCHROMASIA SLIGHT; TEAR DROP CELLS SLIGHT
--- NOTE | 2017-03-11 07:40 | PDOC PROGRESS REPORT ---
Subjective Subjective:: Patient lying in bed comfortably. Continues to have discomfort with physical therapy especially with weightbearing. Denies chest pain or shortness of breath. Reason For Visit: LEFT INTERTROCHANTERIC HIP FRACTURE S/P Physical Exam Vital Signs: Temp Pulse Resp BP Pulse Ox 98.1 F 65 16 120/65 98 03/11/17 04:49 03/11/17 04:49 03/11/17 04:49 03/11/17 04:49 03/11/17 04:49 Intake & Output 03/10/17 03/11/17 03/12/17 06:59 06:59 06:59 Intake Total 420 970 Balance 420 970 Weight 91.4 kg 87.9 kg Musculoskeletal exam: PRESENT: other - Left hip: Dressing clean/dry/intact no erythema or drainage. Minimal thigh swelling. No crepitus with hip range of motion. No pain with range of motion. No calf tenderness. Intact plantar flexion/dorsiflexion. No sensory deficits Results Laboratory Results: 03/11/17 04:07 03/11/17 04:07 03/11/17 03/11/17 04:07 04:07 WBC 6.7 RBC 3.58 L Hgb 10.4 L Hct 32.1 L MCV 90 MCH 29.1 MCHC 32.5 RDW 14.5 H Plt Count 238 Seg Neutrophils % Not Reportable Lymphocytes % Not Reportable Monocytes % Not Reportable Eosinophils % Not Reportable Basophils % Not Reportable Absolute Neutrophils Not Reportable Absolute Lymphocytes Not Reportable Absolute Monocytes Not Reportable Absolute Eosinophils Not Reportable Absolute Basophils Not Reportable Sodium 142.6 Potassium 4.0 Chloride 107 Carbon Dioxide 28 Anion Gap 8 BUN 23 H Creatinine 0.83 Est GFR ( Amer) > 60 Est GFR (Non-Af Amer) > 60 Glucose 144 H Calcium 8.7 02/28/17 02/28/17 02:45 08:46 Troponin I < 0.012 < 0.012 Impressions: Cervical Spine CT 02/27/17 20:20 IMPRESSION: 1. NO ACUTE OR SIGNIFICANT FINDINGS IN THE CERVICAL SPINE. 2. THE VISUALIZED UPPER THORACIC ESOPHAGUS IS DISTENDED. ON PREVIOUS CHEST CT DONE IN APRIL 2016 THERE WAS MILD ESOPHAGEAL DILATION. THIS IS PROBABLY RELATED TO PREVIOUS GASTRIC BYPASS. THERE MAY BE RELATIVE FUNCTIONAL OBSTRUCTION AT THE GASTROESOPHAGEAL JUNCTION. Chest X-Ray 02/27/17 20:20 IMPRESSION: NO ACUTE RADIOGRAPHIC FINDING IN THE CHEST. Head CT 02/27/17 20:20 IMPRESSION: DECREASED ATTENUATION IN THE WHITE MATTER OF THE POSTERIOR RIGHT PARIETAL LOBE, NOT PRESENT IN APRIL 2016. THIS COULD BE INDICATIVE OF RECENT INFARCT. MRI OF THE BRAIN MAY BE CONSIDERED FOR FURTHER EVALUATION. EVIDENCE OF ACUTE STROKE: POSSIBLE ACUTE OR SUBACUTE INFARCT. RIGHT MCA Head MRI 02/28/17 00:00 IMPRESSION: 1.4 cm enhancing brain parenchymal nodule with surrounding vasogenic edema, posterior right frontal lobe worrisome for metastatic disease EVIDENCE OF ACUTE STROKE: NO. Fluoroscopy 03/01/17 00:00 IMPRESSION: Intra procedural imaging and fluoro Hip X-Ray 03/01/17 00:00 IMPRESSION: Intra procedural imaging and fluoro Lumbar Spine MRI 03/05/17 00:00 IMPRESSION: 1. 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 DEGENERATIVE CHANGES AT THIS LEVEL DESCRIBED ABOVE WITH MODERATE SPINAL STENOSIS AND EXIT FORAMINAL STENOSIS. 2. POSTERIOR HARDWARE AT L5. 3. REMAINDER OF THE STUDY IS RELATIVELY UNREMARKABLE. NO ACUTE FINDINGS. NO FINDINGS CONCERNING FOR METASTATIC INVOLVEMENT OF THE SPINE. Thoracic Spine MRI 03/05/17 00:00 IMPRESSION: NORMAL MRI THORACIC SPINE. Assessment & Plan - Diagnosis (1) Intertrochanteric fracture of left hip Qualifiers: Encounter type: initial encounter Fracture type: closed Fracture alignment: nondisplaced Qualified Code(s): S72.145A - Nondisplaced intertrochanteric fracture of left femur, initial encounter for closed fracture Is this a current diagnosis for this admission?: Yes Plan: Status post IM nail left hip #1 physical therapy weightbearing as tolerated #2 pain control #3 Xarelto for DVT prophylaxis #4 discharge planning patient was to be set up for discharge to detention facility but requiring radiation for brain metastasis she will be kept in the hospital until this is complete.
[2017-03-11] MEDS: OXYCODONE HCL IR 5 MG TABLET PO PRN ×2 (07:47→15:10)
[2017-03-11] MEDS: FENTANYL 25 MCG/HR PATCH.TD72 TD SCH (09:52)
[2017-03-11] MEDS: SENNOSIDES/DOCUSATE 8.6-50 MG 1 EACH TABLET PO SCH ×2 (09:52→18:07)
[2017-03-11] MEDS: DEXAMETHASONE 4 MG TABLET PO SCH ×2 (09:52→22:10)
[2017-03-11] MEDS: DOCUSATE SODIUM 100 MG CAPSULE PO SCH ×2 (09:52→18:07)
[2017-03-11] MEDS: DULOXETINE HCL 30 MG CAPSULE.DR PO SCH ×2 (09:52→18:06)
[2017-03-11] MEDS: INSULIN GLARGINE,HUM.REC.ANLOG 300 UNIT/3 ML INSULN.PEN SUBCUT SCH (11:37)
--- NOTE | 2017-03-11 11:55 | PDOC PROGRESS REPORT ---
Subjective Progress Note for:: 03/11/17 Subjective:: 72-year-old female with breast cancer who fell and fractured her hip. The patient had surgical repair that. She is noted to have brain metastases and has just been started on radiation therapy. The patient was going to be discharged to rehab after her hip fracture however given the brain metastases felt that she needs to finish radiation therapy prior to going to rehab. The half-way would not allow her to get radiation therapy while staying there for rehab. Patient has done well and is just waiting to finish up radiation therapy before going to rehab. Reason For Visit: LEFT INTERTROCHANTERIC HIP FRACTURE S/P Physical Exam Vital Signs: Temp Pulse Resp BP Pulse Ox 98.1 F 67 16 120/65 98 03/11/17 04:49 03/11/17 07:46 03/11/17 04:49 03/11/17 04:49 03/11/17 04:49 Intake & Output 03/10/17 03/11/17 03/12/17 06:59 06:59 06:59 Intake Total 420 970 Balance 420 970 Weight 91.4 kg 87.9 kg General appearance: PRESENT: no acute distress Eye exam: PRESENT: conjunctiva pink. ABSENT: scleral icterus Mouth exam: PRESENT: moist, tongue midline Neck exam: ABSENT: JVD Respiratory exam: PRESENT: clear to auscultation julio. ABSENT: rales, rhonchi, wheezes Cardiovascular exam: PRESENT: RRR. ABSENT: diastolic murmur, rubs, systolic murmur GI/Abdominal exam: PRESENT: normal bowel sounds, soft. ABSENT: distended, guarding, mass, organolmegaly, rebound, tenderness Extremities exam: ABSENT: calf tenderness, clubbing, pedal edema Neurological exam: PRESENT: alert, awake, oriented to person, oriented to place , oriented to time, oriented to situation, CN II-XII grossly intact. ABSENT: motor sensory deficit Psychiatric exam: PRESENT: appropriate affect Skin exam: PRESENT: dry, intact, warm. ABSENT: cyanosis, rash Results Laboratory Results: 03/11/17 04:07 03/11/17 04:07 03/11/17 03/11/17 04:07 04:07 WBC 6.7 RBC 3.58 L Hgb 10.4 L Hct 32.1 L MCV 90 MCH 29.1 MCHC 32.5 RDW 14.5 H Plt Count 238 Seg Neutrophils % Not Reportable Lymphocytes % Not Reportable Monocytes % Not Reportable Eosinophils % Not Reportable Basophils % Not Reportable Absolute Neutrophils Not Reportable Absolute Lymphocytes Not Reportable Absolute Monocytes Not Reportable Absolute Eosinophils Not Reportable Absolute Basophils Not Reportable Sodium 142.6 Potassium 4.0 Chloride 107 Carbon Dioxide 28 Anion Gap 8 BUN 23 H Creatinine 0.83 Est GFR ( Amer) > 60 Est GFR (Non-Af Amer) > 60 Glucose 144 H Calcium 8.7 02/28/17 02/28/17 02:45 08:46 Troponin I < 0.012 < 0.012 Impressions: Cervical Spine CT 02/27/17 20:20 IMPRESSION: 1. NO ACUTE OR SIGNIFICANT FINDINGS IN THE CERVICAL SPINE. 2. THE VISUALIZED UPPER THORACIC ESOPHAGUS IS DISTENDED. ON PREVIOUS CHEST CT DONE IN APRIL 2016 THERE WAS MILD ESOPHAGEAL DILATION. THIS IS PROBABLY RELATED TO PREVIOUS GASTRIC BYPASS. THERE MAY BE RELATIVE FUNCTIONAL OBSTRUCTION AT THE GASTROESOPHAGEAL JUNCTION. Chest X-Ray 02/27/17 20:20 IMPRESSION: NO ACUTE RADIOGRAPHIC FINDING IN THE CHEST. Head CT 02/27/17 20:20 IMPRESSION: DECREASED ATTENUATION IN THE WHITE MATTER OF THE POSTERIOR RIGHT PARIETAL LOBE, NOT PRESENT IN APRIL 2016. THIS COULD BE INDICATIVE OF RECENT INFARCT. MRI OF THE BRAIN MAY BE CONSIDERED FOR FURTHER EVALUATION. EVIDENCE OF ACUTE STROKE: POSSIBLE ACUTE OR SUBACUTE INFARCT. RIGHT MCA Head MRI 02/28/17 00:00 IMPRESSION: 1.4 cm enhancing brain parenchymal nodule with surrounding vasogenic edema, posterior right frontal lobe worrisome for metastatic disease EVIDENCE OF ACUTE STROKE: NO. Fluoroscopy 03/01/17 00:00 IMPRESSION: Intra procedural imaging and fluoro Hip X-Ray 03/01/17 00:00 IMPRESSION: Intra procedural imaging and fluoro Lumbar Spine MRI 03/05/17 00:00 IMPRESSION: 1. 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 DEGENERATIVE CHANGES AT THIS LEVEL DESCRIBED ABOVE WITH MODERATE SPINAL STENOSIS AND EXIT FORAMINAL STENOSIS. 2. POSTERIOR HARDWARE AT L5. 3. REMAINDER OF THE STUDY IS RELATIVELY UNREMARKABLE. NO ACUTE FINDINGS. NO FINDINGS CONCERNING FOR METASTATIC INVOLVEMENT OF THE SPINE. Thoracic Spine MRI 03/05/17 00:00 IMPRESSION: NORMAL MRI THORACIC SPINE. Assessment & Plan - Diagnosis (1) Brain metastases Is this a current diagnosis for this admission?: Yes Plan: Has been seen by oncology. Currently on dexamethasone. Currently getting brain irradiation. Will need 10 total treatments. (2) Intertrochanteric fracture of left hip Qualifiers: Encounter type: initial encounter Fracture type: closed Fracture alignment: nondisplaced Qualified Code(s): S72.145A - Nondisplaced intertrochanteric fracture of left femur, initial encounter for closed fracture Is this a current diagnosis for this admission?: Yes Plan: Continue with physical therapy. Patient was to go to [facility] rehab, however in light of her need for radiation therapy that they will be unable to accept her until she is done with radiation therapy. (3) CKD (chronic kidney disease) stage 4, GFR 15-29 ml/min Is this a current diagnosis for this admission?: Yes Plan: Patient is euvolemic. (4) Breast cancer metastasized to liver Qualifiers: Laterality: left Qualified Code(s): C50.912 - Malignant neoplasm of unspecified site of left female breast Is this a current diagnosis for this admission?: Yes Plan: Followed by oncology. (5) Diabetes Qualifiers: Diabetes mellitus type: type 2 Diabetes mellitus complication status: with unspecified complications Diabetes mellitus long term care social worker insulin use: without detention use Qualified Code(s): E11.8 - Type 2 diabetes mellitus with unspecified complications Is this a current diagnosis for this admission?: Yes Plan: Will continue with Lantus. Continue with sliding scale coverage. Her blood sugars have gone up with the steroids. (6) Essential hypertension Is this a current diagnosis for this admission?: Yes (7) Fibromyalgia Is this a current diagnosis for this admission?: Yes (8) Chronic low back pain Qualifiers: Back pain laterality: bilateral Sciatica presence: with sciatica Sciatica laterality: bilateral sciatica Qualified Code(s): M54.42 - Lumbago with sciatica, left side Is this a current diagnosis for this admission?: Yes Plan: MRIs were negative for any metastatic disease. Tolerating the Duragesic patch. - Time Time Spent with patient: 25-34 minutes - Inpatient Certification Medical Necessity: Need Close Monitoring Due to Risk of Patient Decompensation - Plan Summary Plan Summary: She will be able go to rehab once she is finished with radiation therapy.
[2017-03-11] MEDS: INSULIN LISPRO 100 UNIT/ML 3 ML VIAL SUBCUT PRN (18:07)
[2017-03-11] MEDS: RIVAROXABAN 10 MG TABLET PO SCH (22:10)
[2017-03-12] MEDS: PREGABALIN 100 MG CAPSULE PO SCH ×3 (05:32→23:00)
[2017-03-12] MEDS: LEVOTHYROXINE SODIUM 0.088 MG TABLET PO SCH (05:32)
[2017-03-12] MEDS: OXYCODONE HCL IR 5 MG TABLET PO PRN ×2 (05:32→10:33)
[2017-03-12] MEDS: LANSOPRAZOLE 30 MG TAB.RAP.DR PO SCH (05:32)
--- NOTE | 2017-03-12 10:08 | PROGRESS NOTE E ---
Progress Note NAME: PROSPER ABREU : 1945 AGE: 72Y DATE: 03/12/2017 ROOM: 536 SUBJECTIVE: The patient is currently lying in bed. The patient is awake, alert. She is oriented to general things; however, the patient is quite confused on details. The patient denies any nausea, vomiting, diarrhea. No shortness of breath, dizziness, chest pain. No fevers, chills. The patient has been afebrile. Blood pressure has been in a good range, and the patient does not voice any other concerns at this time. REVIEW OF SYSTEMS: Rest of review of systems negative. MEDICATIONS: Medications have been reviewed. OBJECTIVE: GENERAL: The patient is a 72-year-old female who is awake, alert, and oriented to person, place, time, and situation. She is verbal, conversational, does not appear to be in any acute distress. VITAL SIGNS: Temperature is 97.4, pulse 77, respirations 16, blood pressure is 136/70, oxygen saturation is 100% on room air. SKIN: Warm and dry. No rash. She is not diaphoretic. HEENT: Pupils equal, round, and reactive to light and accommodation. Conjunctivae pink. No JVP. CARDIOVASCULAR SYSTEM: Heart is regular. There is no murmur or rub. CHEST: Clear, symmetrical, unlabored. ABDOMEN: Soft, nontender, nondistended. BACK: No CVA tenderness or sacral edema. EXTREMITIES: No clubbing, cyanosis, edema. PSYCHIATRIC: Appropriate affect. Pleasant mood. DIAGNOSTICS: Lab values are as follows: Hematology obtained on 03/11/2017: WBCs are 6.7, hemoglobin is 10.4, hematocrit is 32.1, platelet count is 238,000. Chemistry obtained on 03/11/2017: Sodium is 143, potassium 4.38, chloride is 107, carbon dioxide 28, BUN 23, creatinine is 0.83, glucose 144, calcium is 8.7. IMPRESSION AND PLAN: 1. BRAIN METASTASES DUE TO ADENOCARCINOMA OF THE BREAST. The patient has been seen by Oncology as well as radiation. The patient today will be day 4 of radiation. Currently on dexamethasone. The patient will need a total of 10 treatments, then she can go to rehab. 2. INTERTROCHANTERIC FRACTURE OF THE LEFT HIP. Continue physical therapy. The patient wants to go to for rehab; however, she cannot be accepted until she is done with radiation therapy. 3. CHRONIC KIDNEY DISEASE STAGE 3. The patient's creatinine is at baseline. 4. BREAST CANCER WITH METS TO THE LIVER. Management as per Oncology. 5. DIABETES MELLITUS TYPE 2. Will continue with Lantus as well as sliding scale coverage given that the patient's blood sugars have increased with steroids. 6. ESSENTIAL HYPERTENSION. Will continue the patient's home medications. 7. FIBROMYALGIA. Will continue the patient's home medications. 8. CHRONIC LOWER BACK PAIN. Will continue the patient's pain medicine. The patient's MRI was negative for metastatic disease. 9. CELLULITIS OF THE BILATERAL LOWER EXTREMITIES. This appears to be improved. 10. IRON DEFICIENCY ANEMIA. Will monitor the patient's hemoglobin, overall stable. 11. OPIATE DEPENDENCY, CONTINUOUS, SECONDARY TO ALL THE ABOVE. Will continue the patient's Duragesic patch. DISPOSITION: The patient is a FULL CODE. Pending patient's symptomatology and diagnostic findings, will evaluate the patient in the a.m. The patient can be downgraded to a medical bed. Time spent on this followup including assessment, plan, physical examination, patient education, review of records is 25 minutes. DICTATING PHYSICIAN: TIARRA EUGENE NP [id number] PHY#: [id number] ID: [id number] JOB#: [id number] ACCT: [id number] cc: > MTDD
--- NOTE | 2017-03-12 10:28 | PDOC PROGRESS REPORT ---
Subjective Subjective:: Patient lying in bed comfortably. Continues to have discomfort with physical therapy especially with weightbearing. Denies chest pain or shortness of breath. Reason For Visit: LEFT INTERTROCHANTERIC HIP FRACTURE S/P Physical Exam Vital Signs: Temp Pulse Resp BP Pulse Ox 97.4 F 77 16 136/70 H 100 03/12/17 07:48 03/12/17 07:48 03/12/17 07:48 03/12/17 07:48 03/12/17 07:48 Intake & Output 03/11/17 03/12/17 03/13/17 06:59 06:59 06:59 Intake Total 970 1520 Output Total 1150 Balance 970 370 Weight 87.9 kg 89.7 kg Musculoskeletal exam: PRESENT: other - Left hip: Dressing clean/dry/intact no erythema or drainage. Minimal thigh swelling. Intact plantar flexion/ dorsiflexion. No pain with hip range of motion. No calf tenderness. Results Laboratory Results: 03/11/17 04:07 03/11/17 04:07 02/28/17 02/28/17 02:45 08:46 Troponin I < 0.012 < 0.012 Impressions: Cervical Spine CT 02/27/17 20:20 IMPRESSION: 1. NO ACUTE OR SIGNIFICANT FINDINGS IN THE CERVICAL SPINE. 2. THE VISUALIZED UPPER THORACIC ESOPHAGUS IS DISTENDED. ON PREVIOUS CHEST CT DONE IN APRIL 2016 THERE WAS MILD ESOPHAGEAL DILATION. THIS IS PROBABLY RELATED TO PREVIOUS GASTRIC BYPASS. THERE MAY BE RELATIVE FUNCTIONAL OBSTRUCTION AT THE GASTROESOPHAGEAL JUNCTION. Chest X-Ray 02/27/17 20:20 IMPRESSION: NO ACUTE RADIOGRAPHIC FINDING IN THE CHEST. Head CT 02/27/17 20:20 IMPRESSION: DECREASED ATTENUATION IN THE WHITE MATTER OF THE POSTERIOR RIGHT PARIETAL LOBE, NOT PRESENT IN APRIL 2016. THIS COULD BE INDICATIVE OF RECENT INFARCT. MRI OF THE BRAIN MAY BE CONSIDERED FOR FURTHER EVALUATION. EVIDENCE OF ACUTE STROKE: POSSIBLE ACUTE OR SUBACUTE INFARCT. RIGHT MCA Head MRI 02/28/17 00:00 IMPRESSION: 1.4 cm enhancing brain parenchymal nodule with surrounding vasogenic edema, posterior right frontal lobe worrisome for metastatic disease EVIDENCE OF ACUTE STROKE: NO. Fluoroscopy 03/01/17 00:00 IMPRESSION: Intra procedural imaging and fluoro Hip X-Ray 03/01/17 00:00 IMPRESSION: Intra procedural imaging and fluoro Lumbar Spine MRI 03/05/17 00:00 IMPRESSION: 1. 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 DEGENERATIVE CHANGES AT THIS LEVEL DESCRIBED ABOVE WITH MODERATE SPINAL STENOSIS AND EXIT FORAMINAL STENOSIS. 2. POSTERIOR HARDWARE AT L5. 3. REMAINDER OF THE STUDY IS RELATIVELY UNREMARKABLE. NO ACUTE FINDINGS. NO FINDINGS CONCERNING FOR METASTATIC INVOLVEMENT OF THE SPINE. Thoracic Spine MRI 03/05/17 00:00 IMPRESSION: NORMAL MRI THORACIC SPINE. Assessment & Plan - Diagnosis (1) Intertrochanteric fracture of left hip Qualifiers: Encounter type: initial encounter Fracture type: closed Fracture alignment: nondisplaced Qualified Code(s): S72.145A - Nondisplaced intertrochanteric fracture of left femur, initial encounter for closed fracture Is this a current diagnosis for this admission?: Yes Plan: Status post IM nail left hip #1 physical therapy weightbearing as tolerated #2 pain control #3 Xarelto for DVT prophylaxis #4 discharge planning patient was to be set up for discharge to residential facility but requiring radiation for brain metastasis she will be kept in the hospital until this is complete.
[2017-03-12] MEDS: DEXAMETHASONE 4 MG TABLET PO SCH ×2 (10:49→23:00)
[2017-03-12] MEDS: DOCUSATE SODIUM 100 MG CAPSULE PO SCH ×2 (10:49→17:54)
[2017-03-12] MEDS: INSULIN GLARGINE,HUM.REC.ANLOG 300 UNIT/3 ML INSULN.PEN SUBCUT SCH (10:50)
[2017-03-12] MEDS: SENNOSIDES/DOCUSATE 8.6-50 MG 1 EACH TABLET PO SCH ×2 (10:50→17:54)
[2017-03-12] MEDS: DULOXETINE HCL 30 MG CAPSULE.DR PO SCH ×2 (10:50→17:54)
[2017-03-12] MEDS: INSULIN LISPRO 100 UNIT/ML 3 ML VIAL SUBCUT PRN ×2 (17:54→23:14)
[2017-03-12] MEDS: RIVAROXABAN 10 MG TABLET PO SCH (23:00)
[2017-03-13] MEDS: LEVOTHYROXINE SODIUM 0.088 MG TABLET PO SCH (05:53)
[2017-03-13] MEDS: LANSOPRAZOLE 30 MG TAB.RAP.DR PO SCH (05:53)
[2017-03-13] MEDS: PREGABALIN 100 MG CAPSULE PO SCH ×3 (05:53→22:20)
--- NOTE | 2017-03-13 06:58 | PROGRESS NOTE E ---
Progress Note NAME: PROSPER ABREU : 1945 AGE: 72Y DATE: 03/13/2017 ROOM: 536 SUBJECTIVE: The patient is lying in bed. I did awaken the patient this morning on rounds. She states that she felt a great deal of pressure within her head after radiation yesterday. The patient is quite confused about several details. One specifically, the patient does present as though she has heard that she has metastatic disease to the brain for the first time, knowing that myself and others have told the patient on numerous occasions. There have been no reported episodes of vomiting nor diarrhea. The patient has been afebrile. Her blood pressure has been in a good range, and the patient does not voice any other concerns at this time. REVIEW OF SYSTEMS: Rest of review of systems is negative. MEDICATIONS: Medications have been reviewed. OBJECTIVE: GENERAL: The patient is a 72-year-old female who is awake, alert, and oriented to place, but not fully oriented to situation. She does not appear to be distressed. VITAL SIGNS: Are as follows: Temperature is 97.6, pulse 68, respirations 17, blood pressure is 133/72, oxygen saturation 98% on room air. SKIN: Warm and dry. No rash. She is not diaphoretic. HEENT: Pupils equal, round, reactive to light and accommodation. Conjunctivae pink. No JVP. CARDIOVASCULAR SYSTEM: Heart is regular. There is no murmur or rub. CHEST: Clear, symmetrical, unlabored. ABDOMEN: Soft, nontender, nondistended. BACK: No CVA tenderness, sacral edema. EXTREMITIES: No clubbing, cyanosis, edema. PSYCHIATRIC: The patient can be a little confused. DIAGNOSTICS: Lab values are as follows: Hematology obtained on 03/11/2017: WBCs are 6.7, hemoglobin is 10.4, hematocrit is 32.1, platelet count is 238,000. Chemistry obtained on 03/11/2017: Sodium is 142, potassium 4.0, chloride is 107, carbon dioxide 28, BUN 23, creatinine is 0.83, glucose 144, calcium is 8.7. IMPRESSION AND PLAN: 1. BRAIN METS DUE TO ADENOCARCINOMA OF THE BREAST. The patient has been seen by Oncology as well as Radiation. Today will be day 5 of 10 of radiation treatments. Currently on dexamethasone. The patient can go to rehab after this is completed. 2. INTERTROCHANTERIC FRACTURE OF THE LEFT HIP. Continue physical therapy. The patient wants rehab at [facility]; however, she cannot be accepted until she is done with radiation therapy. 3. CHRONIC KIDNEY DISEASE STAGE 3. Creatinine is at baseline. 4. ADENOCARCINOMA OF THE BREAST WITH METS TO THE LIVER. Management is per Oncology. 5. DIABETES MELLITUS TYPE 2. Will continue with Lantus as well as sliding scale coverage given the patient's blood sugars have increased with steroids. 6. ESSENTIAL HYPERTENSION. Will continue the patient's home meds. 7. FIBROMYALGIA. Will continue the patient's home medication. 8. CHRONIC LOWER BACK PAIN. Will continue the patient's home medication. The MRI was negative for metastatic disease. 9. CELLULITIS OF THE BILATERAL LOWER EXTREMITIES. Appears to have improved. 10. IRON DEFICIENCY ANEMIA. Overall, hemoglobin is stable. 11. OPIATE DEPENDENCY. Continuous secondary to all the above. Will continue patch. DISPOSITION: The patient is a FULL CODE. Pending patient's symptomatology and diagnostic findings, will reevaluate in the a.m. Time spent on this followup including assessment, plan, physical examination, patient education, review of records is 25 minutes. DICTATING PHYSICIAN: TIARRA EUGENE NP [id number] PHY#: [id number] ID: [id number] JOB#: [id number] ACCT: [id number] cc: >
[2017-03-13] MEDS: DULOXETINE HCL 30 MG CAPSULE.DR PO SCH ×2 (09:14→17:23)
[2017-03-13] MEDS: OXYCODONE HCL IR 5 MG TABLET PO PRN ×2 (09:15→15:11)
[2017-03-13] MEDS: DOCUSATE SODIUM 100 MG CAPSULE PO SCH ×2 (09:15→17:23)
[2017-03-13] MEDS: DEXAMETHASONE 4 MG TABLET PO SCH ×2 (09:15→22:20)
[2017-03-13] MEDS: SENNOSIDES/DOCUSATE 8.6-50 MG 1 EACH TABLET PO SCH ×2 (09:16→17:23)
[2017-03-13] MEDS: INSULIN GLARGINE,HUM.REC.ANLOG 300 UNIT/3 ML INSULN.PEN SUBCUT SCH (11:45)
[2017-03-13] MEDS: INSULIN LISPRO 100 UNIT/ML 3 ML VIAL SUBCUT PRN ×3 (11:45→22:32)
[2017-03-13] MEDS: RIVAROXABAN 10 MG TABLET PO SCH (22:20)
[2017-03-14] MEDS: LEVOTHYROXINE SODIUM 0.088 MG TABLET PO SCH (05:42)
[2017-03-14] MEDS: LANSOPRAZOLE 30 MG TAB.RAP.DR PO SCH (05:42)
[2017-03-14] MEDS: PREGABALIN 100 MG CAPSULE PO SCH ×3 (05:42→21:11)
[2017-03-14] MEDS ORDERED: OXYCODONE-ACETAMINOPHEN 5-325 MG TABLET PO PRN ×2 (07:47→07:50)
[2017-03-14] MEDS ORDERED: MECLIZINE HCL 25 MG TABLET PO PRN (07:47)
--- NOTE | 2017-03-14 08:28 | PROGRESS NOTE E ---
Progress Note NAME: PROSPER ABREU : 1945 AGE: 72Y DATE: 03/14/2017 ROOM: 536 SUBJECTIVE: The patient is currently lying in bed. She states that she feels a little better today than she did yesterday. The patient denies any nausea, vomiting, diarrhea. No shortness of breath, dizziness, chest pain. No fevers, chills. The patient has been afebrile. Blood pressure has been in a good range. The patient does not voice any other concerns at this time. REVIEW OF SYSTEMS: Rest of review of systems negative. MEDICATIONS: Medications have been reviewed. OBJECTIVE: GENERAL: The patient is a 72-year-old female who is awake, alert, and oriented to person, place, time, and situation. She is verbal, conversational, does not appear to be in acute distress. VITAL SIGNS: Temperature is 97.9, pulse 66, respirations 15, blood pressure is 118/59, oxygen saturation 100% on room air. SKIN: Warm and dry. No rash. Not diaphoretic. HEENT: Pupils equal, round, and reactive to light and accommodation. Conjunctivae pink. No JVP. CARDIOVASCULAR SYSTEM: Heart is regular. There is no murmur or rub. CHEST: Clear, symmetrical, unlabored. ABDOMEN: Soft, nontender, nondistended. BACK: No CVA tenderness or sacral edema. EXTREMITIES: No clubbing, cyanosis, edema. PSYCHIATRIC: Appropriate affect. Pleasant mood. DIAGNOSTICS: Lab values are as follows: Hematology obtained on 03/11/2017: WBCs are 6.7, hemoglobin is 10.4, hematocrit is 32.1, platelet count is 238,000. Chemistry obtained on 03/11/2017: Sodium is 142, potassium 4.0, chloride is 107, carbon dioxide 28, BUN 23, creatinine is 0.83, glucose 144, calcium is 8.7. IMPRESSION AND PLAN: 1. ADENOCARCINOMA OF THE BREAST WITH SUBSEQUENT BRAIN METS AND HEPATIC METASTATIC DISEASE. The patient has been seen by Oncology as well as radiation. Today will be day 6 of 10 of radiation treatments. Currently on dexamethasone. Patient can go to rehab after these are completed. Will add Keppra for prophylaxis. 2. INTERTROCHANTERIC FRACTURE OF THE LEFT HIP. Continue physical therapy. The patient wants to go to rehab at [facility]; however, she cannot be accepted until she is done with radiation. 3. CHRONIC KIDNEY DISEASE STAGE 3. The patient's creatinine is at baseline. 4. DIABETES MELLITUS TYPE 2. Will continue Lantus as well as sliding scale coverage. Additionally, have added metformin as the patient's blood sugars have continued to increase with steroids. 5. HYPERTENSION. The patient's blood pressure is in acceptable range. Continue home medication. 6. FIBROMYALGIA. Will continue home meds. 7. CHRONIC LOWER BACK PAIN. Will continue the patient's home medications. Her MRI of the lumbar spine was negative for metastatic disease. 8. CELLULITIS OF THE BILATERAL LOWER EXTREMITIES. This appears to have resolved. 9. IRON DEFICIENCY ANEMIA. Overall, hemoglobin is stable. 10. OPIATE DEPENDENCY CONTINUOUS. Will continue the patient's home dosing. DISPOSITION: The patient is a FULL CODE. Pending patient's symptomatology and diagnostic findings, the patient can be discharged to rehab as soon as she is completed with her treatments. Palliative chemo is being deferred for rehabilitation. Time spent on this followup including assessment, plan, physical examination, patient education, review of records is 25 minutes. DICTATING PHYSICIAN: TIARRA EUGENE NP [id number] PHY#: [id number] ID: [id number] JOB#: [id number] ACCT: [id number] cc: > MTDD
[2017-03-14] MEDS: RIVAROXABAN 10 MG TABLET PO SCH (11:19)
[2017-03-14] MEDS: DEXAMETHASONE 4 MG TABLET PO SCH ×2 (11:19→21:11)
[2017-03-14] MEDS: LISINOPRIL 10 MG TABLET PO SCH (11:20)
[2017-03-14] MEDS: LEVETIRACETAM 500 MG TABLET PO SCH ×2 (11:21→21:11)
[2017-03-14] MEDS: DULOXETINE HCL 30 MG CAPSULE.DR PO SCH ×2 (11:21→17:43)
[2017-03-14] MEDS: SENNOSIDES/DOCUSATE 8.6-50 MG 1 EACH TABLET PO SCH ×2 (11:24→19:32)
[2017-03-14] MEDS: DOCUSATE SODIUM 100 MG CAPSULE PO SCH ×2 (11:24→19:32)
[2017-03-14] MEDS: ACETAMINOPHEN 325 MG TABLET PO PRN (12:58)
[2017-03-14] MEDS: INSULIN LISPRO 100 UNIT/ML 3 ML VIAL SUBCUT PRN ×3 (13:17→23:39)
[2017-03-14] MEDS ORDERED: INSULIN GLARGINE,HUM.REC.ANLOG 300 UNIT/3 ML INSULN.PEN SUBCUT ONE (15:00)
[2017-03-14] MEDS: METFORMIN HCL 500 MG TABLET PO SCH (16:27)
[2017-03-14] MEDS: OXYCODONE-ACETAMINOPHEN 5-325 MG TABLET PO PRN (16:28)
[2017-03-14] MEDS: SIMVASTATIN 40 MG TABLET PO SCH (21:11)
[2017-03-14] MEDS: LORAZEPAM 1 MG TABLET PO SCH (21:11)
[2017-03-14] MEDS: PRAMIPEXOLE DI-HCL 0.25 MG TABLET PO SCH (21:12)
--- NOTE | 2017-03-14 22:56 | Progress Note ---
Provider Note Provider Note: Palliaitve Care follow up visit. 03/14/17 1:45 PM Follow up palliative care visit with this 72 year old lady who is recovering from left hip fracture repair. She also has breast cancer metastasized to liver and brain. She is getting radiation to her brain while she is also working with physical therapy. She is having a lot of pain in her back and left leg but says the doctor has given her better pain med orders this afternoon. Mrs. Tolentino is alert and oriented. She is planning to go to [facility] for continued rehab after her brain radiation is completed. She wants to follow with her oncologist for continued cancer treatment. She says she is feeling stronger and is glad she is doing well. We discussed her wishes for advance directives. She states that she wants to conitnue to be a full code. Her son has agreed to make medical decisions for her and he knows that she would want him to take her off ventilator if she had been on for two weks and still wasn't able to breath on her own. She says her will agree with any decision her son makes. I gave her [place] Advance Directive forms to complete and have notorized since she doesnt have anything in writing to state these wishes.. Appreciate notes from doctors and business planner. Wish patient well and encouraged her to call me if she has any concerns or questions she wants to discuss. Total 15 minutes with patient.
[2017-03-15] MEDS: LANSOPRAZOLE 30 MG TAB.RAP.DR PO SCH (05:42)
[2017-03-15] MEDS: LEVOTHYROXINE SODIUM 0.088 MG TABLET PO SCH (05:42)
[2017-03-15] MEDS: PREGABALIN 100 MG CAPSULE PO SCH ×3 (05:42→21:17)
[2017-03-15 07:03] LABS: HEMATOCRIT 35.1 % (36.0-47.0); HEMOGLOBIN 11.4 g/dL (12.0-15.5); MEAN CORPUSCULAR HEMOGLOBIN 29.9 pg (27.0-33.4); MEAN CORPUSCULAR HGB CONC 32.6 g/dL (32.0-36.0); MEAN CORPUSCULAR VOLUME 92 fl (80-97); PLATELET COUNT 227 10^3/uL (150-450); RED BLOOD COUNT 3.83 10^6/uL (3.72-5.28); RED CELL DISTRIBUTION WIDTH 15.3 % (11.5-14.0); WHITE BLOOD COUNT 7.3 10^3/uL (4.0-10.5)
[2017-03-15 07:30] LABS: ANION GAP 7 (5-19); BLOOD UREA NITROGEN 32 mg/dL (7-20); CALCIUM 9.2 mg/dL (8.4-10.2); CARBON DIOXIDE 28 mmol/L (22-30); CHLORIDE 107 mmol/L (98-107); GLUCOSE 222 mg/dL (75-110); MAGNESIUM 1.9 mg/dL (1.6-2.3); POTASSIUM 5.1 mmol/L (3.6-5.0); SODIUM 141.6 mmol/L (137-145)
--- NOTE | 2017-03-15 07:36 | PDOC PROGRESS REPORT ---
Subjective Progress Note for:: 03/15/17 Subjective:: 0 issues overnight. Patient confused. Reason For Visit: LEFT INTERTROCHANTERIC HIP FRACTURE S/P Physical Exam Vital Signs: Temp Pulse Resp BP Pulse Ox 36.6 C 87 18 119/48 L 94 03/14/17 20:10 03/14/17 20:10 03/14/17 20:10 03/14/17 20:10 03/14/17 20:10 Intake & Output 03/14/17 03/15/17 03/16/17 06:59 06:59 06:59 Intake Total 1320 1440 Output Total 1075 490 Balance 245 950 Adult Front & Back Image: 1 - Incisions are healing nicely. [place] were removed. Range of motion of the hip is improving. Neurovascular intact distally Results Laboratory Results: 03/15/17 06:27 03/15/17 06:27 WBC 7.3 RBC 3.83 Hgb 11.4 L Hct 35.1 L MCV 92 MCH 29.9 MCHC 32.6 RDW 15.3 H Plt Count 227 02/28/17 02/28/17 02:45 08:46 Troponin I < 0.012 < 0.012 Impressions: Cervical Spine CT 02/27/17 20:20 IMPRESSION: 1. NO ACUTE OR SIGNIFICANT FINDINGS IN THE CERVICAL SPINE. 2. THE VISUALIZED UPPER THORACIC ESOPHAGUS IS DISTENDED. ON PREVIOUS CHEST CT DONE IN APRIL 2016 THERE WAS MILD ESOPHAGEAL DILATION. THIS IS PROBABLY RELATED TO PREVIOUS GASTRIC BYPASS. THERE MAY BE RELATIVE FUNCTIONAL OBSTRUCTION AT THE GASTROESOPHAGEAL JUNCTION. Chest X-Ray 02/27/17 20:20 IMPRESSION: NO ACUTE RADIOGRAPHIC FINDING IN THE CHEST. Head CT 02/27/17 20:20 IMPRESSION: DECREASED ATTENUATION IN THE WHITE MATTER OF THE POSTERIOR RIGHT PARIETAL LOBE, NOT PRESENT IN APRIL 2016. THIS COULD BE INDICATIVE OF RECENT INFARCT. MRI OF THE BRAIN MAY BE CONSIDERED FOR FURTHER EVALUATION. EVIDENCE OF ACUTE STROKE: POSSIBLE ACUTE OR SUBACUTE INFARCT. RIGHT MCA Head MRI 02/28/17 00:00 IMPRESSION: 1.4 cm enhancing brain parenchymal nodule with surrounding vasogenic edema, posterior right frontal lobe worrisome for metastatic disease EVIDENCE OF ACUTE STROKE: NO. Fluoroscopy 03/01/17 00:00 IMPRESSION: Intra procedural imaging and fluoro Hip X-Ray 03/01/17 00:00 IMPRESSION: Intra procedural imaging and fluoro Lumbar Spine MRI 03/05/17 00:00 IMPRESSION: 1. 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 DEGENERATIVE CHANGES AT THIS LEVEL DESCRIBED ABOVE WITH MODERATE SPINAL STENOSIS AND EXIT FORAMINAL STENOSIS. 2. POSTERIOR HARDWARE AT L5. 3. REMAINDER OF THE STUDY IS RELATIVELY UNREMARKABLE. NO ACUTE FINDINGS. NO FINDINGS CONCERNING FOR METASTATIC INVOLVEMENT OF THE SPINE. Thoracic Spine MRI 03/05/17 00:00 IMPRESSION: NORMAL MRI THORACIC SPINE. Assessment & Plan - Diagnosis (1) Intertrochanteric fracture of left hip Qualifiers: Encounter type: initial encounter Fracture type: closed Fracture alignment: nondisplaced Qualified Code(s): S72.145A - Nondisplaced intertrochanteric fracture of left femur, initial encounter for closed fracture Is this a current diagnosis for this admission?: Yes - Plan Summary Plan Summary: Patient postop day 14 from intramedullary nailing of the left hip. Incision has healed nicely so marcela were removed today. Continue weight-bear as tolerated. Patient can follow-up once discharged. Continue DVT prophylaxis and care by primary team.
[2017-03-15] MEDS: OXYCODONE-ACETAMINOPHEN 5-325 MG TABLET PO PRN ×2 (08:55→16:48)
[2017-03-15] MEDS: DEXAMETHASONE 4 MG TABLET PO SCH ×2 (10:16→21:18)
[2017-03-15] MEDS: LISINOPRIL 10 MG TABLET PO SCH (10:16)
[2017-03-15] MEDS: LEVETIRACETAM 500 MG TABLET PO SCH ×2 (10:16→21:18)
[2017-03-15] MEDS: DULOXETINE HCL 30 MG CAPSULE.DR PO SCH ×2 (10:16→17:34)
[2017-03-15] MEDS: RIVAROXABAN 10 MG TABLET PO SCH (10:17)
[2017-03-15] MEDS: DOCUSATE SODIUM 100 MG CAPSULE PO SCH ×2 (10:24→17:23)
[2017-03-15] MEDS: METFORMIN HCL 500 MG TABLET PO SCH ×2 (10:34→16:48)
[2017-03-15] MEDS: SENNOSIDES/DOCUSATE 8.6-50 MG 1 EACH TABLET PO SCH ×2 (10:45→17:23)
[2017-03-15] MEDS ORDERED: INSULIN GLARGINE,HUM.REC.ANLOG 300 UNIT/3 ML INSULN.PEN SUBCUT SCH (11:00)
--- NOTE | 2017-03-15 12:39 | PDOC PROGRESS REPORT ---
Subjective Progress Note for:: 03/15/17 Subjective:: The patient was seen on morning rounds. She is lying in bed comfortably, she is noted to be sleeping but wakes easily upon my entering the room. She states that she is feeling good today and is happy that the marcela have been removed from her left hip incision. She reports that she anticipates being discharged to senior care on Saturday to begin rehabilitation. She does report several loose stools that she states is typical for her fibromyalgia/IBS. She states that she typically takes Imodium at home with excellent relief of her symptoms. She denies fever, chills, abdominal pain, nausea and vomiting. She has no other questions or concerns today. Reason For Visit: LEFT INTERTROCHANTERIC HIP FRACTURE S/P Physical Exam Vital Signs: Temp Pulse Resp BP Pulse Ox 97.8 F 65 18 127/75 H 100 03/15/17 11:53 03/15/17 11:53 03/15/17 11:53 03/15/17 11:53 03/15/17 11:53 Intake & Output 03/14/17 03/15/17 03/16/17 06:59 06:59 06:59 Intake Total 1320 1440 Output Total 1075 490 Balance 245 950 General appearance: PRESENT: no acute distress, obese, well-developed, well- nourished Head exam: PRESENT: atraumatic, normocephalic Eye exam: PRESENT: conjunctiva pink, EOMI, PERRLA. ABSENT: scleral icterus Ear exam: PRESENT: normal external ear exam Mouth exam: PRESENT: moist, tongue midline Neck exam: ABSENT: carotid bruit, JVD, lymphadenopathy, thyromegaly Respiratory exam: PRESENT: clear to auscultation julio. ABSENT: rales, rhonchi, wheezes Cardiovascular exam: PRESENT: RRR. ABSENT: diastolic murmur, rubs, systolic murmur Pulses: PRESENT: normal dorsalis pedis pul Vascular exam: PRESENT: normal capillary refill GI/Abdominal exam: PRESENT: normal bowel sounds, soft. ABSENT: distended, guarding, mass, organolmegaly, rebound, tenderness Rectal exam: PRESENT: deferred Extremities exam: PRESENT: full ROM. ABSENT: calf tenderness, clubbing, pedal edema Neurological exam: PRESENT: alert, awake, oriented to person, oriented to place , oriented to time, oriented to situation, CN II-XII grossly intact. ABSENT: motor sensory deficit Psychiatric exam: PRESENT: appropriate affect, normal mood. ABSENT: homicidal ideation, suicidal ideation Skin exam: PRESENT: dry, intact, warm. ABSENT: cyanosis, rash Results Laboratory Results: 03/15/17 06:27 03/15/17 06:27 03/15/17 03/15/17 06:27 06:27 WBC 7.3 RBC 3.83 Hgb 11.4 L Hct 35.1 L MCV 92 MCH 29.9 MCHC 32.6 RDW 15.3 H Plt Count 227 Sodium 141.6 Potassium 5.1 H Chloride 107 Carbon Dioxide 28 Anion Gap 7 BUN 32 H Creatinine 0.98 Est GFR ( Amer) > 60 Est GFR (Non-Af Amer) 56 L Glucose 222 H Calcium 9.2 Magnesium 1.9 02/28/17 02/28/17 02:45 08:46 Troponin I < 0.012 < 0.012 Impressions: Cervical Spine CT 02/27/17 20:20 IMPRESSION: 1. NO ACUTE OR SIGNIFICANT FINDINGS IN THE CERVICAL SPINE. 2. THE VISUALIZED UPPER THORACIC ESOPHAGUS IS DISTENDED. ON PREVIOUS CHEST CT DONE IN APRIL 2016 THERE WAS MILD ESOPHAGEAL DILATION. THIS IS PROBABLY RELATED TO PREVIOUS GASTRIC BYPASS. THERE MAY BE RELATIVE FUNCTIONAL OBSTRUCTION AT THE GASTROESOPHAGEAL JUNCTION. Chest X-Ray 02/27/17 20:20 IMPRESSION: NO ACUTE RADIOGRAPHIC FINDING IN THE CHEST. Head CT 02/27/17 20:20 IMPRESSION: DECREASED ATTENUATION IN THE WHITE MATTER OF THE POSTERIOR RIGHT PARIETAL LOBE, NOT PRESENT IN APRIL 2016. THIS COULD BE INDICATIVE OF RECENT INFARCT. MRI OF THE BRAIN MAY BE CONSIDERED FOR FURTHER EVALUATION. EVIDENCE OF ACUTE STROKE: POSSIBLE ACUTE OR SUBACUTE INFARCT. RIGHT MCA Head MRI 02/28/17 00:00 IMPRESSION: 1.4 cm enhancing brain parenchymal nodule with surrounding vasogenic edema, posterior right frontal lobe worrisome for metastatic disease EVIDENCE OF ACUTE STROKE: NO. Fluoroscopy 03/01/17 00:00 IMPRESSION: Intra procedural imaging and fluoro Hip X-Ray 03/01/17 00:00 IMPRESSION: Intra procedural imaging and fluoro Lumbar Spine MRI 03/05/17 00:00 IMPRESSION: 1. 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 DEGENERATIVE CHANGES AT THIS LEVEL DESCRIBED ABOVE WITH MODERATE SPINAL STENOSIS AND EXIT FORAMINAL STENOSIS. 2. POSTERIOR HARDWARE AT L5. 3. REMAINDER OF THE STUDY IS RELATIVELY UNREMARKABLE. NO ACUTE FINDINGS. NO FINDINGS CONCERNING FOR METASTATIC INVOLVEMENT OF THE SPINE. Thoracic Spine MRI 03/05/17 00:00 IMPRESSION: NORMAL MRI THORACIC SPINE. Assessment & Plan - Diagnosis (1) Breast cancer metastasized to brain Is this a current diagnosis for this admission?: Yes Plan: The patient is being followed by oncology and receiving radiation therapy. She is currently on day 7 of 10 radiation treatments. She continues on dexamethasone. She has been started on Keppra for seizure prophylaxis. The current plan is for the patient to discharge to rehab once radiation treatments are completed. (2) Breast cancer metastasized to liver Qualifiers: Laterality: left Qualified Code(s): C50.912 - Malignant neoplasm of unspecified site of left female breast Is this a current diagnosis for this admission?: Yes Plan: Plan as above. (3) Hypertension Is this a current diagnosis for this admission?: Yes Plan: The patient remains slightly hypertensive, though acceptable. Review of her home medications shows that she is prescribed Lasix 80 mg daily which has not been continued while inpatient. We will resume Lasix today though at a lower dose and titrate as necessary. She will continue receiving lisinopril 10 mg daily. (5) CKD (chronic kidney disease) stage 4, GFR 15-29 ml/min Is this a current diagnosis for this admission?: Yes (6) Intertrochanteric fracture of left hip Qualifiers: Encounter type: initial encounter Fracture type: closed Fracture alignment: nondisplaced Qualified Code(s): S72.145A - Nondisplaced intertrochanteric fracture of left femur, initial encounter for closed fracture Is this a current diagnosis for this admission?: Yes Plan: Now status post ORIF. [place] are been removed and the incisional site is well- healed. She will continue with physical therapy while waiting transfer to SNF for continued skilled rehab. She will be ready for transfer upon completing 10 days of radiation therapy. [facility] orthopedics consultation recommendations. (7) Chronic low back pain Qualifiers: Back pain laterality: bilateral Sciatica presence: with sciatica Sciatica laterality: bilateral sciatica Qualified Code(s): M54.42 - Lumbago with sciatica, left side Is this a current diagnosis for this admission?: Yes Plan: MRI of the lumbar spine was negative for metastatic disease. We will continue patient's home medications. (8) Diabetes Qualifiers: Diabetes mellitus type: type 2 Diabetes mellitus complication status: with unspecified complications Diabetes mellitus snf insulin use: without exterminator helper termite use Qualified Code(s): E11.8 - Type 2 diabetes mellitus with unspecified complications Is this a current diagnosis for this admission?: Yes Plan: Continue Lantus as well as Humalog for sliding scale coverage. She was started on metformin twice daily. The patient's blood sugars are expectedly increased with dexamethasone use. Her Lantus dose was increased yesterday, will continue to monitor and make further adjustments necessary. (9) Fibromyalgia Is this a current diagnosis for this admission?: Yes Plan: Continue the patient's home medication regimen. (10) Iron deficiency anemia Qualifiers: Iron deficiency anemia type: unspecified iron deficiency Qualified Code(s) : D50.9 - Iron deficiency anemia, unspecified Is this a current diagnosis for this admission?: Yes Plan: Iron deficiency anemia in the setting of chronic kidney disease and cancer with metastatic disease. Hemoglobin is stable; will continue to monitor. (11) Cellulitis of both lower extremities Is this a current diagnosis for this admission?: Yes Plan: Resolved. (12) Loose stools Is this a current diagnosis for this admission?: Yes Plan: Patient reports loose stools as part of her normal bowel pattern that she manages with Imodium at home. She denies fever, chills, abdominal pain, nausea , vomiting, constipation. She has no evidence of an acute abdomen or infectious process. We will provide Imodium as needed. - Time Time Spent with patient: 25-34 minutes Anticipated discharge: SNF Within: within 72 hours
[2017-03-15] MEDS: INSULIN LISPRO 100 UNIT/ML 3 ML VIAL SUBCUT PRN ×2 (16:48→21:19)
[2017-03-15] MEDS: PRAMIPEXOLE DI-HCL 0.25 MG TABLET PO SCH (21:17)
[2017-03-15] MEDS: LOPERAMIDE HCL 2 MG CAPSULE PO PRN (21:18)
[2017-03-15] MEDS: LORAZEPAM 1 MG TABLET PO SCH (21:18)
[2017-03-15] MEDS: SIMVASTATIN 40 MG TABLET PO SCH (21:19)
[2017-03-16 05:08] LABS: HEMATOCRIT 32.4 % (36.0-47.0); HEMOGLOBIN 10.4 g/dL (12.0-15.5); MEAN CORPUSCULAR HEMOGLOBIN 29.9 pg (27.0-33.4); MEAN CORPUSCULAR HGB CONC 32.1 g/dL (32.0-36.0); MEAN CORPUSCULAR VOLUME 93 fl (80-97); PLATELET COUNT 214 10^3/uL (150-450); RED BLOOD COUNT 3.48 10^6/uL (3.72-5.28); RED CELL DISTRIBUTION WIDTH 15.6 % (11.5-14.0); WHITE BLOOD COUNT 8.3 10^3/uL (4.0-10.5)
[2017-03-16 05:24] LABS: ANION GAP 5 (5-19); BLOOD UREA NITROGEN 30 mg/dL (7-20); CALCIUM 8.9 mg/dL (8.4-10.2); CARBON DIOXIDE 25 mmol/L (22-30); CHLORIDE 109 mmol/L (98-107); GLUCOSE 305 mg/dL (75-110); POTASSIUM 5.2 mmol/L (3.6-5.0); SODIUM 138.7 mmol/L (137-145)
[2017-03-16] MEDS: PREGABALIN 100 MG CAPSULE PO SCH ×3 (05:55→21:16)
[2017-03-16] MEDS: LEVOTHYROXINE SODIUM 0.088 MG TABLET PO SCH (05:55)
[2017-03-16] MEDS: LANSOPRAZOLE 30 MG TAB.RAP.DR PO SCH (05:56)
[2017-03-16] MEDS: LOPERAMIDE HCL 2 MG CAPSULE PO PRN (06:32)
[2017-03-16] MEDS: METFORMIN HCL 500 MG TABLET PO SCH ×2 (08:46→17:30)
[2017-03-16] MEDS: LEVETIRACETAM 500 MG TABLET PO SCH ×2 (09:01→21:17)
[2017-03-16] MEDS: DEXAMETHASONE 4 MG TABLET PO SCH ×2 (09:01→21:18)
[2017-03-16] MEDS: FUROSEMIDE 20 MG TABLET PO SCH (09:01)
[2017-03-16] MEDS: RIVAROXABAN 10 MG TABLET PO SCH (09:02)
[2017-03-16] MEDS: DULOXETINE HCL 30 MG CAPSULE.DR PO SCH ×2 (09:02→17:30)
[2017-03-16] MEDS: LISINOPRIL 10 MG TABLET PO SCH (09:02)
[2017-03-16] MEDS: INSULIN LISPRO 100 UNIT/ML 3 ML VIAL SUBCUT SCH ×2 (09:26→17:28)
[2017-03-16] MEDS: INSULIN LISPRO 100 UNIT/ML 3 ML VIAL SUBCUT PRN ×3 (09:27→17:29)
[2017-03-16] MEDS: OXYCODONE-ACETAMINOPHEN 5-325 MG TABLET PO PRN ×2 (09:32→18:08)
[2017-03-16] MEDS: LACTOBACILLUS ACIDOPHILUS 250 MG TAB PO SCH ×2 (09:32→17:30)
[2017-03-16] MEDS ORDERED: (PENDING PHARMACY ID) (Exenatide Microspheres [Bydureon Pen] 2 MG) SQ SCH (10:00)
[2017-03-16] MEDS: INSULIN GLARGINE,HUM.REC.ANLOG 300 UNIT/3 ML INSULN.PEN SUBCUT SCH (12:58)
--- NOTE | 2017-03-16 15:26 | PDOC PROGRESS REPORT ---
Subjective Progress Note for:: 03/16/17 Subjective:: Patient complains of not feeling too well because of diarrhea. Otherwise no other complaints Reason For Visit: LEFT INTERTROCHANTERIC HIP FRACTURE S/P Physical Exam Vital Signs: Temp Pulse Resp BP Pulse Ox 98.0 F 74 13 109/57 L 97 03/16/17 00:26 03/16/17 00:26 03/16/17 00:26 03/16/17 00:26 03/16/17 00:26 Intake & Output 03/15/17 03/16/17 03/17/17 06:59 06:59 06:59 Intake Total 1440 1685 Output Total 490 Balance 950 1685 General appearance: PRESENT: no acute distress, cooperative, well-developed, well-nourished Head exam: PRESENT: atraumatic, normocephalic Eye exam: PRESENT: EOMI, PERRLA Ear exam: PRESENT: normal external ear exam Mouth exam: PRESENT: moist, neck supple Neck exam: PRESENT: full ROM. ABSENT: JVD Respiratory exam: PRESENT: clear to auscultation julio Cardiovascular exam: PRESENT: RRR. ABSENT: diastolic murmur, systolic murmur Vascular exam: PRESENT: normal capillary refill GI/Abdominal exam: PRESENT: normal bowel sounds, soft. ABSENT: tenderness Extremities exam: PRESENT: full ROM. ABSENT: joint swelling, pedal edema Musculoskeletal exam: PRESENT: full ROM Neurological exam: PRESENT: alert, awake, oriented to person, oriented to place , oriented to time Psychiatric exam: PRESENT: appropriate affect, normal mood Results Laboratory Results: 03/16/17 04:45 03/16/17 04:45 03/16/17 03/16/17 04:45 04:45 WBC 8.3 RBC 3.48 L Hgb 10.4 L Hct 32.4 L MCV 93 MCH 29.9 MCHC 32.1 RDW 15.6 H Plt Count 214 Sodium 138.7 Potassium 5.2 H Chloride 109 H Carbon Dioxide 25 Anion Gap 5 BUN 30 H Creatinine 0.83 Est GFR ( Amer) > 60 Est GFR (Non-Af Amer) > 60 Glucose 305 H Calcium 8.9 02/28/17 02/28/17 02:45 08:46 Troponin I < 0.012 < 0.012 Impressions: Cervical Spine CT 02/27/17 20:20 IMPRESSION: 1. NO ACUTE OR SIGNIFICANT FINDINGS IN THE CERVICAL SPINE. 2. THE VISUALIZED UPPER THORACIC ESOPHAGUS IS DISTENDED. ON PREVIOUS CHEST CT DONE IN APRIL 2016 THERE WAS MILD ESOPHAGEAL DILATION. THIS IS PROBABLY RELATED TO PREVIOUS GASTRIC BYPASS. THERE MAY BE RELATIVE FUNCTIONAL OBSTRUCTION AT THE GASTROESOPHAGEAL JUNCTION. Chest X-Ray 02/27/17 20:20 IMPRESSION: NO ACUTE RADIOGRAPHIC FINDING IN THE CHEST. Head CT 02/27/17 20:20 IMPRESSION: DECREASED ATTENUATION IN THE WHITE MATTER OF THE POSTERIOR RIGHT PARIETAL LOBE, NOT PRESENT IN APRIL 2016. THIS COULD BE INDICATIVE OF RECENT INFARCT. MRI OF THE BRAIN MAY BE CONSIDERED FOR FURTHER EVALUATION. EVIDENCE OF ACUTE STROKE: POSSIBLE ACUTE OR SUBACUTE INFARCT. RIGHT MCA Head MRI 02/28/17 00:00 IMPRESSION: 1.4 cm enhancing brain parenchymal nodule with surrounding vasogenic edema, posterior right frontal lobe worrisome for metastatic disease EVIDENCE OF ACUTE STROKE: NO. Fluoroscopy 03/01/17 00:00 IMPRESSION: Intra procedural imaging and fluoro Hip X-Ray 03/01/17 00:00 IMPRESSION: Intra procedural imaging and fluoro Lumbar Spine MRI 03/05/17 00:00 IMPRESSION: 1. 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 DEGENERATIVE CHANGES AT THIS LEVEL DESCRIBED ABOVE WITH MODERATE SPINAL STENOSIS AND EXIT FORAMINAL STENOSIS. 2. POSTERIOR HARDWARE AT L5. 3. REMAINDER OF THE STUDY IS RELATIVELY UNREMARKABLE. NO ACUTE FINDINGS. NO FINDINGS CONCERNING FOR METASTATIC INVOLVEMENT OF THE SPINE. Thoracic Spine MRI 03/05/17 00:00 IMPRESSION: NORMAL MRI THORACIC SPINE. Assessment & Plan - Diagnosis (1) Anemia Qualifiers: Other causes of anemia: chronic disease, other Is this a current diagnosis for this admission?: Yes Plan: Stable (2) Breast cancer metastasized to brain Is this a current diagnosis for this admission?: Yes Plan: Currently getting radiation therapy and had undergone 7 treatment out of 10. Expected to be discharged after the 10th treatment (3) Loose stools Is this a current diagnosis for this admission?: Yes Plan: To discontinue Colace, senna and order C. difficile. Add lactobacillus follow up response - Time Time Spent with patient: 15-24 minutes Medications reviewed and adjusted accordingly: Yes Anticipated discharge: Home Within: within 72 hours - Inpatient Certification Based on my medical assessment, after consideration of the patient's comorbidities, presenting symptoms, or acuity I expect that the services needed warrant INPATIENT care.: Yes I certify that my determination is in accordance with my understanding of Medicare's requirements for reasonable and necessary INPATIENT services [42 CFR 412.3e].: Yes Medical Necessity: Other - Radiation therapy
[2017-03-16] MEDS: SIMVASTATIN 40 MG TABLET PO SCH (21:17)
[2017-03-16] MEDS: PRAMIPEXOLE DI-HCL 0.25 MG TABLET PO SCH (21:17)
[2017-03-16] MEDS: LORAZEPAM 0.5 MG TABLET PO SCH (21:18)
[2017-03-17] MEDS: PREGABALIN 100 MG CAPSULE PO SCH ×3 (05:34→22:11)
[2017-03-17] MEDS: LANSOPRAZOLE 30 MG TAB.RAP.DR PO SCH (05:34)
[2017-03-17] MEDS: LEVOTHYROXINE SODIUM 0.088 MG TABLET PO SCH (05:35)
[2017-03-17] MEDS: OXYCODONE-ACETAMINOPHEN 5-325 MG TABLET PO PRN ×3 (07:07→22:11)
[2017-03-17 07:10] LABS: ABSOLUTE LYMPHOCYTES (AUTO) 0.6 10^3/uL (0.5-4.7); ABSOLUTE MONOCYTES (AUTO) 0.3 10^3/uL (0.1-1.4); ABSOLUTE NEUT (AUTO) 5.5 10^3/uL (1.7-8.2); BASOPHILS % (AUTO) 0.1 % (0-2); HEMATOCRIT 30.9 % (36.0-47.0); HEMOGLOBIN 10.1 g/dL (12.0-15.5); MEAN CORPUSCULAR HEMOGLOBIN 29.6 pg (27.0-33.4); MEAN CORPUSCULAR HGB CONC 32.7 g/dL (32.0-36.0); MEAN CORPUSCULAR VOLUME 91 fl (80-97); MONOCYTES % (AUTO) 4.1 % (3-13); PLATELET COUNT 213 10^3/uL (150-450); RED BLOOD COUNT 3.42 10^6/uL (3.72-5.28); RED CELL DISTRIBUTION WIDTH 15.2 % (11.5-14.0); SEGMENTED NEUTROPHILS % (AUTO) 85.8 % (42-78); TOTAL CELLS COUNTED % (AUTO) 100 %; WHITE BLOOD COUNT 6.4 10^3/uL (4.0-10.5)
[2017-03-17 07:31] LABS: ALANINE AMINOTRANSFERASE 31 U/L (9-52); ALBUMIN 2.6 g/dL (3.5-5.0); ALKALINE PHOSPHATASE 191 U/L (38-126); ANION GAP 9 (5-19); ASPARTATE AMINO TRANSFERASE 10 U/L (14-36); BILIRUBIN,DIRECT 0.2 mg/dL (0.0-0.4); BILIRUBIN,TOTAL 0.2 mg/dL (0.2-1.3); BLOOD UREA NITROGEN 30 mg/dL (7-20); CARBON DIOXIDE 24 mmol/L (22-30); CHLORIDE 109 mmol/L (98-107); GLUCOSE 159 mg/dL (75-110); MAGNESIUM 1.7 mg/dL (1.6-2.3); POTASSIUM 4.6 mmol/L (3.6-5.0); SODIUM 141.5 mmol/L (137-145); TOTAL PROTEIN 4.9 g/dL (6.3-8.2)
[2017-03-17] MEDS: METFORMIN HCL 500 MG TABLET PO SCH ×2 (07:56→17:41)
[2017-03-17] MEDS: INSULIN LISPRO 100 UNIT/ML 3 ML VIAL SUBCUT SCH ×3 (07:56→17:41)
--- NOTE | 2017-03-17 08:49 | PDOC PROGRESS REPORT ---
Subjective Progress Note for:: 03/17/17 Subjective:: Patient states that diarrhea is better and not able to rest yesterday. Pain control is better Reason For Visit: LEFT INTERTROCHANTERIC HIP FRACTURE S/P Physical Exam Vital Signs: Temp Pulse Resp BP Pulse Ox 97.9 F 72 15 124/56 L 97 03/17/17 00:00 03/17/17 00:00 03/17/17 00:00 03/17/17 00:00 03/17/17 00:00 Intake & Output 03/16/17 03/17/17 03/18/17 06:59 06:59 06:59 Intake Total 1685 680 Output Total 300 Balance 1685 380 General appearance: PRESENT: no acute distress, cooperative Head exam: PRESENT: atraumatic, normocephalic Eye exam: PRESENT: EOMI, PERRLA Ear exam: PRESENT: normal external ear exam Mouth exam: PRESENT: moist Neck exam: PRESENT: full ROM. ABSENT: JVD, tenderness Respiratory exam: PRESENT: clear to auscultation julio Cardiovascular exam: PRESENT: RRR. ABSENT: diastolic murmur, systolic murmur Vascular exam: PRESENT: normal capillary refill GI/Abdominal exam: PRESENT: normal bowel sounds, soft. ABSENT: tenderness Extremities exam: PRESENT: +2 edema Musculoskeletal exam: PRESENT: full ROM Neurological exam: PRESENT: alert, awake, oriented to person, oriented to place , oriented to time Psychiatric exam: PRESENT: appropriate affect, normal mood Results Laboratory Results: 03/17/17 05:50 03/17/17 05:50 03/17/17 03/17/17 05:50 05:50 WBC 6.4 RBC 3.42 L Hgb 10.1 L Hct 30.9 L MCV 91 MCH 29.6 MCHC 32.7 RDW 15.2 H Plt Count 213 Seg Neutrophils % 85.8 H Lymphocytes % 10.0 L Monocytes % 4.1 Eosinophils % 0.0 Basophils % 0.1 Absolute Neutrophils 5.5 Absolute Lymphocytes 0.6 Absolute Monocytes 0.3 Absolute Eosinophils 0.0 Absolute Basophils 0.0 Sodium 141.5 Potassium 4.6 Chloride 109 H Carbon Dioxide 24 Anion Gap 9 BUN 30 H Creatinine 0.95 Est GFR ( Amer) > 60 Est GFR (Non-Af Amer) 58 L Glucose 159 H Calcium 9.0 Magnesium 1.7 Total Bilirubin 0.2 AST 10 L ALT 31 Alkaline Phosphatase 191 H Total Protein 4.9 L Albumin 2.6 L 02/28/17 02/28/17 02:45 08:46 Troponin I < 0.012 < 0.012 Impressions: Cervical Spine CT 02/27/17 20:20 IMPRESSION: 1. NO ACUTE OR SIGNIFICANT FINDINGS IN THE CERVICAL SPINE. 2. THE VISUALIZED UPPER THORACIC ESOPHAGUS IS DISTENDED. ON PREVIOUS CHEST CT DONE IN APRIL 2016 THERE WAS MILD ESOPHAGEAL DILATION. THIS IS PROBABLY RELATED TO PREVIOUS GASTRIC BYPASS. THERE MAY BE RELATIVE FUNCTIONAL OBSTRUCTION AT THE GASTROESOPHAGEAL JUNCTION. Chest X-Ray 02/27/17 20:20 IMPRESSION: NO ACUTE RADIOGRAPHIC FINDING IN THE CHEST. Head CT 02/27/17 20:20 IMPRESSION: DECREASED ATTENUATION IN THE WHITE MATTER OF THE POSTERIOR RIGHT PARIETAL LOBE, NOT PRESENT IN APRIL 2016. THIS COULD BE INDICATIVE OF RECENT INFARCT. MRI OF THE BRAIN MAY BE CONSIDERED FOR FURTHER EVALUATION. EVIDENCE OF ACUTE STROKE: POSSIBLE ACUTE OR SUBACUTE INFARCT. RIGHT MCA Head MRI 02/28/17 00:00 IMPRESSION: 1.4 cm enhancing brain parenchymal nodule with surrounding vasogenic edema, posterior right frontal lobe worrisome for metastatic disease EVIDENCE OF ACUTE STROKE: NO. Fluoroscopy 03/01/17 00:00 IMPRESSION: Intra procedural imaging and fluoro Hip X-Ray 03/01/17 00:00 IMPRESSION: Intra procedural imaging and fluoro Lumbar Spine MRI 03/05/17 00:00 IMPRESSION: 1. 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 DEGENERATIVE CHANGES AT THIS LEVEL DESCRIBED ABOVE WITH MODERATE SPINAL STENOSIS AND EXIT FORAMINAL STENOSIS. 2. POSTERIOR HARDWARE AT L5. 3. REMAINDER OF THE STUDY IS RELATIVELY UNREMARKABLE. NO ACUTE FINDINGS. NO FINDINGS CONCERNING FOR METASTATIC INVOLVEMENT OF THE SPINE. Thoracic Spine MRI 03/05/17 00:00 IMPRESSION: NORMAL MRI THORACIC SPINE. Assessment & Plan - Diagnosis (1) Anemia Qualifiers: Other causes of anemia: chronic disease, other Is this a current diagnosis for this admission?: Yes Plan: Stable (2) Breast cancer metastasized to brain Is this a current diagnosis for this admission?: Yes Plan: Currently getting radiation therapy and had undergone 7 treatment out of 10. Expected to be discharged after the 10th treatment (3) Loose stools Is this a current diagnosis for this admission?: Yes Plan: Improved once Colace and senna were discontinued and with the use of Imodium - Time Time Spent with patient: Less than 15 minutes Medications reviewed and adjusted accordingly: Yes Anticipated discharge: Home Within: within 72 hours - Inpatient Certification Based on my medical assessment, after consideration of the patient's comorbidities, presenting symptoms, or acuity I expect that the services needed warrant INPATIENT care.: Yes I certify that my determination is in accordance with my understanding of Medicare's requirements for reasonable and necessary INPATIENT services [42 CFR 412.3e].: Yes Medical Necessity: Other - Radiation therapy
[2017-03-17] MEDS: RIVAROXABAN 10 MG TABLET PO SCH (10:12)
[2017-03-17] MEDS: INSULIN GLARGINE,HUM.REC.ANLOG 300 UNIT/3 ML INSULN.PEN SUBCUT SCH (10:12)
[2017-03-17] MEDS: LISINOPRIL 10 MG TABLET PO SCH (10:13)
[2017-03-17] MEDS: LACTOBACILLUS ACIDOPHILUS 250 MG TAB PO SCH ×2 (10:14→17:41)
[2017-03-17] MEDS: DULOXETINE HCL 30 MG CAPSULE.DR PO SCH ×2 (10:14→17:41)
[2017-03-17] MEDS: LEVETIRACETAM 500 MG TABLET PO SCH ×2 (10:14→22:11)
[2017-03-17] MEDS: FUROSEMIDE 20 MG TABLET PO SCH (10:14)
[2017-03-17] MEDS: DEXAMETHASONE 4 MG TABLET PO SCH ×2 (10:14→22:10)
[2017-03-17] MEDS: SIMVASTATIN 40 MG TABLET PO SCH (22:11)
[2017-03-17] MEDS: LORAZEPAM 0.5 MG TABLET PO SCH (22:11)
[2017-03-17] MEDS: PRAMIPEXOLE DI-HCL 0.25 MG TABLET PO SCH (22:11)
[2017-03-18] MEDS: LANSOPRAZOLE 30 MG TAB.RAP.DR PO SCH (06:20)
[2017-03-18] MEDS: PREGABALIN 100 MG CAPSULE PO SCH ×3 (06:20→21:44)
[2017-03-18] MEDS: LEVOTHYROXINE SODIUM 0.088 MG TABLET PO SCH (06:20)
[2017-03-18] MEDS: OXYCODONE-ACETAMINOPHEN 5-325 MG TABLET PO PRN ×2 (06:21→14:43)
[2017-03-18 06:53] LABS: ABSOLUTE LYMPHOCYTES (AUTO) 0.6 10^3/uL (0.5-4.7); ABSOLUTE MONOCYTES (AUTO) 0.2 10^3/uL (0.1-1.4); ABSOLUTE NEUT (AUTO) 5.6 10^3/uL (1.7-8.2); BASOPHILS % (AUTO) 0.2 % (0-2); HEMATOCRIT 32.4 % (36.0-47.0); HEMOGLOBIN 10.6 g/dL (12.0-15.5); LYMPHOCYTES % (AUTO) 9.2 % (13-45); MEAN CORPUSCULAR HEMOGLOBIN 29.9 pg (27.0-33.4); MEAN CORPUSCULAR HGB CONC 32.6 g/dL (32.0-36.0); MEAN CORPUSCULAR VOLUME 92 fl (80-97); MONOCYTES % (AUTO) 3.1 % (3-13); PLATELET COUNT 205 10^3/uL (150-450); RED BLOOD COUNT 3.55 10^6/uL (3.72-5.28); RED CELL DISTRIBUTION WIDTH 15.4 % (11.5-14.0); SEGMENTED NEUTROPHILS % (AUTO) 87.5 % (42-78); TOTAL CELLS COUNTED % (AUTO) 100 %; WHITE BLOOD COUNT 6.4 10^3/uL (4.0-10.5)
[2017-03-18 07:24] LABS: ALANINE AMINOTRANSFERASE 24 U/L (9-52); ALBUMIN 2.8 g/dL (3.5-5.0); ALKALINE PHOSPHATASE 189 U/L (38-126); ANION GAP 7 (5-19); ASPARTATE AMINO TRANSFERASE 12 U/L (14-36); BILIRUBIN,DIRECT 0.2 mg/dL (0.0-0.4); BILIRUBIN,TOTAL 0.3 mg/dL (0.2-1.3); BLOOD UREA NITROGEN 31 mg/dL (7-20); CALCIUM 8.9 mg/dL (8.4-10.2); CARBON DIOXIDE 26 mmol/L (22-30); CHLORIDE 108 mmol/L (98-107); GLUCOSE 106 mg/dL (75-110); MAGNESIUM 1.8 mg/dL (1.6-2.3); POTASSIUM 4.6 mmol/L (3.6-5.0); TOTAL PROTEIN 5.2 g/dL (6.3-8.2)
[2017-03-18] MEDS: INSULIN LISPRO 100 UNIT/ML 3 ML VIAL SUBCUT SCH ×3 (08:30→17:56)
[2017-03-18] MEDS: METFORMIN HCL 500 MG TABLET PO SCH ×2 (08:30→17:55)
[2017-03-18] MEDS: LEVETIRACETAM 500 MG TABLET PO SCH ×2 (10:04→21:44)
[2017-03-18] MEDS: DULOXETINE HCL 30 MG CAPSULE.DR PO SCH ×2 (10:04→17:55)
[2017-03-18] MEDS: LACTOBACILLUS ACIDOPHILUS 250 MG TAB PO SCH ×2 (10:04→17:55)
[2017-03-18] MEDS: DEXAMETHASONE 4 MG TABLET PO SCH ×2 (10:04→21:44)
[2017-03-18] MEDS: RIVAROXABAN 10 MG TABLET PO SCH (10:05)
[2017-03-18] MEDS: LISINOPRIL 10 MG TABLET PO SCH (10:05)
[2017-03-18] MEDS: FUROSEMIDE 20 MG TABLET PO SCH (10:05)
--- NOTE | 2017-03-18 11:41 | PDOC PROGRESS REPORT ---
Subjective Progress Note for:: 03/18/17 Subjective:: No complaints Reason For Visit: LEFT INTERTROCHANTERIC HIP FRACTURE S/P Physical Exam Vital Signs: Temp Pulse Resp BP Pulse Ox 98.3 F 70 18 111/46 L 100 03/18/17 00:00 03/18/17 00:00 03/18/17 00:00 03/18/17 00:00 03/18/17 00:00 Intake & Output 03/17/17 03/18/17 03/19/17 06:59 06:59 06:59 Intake Total 680 1020 Output Total 300 500 Balance 380 520 General appearance: PRESENT: no acute distress, cooperative, obese Head exam: PRESENT: atraumatic, normocephalic Eye exam: PRESENT: conjunctiva pink, EOMI, PERRLA Ear exam: PRESENT: normal external ear exam Mouth exam: PRESENT: moist, neck supple Neck exam: PRESENT: full ROM. ABSENT: JVD, tenderness, thyromegaly Respiratory exam: PRESENT: clear to auscultation julio. ABSENT: chest wall tenderness Cardiovascular exam: PRESENT: RRR. ABSENT: diastolic murmur, systolic murmur Vascular exam: PRESENT: normal capillary refill GI/Abdominal exam: PRESENT: normal bowel sounds, soft. ABSENT: tenderness Extremities exam: PRESENT: full ROM. ABSENT: joint swelling, pedal edema Neurological exam: PRESENT: alert, awake, oriented to person, oriented to place , oriented to time Psychiatric exam: PRESENT: appropriate affect, normal mood Results Laboratory Results: 03/18/17 06:18 03/18/17 06:18 03/18/17 03/18/17 06:18 06:18 WBC 6.4 RBC 3.55 L Hgb 10.6 L Hct 32.4 L MCV 92 MCH 29.9 MCHC 32.6 RDW 15.4 H Plt Count 205 Seg Neutrophils % 87.5 H Lymphocytes % 9.2 L Monocytes % 3.1 Eosinophils % 0.0 Basophils % 0.2 Absolute Neutrophils 5.6 Absolute Lymphocytes 0.6 Absolute Monocytes 0.2 Absolute Eosinophils 0.0 Absolute Basophils 0.0 Sodium 141.0 Potassium 4.6 Chloride 108 H Carbon Dioxide 26 Anion Gap 7 BUN 31 H Creatinine 0.87 Est GFR ( Amer) > 60 Est GFR (Non-Af Amer) > 60 Glucose 106 Calcium 8.9 Magnesium 1.8 Total Bilirubin 0.3 AST 12 L ALT 24 Alkaline Phosphatase 189 H Total Protein 5.2 L Albumin 2.8 L 02/28/17 02/28/17 02:45 08:46 Troponin I < 0.012 < 0.012 Impressions: Cervical Spine CT 02/27/17 20:20 IMPRESSION: 1. NO ACUTE OR SIGNIFICANT FINDINGS IN THE CERVICAL SPINE. 2. THE VISUALIZED UPPER THORACIC ESOPHAGUS IS DISTENDED. ON PREVIOUS CHEST CT DONE IN APRIL 2016 THERE WAS MILD ESOPHAGEAL DILATION. THIS IS PROBABLY RELATED TO PREVIOUS GASTRIC BYPASS. THERE MAY BE RELATIVE FUNCTIONAL OBSTRUCTION AT THE GASTROESOPHAGEAL JUNCTION. Chest X-Ray 02/27/17 20:20 IMPRESSION: NO ACUTE RADIOGRAPHIC FINDING IN THE CHEST. Head CT 02/27/17 20:20 IMPRESSION: DECREASED ATTENUATION IN THE WHITE MATTER OF THE POSTERIOR RIGHT PARIETAL LOBE, NOT PRESENT IN APRIL 2016. THIS COULD BE INDICATIVE OF RECENT INFARCT. MRI OF THE BRAIN MAY BE CONSIDERED FOR FURTHER EVALUATION. EVIDENCE OF ACUTE STROKE: POSSIBLE ACUTE OR SUBACUTE INFARCT. RIGHT MCA Head MRI 02/28/17 00:00 IMPRESSION: 1.4 cm enhancing brain parenchymal nodule with surrounding vasogenic edema, posterior right frontal lobe worrisome for metastatic disease EVIDENCE OF ACUTE STROKE: NO. Fluoroscopy 03/01/17 00:00 IMPRESSION: Intra procedural imaging and fluoro Hip X-Ray 03/01/17 00:00 IMPRESSION: Intra procedural imaging and fluoro Lumbar Spine MRI 03/05/17 00:00 IMPRESSION: 1. 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 DEGENERATIVE CHANGES AT THIS LEVEL DESCRIBED ABOVE WITH MODERATE SPINAL STENOSIS AND EXIT FORAMINAL STENOSIS. 2. POSTERIOR HARDWARE AT L5. 3. REMAINDER OF THE STUDY IS RELATIVELY UNREMARKABLE. NO ACUTE FINDINGS. NO FINDINGS CONCERNING FOR METASTATIC INVOLVEMENT OF THE SPINE. Thoracic Spine MRI 03/05/17 00:00 IMPRESSION: NORMAL MRI THORACIC SPINE. Assessment & Plan - Diagnosis (1) Anemia Qualifiers: Other causes of anemia: chronic disease, other Is this a current diagnosis for this admission?: Yes Plan: Stable (2) Breast cancer metastasized to brain Qualifiers: Laterality: unspecified laterality Qualified Code(s): C50.919 - Malignant neoplasm of unspecified site of unspecified female breast; C79.31 - Secondary malignant neoplasm of brain; C79.31 - Secondary malignant neoplasm of brain; C79.31 - Secondary malignant neoplasm of brain; C79.31 - Secondary malignant neoplasm of brain Is this a current diagnosis for this admission?: Yes Plan: Currently getting radiation therapy and had undergone 7 treatment out of 10. Expected to be discharged after the 10th treatment (3) Loose stools Is this a current diagnosis for this admission?: Yes Plan: Improved once Colace and senna were discontinued and with the use of Imodium - Time Time Spent with patient: Less than 15 minutes Medications reviewed and adjusted accordingly: Yes Anticipated discharge: Home Within: Other - after finalizing radiation therapy - Inpatient Certification Based on my medical assessment, after consideration of the patient's comorbidities, presenting symptoms, or acuity I expect that the services needed warrant INPATIENT care.: Yes I certify that my determination is in accordance with my understanding of Medicare's requirements for reasonable and necessary INPATIENT services [42 CFR 412.3e].: Yes Medical Necessity: Other - radaition therapy
[2017-03-18] MEDS: INSULIN GLARGINE,HUM.REC.ANLOG 300 UNIT/3 ML INSULN.PEN SUBCUT SCH (12:02)
[2017-03-18] MEDS: LOPERAMIDE HCL 2 MG CAPSULE PO PRN (14:43)
[2017-03-18] MEDS: INSULIN LISPRO 100 UNIT/ML 3 ML VIAL SUBCUT PRN ×2 (17:58→21:44)
[2017-03-18] MEDS: PRAMIPEXOLE DI-HCL 0.25 MG TABLET PO SCH (21:44)
[2017-03-18] MEDS: SIMVASTATIN 40 MG TABLET PO SCH (21:44)
[2017-03-18] MEDS: LORAZEPAM 0.5 MG TABLET PO SCH (22:00)
[2017-03-19] MEDS: OXYCODONE-ACETAMINOPHEN 5-325 MG TABLET PO PRN ×3 (00:09→19:44)
[2017-03-19] MEDS: PREGABALIN 100 MG CAPSULE PO SCH ×3 (06:05→22:54)
[2017-03-19] MEDS: LANSOPRAZOLE 30 MG TAB.RAP.DR PO SCH (06:05)
[2017-03-19] MEDS: LEVOTHYROXINE SODIUM 0.088 MG TABLET PO SCH (06:05)
[2017-03-19] MEDS: INSULIN LISPRO 100 UNIT/ML 3 ML VIAL SUBCUT SCH ×3 (08:50→16:49)
[2017-03-19] MEDS: METFORMIN HCL 500 MG TABLET PO SCH ×2 (08:51→16:49)
[2017-03-19] MEDS: LISINOPRIL 10 MG TABLET PO SCH (10:30)
[2017-03-19] MEDS: DULOXETINE HCL 30 MG CAPSULE.DR PO SCH ×2 (10:30→17:21)
[2017-03-19] MEDS: LEVETIRACETAM 500 MG TABLET PO SCH ×2 (10:30→22:53)
[2017-03-19] MEDS: LACTOBACILLUS ACIDOPHILUS 250 MG TAB PO SCH ×2 (10:30→17:22)
[2017-03-19] MEDS: RIVAROXABAN 10 MG TABLET PO SCH (10:32)
[2017-03-19] MEDS: DEXAMETHASONE 4 MG TABLET PO SCH ×2 (10:34→22:53)
[2017-03-19] MEDS: FUROSEMIDE 20 MG TABLET PO SCH (10:34)
[2017-03-19] MEDS: INSULIN GLARGINE,HUM.REC.ANLOG 300 UNIT/3 ML INSULN.PEN SUBCUT SCH (12:51)
--- NOTE | 2017-03-19 17:25 | PDOC PROGRESS REPORT ---
Subjective Progress Note for:: 03/19/17 Subjective:: Denies any complaints. Reason For Visit: LEFT INTERTROCHANTERIC HIP FRACTURE S/P Physical Exam Vital Signs: Temp Pulse Resp BP Pulse Ox 97.5 F 73 16 127/72 H 100 03/19/17 09:00 03/19/17 09:00 03/19/17 09:00 03/19/17 09:00 03/19/17 09:00 Intake & Output 03/18/17 03/19/17 03/20/17 06:59 06:59 06:59 Intake Total 8103 784 9178 Output Total 500 730 Balance 520 -140 1520 General appearance: PRESENT: no acute distress Eye exam: PRESENT: conjunctiva pink. ABSENT: scleral icterus Mouth exam: PRESENT: moist, tongue midline Neck exam: ABSENT: JVD Respiratory exam: PRESENT: clear to auscultation julio. ABSENT: rales, rhonchi, wheezes Cardiovascular exam: PRESENT: RRR. ABSENT: diastolic murmur, rubs, systolic murmur GI/Abdominal exam: PRESENT: normal bowel sounds, soft. ABSENT: distended, guarding, mass, organolmegaly, rebound, tenderness Extremities exam: ABSENT: calf tenderness, clubbing, pedal edema Neurological exam: PRESENT: alert, awake, oriented to person, oriented to place , oriented to time, oriented to situation, CN II-XII grossly intact. ABSENT: motor sensory deficit Psychiatric exam: PRESENT: appropriate affect Skin exam: PRESENT: dry, intact, warm. ABSENT: cyanosis, rash Results Laboratory Results: 03/18/17 06:18 03/18/17 06:18 02/28/17 02/28/17 02:45 08:46 Troponin I < 0.012 < 0.012 Impressions: Cervical Spine CT 02/27/17 20:20 IMPRESSION: 1. NO ACUTE OR SIGNIFICANT FINDINGS IN THE CERVICAL SPINE. 2. THE VISUALIZED UPPER THORACIC ESOPHAGUS IS DISTENDED. ON PREVIOUS CHEST CT DONE IN APRIL 2016 THERE WAS MILD ESOPHAGEAL DILATION. THIS IS PROBABLY RELATED TO PREVIOUS GASTRIC BYPASS. THERE MAY BE RELATIVE FUNCTIONAL OBSTRUCTION AT THE GASTROESOPHAGEAL JUNCTION. Chest X-Ray 02/27/17 20:20 IMPRESSION: NO ACUTE RADIOGRAPHIC FINDING IN THE CHEST. Head CT 02/27/17 20:20 IMPRESSION: DECREASED ATTENUATION IN THE WHITE MATTER OF THE POSTERIOR RIGHT PARIETAL LOBE, NOT PRESENT IN APRIL 2016. THIS COULD BE INDICATIVE OF RECENT INFARCT. MRI OF THE BRAIN MAY BE CONSIDERED FOR FURTHER EVALUATION. EVIDENCE OF ACUTE STROKE: POSSIBLE ACUTE OR SUBACUTE INFARCT. RIGHT MCA Head MRI 02/28/17 00:00 IMPRESSION: 1.4 cm enhancing brain parenchymal nodule with surrounding vasogenic edema, posterior right frontal lobe worrisome for metastatic disease EVIDENCE OF ACUTE STROKE: NO. Fluoroscopy 03/01/17 00:00 IMPRESSION: Intra procedural imaging and fluoro Hip X-Ray 03/01/17 00:00 IMPRESSION: Intra procedural imaging and fluoro Lumbar Spine MRI 03/05/17 00:00 IMPRESSION: 1. 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 DEGENERATIVE CHANGES AT THIS LEVEL DESCRIBED ABOVE WITH MODERATE SPINAL STENOSIS AND EXIT FORAMINAL STENOSIS. 2. POSTERIOR HARDWARE AT L5. 3. REMAINDER OF THE STUDY IS RELATIVELY UNREMARKABLE. NO ACUTE FINDINGS. NO FINDINGS CONCERNING FOR METASTATIC INVOLVEMENT OF THE SPINE. Thoracic Spine MRI 03/05/17 00:00 IMPRESSION: NORMAL MRI THORACIC SPINE. Assessment & Plan - Diagnosis (1) Brain metastases Is this a current diagnosis for this admission?: Yes Plan: Has been seen by oncology. Currently getting brain irradiation. Will need 10 total treatments. (2) Intertrochanteric fracture of left hip Qualifiers: Encounter type: initial encounter Fracture type: closed Fracture alignment: nondisplaced Qualified Code(s): S72.145A - Nondisplaced intertrochanteric fracture of left femur, initial encounter for closed fracture Is this a current diagnosis for this admission?: Yes Plan: Continue with physical therapy. Will go to rehab once her brain radiation is done. (3) CKD (chronic kidney disease) stage 4, GFR 15-29 ml/min Is this a current diagnosis for this admission?: Yes Plan: Patient is euvolemic. (4) Breast cancer metastasized to liver Qualifiers: Laterality: left Qualified Code(s): C50.912 - Malignant neoplasm of unspecified site of left female breast Is this a current diagnosis for this admission?: Yes Plan: Followed by oncology. (5) Diabetes Qualifiers: Diabetes mellitus type: type 2 Diabetes mellitus complication status: with unspecified complications Diabetes mellitus nursing home insulin use: without rn long term care use Qualified Code(s): E11.8 - Type 2 diabetes mellitus with unspecified complications Is this a current diagnosis for this admission?: Yes Plan: Will continue with Lantus. Continue with sliding scale coverage. Her blood sugars have gone up with the steroids. (6) Essential hypertension Is this a current diagnosis for this admission?: Yes (7) Fibromyalgia Is this a current diagnosis for this admission?: Yes (8) Chronic low back pain Qualifiers: Back pain laterality: bilateral Sciatica presence: with sciatica Sciatica laterality: bilateral sciatica Qualified Code(s): M54.42 - Lumbago with sciatica, left side Is this a current diagnosis for this admission?: Yes Plan: Tolerating the Duragesic patch. - Time Time Spent with patient: 25-34 minutes - Inpatient Certification Medical Necessity: Need Close Monitoring Due to Risk of Patient Decompensation - Plan Summary Plan Summary: We will go to rehab once brain radiation is finished
[2017-03-19] MEDS: PRAMIPEXOLE DI-HCL 0.25 MG TABLET PO SCH (22:54)
[2017-03-19] MEDS: SIMVASTATIN 40 MG TABLET PO SCH (22:54)
[2017-03-19] MEDS: LORAZEPAM 0.5 MG TABLET PO SCH (22:54)
[2017-03-20] MEDS: OXYCODONE-ACETAMINOPHEN 5-325 MG TABLET PO PRN ×3 (02:36→14:01)
[2017-03-20] MEDS: LEVOTHYROXINE SODIUM 0.088 MG TABLET PO SCH (05:55)
[2017-03-20] MEDS: PREGABALIN 100 MG CAPSULE PO SCH ×3 (05:55→22:56)
[2017-03-20] MEDS: LANSOPRAZOLE 30 MG TAB.RAP.DR PO SCH (05:55)
[2017-03-20] MEDS: INSULIN LISPRO 100 UNIT/ML 3 ML VIAL SUBCUT SCH ×3 (08:23→18:13)
[2017-03-20] MEDS: METFORMIN HCL 500 MG TABLET PO SCH ×2 (08:23→18:15)
[2017-03-20] MEDS: INSULIN GLARGINE,HUM.REC.ANLOG 300 UNIT/3 ML INSULN.PEN SUBCUT SCH (12:02)
[2017-03-20] MEDS: DEXAMETHASONE 4 MG TABLET PO SCH ×2 (12:02→22:56)
[2017-03-20] MEDS: DULOXETINE HCL 30 MG CAPSULE.DR PO SCH ×2 (12:03→18:15)
[2017-03-20] MEDS: FUROSEMIDE 20 MG TABLET PO SCH (12:03)
[2017-03-20] MEDS: LACTOBACILLUS ACIDOPHILUS 250 MG TAB PO SCH ×2 (12:03→18:15)
[2017-03-20] MEDS: LISINOPRIL 10 MG TABLET PO SCH (12:04)
[2017-03-20] MEDS: RIVAROXABAN 10 MG TABLET PO SCH (12:04)
[2017-03-20] MEDS: LEVETIRACETAM 500 MG TABLET PO SCH ×2 (12:04→22:56)
--- NOTE | 2017-03-20 12:05 | PDOC PROGRESS REPORT ---
Subjective Progress Note for:: 03/20/17 Subjective:: Denies any complaints. Reason For Visit: LEFT INTERTROCHANTERIC HIP FRACTURE S/P Physical Exam Vital Signs: Temp Pulse Resp BP Pulse Ox 98.1 F 71 16 116/65 98 03/20/17 10:00 03/20/17 10:00 03/20/17 10:00 03/20/17 10:00 03/20/17 10:00 Intake & Output 03/19/17 03/20/17 03/21/17 06:59 06:59 06:59 Intake Total 590 1520 Output Total 730 200 Balance -140 1320 General appearance: PRESENT: no acute distress Neck exam: ABSENT: JVD Respiratory exam: PRESENT: clear to auscultation julio. ABSENT: rales, rhonchi, wheezes Cardiovascular exam: PRESENT: RRR. ABSENT: diastolic murmur, rubs, systolic murmur GI/Abdominal exam: PRESENT: normal bowel sounds, soft. ABSENT: distended, guarding, mass, organolmegaly, rebound, tenderness Results Laboratory Results: 03/18/17 06:18 03/18/17 06:18 02/28/17 02/28/17 02:45 08:46 Troponin I < 0.012 < 0.012 Impressions: Cervical Spine CT 02/27/17 20:20 IMPRESSION: 1. NO ACUTE OR SIGNIFICANT FINDINGS IN THE CERVICAL SPINE. 2. THE VISUALIZED UPPER THORACIC ESOPHAGUS IS DISTENDED. ON PREVIOUS CHEST CT DONE IN APRIL 2016 THERE WAS MILD ESOPHAGEAL DILATION. THIS IS PROBABLY RELATED TO PREVIOUS GASTRIC BYPASS. THERE MAY BE RELATIVE FUNCTIONAL OBSTRUCTION AT THE GASTROESOPHAGEAL JUNCTION. Chest X-Ray 02/27/17 20:20 IMPRESSION: NO ACUTE RADIOGRAPHIC FINDING IN THE CHEST. Head CT 02/27/17 20:20 IMPRESSION: DECREASED ATTENUATION IN THE WHITE MATTER OF THE POSTERIOR RIGHT PARIETAL LOBE, NOT PRESENT IN APRIL 2016. THIS COULD BE INDICATIVE OF RECENT INFARCT. MRI OF THE BRAIN MAY BE CONSIDERED FOR FURTHER EVALUATION. EVIDENCE OF ACUTE STROKE: POSSIBLE ACUTE OR SUBACUTE INFARCT. RIGHT MCA Head MRI 02/28/17 00:00 IMPRESSION: 1.4 cm enhancing brain parenchymal nodule with surrounding vasogenic edema, posterior right frontal lobe worrisome for metastatic disease EVIDENCE OF ACUTE STROKE: NO. Fluoroscopy 03/01/17 00:00 IMPRESSION: Intra procedural imaging and fluoro Hip X-Ray 03/01/17 00:00 IMPRESSION: Intra procedural imaging and fluoro Lumbar Spine MRI 03/05/17 00:00 IMPRESSION: 1. 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 DEGENERATIVE CHANGES AT THIS LEVEL DESCRIBED ABOVE WITH MODERATE SPINAL STENOSIS AND EXIT FORAMINAL STENOSIS. 2. POSTERIOR HARDWARE AT L5. 3. REMAINDER OF THE STUDY IS RELATIVELY UNREMARKABLE. NO ACUTE FINDINGS. NO FINDINGS CONCERNING FOR METASTATIC INVOLVEMENT OF THE SPINE. Thoracic Spine MRI 03/05/17 00:00 IMPRESSION: NORMAL MRI THORACIC SPINE. Assessment & Plan - Diagnosis (1) Brain metastases Is this a current diagnosis for this admission?: Yes Plan: Has been seen by oncology. Currently getting brain irradiation. Will need 10 total treatments. (2) Intertrochanteric fracture of left hip Qualifiers: Encounter type: initial encounter Fracture type: closed Fracture alignment: nondisplaced Qualified Code(s): S72.145A - Nondisplaced intertrochanteric fracture of left femur, initial encounter for closed fracture Is this a current diagnosis for this admission?: Yes Plan: Continue with physical therapy. Will go to rehab once her brain radiation is done. (3) CKD (chronic kidney disease) stage 4, GFR 15-29 ml/min Is this a current diagnosis for this admission?: Yes Plan: Patient is euvolemic. (4) Breast cancer metastasized to liver Qualifiers: Laterality: left Qualified Code(s): C50.912 - Malignant neoplasm of unspecified site of left female breast Is this a current diagnosis for this admission?: Yes Plan: Followed by oncology. (5) Diabetes Qualifiers: Diabetes mellitus type: type 2 Diabetes mellitus complication status: with unspecified complications Diabetes mellitus skilled nursing insulin use: without skilled nursing use Qualified Code(s): E11.8 - Type 2 diabetes mellitus with unspecified complications Is this a current diagnosis for this admission?: Yes Plan: Will continue with Lantus. Continue with sliding scale coverage. Her blood sugars have gone up with the steroids. (6) Essential hypertension Is this a current diagnosis for this admission?: Yes (7) Fibromyalgia Is this a current diagnosis for this admission?: Yes (8) Chronic low back pain Qualifiers: Back pain laterality: bilateral Sciatica presence: with sciatica Sciatica laterality: bilateral sciatica Qualified Code(s): M54.42 - Lumbago with sciatica, left side Is this a current diagnosis for this admission?: Yes Plan: Tolerating the Duragesic patch. - Time Time Spent with patient: 25-34 minutes - Inpatient Certification Medical Necessity: Need Close Monitoring Due to Risk of Patient Decompensation - Plan Summary Plan Summary: We will transfer to rehab when done with brain radiation
[2017-03-20] MEDS: NYSTATIN/DEXAMETH/DIPHEN SUSP 120 ML PO PRN (18:16)
[2017-03-20] MEDS: SIMVASTATIN 40 MG TABLET PO SCH (22:56)
[2017-03-20] MEDS: PRAMIPEXOLE DI-HCL 0.25 MG TABLET PO SCH (22:56)
[2017-03-21] MEDS: OXYCODONE-ACETAMINOPHEN 5-325 MG TABLET PO PRN (05:39)
[2017-03-21] MEDS: PREGABALIN 100 MG CAPSULE PO SCH ×3 (05:41→21:40)
[2017-03-21] MEDS: LEVOTHYROXINE SODIUM 0.088 MG TABLET PO SCH (05:41)
[2017-03-21] MEDS: LANSOPRAZOLE 30 MG TAB.RAP.DR PO SCH (05:41)
[2017-03-21] MEDS: INSULIN LISPRO 100 UNIT/ML 3 ML VIAL SUBCUT SCH ×3 (07:43→17:45)
[2017-03-21] MEDS: METFORMIN HCL 500 MG TABLET PO SCH ×2 (07:43→17:46)
--- NOTE | 2017-03-21 10:53 | PDOC PROGRESS REPORT ---
Subjective Progress Note for:: 03/21/17 Reason For Visit: LEFT INTERTROCHANTERIC HIP FRACTURE S/P Physical Exam Vital Signs: Temp Pulse Resp BP Pulse Ox 97.6 F 68 17 120/61 100 03/21/17 08:47 03/21/17 08:47 03/21/17 08:47 03/21/17 08:47 03/21/17 08:47 Intake & Output 03/20/17 03/21/17 03/22/17 06:59 06:59 06:59 Intake Total 1520 0 Output Total 200 Balance 1320 0 General appearance: PRESENT: no acute distress Eye exam: PRESENT: conjunctiva pink. ABSENT: scleral icterus Mouth exam: PRESENT: dry mucosa Neck exam: ABSENT: JVD Respiratory exam: PRESENT: clear to auscultation julio. ABSENT: rales, rhonchi, wheezes Cardiovascular exam: PRESENT: RRR. ABSENT: diastolic murmur, rubs, systolic murmur GI/Abdominal exam: PRESENT: normal bowel sounds, soft. ABSENT: distended, guarding, mass, organolmegaly, rebound, tenderness Extremities exam: ABSENT: calf tenderness, clubbing, pedal edema Neurological exam: PRESENT: alert, awake, oriented to person, oriented to place , oriented to time, oriented to situation, CN II-XII grossly intact. ABSENT: motor sensory deficit Psychiatric exam: PRESENT: appropriate affect Skin exam: PRESENT: dry, intact, warm. ABSENT: cyanosis, rash Results Laboratory Results: 03/18/17 06:18 03/18/17 06:18 02/28/17 02/28/17 02:45 08:46 Troponin I < 0.012 < 0.012 Impressions: Cervical Spine CT 02/27/17 20:20 IMPRESSION: 1. NO ACUTE OR SIGNIFICANT FINDINGS IN THE CERVICAL SPINE. 2. THE VISUALIZED UPPER THORACIC ESOPHAGUS IS DISTENDED. ON PREVIOUS CHEST CT DONE IN APRIL 2016 THERE WAS MILD ESOPHAGEAL DILATION. THIS IS PROBABLY RELATED TO PREVIOUS GASTRIC BYPASS. THERE MAY BE RELATIVE FUNCTIONAL OBSTRUCTION AT THE GASTROESOPHAGEAL JUNCTION. Chest X-Ray 02/27/17 20:20 IMPRESSION: NO ACUTE RADIOGRAPHIC FINDING IN THE CHEST. Head CT 02/27/17 20:20 IMPRESSION: DECREASED ATTENUATION IN THE WHITE MATTER OF THE POSTERIOR RIGHT PARIETAL LOBE, NOT PRESENT IN APRIL 2016. THIS COULD BE INDICATIVE OF RECENT INFARCT. MRI OF THE BRAIN MAY BE CONSIDERED FOR FURTHER EVALUATION. EVIDENCE OF ACUTE STROKE: POSSIBLE ACUTE OR SUBACUTE INFARCT. RIGHT MCA Head MRI 02/28/17 00:00 IMPRESSION: 1.4 cm enhancing brain parenchymal nodule with surrounding vasogenic edema, posterior right frontal lobe worrisome for metastatic disease EVIDENCE OF ACUTE STROKE: NO. Fluoroscopy 03/01/17 00:00 IMPRESSION: Intra procedural imaging and fluoro Hip X-Ray 03/01/17 00:00 IMPRESSION: Intra procedural imaging and fluoro Lumbar Spine MRI 03/05/17 00:00 IMPRESSION: 1. 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 DEGENERATIVE CHANGES AT THIS LEVEL DESCRIBED ABOVE WITH MODERATE SPINAL STENOSIS AND EXIT FORAMINAL STENOSIS. 2. POSTERIOR HARDWARE AT L5. 3. REMAINDER OF THE STUDY IS RELATIVELY UNREMARKABLE. NO ACUTE FINDINGS. NO FINDINGS CONCERNING FOR METASTATIC INVOLVEMENT OF THE SPINE. Thoracic Spine MRI 03/05/17 00:00 IMPRESSION: NORMAL MRI THORACIC SPINE. Assessment & Plan - Diagnosis (1) Brain metastases Is this a current diagnosis for this admission?: Yes Plan: Has been seen by oncology. Currently getting brain irradiation. Will need 10 total treatments. (2) Intertrochanteric fracture of left hip Qualifiers: Encounter type: initial encounter Fracture type: closed Fracture alignment: nondisplaced Qualified Code(s): S72.145A - Nondisplaced intertrochanteric fracture of left femur, initial encounter for closed fracture Is this a current diagnosis for this admission?: Yes Plan: Continue with physical therapy. Will go to rehab once her brain radiation is done. (3) CKD (chronic kidney disease) stage 4, GFR 15-29 ml/min Is this a current diagnosis for this admission?: Yes Plan: Patient is euvolemic. (4) Breast cancer metastasized to liver Qualifiers: Laterality: left Qualified Code(s): C50.912 - Malignant neoplasm of unspecified site of left female breast Is this a current diagnosis for this admission?: Yes Plan: Followed by oncology. (5) Diabetes Qualifiers: Diabetes mellitus type: type 2 Diabetes mellitus complication status: with unspecified complications Diabetes mellitus chcf insulin use: without chcf use Qualified Code(s): E11.8 - Type 2 diabetes mellitus with unspecified complications Is this a current diagnosis for this admission?: Yes Plan: Will continue with Lantus. Continue with sliding scale coverage. Her blood sugars have gone up with the steroids. (6) Essential hypertension Is this a current diagnosis for this admission?: Yes (7) Fibromyalgia Is this a current diagnosis for this admission?: Yes (8) Chronic low back pain Qualifiers: Back pain laterality: bilateral Sciatica presence: with sciatica Sciatica laterality: bilateral sciatica Qualified Code(s): M54.42 - Lumbago with sciatica, left side Is this a current diagnosis for this admission?: Yes Plan: Tolerating the Duragesic patch. - Time Time Spent with patient: 25-34 minutes - Inpatient Certification Medical Necessity: Need Close Monitoring Due to Risk of Patient Decompensation
[2017-03-21] MEDS: LACTOBACILLUS ACIDOPHILUS 250 MG TAB PO SCH ×2 (11:15→17:46)
[2017-03-21] MEDS: DULOXETINE HCL 30 MG CAPSULE.DR PO SCH ×2 (11:15→17:46)
[2017-03-21] MEDS: RIVAROXABAN 10 MG TABLET PO SCH (11:16)
[2017-03-21] MEDS: LISINOPRIL 10 MG TABLET PO SCH (11:17)
[2017-03-21] MEDS: DEXAMETHASONE 4 MG TABLET PO SCH ×2 (11:17→21:43)
[2017-03-21] MEDS: FUROSEMIDE 20 MG TABLET PO SCH (11:18)
[2017-03-21] MEDS: NYSTATIN/DEXAMETH/DIPHEN SUSP 120 ML PO PRN (11:18)
[2017-03-21] MEDS: LEVETIRACETAM 500 MG TABLET PO SCH ×2 (11:18→21:40)
[2017-03-21] MEDS: INSULIN GLARGINE,HUM.REC.ANLOG 300 UNIT/3 ML INSULN.PEN SUBCUT SCH (13:24)
[2017-03-21] MEDS: SIMVASTATIN 40 MG TABLET PO SCH (21:40)
[2017-03-21] MEDS: PRAMIPEXOLE DI-HCL 0.25 MG TABLET PO SCH (21:44)
[2017-03-21] MEDS: INSULIN LISPRO 100 UNIT/ML 3 ML VIAL SUBCUT PRN (22:26)
[2017-03-22] MEDS: OXYCODONE-ACETAMINOPHEN 5-325 MG TABLET PO PRN ×4 (00:24→21:07)
[2017-03-22] MEDS: LORAZEPAM 0.5 MG TABLET PO PRN (02:26)
[2017-03-22] MEDS: LANSOPRAZOLE 30 MG TAB.RAP.DR PO SCH (05:37)
[2017-03-22] MEDS: PREGABALIN 100 MG CAPSULE PO SCH ×3 (05:37→21:07)
[2017-03-22] MEDS: LEVOTHYROXINE SODIUM 0.088 MG TABLET PO SCH (05:37)
[2017-03-22 06:52] LABS: ABSOLUTE LYMPHOCYTES (AUTO) 0.6 10^3/uL (0.5-4.7); ABSOLUTE MONOCYTES (AUTO) 0.5 10^3/uL (0.1-1.4); ABSOLUTE NEUT (AUTO) 6.9 10^3/uL (1.7-8.2); BASOPHILS % (AUTO) 0.2 % (0-2); HEMATOCRIT 35.5 % (36.0-47.0); HEMOGLOBIN 11.6 g/dL (12.0-15.5); MEAN CORPUSCULAR HEMOGLOBIN 29.9 pg (27.0-33.4); MEAN CORPUSCULAR HGB CONC 32.6 g/dL (32.0-36.0); MEAN CORPUSCULAR VOLUME 92 fl (80-97); MONOCYTES % (AUTO) 5.7 % (3-13); PLATELET COUNT 209 10^3/uL (150-450); RED BLOOD COUNT 3.87 10^6/uL (3.72-5.28); RED CELL DISTRIBUTION WIDTH 16.5 % (11.5-14.0); SEGMENTED NEUTROPHILS % (AUTO) 87.1 % (42-78); TOTAL CELLS COUNTED % (AUTO) 100 %; WHITE BLOOD COUNT 7.9 10^3/uL (4.0-10.5)
[2017-03-22 07:16] LABS: ANION GAP 8 (5-19); BLOOD UREA NITROGEN 39 mg/dL (7-20); CALCIUM 9.1 mg/dL (8.4-10.2); CARBON DIOXIDE 27 mmol/L (22-30); CHLORIDE 108 mmol/L (98-107); GLUCOSE 74 mg/dL (75-110); POTASSIUM 4.9 mmol/L (3.6-5.0)
[2017-03-22] MEDS: METFORMIN HCL 500 MG TABLET PO SCH ×2 (07:50→18:46)
[2017-03-22] MEDS: INSULIN LISPRO 100 UNIT/ML 3 ML VIAL SUBCUT SCH ×3 (07:50→16:44)
[2017-03-22] MEDS: LISINOPRIL 10 MG TABLET PO SCH (10:54)
[2017-03-22] MEDS: RIVAROXABAN 10 MG TABLET PO SCH (10:54)
[2017-03-22] MEDS: DULOXETINE HCL 30 MG CAPSULE.DR PO SCH ×2 (10:54→18:46)
[2017-03-22] MEDS: FUROSEMIDE 20 MG TABLET PO SCH (10:57)
[2017-03-22] MEDS: LACTOBACILLUS ACIDOPHILUS 250 MG TAB PO SCH ×2 (10:57→18:46)
[2017-03-22] MEDS: DEXAMETHASONE 4 MG TABLET PO SCH ×2 (10:57→21:08)
[2017-03-22] MEDS: LEVETIRACETAM 500 MG TABLET PO SCH ×2 (10:58→21:07)
[2017-03-22] MEDS: NYSTATIN/DEXAMETH/DIPHEN SUSP 120 ML PO PRN (10:59)
[2017-03-22] MEDS: ACETAMINOPHEN 325 MG TABLET PO PRN (11:10)
--- NOTE | 2017-03-22 14:02 | PDOC PROGRESS REPORT ---
Subjective Progress Note for:: 03/22/17 Subjective:: Reports that most of her hair fell out overnight. Reason For Visit: LEFT INTERTROCHANTERIC HIP FRACTURE S/P Physical Exam Vital Signs: Temp Pulse Resp BP Pulse Ox 97.9 F 80 16 116/49 L 100 03/22/17 12:57 03/22/17 12:57 03/22/17 12:57 03/22/17 12:57 03/22/17 12:57 Intake & Output 03/21/17 03/22/17 03/23/17 06:59 06:59 06:59 Intake Total 0 2310 Output Total 600 Balance 0 1710 General appearance: PRESENT: no acute distress Eye exam: PRESENT: conjunctiva pink. ABSENT: scleral icterus Mouth exam: PRESENT: moist, tongue midline Neck exam: ABSENT: JVD Respiratory exam: PRESENT: clear to auscultation julio. ABSENT: rales, rhonchi, wheezes Cardiovascular exam: PRESENT: RRR. ABSENT: diastolic murmur, rubs, systolic murmur Extremities exam: ABSENT: calf tenderness, clubbing, pedal edema Neurological exam: PRESENT: alert, awake, oriented to person, oriented to place , oriented to time, oriented to situation, CN II-XII grossly intact. ABSENT: motor sensory deficit Psychiatric exam: PRESENT: appropriate affect Skin exam: PRESENT: dry, intact, warm. ABSENT: cyanosis, rash Results Laboratory Results: 03/22/17 06:23 03/22/17 06:23 03/22/17 03/22/17 06:23 06:23 WBC 7.9 RBC 3.87 Hgb 11.6 L Hct 35.5 L MCV 92 MCH 29.9 MCHC 32.6 RDW 16.5 H Plt Count 209 Seg Neutrophils % 87.1 H Lymphocytes % 7.0 L Monocytes % 5.7 Eosinophils % 0.0 Basophils % 0.2 Absolute Neutrophils 6.9 Absolute Lymphocytes 0.6 Absolute Monocytes 0.5 Absolute Eosinophils 0.0 Absolute Basophils 0.0 Sodium 143.0 Potassium 4.9 Chloride 108 H Carbon Dioxide 27 Anion Gap 8 BUN 39 H Creatinine 1.01 Est GFR ( Amer) > 60 Est GFR (Non-Af Amer) 54 L Glucose 74 L Calcium 9.1 02/28/17 02/28/17 02:45 08:46 Troponin I < 0.012 < 0.012 Impressions: Cervical Spine CT 02/27/17 20:20 IMPRESSION: 1. NO ACUTE OR SIGNIFICANT FINDINGS IN THE CERVICAL SPINE. 2. THE VISUALIZED UPPER THORACIC ESOPHAGUS IS DISTENDED. ON PREVIOUS CHEST CT DONE IN APRIL 2016 THERE WAS MILD ESOPHAGEAL DILATION. THIS IS PROBABLY RELATED TO PREVIOUS GASTRIC BYPASS. THERE MAY BE RELATIVE FUNCTIONAL OBSTRUCTION AT THE GASTROESOPHAGEAL JUNCTION. Chest X-Ray 02/27/17 20:20 IMPRESSION: NO ACUTE RADIOGRAPHIC FINDING IN THE CHEST. Head CT 02/27/17 20:20 IMPRESSION: DECREASED ATTENUATION IN THE WHITE MATTER OF THE POSTERIOR RIGHT PARIETAL LOBE, NOT PRESENT IN APRIL 2016. THIS COULD BE INDICATIVE OF RECENT INFARCT. MRI OF THE BRAIN MAY BE CONSIDERED FOR FURTHER EVALUATION. EVIDENCE OF ACUTE STROKE: POSSIBLE ACUTE OR SUBACUTE INFARCT. RIGHT MCA Head MRI 02/28/17 00:00 IMPRESSION: 1.4 cm enhancing brain parenchymal nodule with surrounding vasogenic edema, posterior right frontal lobe worrisome for metastatic disease EVIDENCE OF ACUTE STROKE: NO. Fluoroscopy 03/01/17 00:00 IMPRESSION: Intra procedural imaging and fluoro Hip X-Ray 03/01/17 00:00 IMPRESSION: Intra procedural imaging and fluoro Lumbar Spine MRI 03/05/17 00:00 IMPRESSION: 1. 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 DEGENERATIVE CHANGES AT THIS LEVEL DESCRIBED ABOVE WITH MODERATE SPINAL STENOSIS AND EXIT FORAMINAL STENOSIS. 2. POSTERIOR HARDWARE AT L5. 3. REMAINDER OF THE STUDY IS RELATIVELY UNREMARKABLE. NO ACUTE FINDINGS. NO FINDINGS CONCERNING FOR METASTATIC INVOLVEMENT OF THE SPINE. Thoracic Spine MRI 03/05/17 00:00 IMPRESSION: NORMAL MRI THORACIC SPINE. Assessment & Plan - Diagnosis (1) Brain metastases Is this a current diagnosis for this admission?: Yes Plan: Has been seen by oncology. Currently getting brain irradiation. Will need 10 total treatments. (2) Intertrochanteric fracture of left hip Qualifiers: Encounter type: initial encounter Fracture type: closed Fracture alignment: nondisplaced Qualified Code(s): S72.145A - Nondisplaced intertrochanteric fracture of left femur, initial encounter for closed fracture Is this a current diagnosis for this admission?: Yes Plan: Continue with physical therapy. Will go to rehab once her brain radiation is done. (3) CKD (chronic kidney disease) stage 4, GFR 15-29 ml/min Is this a current diagnosis for this admission?: Yes Plan: Patient is euvolemic. (4) Breast cancer metastasized to liver Qualifiers: Laterality: left Qualified Code(s): C50.912 - Malignant neoplasm of unspecified site of left female breast Is this a current diagnosis for this admission?: Yes Plan: Followed by oncology. (5) Diabetes Qualifiers: Diabetes mellitus type: type 2 Diabetes mellitus complication status: with unspecified complications Diabetes mellitus group home insulin use: without intermediate card tender use Qualified Code(s): E11.8 - Type 2 diabetes mellitus with unspecified complications Is this a current diagnosis for this admission?: Yes Plan: Will continue with Lantus. Continue with sliding scale coverage. Her blood sugars have gone up with the steroids. (6) Essential hypertension Is this a current diagnosis for this admission?: Yes (7) Fibromyalgia Is this a current diagnosis for this admission?: Yes (8) Chronic low back pain Qualifiers: Back pain laterality: bilateral Sciatica presence: with sciatica Sciatica laterality: bilateral sciatica Qualified Code(s): M54.42 - Lumbago with sciatica, left side Is this a current diagnosis for this admission?: Yes Plan: Tolerating the Duragesic patch. - Time Time Spent with patient: 25-34 minutes - Inpatient Certification Medical Necessity: Need Close Monitoring Due to Risk of Patient Decompensation - Plan Summary Plan Summary: will go to rehab when she is finished with radiation therapy
[2017-03-22] MEDS: INSULIN GLARGINE,HUM.REC.ANLOG 300 UNIT/3 ML INSULN.PEN SUBCUT SCH (14:28)
[2017-03-22] MEDS: SIMVASTATIN 40 MG TABLET PO SCH (21:07)
[2017-03-22] MEDS: PRAMIPEXOLE DI-HCL 0.25 MG TABLET PO SCH (21:08)
[2017-03-23] MEDS: LANSOPRAZOLE 30 MG TAB.RAP.DR PO SCH (06:07)
[2017-03-23] MEDS: LEVOTHYROXINE SODIUM 0.088 MG TABLET PO SCH (06:07)
[2017-03-23] MEDS: PREGABALIN 100 MG CAPSULE PO SCH ×3 (06:07→21:58)
[2017-03-23] MEDS: INSULIN LISPRO 100 UNIT/ML 3 ML VIAL SUBCUT SCH ×3 (07:58→18:32)
[2017-03-23] MEDS: OXYCODONE-ACETAMINOPHEN 5-325 MG TABLET PO PRN ×3 (08:36→21:59)
[2017-03-23] MEDS: METFORMIN HCL 500 MG TABLET PO SCH ×2 (08:37→18:32)
[2017-03-23] MEDS: DEXAMETHASONE 4 MG TABLET PO SCH ×2 (10:11→21:59)
[2017-03-23] MEDS: LEVETIRACETAM 500 MG TABLET PO SCH ×2 (10:12→21:58)
[2017-03-23] MEDS: DULOXETINE HCL 30 MG CAPSULE.DR PO SCH ×2 (10:12→18:32)
[2017-03-23] MEDS: LISINOPRIL 10 MG TABLET PO SCH (10:12)
[2017-03-23] MEDS: LACTOBACILLUS ACIDOPHILUS 250 MG TAB PO SCH ×2 (10:12→18:31)
[2017-03-23] MEDS: RIVAROXABAN 10 MG TABLET PO SCH (10:13)
--- NOTE | 2017-03-23 12:48 | PDOC PROGRESS REPORT ---
Subjective Progress Note for:: 03/23/17 Subjective:: Denies any complaints. Reason For Visit: LEFT INTERTROCHANTERIC HIP FRACTURE S/P Physical Exam Vital Signs: Temp Pulse Resp BP Pulse Ox 97.4 F 71 18 123/49 L 100 03/23/17 08:54 03/23/17 08:54 03/23/17 08:54 03/23/17 08:54 03/23/17 08:54 Intake & Output 03/22/17 03/23/17 03/24/17 06:59 06:59 06:59 Intake Total 2310 2420 Output Total 600 Balance 1710 2420 General appearance: PRESENT: no acute distress Eye exam: PRESENT: conjunctiva pink. ABSENT: scleral icterus Mouth exam: PRESENT: moist, tongue midline Neck exam: ABSENT: JVD Respiratory exam: PRESENT: clear to auscultation julio. ABSENT: rales, rhonchi, wheezes Cardiovascular exam: PRESENT: RRR. ABSENT: diastolic murmur, rubs, systolic murmur GI/Abdominal exam: PRESENT: normal bowel sounds, soft. ABSENT: distended, guarding, mass, organolmegaly, rebound, tenderness Extremities exam: ABSENT: calf tenderness, clubbing, pedal edema Neurological exam: PRESENT: alert, awake, oriented to person, oriented to place , oriented to time, oriented to situation, CN II-XII grossly intact. ABSENT: motor sensory deficit Psychiatric exam: PRESENT: appropriate affect Skin exam: PRESENT: dry, intact, warm. ABSENT: cyanosis, rash Results Laboratory Results: 03/22/17 06:23 03/22/17 06:23 02/28/17 02/28/17 02:45 08:46 Troponin I < 0.012 < 0.012 Impressions: Cervical Spine CT 02/27/17 20:20 IMPRESSION: 1. NO ACUTE OR SIGNIFICANT FINDINGS IN THE CERVICAL SPINE. 2. THE VISUALIZED UPPER THORACIC ESOPHAGUS IS DISTENDED. ON PREVIOUS CHEST CT DONE IN APRIL 2016 THERE WAS MILD ESOPHAGEAL DILATION. THIS IS PROBABLY RELATED TO PREVIOUS GASTRIC BYPASS. THERE MAY BE RELATIVE FUNCTIONAL OBSTRUCTION AT THE GASTROESOPHAGEAL JUNCTION. Chest X-Ray 02/27/17 20:20 IMPRESSION: NO ACUTE RADIOGRAPHIC FINDING IN THE CHEST. Head CT 02/27/17 20:20 IMPRESSION: DECREASED ATTENUATION IN THE WHITE MATTER OF THE POSTERIOR RIGHT PARIETAL LOBE, NOT PRESENT IN APRIL 2016. THIS COULD BE INDICATIVE OF RECENT INFARCT. MRI OF THE BRAIN MAY BE CONSIDERED FOR FURTHER EVALUATION. EVIDENCE OF ACUTE STROKE: POSSIBLE ACUTE OR SUBACUTE INFARCT. RIGHT MCA Head MRI 02/28/17 00:00 IMPRESSION: 1.4 cm enhancing brain parenchymal nodule with surrounding vasogenic edema, posterior right frontal lobe worrisome for metastatic disease EVIDENCE OF ACUTE STROKE: NO. Fluoroscopy 03/01/17 00:00 IMPRESSION: Intra procedural imaging and fluoro Hip X-Ray 03/01/17 00:00 IMPRESSION: Intra procedural imaging and fluoro Lumbar Spine MRI 03/05/17 00:00 IMPRESSION: 1. 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 DEGENERATIVE CHANGES AT THIS LEVEL DESCRIBED ABOVE WITH MODERATE SPINAL STENOSIS AND EXIT FORAMINAL STENOSIS. 2. POSTERIOR HARDWARE AT L5. 3. REMAINDER OF THE STUDY IS RELATIVELY UNREMARKABLE. NO ACUTE FINDINGS. NO FINDINGS CONCERNING FOR METASTATIC INVOLVEMENT OF THE SPINE. Thoracic Spine MRI 03/05/17 00:00 IMPRESSION: NORMAL MRI THORACIC SPINE. Assessment & Plan - Diagnosis (1) Brain metastases Is this a current diagnosis for this admission?: Yes Plan: Has been seen by oncology. Currently getting brain irradiation. Will need 10 total treatments. (2) Intertrochanteric fracture of left hip Qualifiers: Encounter type: initial encounter Fracture type: closed Fracture alignment: nondisplaced Qualified Code(s): S72.145A - Nondisplaced intertrochanteric fracture of left femur, initial encounter for closed fracture Is this a current diagnosis for this admission?: Yes Plan: Continue with physical therapy. Will go to rehab once her brain radiation is done. (3) CKD (chronic kidney disease) stage 4, GFR 15-29 ml/min Is this a current diagnosis for this admission?: Yes Plan: Patient is euvolemic. (4) Breast cancer metastasized to liver Qualifiers: Laterality: left Qualified Code(s): C50.912 - Malignant neoplasm of unspecified site of left female breast Is this a current diagnosis for this admission?: Yes Plan: Followed by oncology. (5) Diabetes Qualifiers: Diabetes mellitus type: type 2 Diabetes mellitus complication status: with unspecified complications Diabetes mellitus usp insulin use: without usp use Qualified Code(s): E11.8 - Type 2 diabetes mellitus with unspecified complications Is this a current diagnosis for this admission?: Yes Plan: Will continue with Lantus. Continue with sliding scale coverage. Her blood sugars have gone up with the steroids. (6) Essential hypertension Is this a current diagnosis for this admission?: Yes (7) Fibromyalgia Is this a current diagnosis for this admission?: Yes (8) Chronic low back pain Qualifiers: Back pain laterality: bilateral Sciatica presence: with sciatica Sciatica laterality: bilateral sciatica Qualified Code(s): M54.42 - Lumbago with sciatica, left side Is this a current diagnosis for this admission?: Yes Plan: Tolerating the Duragesic patch. - Time Time Spent with patient: 15-24 minutes
[2017-03-23] MEDS: INSULIN GLARGINE,HUM.REC.ANLOG 300 UNIT/3 ML INSULN.PEN SUBCUT SCH (13:37)
[2017-03-23] MEDS: FUROSEMIDE 20 MG TABLET PO SCH (15:31)
[2017-03-23] MEDS: INSULIN LISPRO 100 UNIT/ML 3 ML VIAL SUBCUT PRN ×2 (18:31→22:04)
[2017-03-23] MEDS: LORAZEPAM 0.5 MG TABLET PO PRN (21:58)
[2017-03-23] MEDS: SIMVASTATIN 40 MG TABLET PO SCH (21:58)
[2017-03-23] MEDS: PRAMIPEXOLE DI-HCL 0.25 MG TABLET PO SCH (21:59)
[2017-03-24] MEDS: LEVOTHYROXINE SODIUM 0.088 MG TABLET PO SCH (05:27)
[2017-03-24] MEDS: LANSOPRAZOLE 30 MG TAB.RAP.DR PO SCH (05:27)
[2017-03-24] MEDS: OXYCODONE-ACETAMINOPHEN 5-325 MG TABLET PO PRN (05:28)
[2017-03-24] MEDS: PREGABALIN 100 MG CAPSULE PO SCH ×3 (05:28→22:19)
[2017-03-24] MEDS: METFORMIN HCL 500 MG TABLET PO SCH ×2 (07:59→17:40)
[2017-03-24] MEDS: INSULIN LISPRO 100 UNIT/ML 3 ML VIAL SUBCUT SCH ×3 (08:00→17:39)
--- NOTE | 2017-03-24 09:46 | PDOC PROGRESS REPORT ---
Subjective Progress Note for:: 03/24/17 Subjective:: Patient is resting comfortably in her chair viewing her tablet. States the pain is better controlled. States she walks 100 feet with a walker. No other issues. Reason For Visit: LEFT INTERTROCHANTERIC HIP FRACTURE S/P Physical Exam Vital Signs: Temp Pulse Resp BP Pulse Ox 36.7 C 66 18 135/65 H 100 03/24/17 08:29 03/24/17 08:29 03/24/17 08:29 03/24/17 08:29 03/24/17 08:29 Intake & Output 03/23/17 03/24/17 03/25/17 06:59 06:59 06:59 Intake Total 2420 2490 Output Total 700 Balance 2420 1790 General appearance: PRESENT: no acute distress Adult Front & Back Image: 1 - Left hip incisions are dry clean and intact and healing nicely. No evidence of infection. Patient has better range of motion before she has any significant pain. She is neurovascular intact with good sensation to light touch and good capillary refill distally and 5 out of 5 motor of the ankle and toes. Results Laboratory Results: 03/22/17 06:23 03/22/17 06:23 02/28/17 02/28/17 02:45 08:46 Troponin I < 0.012 < 0.012 Impressions: Cervical Spine CT 02/27/17 20:20 IMPRESSION: 1. NO ACUTE OR SIGNIFICANT FINDINGS IN THE CERVICAL SPINE. 2. THE VISUALIZED UPPER THORACIC ESOPHAGUS IS DISTENDED. ON PREVIOUS CHEST CT DONE IN APRIL 2016 THERE WAS MILD ESOPHAGEAL DILATION. THIS IS PROBABLY RELATED TO PREVIOUS GASTRIC BYPASS. THERE MAY BE RELATIVE FUNCTIONAL OBSTRUCTION AT THE GASTROESOPHAGEAL JUNCTION. Chest X-Ray 02/27/17 20:20 IMPRESSION: NO ACUTE RADIOGRAPHIC FINDING IN THE CHEST. Head CT 02/27/17 20:20 IMPRESSION: DECREASED ATTENUATION IN THE WHITE MATTER OF THE POSTERIOR RIGHT PARIETAL LOBE, NOT PRESENT IN APRIL 2016. THIS COULD BE INDICATIVE OF RECENT INFARCT. MRI OF THE BRAIN MAY BE CONSIDERED FOR FURTHER EVALUATION. EVIDENCE OF ACUTE STROKE: POSSIBLE ACUTE OR SUBACUTE INFARCT. RIGHT MCA Head MRI 02/28/17 00:00 IMPRESSION: 1.4 cm enhancing brain parenchymal nodule with surrounding vasogenic edema, posterior right frontal lobe worrisome for metastatic disease EVIDENCE OF ACUTE STROKE: NO. Fluoroscopy 03/01/17 00:00 IMPRESSION: Intra procedural imaging and fluoro Hip X-Ray 03/01/17 00:00 IMPRESSION: Intra procedural imaging and fluoro Lumbar Spine MRI 03/05/17 00:00 IMPRESSION: 1. 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 DEGENERATIVE CHANGES AT THIS LEVEL DESCRIBED ABOVE WITH MODERATE SPINAL STENOSIS AND EXIT FORAMINAL STENOSIS. 2. POSTERIOR HARDWARE AT L5. 3. REMAINDER OF THE STUDY IS RELATIVELY UNREMARKABLE. NO ACUTE FINDINGS. NO FINDINGS CONCERNING FOR METASTATIC INVOLVEMENT OF THE SPINE. Thoracic Spine MRI 03/05/17 00:00 IMPRESSION: NORMAL MRI THORACIC SPINE. Status: Image reviewed by me Assessment & Plan - Diagnosis (1) Intertrochanteric fracture of left hip Qualifiers: Encounter type: initial encounter Fracture type: closed Fracture alignment: nondisplaced Qualified Code(s): S72.145A - Nondisplaced intertrochanteric fracture of left femur, initial encounter for closed fracture Is this a current diagnosis for this admission?: Yes - Plan Summary Plan Summary: 72-year-old female who is 3 weeks out from nailing of her left intertrochanteric hip fracture. Incisions are healing nicely. Pain is improving and ambulation is slowly improving. Patient receiving radiation to the brain and after that she will probably be discharged to rehab.
--- NOTE | 2017-03-24 10:10 | PDOC PROGRESS REPORT ---
Subjective Progress Note for:: 03/24/17 Subjective:: Denies any complaints. Reason For Visit: LEFT INTERTROCHANTERIC HIP FRACTURE S/P Physical Exam Vital Signs: Temp Pulse Resp BP Pulse Ox 98.1 F 66 18 135/65 H 100 03/24/17 08:29 03/24/17 08:29 03/24/17 08:29 03/24/17 08:29 03/24/17 08:29 Intake & Output 03/23/17 03/24/17 03/25/17 06:59 06:59 06:59 Intake Total 2420 2490 Output Total 700 Balance 2420 1790 General appearance: PRESENT: no acute distress Eye exam: PRESENT: conjunctiva pink. ABSENT: scleral icterus Mouth exam: PRESENT: moist, tongue midline Neck exam: ABSENT: JVD Respiratory exam: PRESENT: clear to auscultation julio. ABSENT: rales, rhonchi, wheezes Cardiovascular exam: PRESENT: RRR. ABSENT: diastolic murmur, rubs, systolic murmur GI/Abdominal exam: PRESENT: normal bowel sounds, soft. ABSENT: distended, guarding, mass, organolmegaly, rebound, tenderness Psychiatric exam: PRESENT: appropriate affect Results Laboratory Results: 03/22/17 06:23 03/22/17 06:23 02/28/17 02/28/17 02:45 08:46 Troponin I < 0.012 < 0.012 Impressions: Cervical Spine CT 02/27/17 20:20 IMPRESSION: 1. NO ACUTE OR SIGNIFICANT FINDINGS IN THE CERVICAL SPINE. 2. THE VISUALIZED UPPER THORACIC ESOPHAGUS IS DISTENDED. ON PREVIOUS CHEST CT DONE IN APRIL 2016 THERE WAS MILD ESOPHAGEAL DILATION. THIS IS PROBABLY RELATED TO PREVIOUS GASTRIC BYPASS. THERE MAY BE RELATIVE FUNCTIONAL OBSTRUCTION AT THE GASTROESOPHAGEAL JUNCTION. Chest X-Ray 02/27/17 20:20 IMPRESSION: NO ACUTE RADIOGRAPHIC FINDING IN THE CHEST. Head CT 02/27/17 20:20 IMPRESSION: DECREASED ATTENUATION IN THE WHITE MATTER OF THE POSTERIOR RIGHT PARIETAL LOBE, NOT PRESENT IN APRIL 2016. THIS COULD BE INDICATIVE OF RECENT INFARCT. MRI OF THE BRAIN MAY BE CONSIDERED FOR FURTHER EVALUATION. EVIDENCE OF ACUTE STROKE: POSSIBLE ACUTE OR SUBACUTE INFARCT. RIGHT MCA Head MRI 02/28/17 00:00 IMPRESSION: 1.4 cm enhancing brain parenchymal nodule with surrounding vasogenic edema, posterior right frontal lobe worrisome for metastatic disease EVIDENCE OF ACUTE STROKE: NO. Fluoroscopy 03/01/17 00:00 IMPRESSION: Intra procedural imaging and fluoro Hip X-Ray 03/01/17 00:00 IMPRESSION: Intra procedural imaging and fluoro Lumbar Spine MRI 03/05/17 00:00 IMPRESSION: 1. 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 DEGENERATIVE CHANGES AT THIS LEVEL DESCRIBED ABOVE WITH MODERATE SPINAL STENOSIS AND EXIT FORAMINAL STENOSIS. 2. POSTERIOR HARDWARE AT L5. 3. REMAINDER OF THE STUDY IS RELATIVELY UNREMARKABLE. NO ACUTE FINDINGS. NO FINDINGS CONCERNING FOR METASTATIC INVOLVEMENT OF THE SPINE. Thoracic Spine MRI 03/05/17 00:00 IMPRESSION: NORMAL MRI THORACIC SPINE. Assessment & Plan - Diagnosis (1) Brain metastases Is this a current diagnosis for this admission?: Yes Plan: Has been seen by oncology. Currently getting brain irradiation. Will need 10 total treatments. (2) Intertrochanteric fracture of left hip Qualifiers: Encounter type: initial encounter Fracture type: closed Fracture alignment: nondisplaced Qualified Code(s): S72.145A - Nondisplaced intertrochanteric fracture of left femur, initial encounter for closed fracture Is this a current diagnosis for this admission?: Yes Plan: Continue with physical therapy. Will go to rehab once her brain radiation is done. (3) CKD (chronic kidney disease) stage 4, GFR 15-29 ml/min Is this a current diagnosis for this admission?: Yes Plan: Patient is euvolemic. (4) Breast cancer metastasized to liver Qualifiers: Laterality: left Qualified Code(s): C50.912 - Malignant neoplasm of unspecified site of left female breast Is this a current diagnosis for this admission?: Yes Plan: Followed by oncology. (5) Diabetes Qualifiers: Diabetes mellitus type: type 2 Diabetes mellitus complication status: with unspecified complications Diabetes mellitus termite treater helper insulin use: without assisted use Qualified Code(s): E11.8 - Type 2 diabetes mellitus with unspecified complications Is this a current diagnosis for this admission?: Yes Plan: Will continue with Lantus. Continue with sliding scale coverage. Her blood sugars have gone up with the steroids. (6) Essential hypertension Is this a current diagnosis for this admission?: Yes (7) Fibromyalgia Is this a current diagnosis for this admission?: Yes (8) Chronic low back pain Qualifiers: Back pain laterality: bilateral Sciatica presence: with sciatica Sciatica laterality: bilateral sciatica Qualified Code(s): M54.42 - Lumbago with sciatica, left side Is this a current diagnosis for this admission?: Yes Plan: Tolerating the Duragesic patch. - Time Time Spent with patient: 25-34 minutes
[2017-03-24] MEDS: RIVAROXABAN 10 MG TABLET PO SCH (11:04)
[2017-03-24] MEDS: LEVETIRACETAM 500 MG TABLET PO SCH ×2 (11:04→22:19)
[2017-03-24] MEDS: INSULIN GLARGINE,HUM.REC.ANLOG 300 UNIT/3 ML INSULN.PEN SUBCUT SCH (11:04)
[2017-03-24] MEDS: DEXAMETHASONE 4 MG TABLET PO SCH ×2 (11:04→22:20)
[2017-03-24] MEDS: LACTOBACILLUS ACIDOPHILUS 250 MG TAB PO SCH ×2 (11:05→17:40)
[2017-03-24] MEDS: DULOXETINE HCL 30 MG CAPSULE.DR PO SCH ×2 (11:05→17:40)
[2017-03-24] MEDS: LISINOPRIL 10 MG TABLET PO SCH (11:05)
[2017-03-24] MEDS: FUROSEMIDE 20 MG TABLET PO SCH (11:12)
[2017-03-24] MEDS: SIMVASTATIN 40 MG TABLET PO SCH (22:20)
[2017-03-24] MEDS: PRAMIPEXOLE DI-HCL 0.25 MG TABLET PO SCH (22:20)
[2017-03-25] MEDS: OXYCODONE-ACETAMINOPHEN 5-325 MG TABLET PO PRN ×2 (04:29→15:21)
[2017-03-25] MEDS: LANSOPRAZOLE 30 MG TAB.RAP.DR PO SCH (05:06)
[2017-03-25] MEDS: LEVOTHYROXINE SODIUM 0.088 MG TABLET PO SCH (05:06)
[2017-03-25] MEDS: PREGABALIN 100 MG CAPSULE PO SCH ×3 (05:06→23:02)
[2017-03-25] MEDS: DULOXETINE HCL 30 MG CAPSULE.DR PO SCH ×2 (09:06→16:55)
[2017-03-25] MEDS: DEXAMETHASONE 4 MG TABLET PO SCH ×2 (09:06→22:59)
[2017-03-25] MEDS: LACTOBACILLUS ACIDOPHILUS 250 MG TAB PO SCH ×2 (09:06→16:54)
[2017-03-25] MEDS: RIVAROXABAN 10 MG TABLET PO SCH (09:06)
[2017-03-25] MEDS: FUROSEMIDE 20 MG TABLET PO SCH (09:07)
[2017-03-25] MEDS: METFORMIN HCL 500 MG TABLET PO SCH ×2 (09:08→16:55)
[2017-03-25] MEDS: LEVETIRACETAM 500 MG TABLET PO SCH ×2 (09:08→23:01)
[2017-03-25] MEDS: INSULIN LISPRO 100 UNIT/ML 3 ML VIAL SUBCUT SCH ×3 (09:08→15:26)
[2017-03-25] MEDS: LISINOPRIL 10 MG TABLET PO SCH (09:08)
[2017-03-25] MEDS: INSULIN GLARGINE,HUM.REC.ANLOG 300 UNIT/3 ML INSULN.PEN SUBCUT SCH (11:22)
[2017-03-25] MEDS: INSULIN LISPRO 100 UNIT/ML 3 ML VIAL SUBCUT PRN (11:22)
--- NOTE | 2017-03-25 15:29 | PDOC PROGRESS REPORT ---
Subjective Progress Note for:: 03/25/17 Subjective:: 72-year-old female who presented after a fall and was found to have a hip fracture. Patient also had complaints of back pain and history of breast cancer. The patient is known to have metastatic breast cancer and because of the back pain had an MRI which was negative for any type of tumors. The patient had surgical repair of her hip fracture and has done well since then. She had a brain MRI done and was found to have metastatic disease. She was started on dexamethasone. Today was the final day of 10 treatments of radiation to the brain for her metastatic disease. She is now awaiting placement for rehab. The patient had previously been a [facility] but does not want to go back there. She would like to go to [facility] in [place]. Discharge planning is working on this. Once she has a bed she is ready for discharge. Reason For Visit: LEFT INTERTROCHANTERIC HIP FRACTURE S/P Physical Exam Vital Signs: Temp Pulse Resp BP Pulse Ox 97.8 F 98 16 136/48 H 97 03/25/17 12:00 03/25/17 12:00 03/25/17 12:00 03/25/17 12:00 03/25/17 12:00 Intake & Output 03/24/17 03/25/17 03/26/17 06:59 06:59 06:59 Intake Total 2490 560 410 Output Total 700 Balance 1790 560 410 Results Laboratory Results: 03/22/17 06:23 03/22/17 06:23 02/28/17 02/28/17 02:45 08:46 Troponin I < 0.012 < 0.012 Impressions: Cervical Spine CT 02/27/17 20:20 IMPRESSION: 1. NO ACUTE OR SIGNIFICANT FINDINGS IN THE CERVICAL SPINE. 2. THE VISUALIZED UPPER THORACIC ESOPHAGUS IS DISTENDED. ON PREVIOUS CHEST CT DONE IN APRIL 2016 THERE WAS MILD ESOPHAGEAL DILATION. THIS IS PROBABLY RELATED TO PREVIOUS GASTRIC BYPASS. THERE MAY BE RELATIVE FUNCTIONAL OBSTRUCTION AT THE GASTROESOPHAGEAL JUNCTION. Chest X-Ray 02/27/17 20:20 IMPRESSION: NO ACUTE RADIOGRAPHIC FINDING IN THE CHEST. Head CT 02/27/17 20:20 IMPRESSION: DECREASED ATTENUATION IN THE WHITE MATTER OF THE POSTERIOR RIGHT PARIETAL LOBE, NOT PRESENT IN APRIL 2016. THIS COULD BE INDICATIVE OF RECENT INFARCT. MRI OF THE BRAIN MAY BE CONSIDERED FOR FURTHER EVALUATION. EVIDENCE OF ACUTE STROKE: POSSIBLE ACUTE OR SUBACUTE INFARCT. RIGHT MCA Head MRI 02/28/17 00:00 IMPRESSION: 1.4 cm enhancing brain parenchymal nodule with surrounding vasogenic edema, posterior right frontal lobe worrisome for metastatic disease EVIDENCE OF ACUTE STROKE: NO. Fluoroscopy 03/01/17 00:00 IMPRESSION: Intra procedural imaging and fluoro Hip X-Ray 03/01/17 00:00 IMPRESSION: Intra procedural imaging and fluoro Lumbar Spine MRI 03/05/17 00:00 IMPRESSION: 1. 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 DEGENERATIVE CHANGES AT THIS LEVEL DESCRIBED ABOVE WITH MODERATE SPINAL STENOSIS AND EXIT FORAMINAL STENOSIS. 2. POSTERIOR HARDWARE AT L5. 3. REMAINDER OF THE STUDY IS RELATIVELY UNREMARKABLE. NO ACUTE FINDINGS. NO FINDINGS CONCERNING FOR METASTATIC INVOLVEMENT OF THE SPINE. Thoracic Spine MRI 03/05/17 00:00 IMPRESSION: NORMAL MRI THORACIC SPINE. Assessment & Plan - Diagnosis (1) Brain metastases Is this a current diagnosis for this admission?: Yes (2) Intertrochanteric fracture of left hip Qualifiers: Encounter type: initial encounter Fracture type: closed Fracture alignment: nondisplaced Qualified Code(s): S72.145A - Nondisplaced intertrochanteric fracture of left femur, initial encounter for closed fracture Is this a current diagnosis for this admission?: Yes Plan: Continue with physical therapy. Will go to rehab when a bed is available. Today was her last day of brain irradiation (3) CKD (chronic kidney disease) stage 4, GFR 15-29 ml/min Is this a current diagnosis for this admission?: Yes Plan: Patient is euvolemic. (4) Breast cancer metastasized to liver Qualifiers: Laterality: left Qualified Code(s): C50.912 - Malignant neoplasm of unspecified site of left female breast Is this a current diagnosis for this admission?: Yes Plan: Followed by oncology. (5) Diabetes Qualifiers: Diabetes mellitus type: type 2 Diabetes mellitus complication status: with unspecified complications Diabetes mellitus jail insulin use: without education courses sales representative use Qualified Code(s): E11.8 - Type 2 diabetes mellitus with unspecified complications Is this a current diagnosis for this admission?: Yes Plan: Will continue with Lantus. Continue with sliding scale coverage. Her blood sugars have gone up with the steroids. (6) Essential hypertension Is this a current diagnosis for this admission?: Yes (7) Fibromyalgia Is this a current diagnosis for this admission?: Yes (8) Chronic low back pain Qualifiers: Back pain laterality: bilateral Sciatica presence: with sciatica Sciatica laterality: bilateral sciatica Qualified Code(s): M54.42 - Lumbago with sciatica, left side Is this a current diagnosis for this admission?: Yes Plan: Tolerating the Duragesic patch. - Time Time Spent with patient: 15-24 minutes - Plan Summary Plan Summary: Patient can be discharged to rehab when a bed becomes available.
[2017-03-25] MEDS: SIMVASTATIN 40 MG TABLET PO SCH (23:02)
[2017-03-25] MEDS: PRAMIPEXOLE DI-HCL 0.25 MG TABLET PO SCH (23:02)
[2017-03-26] MEDS: OXYCODONE-ACETAMINOPHEN 5-325 MG TABLET PO PRN (03:59)
[2017-03-26] MEDS: LANSOPRAZOLE 30 MG TAB.RAP.DR PO SCH (05:34)
[2017-03-26] MEDS: PREGABALIN 100 MG CAPSULE PO SCH ×3 (05:34→22:10)
[2017-03-26] MEDS: LEVOTHYROXINE SODIUM 0.088 MG TABLET PO SCH (05:34)
[2017-03-26 07:07] LABS: ABSOLUTE LYMPHOCYTES (AUTO) 0.4 10^3/uL (0.5-4.7); ABSOLUTE MONOCYTES (AUTO) 0.2 10^3/uL (0.1-1.4); ABSOLUTE NEUT (AUTO) 4.7 10^3/uL (1.7-8.2); BASOPHILS % (AUTO) 0.1 % (0-2); HEMATOCRIT 34.3 % (36.0-47.0); MEAN CORPUSCULAR HEMOGLOBIN 29.3 pg (27.0-33.4); MEAN CORPUSCULAR HGB CONC 32.1 g/dL (32.0-36.0); MEAN CORPUSCULAR VOLUME 91 fl (80-97); MONOCYTES % (AUTO) 3.8 % (3-13); PLATELET COUNT 147 10^3/uL (150-450); RED BLOOD COUNT 3.75 10^6/uL (3.72-5.28); RED CELL DISTRIBUTION WIDTH 16.2 % (11.5-14.0); SEGMENTED NEUTROPHILS % (AUTO) 89.1 % (42-78); TOTAL CELLS COUNTED % (AUTO) 100 %; WHITE BLOOD COUNT 5.2 10^3/uL (4.0-10.5)
[2017-03-26 07:28] LABS: ANION GAP 7 (5-19); BLOOD UREA NITROGEN 36 mg/dL (7-20); CALCIUM 8.7 mg/dL (8.4-10.2); CARBON DIOXIDE 27 mmol/L (22-30); CHLORIDE 108 mmol/L (98-107); GLUCOSE 114 mg/dL (75-110); SODIUM 141.7 mmol/L (137-145)
[2017-03-26] MEDS: METFORMIN HCL 500 MG TABLET PO SCH ×2 (09:37→17:43)
[2017-03-26] MEDS: RIVAROXABAN 10 MG TABLET PO SCH (09:38)
[2017-03-26] MEDS: LISINOPRIL 10 MG TABLET PO SCH (09:38)
[2017-03-26] MEDS: INSULIN LISPRO 100 UNIT/ML 3 ML VIAL SUBCUT SCH ×3 (09:38→17:32)
[2017-03-26] MEDS: LACTOBACILLUS ACIDOPHILUS 250 MG TAB PO SCH ×2 (09:39→17:43)
[2017-03-26] MEDS: LEVETIRACETAM 500 MG TABLET PO SCH ×2 (09:39→22:10)
[2017-03-26] MEDS: DULOXETINE HCL 30 MG CAPSULE.DR PO SCH ×2 (09:39→17:43)
[2017-03-26] MEDS: DEXAMETHASONE 4 MG TABLET PO SCH ×2 (09:45→22:10)
[2017-03-26] MEDS: FUROSEMIDE 20 MG TABLET PO SCH (09:46)
[2017-03-26] MEDS: INSULIN GLARGINE,HUM.REC.ANLOG 300 UNIT/3 ML INSULN.PEN SUBCUT SCH (12:12)
[2017-03-26] MEDS: LORAZEPAM 0.5 MG TABLET PO PRN (15:33)
--- NOTE | 2017-03-26 19:33 | PDOC PROGRESS REPORT ---
Subjective Progress Note for:: 03/26/17 Subjective:: 72-year-old female who presented after a fall and was found to have a hip fracture, in a history of metastatic breast cancer. The patient had surgical repair of her hip fracture and has done well since then. She had a brain MRI done and was found to have metastatic disease. She was started on dexamethasone. She also completed 10 treatments of XRT for brain lesions. Previously been a [facility] but does not want to go back there. Plans to go to [facility] in [place], currently working on a bed. Had nausea today which was controlled with anti-emetics. Also was anxious and received Ativan. NO other new complaints. Reason For Visit: Reason For Visit: LEFT INTERTROCHANTERIC HIP FRACTURE S/P Physical Exam Vital Signs: Temp Pulse Resp BP Pulse Ox 98.2 F 79 16 127/58 H 98 03/26/17 15:42 03/26/17 15:42 03/26/17 15:42 03/26/17 15:42 03/26/17 15:42 Intake & Output 03/25/17 03/26/17 03/27/17 06:59 06:59 06:59 Intake Total 560 1390 502 Balance 560 1390 502 General appearance: PRESENT: no acute distress, other - Sitting up in bedside chair, very pleasant Mouth exam: PRESENT: moist Respiratory exam: PRESENT: clear to auscultation julio, unlabored Cardiovascular exam: PRESENT: RRR GI/Abdominal exam: PRESENT: soft. ABSENT: tenderness Neurological exam: PRESENT: alert, awake, CN II-XII grossly intact Results Laboratory Results: 03/26/17 06:41 03/26/17 06:41 03/26/17 03/26/17 06:41 06:41 WBC 5.2 RBC 3.75 Hgb 11.0 L Hct 34.3 L MCV 91 MCH 29.3 MCHC 32.1 RDW 16.2 H Plt Count 147 L Seg Neutrophils % 89.1 H Lymphocytes % 7.0 L Monocytes % 3.8 Eosinophils % 0.0 Basophils % 0.1 Absolute Neutrophils 4.7 Absolute Lymphocytes 0.4 L Absolute Monocytes 0.2 Absolute Eosinophils 0.0 Absolute Basophils 0.0 Sodium 141.7 Potassium 5.0 Chloride 108 H Carbon Dioxide 27 Anion Gap 7 BUN 36 H Creatinine 0.82 Est GFR ( Amer) > 60 Est GFR (Non-Af Amer) > 60 Glucose 114 H Calcium 8.7 02/28/17 02/28/17 02:45 08:46 Troponin I < 0.012 < 0.012 Impressions: Cervical Spine CT 02/27/17 20:20 IMPRESSION: 1. NO ACUTE OR SIGNIFICANT FINDINGS IN THE CERVICAL SPINE. 2. THE VISUALIZED UPPER THORACIC ESOPHAGUS IS DISTENDED. ON PREVIOUS CHEST CT DONE IN APRIL 2016 THERE WAS MILD ESOPHAGEAL DILATION. THIS IS PROBABLY RELATED TO PREVIOUS GASTRIC BYPASS. THERE MAY BE RELATIVE FUNCTIONAL OBSTRUCTION AT THE GASTROESOPHAGEAL JUNCTION. Chest X-Ray 02/27/17 20:20 IMPRESSION: NO ACUTE RADIOGRAPHIC FINDING IN THE CHEST. Head CT 02/27/17 20:20 IMPRESSION: DECREASED ATTENUATION IN THE WHITE MATTER OF THE POSTERIOR RIGHT PARIETAL LOBE, NOT PRESENT IN APRIL 2016. THIS COULD BE INDICATIVE OF RECENT INFARCT. MRI OF THE BRAIN MAY BE CONSIDERED FOR FURTHER EVALUATION. EVIDENCE OF ACUTE STROKE: POSSIBLE ACUTE OR SUBACUTE INFARCT. RIGHT MCA Head MRI 02/28/17 00:00 IMPRESSION: 1.4 cm enhancing brain parenchymal nodule with surrounding vasogenic edema, posterior right frontal lobe worrisome for metastatic disease EVIDENCE OF ACUTE STROKE: NO. Fluoroscopy 03/01/17 00:00 IMPRESSION: Intra procedural imaging and fluoro Hip X-Ray 03/01/17 00:00 IMPRESSION: Intra procedural imaging and fluoro Lumbar Spine MRI 03/05/17 00:00 IMPRESSION: 1. 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 DEGENERATIVE CHANGES AT THIS LEVEL DESCRIBED ABOVE WITH MODERATE SPINAL STENOSIS AND EXIT FORAMINAL STENOSIS. 2. POSTERIOR HARDWARE AT L5. 3. REMAINDER OF THE STUDY IS RELATIVELY UNREMARKABLE. NO ACUTE FINDINGS. NO FINDINGS CONCERNING FOR METASTATIC INVOLVEMENT OF THE SPINE. Thoracic Spine MRI 03/05/17 00:00 IMPRESSION: NORMAL MRI THORACIC SPINE. Assessment & Plan - Diagnosis (1) Breast cancer metastasized to brain Qualifiers: Laterality: unspecified laterality Qualified Code(s): C50.919 - Malignant neoplasm of unspecified site of unspecified female breast; C79.31 - Secondary malignant neoplasm of brain; C79.31 - Secondary malignant neoplasm of brain; C79.31 - Secondary malignant neoplasm of brain; C79.31 - Secondary malignant neoplasm of brain Is this a current diagnosis for this admission?: Yes Plan: S/p XRT to brain this admission (2) CKD (chronic kidney disease) stage 4, GFR 15-29 ml/min Is this a current diagnosis for this admission?: Yes (3) Intertrochanteric fracture of left hip Qualifiers: Encounter type: initial encounter Fracture type: closed Fracture alignment: nondisplaced Qualified Code(s): S72.145A - Nondisplaced intertrochanteric fracture of left femur, initial encounter for closed fracture Is this a current diagnosis for this admission?: Yes Plan: Progressing with PT; will need placement to continue rehab
[2017-03-26] MEDS: SIMVASTATIN 40 MG TABLET PO SCH (22:10)
[2017-03-26] MEDS: PRAMIPEXOLE DI-HCL 0.25 MG TABLET PO SCH (22:10)
[2017-03-27] MEDS: OXYCODONE-ACETAMINOPHEN 5-325 MG TABLET PO PRN ×2 (02:59→17:11)
[2017-03-27] MEDS: LANSOPRAZOLE 30 MG TAB.RAP.DR PO SCH (05:44)
[2017-03-27] MEDS: LEVOTHYROXINE SODIUM 0.088 MG TABLET PO SCH (05:44)
[2017-03-27] MEDS: PREGABALIN 100 MG CAPSULE PO SCH ×3 (05:44→23:53)
[2017-03-27] MEDS: METFORMIN HCL 500 MG TABLET PO SCH ×2 (10:05→17:12)
[2017-03-27] MEDS: INSULIN LISPRO 100 UNIT/ML 3 ML VIAL SUBCUT SCH ×3 (10:05→15:27)
[2017-03-27] MEDS: RIVAROXABAN 10 MG TABLET PO SCH (12:09)
[2017-03-27] MEDS: LEVETIRACETAM 500 MG TABLET PO SCH ×2 (12:10→23:59)
[2017-03-27] MEDS: DULOXETINE HCL 30 MG CAPSULE.DR PO SCH ×2 (12:10→17:11)
[2017-03-27] MEDS: LISINOPRIL 10 MG TABLET PO SCH (12:11)
[2017-03-27] MEDS: LACTOBACILLUS ACIDOPHILUS 250 MG TAB PO SCH ×2 (12:12→17:12)
[2017-03-27] MEDS: DEXAMETHASONE 4 MG TABLET PO SCH ×2 (12:12→23:59)
[2017-03-27] MEDS: FUROSEMIDE 20 MG TABLET PO SCH (12:16)
[2017-03-27] MEDS: INSULIN GLARGINE,HUM.REC.ANLOG 300 UNIT/3 ML INSULN.PEN SUBCUT SCH (15:27)
--- NOTE | 2017-03-27 18:33 | PDOC PROGRESS REPORT ---
Subjective Progress Note for:: 03/27/17 Subjective:: 72-year-old female who presented after a fall and was found to have a hip fracture, in a history of metastatic breast cancer. The patient had surgical repair of her hip fracture and has done well since then. She had a brain MRI done and was found to have metastatic disease. She was started on dexamethasone. She also completed 10 treatments of XRT for brain lesions. Previously been a [facility] but does not want to go back there. Plans to go to [facility] in [place], currently working on a bed. 03/27: Doing well. Nausea improved. Denies headache. Eager to be discharged. No other new complaints. Reason For Visit: LEFT INTERTROCHANTERIC HIP FRACTURE S/P Physical Exam Vital Signs: Temp Pulse Resp BP Pulse Ox 98.1 F 71 17 129/78 H 100 03/27/17 13:09 03/27/17 13:09 03/27/17 13:09 03/27/17 13:09 03/27/17 13:09 Intake & Output 03/26/17 03/27/17 03/28/17 06:59 06:59 06:59 Intake Total 1390 742 Balance 1390 742 General appearance: PRESENT: no acute distress, other - Sitting up in bed watching TV Head exam: PRESENT: atraumatic Mouth exam: PRESENT: moist Neck exam: ABSENT: JVD Respiratory exam: PRESENT: unlabored Cardiovascular exam: PRESENT: RRR GI/Abdominal exam: PRESENT: soft. ABSENT: tenderness Neurological exam: PRESENT: alert, awake, CN II-XII grossly intact Psychiatric exam: PRESENT: appropriate affect Results Laboratory Results: 03/26/17 06:41 03/26/17 06:41 02/28/17 02/28/17 02:45 08:46 Troponin I < 0.012 < 0.012 Impressions: Cervical Spine CT 02/27/17 20:20 IMPRESSION: 1. NO ACUTE OR SIGNIFICANT FINDINGS IN THE CERVICAL SPINE. 2. THE VISUALIZED UPPER THORACIC ESOPHAGUS IS DISTENDED. ON PREVIOUS CHEST CT DONE IN APRIL 2016 THERE WAS MILD ESOPHAGEAL DILATION. THIS IS PROBABLY RELATED TO PREVIOUS GASTRIC BYPASS. THERE MAY BE RELATIVE FUNCTIONAL OBSTRUCTION AT THE GASTROESOPHAGEAL JUNCTION. Chest X-Ray 02/27/17 20:20 IMPRESSION: NO ACUTE RADIOGRAPHIC FINDING IN THE CHEST. Head CT 02/27/17 20:20 IMPRESSION: DECREASED ATTENUATION IN THE WHITE MATTER OF THE POSTERIOR RIGHT PARIETAL LOBE, NOT PRESENT IN APRIL 2016. THIS COULD BE INDICATIVE OF RECENT INFARCT. MRI OF THE BRAIN MAY BE CONSIDERED FOR FURTHER EVALUATION. EVIDENCE OF ACUTE STROKE: POSSIBLE ACUTE OR SUBACUTE INFARCT. RIGHT MCA Head MRI 02/28/17 00:00 IMPRESSION: 1.4 cm enhancing brain parenchymal nodule with surrounding vasogenic edema, posterior right frontal lobe worrisome for metastatic disease EVIDENCE OF ACUTE STROKE: NO. Fluoroscopy 03/01/17 00:00 IMPRESSION: Intra procedural imaging and fluoro Hip X-Ray 03/01/17 00:00 IMPRESSION: Intra procedural imaging and fluoro Lumbar Spine MRI 03/05/17 00:00 IMPRESSION: 1. 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 DEGENERATIVE CHANGES AT THIS LEVEL DESCRIBED ABOVE WITH MODERATE SPINAL STENOSIS AND EXIT FORAMINAL STENOSIS. 2. POSTERIOR HARDWARE AT L5. 3. REMAINDER OF THE STUDY IS RELATIVELY UNREMARKABLE. NO ACUTE FINDINGS. NO FINDINGS CONCERNING FOR METASTATIC INVOLVEMENT OF THE SPINE. Thoracic Spine MRI 03/05/17 00:00 IMPRESSION: NORMAL MRI THORACIC SPINE. Assessment & Plan - Diagnosis (1) Breast cancer metastasized to brain Qualifiers: Laterality: unspecified laterality Qualified Code(s): C50.919 - Malignant neoplasm of unspecified site of unspecified female breast; C79.31 - Secondary malignant neoplasm of brain; C79.31 - Secondary malignant neoplasm of brain; C79.31 - Secondary malignant neoplasm of brain; C79.31 - Secondary malignant neoplasm of brain Is this a current diagnosis for this admission?: Yes Plan: S/p XRT to brain this admission. Will need follow up imaging, defer to outpatient oncologist/radiation oncology (2) CKD (chronic kidney disease) stage 4, GFR 15-29 ml/min Is this a current diagnosis for this admission?: Yes (3) Intertrochanteric fracture of left hip Qualifiers: Encounter type: initial encounter Fracture type: closed Fracture alignment: nondisplaced Qualified Code(s): S72.145A - Nondisplaced intertrochanteric fracture of left femur, initial encounter for closed fracture Is this a current diagnosis for this admission?: Yes Plan: Progressing with PT; awaiting placement to continue rehab - Time Time Spent with patient: Less than 15 minutes Within: when bed available - May need to be transferred to [facility] first and then can go to [facility].
[2017-03-27] MEDS: SIMVASTATIN 40 MG TABLET PO SCH (23:58)
[2017-03-27] MEDS: PRAMIPEXOLE DI-HCL 0.25 MG TABLET PO SCH (23:59)
[2017-03-28] MEDS: OXYCODONE-ACETAMINOPHEN 5-325 MG TABLET PO PRN ×2 (04:27→14:52)
[2017-03-28 05:40] LABS: HEMATOCRIT 37.5 % (36.0-47.0); MEAN CORPUSCULAR HEMOGLOBIN 29.5 pg (27.0-33.4); MEAN CORPUSCULAR VOLUME 92 fl (80-97); PLATELET COUNT 138 10^3/uL (150-450); RED BLOOD COUNT 4.07 10^6/uL (3.72-5.28); RED CELL DISTRIBUTION WIDTH 16.1 % (11.5-14.0); WHITE BLOOD COUNT 6.8 10^3/uL (4.0-10.5)
[2017-03-28 06:02] LABS: ANION GAP 10 (5-19); BLOOD UREA NITROGEN 33 mg/dL (7-20); CALCIUM 8.9 mg/dL (8.4-10.2); CARBON DIOXIDE 23 mmol/L (22-30); CHLORIDE 110 mmol/L (98-107); GLUCOSE 230 mg/dL (75-110); POTASSIUM 5.1 mmol/L (3.6-5.0)
[2017-03-28] MEDS: PREGABALIN 100 MG CAPSULE PO SCH ×2 (06:11→13:43)
[2017-03-28] MEDS: LANSOPRAZOLE 30 MG TAB.RAP.DR PO SCH (06:11)
[2017-03-28] MEDS: LEVOTHYROXINE SODIUM 0.088 MG TABLET PO SCH (06:11)
[2017-03-28 08:54] VITALS: BP 123/70
[2017-03-28] MEDS: INSULIN LISPRO 100 UNIT/ML 3 ML VIAL SUBCUT SCH ×2 (10:19→13:24)
[2017-03-28] MEDS: RIVAROXABAN 10 MG TABLET PO SCH (10:19)
[2017-03-28] MEDS: LEVETIRACETAM 500 MG TABLET PO SCH (10:19)
[2017-03-28] MEDS: DEXAMETHASONE 4 MG TABLET PO SCH (10:19)
[2017-03-28] MEDS: LISINOPRIL 10 MG TABLET PO SCH (10:19)
[2017-03-28] MEDS: LACTOBACILLUS ACIDOPHILUS 250 MG TAB PO SCH (10:19)
[2017-03-28] MEDS: DULOXETINE HCL 30 MG CAPSULE.DR PO SCH (10:19)
[2017-03-28] MEDS: METFORMIN HCL 500 MG TABLET PO SCH (10:20)
[2017-03-28] MEDS: FUROSEMIDE 20 MG TABLET PO SCH (10:23)
[2017-03-28] MEDS: INSULIN GLARGINE,HUM.REC.ANLOG 300 UNIT/3 ML INSULN.PEN SUBCUT SCH (12:18)
--- NOTE | 2017-03-28 14:51 | PDOC TRANSFER SUMMARY ---
General - Admit/Disc Date/PCP Admission Date/Primary Care Provider: 02/27/17 22:14 Discharge Date: 03/28/17 - Discharge Diagnosis (1) Breast cancer metastasized to brain Is this a current diagnosis for this admission?: Yes Summary: Seen by medical oncology in [place], [place]. States that she has been receiving IV Chemo (regimen not known) for past 1.5 years. - MRI brain this admission notable for 1.4 enhancing brain parenchymal nodule with surrounding vasogenic endema, posterior right frontal lobe - Evaluated by radiation oncology, s/p XRT 10 fraction to brain met - Will need rehab to improve performance status and should not receive chemo until PFS improves, will defer management to med oncologist (2) Intertrochanteric fracture of left hip Is this a current diagnosis for this admission?: Yes Summary: Admission imaging notable for displaced left intertrochanteric hip fracture s/p left intertrochanteric hip nailing by ortho on 03/01 - Doing well post op, has been working with PT/OT for strength and conditioning - Should be continued at SNF - On Xarelto 10mg PO for DVT PPX (3) CKD (chronic kidney disease) stage 4, GFR 15-29 ml/min Is this a current diagnosis for this admission?: Yes Summary: Improved, Cr 0.81 on day of discharge - Good UOP - Additional Information Resuscitation Status: Full Code Discharge Diet: Cardiac Discharge Activity: Activity As Tolerated, Slowly Increase Activity, Supervised Activity Prescriptions: Levetiracetam [Keppra 500 mg Tablet] 500 mg PO Q12 30 Days #60 tablet Oxycodone HCl/Acetaminophen [Percocet 5-325 mg Tablet] 0.5 tab PO Q6HP PRN 15 Days #30 tablet PRN Reason: For Pain Home Medications: Duloxetine HCl [Cymbalta] 60 mg PO Q12 05/11/16 Levothyroxine Sodium [Synthroid] 88 mcg PO DAILY 05/11/16 Lisinopril [Prinivil 10 mg Tablet] 10 mg PO DAILY 05/11/16 Pantoprazole Sodium [Protonix] 40 mg PO DAILY 05/11/16 Pramipexole Di-HCl [Pramipexole Dihydrochloride] 0.25 mg PO QHS 05/11/16 Rivaroxaban [Xarelto] 20 mg PO DAILY 05/11/16 Simvastatin [Zocor 40 mg Tablet] 40 mg PO DAILY 05/11/16 Pregabalin [Lyrica] 200 mg PO Q12 05/15/16 Exenatide Microspheres [Bydureon Pen] 2 mg SQ SA@1000 02/28/17 Meclizine HCl 25 mg PO DAILYP PRN 02/28/17 Metformin HCl [Glucophage] 1,000 mg PO Q12 02/28/17 Levetiracetam [Keppra 500 mg Tablet] 500 mg PO Q12 30 Days #60 tablet 03/28/17 Oxycodone HCl/Acetaminophen [Percocet 5-325 mg Tablet] 0.5 tab PO Q6HP PRN 15 Days #30 tablet 03/28/17 History of Present Illness Admission Date/PCP: 02/27/17 22:14 Patient complains of: Pain, inability to walk History of Present Illness: Ms. Tolentino is a 72 year old female who tells me that she was diagnosed with Left breast cancer in 2016. She has known mets to the liver and bones and has been receiving IV chemotherapy treatments every 3 weeks in [place]. She is unsure what type of chemotherapy. She initially underwent mastectomy with lymphadenectomy. She denies ever having been treated with any radiation. Earlier this year, she fractured her right hip. Just prior to admission, she was residing in a group home unit for treatment of cellulitis. She has been admitted for treatment of her Left hip fracture, which was surgically treated 2 days ago. During this admission, MRI of the brain was performed and shows a new enhancing lesion consistent with brain mets. She has not yet undergone any treatment for this. Today, she states that she is feeling pretty good. She denies any pain. No nausea or constipation at present. Goal is to begin physical therapy and transfer her to group home for further rehab. Hospital Course Hospital Course: Per above Physical Exam Vital Signs: Temp Pulse Resp BP Pulse Ox 97.4 F 64 18 123/70 99 03/28/17 07:59 03/28/17 07:59 03/28/17 07:59 03/28/17 07:59 03/28/17 07:59 Intake & Output 03/27/17 03/28/17 03/29/17 06:59 06:59 06:59 Intake Total 742 822 Balance 742 822 General appearance: PRESENT: no acute distress, other - pleaseant, sitting up in bed, NAD Head exam: PRESENT: atraumatic, normocephalic Mouth exam: PRESENT: moist Cardiovascular exam: PRESENT: RRR. ABSENT: systolic murmur GI/Abdominal exam: PRESENT: rigid, soft. ABSENT: tenderness Musculoskeletal exam: PRESENT: other - Moving all extremities spontaneously, did not examing gait Neurological exam: PRESENT: alert, awake, CN II-XII grossly intact Psychiatric exam: PRESENT: appropriate affect Results Laboratory Results: 03/28/17 05:09 03/28/17 05:09 03/28/17 03/28/17 05:09 05:09 WBC 6.8 RBC 4.07 Hgb 12.0 Hct 37.5 MCV 92 MCH 29.5 MCHC 32.0 RDW 16.1 H Plt Count 138 L Sodium 143.0 Potassium 5.1 H Chloride 110 H Carbon Dioxide 23 Anion Gap 10 BUN 33 H Creatinine 0.81 Est GFR ( Amer) > 60 Est GFR (Non-Af Amer) > 60 Glucose 230 H Calcium 8.9 02/28/17 02/28/17 02:45 08:46 Troponin I < 0.012 < 0.012 Impressions: Cervical Spine CT 02/27/17 20:20 IMPRESSION: 1. NO ACUTE OR SIGNIFICANT FINDINGS IN THE CERVICAL SPINE. 2. THE VISUALIZED UPPER THORACIC ESOPHAGUS IS DISTENDED. ON PREVIOUS CHEST CT DONE IN APRIL 2016 THERE WAS MILD ESOPHAGEAL DILATION. THIS IS PROBABLY RELATED TO PREVIOUS GASTRIC BYPASS. THERE MAY BE RELATIVE FUNCTIONAL OBSTRUCTION AT THE GASTROESOPHAGEAL JUNCTION. Chest X-Ray 02/27/17 20:20 IMPRESSION: NO ACUTE RADIOGRAPHIC FINDING IN THE CHEST. Head CT 02/27/17 20:20 IMPRESSION: DECREASED ATTENUATION IN THE WHITE MATTER OF THE POSTERIOR RIGHT PARIETAL LOBE, NOT PRESENT IN APRIL 2016. THIS COULD BE INDICATIVE OF RECENT INFARCT. MRI OF THE BRAIN MAY BE CONSIDERED FOR FURTHER EVALUATION. EVIDENCE OF ACUTE STROKE: POSSIBLE ACUTE OR SUBACUTE INFARCT. RIGHT MCA Head MRI 02/28/17 00:00 IMPRESSION: 1.4 cm enhancing brain parenchymal nodule with surrounding vasogenic edema, posterior right frontal lobe worrisome for metastatic disease EVIDENCE OF ACUTE STROKE: NO. Fluoroscopy 03/01/17 00:00 IMPRESSION: Intra procedural imaging and fluoro Hip X-Ray 03/01/17 00:00 IMPRESSION: Intra procedural imaging and fluoro Lumbar Spine MRI 03/05/17 00:00 IMPRESSION: 1. 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 DEGENERATIVE CHANGES AT THIS LEVEL DESCRIBED ABOVE WITH MODERATE SPINAL STENOSIS AND EXIT FORAMINAL STENOSIS. 2. POSTERIOR HARDWARE AT L5. 3. REMAINDER OF THE STUDY IS RELATIVELY UNREMARKABLE. NO ACUTE FINDINGS. NO FINDINGS CONCERNING FOR METASTATIC INVOLVEMENT OF THE SPINE. Thoracic Spine MRI 03/05/17 00:00 IMPRESSION: NORMAL MRI THORACIC SPINE. Transfer Plan - Time Spent with Patient Time spent with patient: Less than 30 Minutes Plan Time Spent: Greater than 30 Minutes
== END 2017-03-28 17:16 | DRG 481 ==
LOC: ER 20:08 → EH 22:14 → 4S 02-28 00:10 → 5 03-10 17:26
PROVIDERS: ADMIT Family Medicine; ATTEND Family Medicine
PROC: 0QS704Z Reposition Left Upper Femur with Internal Fixation Device, Open Approach (ICD-10-PCS; principal; 2017-03-01 12:30)
PROC: 30233N1 Transfusion of Nonautologous Red Blood Cells into Peripheral Vein, Percutaneous Approach (ICD-10-PCS; 2017-03-02)
DX: S72.145A Nondisplaced intertrochanteric fracture of left femur, initial encounter for closed fracture (principal); C78.7 Secondary malignant neoplasm of liver and intrahepatic bile duct; L03.116 Cellulitis of left lower limb; C79.31 Secondary malignant neoplasm of brain; Z85.3 Personal history of malignant neoplasm of breast; E03.9 Hypothyroidism, unspecified; E11.40 Type 2 diabetes mellitus with diabetic neuropathy, unspecified; I12.9 Hypertensive chronic kidney disease with stage 1 through stage 4 chronic kidney disease, or unspecified chronic kidney disease; E11.22 Type 2 diabetes mellitus with diabetic chronic kidney disease; N18.9 Chronic kidney disease, unspecified; D50.9 Iron deficiency anemia, unspecified; M79.7 Fibromyalgia; M54.42 Lumbago with sciatica, left side; G89.29 Other chronic pain; Z86.718 Personal history of other venous thrombosis and embolism; Z79.01 Long term (current) use of anticoagulants; E78.5 Hyperlipidemia, unspecified; M19.90 Unspecified osteoarthritis, unspecified site; F32.9 Major depressive disorder, single episode, unspecified; Z79.84 Long term (current) use of oral hypoglycemic drugs; Z88.8 Allergy status to other drugs, medicaments and biological substances; Z90.12 Acquired absence of left breast and nipple; W20.8XXA Other cause of strike by thrown, projected or falling object, initial encounter; Y93.89 Activity, other specified; Y92.099 Unspecified place in other non-institutional residence as the place of occurrence of the external cause; Y99.8 Other external cause status
CPT/HCPCS: 01230; 36415; 36430; 70450; 70553; 71010; 71020; 72125; 72157; 72158; 76380; 80048; 80053; 80202; 81001; 82565; 82962; 83735; 84132; 84443; 84484; 85025; 85027; 85610; 86850; 86900; 86901; 86920; 87040; 87086; 93005; 93010; 93970; 94799; 96361; 96374; 99285; A9577; G8978-GP; G8979-GP; G8987-GO; G8988-GO; J0330; J0696; J1100; J1644; J1815; J2250; J2270; J2405; J2704; J3010; J3370; J3490; J7030; J7060; P9016